=== PATIENT | female | born 1965 | race Caucasian/White ===

== ENCOUNTER 2020-12-29 19:57 | Observation (INO) | payer OTHER, SELFPAY ==
[2020-12-29] VITALS (30 sets, daily range): BP systolic 98–143; BP diastolic 44–94; PULSE 90–123; RESP 18–20; TEMP 36; O2SAT 94–100
--- NOTE | 2020-12-29 20:00 | RT.EKG_ITS ---
APPROVED REPORT Exam: Resting ECG Reason for Exam: tachy Patient Location: E HR:111 bpm ECG Measurements Heart Rate 111 AXIS CA 149 P 64 QRSd 86 QRS 34 QT 343 T 45 QTc 465 Conclusion Sinus tachycardia...rate> 99 Probable left atrial enlargement...P >50mS, <-0.10mV V1 Anteroseptal infarct, old...Q >40mS, V1-V2 Physician: No stemi, minimal less than 1mm elevation in V1 v2
--- NOTE | 2020-12-29 20:30 | DI.CT_ITS ---
Exam(s) CT HEAD NECK W EXAM: CT HEAD NECK W CLINICAL HISTORY: stroke. TECHNIQUE: Imaging Protocol: Axial CT angiography was performed with multi-slice acquisition and mu lti-planar and/or 3D reconstructions. CONTRAST MATERIAL: Intravenous: Omnipaque 350 Contrast volume:85 cc COMPARISON: CT HEAD NECK FACIAL WO from 06/16/2017 FINDINGS: CT Head W/O and W contrast: Ventricles and Extra axial spaces: Normal in size and morphology for the patient's age. Hemorrhage: None. Cerebral parenchyma: Normal. Midline shift: None. Brainstem/Cerebellum: Normal. Calvarium: Normal. Visualized Paranasal sinuses/Mastoids: Clear. Soft Tissues: Unremarkable. Enhancement: Normal. CTA Brain W: Internal Carotid Arteries: Petrous: Normal. Cavernous: Normal. Cerebral: Normal. Middle Cerebral Arteries: Right: No aneurysm, occlusion or significant stenosis. Left: No aneurysm, occlusion or significant stenosis. Anterior Cerebral Arteries: Right: No aneurysm, occlusion or significant stenosis. Left: No aneurysm, occlusion or significant stenosis. Posterior cerebral Arteries: Right: No aneurysm, occlusion or significant stenosis. Intracerebral portion hypoplastic. Left: No aneurysm, occlusion or significant stenosis. Intracerebral portion hypoplastic. Vertebral Arteries: Right: No aneurysm, occlusion or significant stenosis. hypoplastic. Left: No aneurysm, occlusion or significant stenosis. Hypoplastic. Basilar Artery: No aneurysm, occlusion or significant stenosis. Hypoplastic. CTA Neck W: Common Carotid: Right: No aneurysm, occlusion or significant stenosis. Left: No aneurysm, occlusion or significant stenosis. External Carotid: Right: No aneurysm, occlusion or significant stenosis. Left: No aneurysm, occlusion or significant stenosis. Internal Carotid: Right: No aneurysm, occlusion or significant stenosis. Left: No aneurysm, occlusion or significant stenosis. Vertebral Artery: Right: No aneurysm, occlusion or significant stenosis. Left: No aneurysm, occlusion or significant stenosis. Lung Apices: Normal. Bones: Normal. Soft Tissues: Normal. IMPRESSION: 1. Hypoplastic posterior circulation, otherwise normal CTA examination of the [place]. 2. Unremarkable CT Head. 3. Normal CTA examination of the neck. RADIATION DOSE DELIVERED: 1,942.86mGy.cm Total DLP DATA REPOSITORY: All CT scans at this facility are submitted to the National Radiology Data Registry (NRDR) Dose Index Registry (DIR) with the [employer] (ACR). RADIATION OPTIMIZATION: All CT scans at this facility use at least one of these dose optimization te chniques: automated exposure control; mA and/or kV adjustment per patient size (includes targeted exa ms where dose is matched to clinical indication); or iterative reconstruction.
[2020-12-29 20:57] LABS: Abs Immature Grans 0.02 10^3/uL (0.0-0.06); Absolute Basophil Count 0.08 10^3/uL (0.0-0.2); Absolute Eosinophil Count 0.37 10^3/uL (0.0-0.7); Absolute Lymphocyte Count 4.14 10^3/uL (1.2-3.4); Eosinophils % 4.7; HCT 37.3 % (36.0-46.0); HGB 12.3 g/dL (11.2-15.7); Immature Grans % 0.3; MCH 31.6 pg (27.0-33.0); MCV 95.9 fL (80-95); MPV 10.1 fL (8.0-11.0); Nucleated RBC 0 %; Platelet Count 326 10^3/uL (130-400); RBC 3.89 10^6/uL (3.93-5.22); RDW 13.2 % (11.7-14.6); RDW-SD 47.2 fL; WBC 7.81 10^3/uL (4.4-10.8)
[2020-12-29 21:14] LABS: ALT 26 U/L (14-59); AST 16 U/L (15-37); Albumin 3.9 g/dL (3.4-5.0); Alkaline Phosphatase 90 U/L (46-116); Anion Gap 9.8 mmol/L (3-11); BUN 15 mg/dL (7-18); Bilirubin, Total 0.2 mg/dL (0.2-1.0); CO2 27.2 mmol/L (21.0-32.0); Calcium 8.9 mg/dL (8.5-10.1); Chloride 105 mmol/L (98-107); Estimated GFR 57.15 (mL/min/1.73m2); Glucose 97 mg/dL (74-106); Magnesium 2.4 mg/dL (1.8-2.4); Potassium 3.9 mmol/L (3.5-5.1); Sodium 142 mmol/L (136-145)
[2020-12-29] MEDS: Omnipaque 350 MG/ML 100 ML BTL IJ (21:20)
[2020-12-29] MEDS: Normal Saline - Diluent 50 ML VIAL IV (21:21)
[2020-12-29 21:36] LABS: Prothrombin Time 9.9 sec (9.3-11.0)
--- NOTE | 2020-12-29 21:56 | ED.GENADUL_ITS ---
Discharge Plan Disposition Patient Disposition: [facility] INPATIENT Condition: Stable Discharge Details Primary Care Provider: Katie Starks ED Provider: Naomy Lucio Home Meds and New Rx's Prescriptions: No Action atorvastatin [Lipitor] 10 MG tablet 10 mg PO HS RF: 0 levothyroxine [Synthroid] 112 MCG tablet 150 mcg PO DAILY RF: 0 bupropion HCl [Wellbutrin XL] 300 mg Tablet Extended Release 24 Hr 300 mg PO DAILY RF: 0 lamotrigine 200 mg Tablet 200 mg PO BID RF: 0 Medical Decision Making patient presents with altered mental status. initial exam unremarkable but reports double vision lack of coordination. differentials: TIA, CVA, complex migraine, CTA head and neck and routine lab ordered. labs unremarkable. CTA shows hypoplastic vertebral arteries. given asa 325 mg and atorvastatin 40mg po. case discussed with DR Luna who accepts for observation admission for CVA evaluation Medical Records Medical records reviewed: Yes I reviewed the patient's medical records. Imaging Data Radiologic Study: Imaging: CT Scan Radiologist's impression: PROCEDURE INFORMATION: Exam: CT Angiography Head With Contrast, Arteriography Exam date and time: 12/29/2020 8:36 PM Clinical indication: Weakness, facial; Other: Cta neck; Patient HX: Facial weakness; Additional info: Non contrast head CT included, and head 5 minute delay post contrast and cta head and neck, please comment on all of the above in report. TECHNIQUE: Imaging protocol: Computed tomography angiography of the head with contrast. Exam focused on the arteries. COMPARISON: No relevant prior studies available. FINDINGS: ANTERIOR CIRCULATION: Right internal carotid artery: Unremarkable. Intracranial segment is patent with no significant stenosis. No aneurysm. Right middle cerebral artery: Unremarkable. No occlusion or significant stenosis. No aneurysm. Right anterior cerebral artery: Unremarkable. No occlusion or significant stenosis. No aneurysm. Left internal carotid artery: Unremarkable. Intracranial segment is patent with no significant stenosis. No aneurysm. Left middle cerebral artery: Unremarkable. No occlusion or significant stenosis. No aneurysm. Left anterior cerebral artery: Unremarkable. No occlusion or significant stenosis. No aneurysm. POSTERIOR CIRCULATION: Right vertebral artery: Hypoplastic intracerebral portion. Left vertebral artery: Hypoplastic intracerebral portion. Basilar artery: Hypoplastic Right posterior cerebral artery: Partially supplied by posterior communicating artery. Hypoplastic. Left posterior cerebral artery: Partially supplied by posterior communicating artery. Hypoplastic. Brain: No definite mass, mass effect, or midline shift. Cerebral ventricles: No ventriculomegaly. Bones/joints: Unremarkable. No acute fracture. Soft tissues: Unremarkable. IMPRESSION: 1. No large vessel stenosis or occlusion. 2. Hypoplastic posterior circulation. Lab Data Lab results reviewed: Yes I reviewed the patient's lab results. Lab results narrative: Laboratory Results - last 24 hr 12/29/20 12/29/20 12/29/20 20:20 20:20 20:32 WBC 7.81 RBC 3.89 L Hgb 12.3 Hct 37.3 MCV 95.9 H MCH 31.6 MCHC 33.0 RDW 13.2 Plt Count 326 MPV 10.1 Immature Gran % 0.3 Neutrophils % 32.0 Band Neutrophils % Lymphocytes % 53.0 Atypical Lymphs % Monocytes % 9.0 Eosinophils % 4.7 Basophils % 1.0 Metamyelocytes % Myelocytes % Promyelocytes % Other Cells % Nucleated RBC % 0 Absolute Neutrophils 2.50 Absolute Lymphocytes 4.14 H Absolute Monocytes 0.70 Absolute Eosinophils 0.37 Absolute Basophils 0.08 RBC Morphology Polychromasia Hypochromasia Poikilocytosis Basophilic Stippling Anisocytosis Microcytosis Macrocytosis Spherocytes Tear Drop Cells Ovalocytes Stomatocytes [place] Bodies [place] Cells/Echinocytes Acanthocytes (Spur) Schistocytes PT INR Sodium 142 Cancelled Potassium 3.9 Cancelled Chloride 105 Cancelled Carbon Dioxide 27.2 Cancelled Anion Gap 9.8 Cancelled BUN 15 Cancelled Creatinine 1.0 Cancelled Estimated GFR/1.73 m2 57.15 Cancelled Glucose 97 Cancelled Calcium 8.9 Cancelled Magnesium 2.4 Cancelled Total Bilirubin 0.2 Cancelled AST 16 Cancelled ALT 26 Cancelled Alkaline Phosphatase 90 Cancelled Troponin I Cancelled Total Protein 7.0 Cancelled Albumin 3.9 Cancelled 12/29/20 12/29/20 12/29/20 20:32 21:00 23:32 WBC Cancelled RBC Cancelled Hgb Cancelled Hct Cancelled MCV Cancelled MCH Cancelled MCHC Cancelled RDW Cancelled Plt Count Cancelled MPV Cancelled Immature Gran % Cancelled Neutrophils % Cancelled Band Neutrophils % Cancelled Lymphocytes % Cancelled Atypical Lymphs % Cancelled Monocytes % Cancelled Eosinophils % Cancelled Basophils % Cancelled Metamyelocytes % Cancelled Myelocytes % Cancelled Promyelocytes % Cancelled Other Cells % Cancelled Nucleated RBC % Cancelled Absolute Neutrophils Cancelled Absolute Lymphocytes Cancelled Absolute Monocytes Cancelled Absolute Eosinophils Cancelled Absolute Basophils Cancelled RBC Morphology Cancelled Polychromasia Cancelled Hypochromasia Cancelled Poikilocytosis Cancelled Basophilic Stippling Cancelled Anisocytosis Cancelled Microcytosis Cancelled Macrocytosis Cancelled Spherocytes Cancelled Tear Drop Cells Cancelled Ovalocytes Cancelled Stomatocytes Cancelled [place] Bodies Cancelled Meghna Cells/Echinocytes Cancelled Acanthocytes ([place]) Cancelled Schistocytes Cancelled PT 9.9 INR 1.0 Sodium Potassium Chloride Carbon Dioxide Anion Gap BUN Creatinine Estimated GFR/1.73 m2 Glucose Calcium Magnesium Total Bilirubin AST ALT Alkaline Phosphatase Troponin I Cancelled Total Protein Albumin HPI General Mode of arrival: ambulatory . Limitations to Documentation: no limitations . Information obtained by: patient . HPI Narrative: patient presents with c/o double vision, reported confusion, generalized uncoordinated movements. no similar history, no headache. sudden onset 35 minutes prior to arrival. has been in her usual state of health. Related Data Home Medications Medication Instructions Recorded Confirmed atorvastatin [Lipitor] 10 mg PO HS 06/16/17 12/29/20 levothyroxine [Synthroid] 150 mcg PO DAILY 06/16/17 12/29/20 bupropion HCl [Wellbutrin XL] 300 mg PO DAILY 12/29/20 12/29/20 lamotrigine 200 mg PO BID 12/29/20 12/29/20 Allergies Allergy/AdvReac Type Severity Reaction Status Date / Time No Known Allergies Allergy Unverified 06/16/17 08:25 General Stated Complaint: GenMedical LINDY: 3 Review of Systems All systems reviewed & are unremarkable except as noted in HPI and below Constitutional Constitutional: Denies fever(s), Denies headache(s) and Reports weakness (generalized) Eyes Eyes: Reports diplopia ENT Ears, Nose, Mouth, and Throat: Denies vertigo and Denies headache(s) Cardiovascular Cardiovascular: Denies chest pain and Denies dyspnea Respiratory Respiratory: Denies dyspnea Gastrointestinal Gastrointestinal: Denies nausea Integumentary/Breasts Skin/Breast: Denies rash Neurologic Neurologic: Reports confusion, Denies vertigo, Denies headache(s), Reports lack of coordination and Reports weakness (generalized) Psychiatric Psychiatric: Reports confusion PFSH Social History Smoking/Tobacco Use Status: Never Smoking risk assessment performed?: Yes Alcohol Intake: never Substance use type: does not use Do you feel safe at home: Yes Do you feel safe in your relationship?: Yes Exam Const General: cooperative, healthy appearing, comfortable, no acute distress and anxious Nutritional Appearance: thin Orientation: alert, awake and oriented x3 HENMT Head: normal to inspection, normocephalic and atraumatic Mouth: oral mucosae normal Resp Effort & Inspection: normal respiratory effort Auscultation: clear to auscultation bilaterally Cardio Rate: regular rate Rhythm: regular rhythm GI Inspection: normal to inspection Palpation: soft and nontender Skin General skin exam: no rashes or lesions noted Neuro General: patient alert, patient awake and patient oriented x3 Cranial Nerves: CN's II-XI intact bilaterally, PERRL, EOM intact bilaterally, no nystagmus, facial strength normal, tongue midline and able to elevate shoulders bilaterally Cognition: normal cognition Speech: speech normal Motor: muscle tone normal throughout, strength 5/5 throughout and no tremors Sensory Exam: no sensory deficits noted Coordination: [id number] test normal Extrem General: normal to inspection, full ROM, no pedal edema and no calf tenderness Course Vital Signs Vital signs: Vital Signs Pulse 123 H 12/29/20 20:04 Respiratory Rate 20 12/29/20 20:04 Blood Pressure 143/94 H 12/29/20 20:04 Pulse Oximetry 100 12/29/20 20:04 Pulse 123 H 12/29/20 20:04 Respiratory Rate 18 12/29/20 20:31 Respiratory Effort Non-Labored 12/29/20 20:31 Respiratory Depth Normal 12/29/20 20:31 Respiratory Pattern Normal 12/29/20 20:31 Blood Pressure 143/94 H 12/29/20 20:04 Blood Pressure Position Supine 12/29/20 20:04 Pulse Oximetry 100 12/29/20 20:04 Oxygen Delivery Method Room Air 12/29/20 20:04 Oxygen Flow Rate 0 12/29/20 20:04 Pain Level 0 12/29/20 20:04 Lab/Test Results Lab/Test Results: Laboratory Tests Range/Units 12/29/20 12/29/20 12/29/20 20:20 20:20 20:32 WBC (4.4-10.8) 10^3/uL 7.81 RBC (3.93-5.22) 10^6/uL 3.89 L Hgb (11.2-15.7) g/dL 12.3 Hct (36.0-46.0) % 37.3 MCV (80-95) fL 95.9 H MCH (27.0-33.0) pg 31.6 MCHC (32.0-36.0) % 33.0 RDW (11.7-14.6) % 13.2 Plt Count (130-400) 10^3/uL 326 MPV (8.0-11.0) fL 10.1 Immature Gran % 0.3 Neutrophils % 32.0 Band Neutrophils % Lymphocytes % 53.0 Atypical Lymphs % Monocytes % 9.0 Eosinophils % 4.7 Basophils % 1.0 Metamyelocytes % Myelocytes % Promyelocytes % Other Cells % Nucleated RBC % % 0 Absolute Neutrophils (1.2-6.7) 10^3/uL 2.50 Absolute Lymphocytes (1.2-3.4) 10^3/uL 4.14 H Absolute Monocytes (0.1-0.8) 10^3/uL 0.70 Absolute Eosinophils (0.0-0.7) 10^3/uL 0.37 Absolute Basophils (0.0-0.2) 10^3/uL 0.08 RBC Morphology Polychromasia Hypochromasia Poikilocytosis Basophilic Stippling Anisocytosis Microcytosis Macrocytosis Spherocytes Tear Drop Cells Ovalocytes Stomatocytes [place] Bodies Meghna Cells/Echinocytes Acanthocytes (Spur) Schistocytes PT (9.3-11.0) sec INR (0.9-1.1) Sodium (136-145) mmol/L 142 Cancelled Potassium (3.5-5.1) mmol/L 3.9 Cancelled Chloride (98-107) mmol/L 105 Cancelled Carbon Dioxide (21.0-32.0) mmol/L 27.2 Cancelled Anion Gap (3-11) mmol/L 9.8 Cancelled BUN (7-18) mg/dL 15 Cancelled Creatinine (0.55-1.02) mg/dL 1.0 Cancelled Estimated GFR/1.73 m2 (mL/min/1.73m2) 57.15 Cancelled Glucose (74-106) mg/dL 97 Cancelled Calcium (8.5-10.1) mg/dL 8.9 Cancelled Magnesium (1.8-2.4) mg/dL 2.4 Cancelled Total Bilirubin (0.2-1.0) mg/dL 0.2 Cancelled AST (15-37) U/L 16 Cancelled ALT (14-59) U/L 26 Cancelled Alkaline Phosphatase (46-116) U/L 90 Cancelled Troponin I Cancelled Total Protein (6.4-8.2) g/dL 7.0 Cancelled Albumin (3.4-5.0) g/dL 3.9 Cancelled Range/Units 12/29/20 12/29/20 12/29/20 20:32 21:00 23:32 WBC (4.4-10.8) 10^3/uL Cancelled RBC (3.93-5.22) 10^6/uL Cancelled Hgb (11.2-15.7) g/dL Cancelled Hct (36.0-46.0) % Cancelled MCV (80-95) fL Cancelled MCH (27.0-33.0) pg Cancelled MCHC (32.0-36.0) % Cancelled RDW (11.7-14.6) % Cancelled Plt Count (130-400) 10^3/uL Cancelled MPV (8.0-11.0) fL Cancelled Immature Gran % Cancelled Neutrophils % Cancelled Band Neutrophils % Cancelled Lymphocytes % Cancelled Atypical Lymphs % Cancelled Monocytes % Cancelled Eosinophils % Cancelled Basophils % Cancelled Metamyelocytes % Cancelled Myelocytes % Cancelled Promyelocytes % Cancelled Other Cells % Cancelled Nucleated RBC % % Cancelled Absolute Neutrophils (1.2-6.7) 10^3/uL Cancelled Absolute Lymphocytes (1.2-3.4) 10^3/uL Cancelled Absolute Monocytes (0.1-0.8) 10^3/uL Cancelled Absolute Eosinophils (0.0-0.7) 10^3/uL Cancelled Absolute Basophils (0.0-0.2) 10^3/uL Cancelled RBC Morphology Cancelled Polychromasia Cancelled Hypochromasia Cancelled Poikilocytosis Cancelled Basophilic Stippling Cancelled Anisocytosis Cancelled Microcytosis Cancelled Macrocytosis Cancelled Spherocytes Cancelled Tear Drop Cells Cancelled Ovalocytes Cancelled Stomatocytes Cancelled [place] Bodies Cancelled [place] Cells/Echinocytes Cancelled Acanthocytes ([place]) Cancelled Schistocytes Cancelled PT (9.3-11.0) sec 9.9 INR (0.9-1.1) 1.0 Sodium (136-145) mmol/L Potassium (3.5-5.1) mmol/L Chloride (98-107) mmol/L Carbon Dioxide (21.0-32.0) mmol/L Anion Gap (3-11) mmol/L BUN (7-18) mg/dL Creatinine (0.55-1.02) mg/dL Estimated GFR/1.73 m2 (mL/min/1.73m2) Glucose (74-106) mg/dL Calcium (8.5-10.1) mg/dL Magnesium (1.8-2.4) mg/dL Total Bilirubin (0.2-1.0) mg/dL AST (15-37) U/L ALT (14-59) U/L Alkaline Phosphatase (46-116) U/L Troponin I Cancelled Total Protein (6.4-8.2) g/dL Albumin (3.4-5.0) g/dL
--- NOTE | 2020-12-29 22:50 | DI.VRAD_ITS ---
Addendum created by Narendra Claudio DO on 12/29/2020 10:55:07 PM EDT: THIS REPORT CONTAINS FINDINGS THAT MAY BE CRITICAL TO PATIENT CARE. The findings were verbally communicated via telephone conference with Dr. Condon, 12/29/2020 10:54 PM EDT. The findings were acknowledged and understood. Reportedly the patient had a short period with vertiginous symptoms and poor coordination, since resolved. Initial report created on 12/29/2020 10:50:03 PM EDT: PROCEDURE INFORMATION: Exam: CT Angiography Head With Contrast, Arteriography Exam date and time: 12/29/2020 8:36 PM Clinical indication: Weakness, facial; Other: Cta neck; Patient HX: Facial weakness; Additional info: Non contrast head CT included, and head 5 minute delay post contrast and cta head and neck, please comment on all of the above in report. TECHNIQUE: Imaging protocol: Computed tomography angiography of the head with contrast. Exam focused on the arteries. COMPARISON: No relevant prior studies available. FINDINGS: ANTERIOR CIRCULATION: Right internal carotid artery: Unremarkable. Intracranial segment is patent with no significant stenosis. No aneurysm. Right middle cerebral artery: Unremarkable. No occlusion or significant stenosis. No aneurysm. Right anterior cerebral artery: Unremarkable. No occlusion or significant stenosis. No aneurysm. Left internal carotid artery: Unremarkable. Intracranial segment is patent with no significant stenosis. No aneurysm. Left middle cerebral artery: Unremarkable. No occlusion or significant stenosis. No aneurysm. Left anterior cerebral artery: Unremarkable. No occlusion or significant stenosis. No aneurysm. POSTERIOR CIRCULATION: Right vertebral artery: Hypoplastic intracerebral portion. Left vertebral artery: Hypoplastic intracerebral portion. Basilar artery: Hypoplastic Right posterior cerebral artery: Partially supplied by posterior communicating artery. Hypoplastic. Left posterior cerebral artery: Partially supplied by posterior communicating artery. Hypoplastic. Brain: No definite mass, mass effect, or midline shift. Cerebral ventricles: No ventriculomegaly. Bones/joints: Unremarkable. No acute fracture. Soft tissues: Unremarkable. IMPRESSION: 1. No large vessel stenosis or occlusion. 2. Hypoplastic posterior circulation. PROCEDURE INFORMATION: Exam: CT Head With Contrast Exam date and time: 12/29/2020 8:36 PM Age: 55 years old Clinical indication: Weakness, facial; Other: Cta neck; Patient HX: Facial weakness; Additional info: Non contrast head CT included, and head 5 minute delay post contrast and cta head and neck, please comment on all of the above in report. TECHNIQUE: Imaging protocol: Computed tomography of the head with intravenous contrast. 3D rendering (Not supervised by radiologist): MIP and/or 3D reconstructed images were created by the technologist. Radiation optimization: All CT scans at this facility use at least one of these dose optimization techniques: automated exposure control; mA and/or kV adjustment per patient size (includes targeted exams where dose is matched to clinical indication); or iterative reconstruction. Contrast material: OMNIPAQUE 350; Contrast route: INTRAVENOUS (IV); COMPARISON: CT HEAD NECK FACIAL WO 06/16/2017 9:25 AM FINDINGS: Brain: There is mild diffuse cerebral atrophy present, consistent with this patient's age. No hemorrhage. Unremarkable white matter. No mass effect. No abnormal enhancing lesions. Cerebral ventricles: Unremarkable. No ventriculomegaly. Bones/joints: Unremarkable. No acute fracture. Paranasal sinuses: Mucoperiosteal thickening in left sphenoid sinus. Several opacified ethmoid air cells. Small cyst or polyp in right sphenoid sinus. No fluid levels. Mastoid air cells: Visualized mastoid air cells are well aerated. Vasculature: Homogeneous enhancement of venous sinuses. Soft tissues: Unremarkable. IMPRESSION: 1. No acute intracranial abnormality. 2. No abnormal areas of brain parenchymal enhancement. 3. Sinus disease. PROCEDURE INFORMATION: Exam: CT Angiography Neck With Contrast Exam date and time: 12/29/2020 8:36 PM Clinical indication: Weakness, facial; Other: Cta neck; Patient HX: Facial weakness; Additional info: Non contrast head CT included, and head 5 minute delay post contrast and cta head and neck, please comment on all of the above in report. TECHNIQUE: Imaging protocol: Computed tomography angiography of the neck with contrast. COMPARISON: No relevant prior studies available. FINDINGS: Right common carotid artery: Atherosclerotic calcification distally No stenosis. No dissection or occlusion. Right internal carotid artery: No stenosis of the extracranial segment. No dissection or occlusion. Right external carotid artery: No occlusion or stenosis of the origin. Left common carotid artery: No stenosis. No dissection or occlusion. Left internal carotid artery: Atherosclerotic calcification at origin. No stenosis of the extracranial segment. No dissection or occlusion. Left external carotid artery: No occlusion or stenosis of the origin. Right vertebral artery: No stenosis. No dissection or occlusion. Left vertebral artery: No stenosis. No dissection or occlusion. Soft tissues: Normal. No significant soft tissue swelling. Bones/joints: No acute fracture. Lungs: Dependent subsegmental atelectasis. Biapical pleuroparenchymal scarring. IMPRESSION: No stenosis or occlusion. REFERENCES: NASCET CRITERIA. The degree of internal carotid artery stenosis is based on NASCET criteria. Normal is no stenosis. Mild is less than 50% stenosis. Moderate is 50-69% stenosis. Severe is 70% to 99% stenosis. Total occlusion is no detectable patent lumen. Dictated and Authenticated by: Narendra Claudio MD. Ordering:LAURA Moralez MD
[2020-12-29] MEDS: Aspirin 325 MG TAB PO (23:17)
[2020-12-29] MEDS: Atorvastatin 40 MG TAB PO (23:17)
--- NOTE | 2020-12-29 23:20 | W.PM.HP.N ---
Date of service: 12/29/20 Time of Service: 23:21 Assessment and Plan Assessment and plan (1) TIA (transient ischemic attack): Status: Acute Assessment and plan: referred to observation on telemetry with neuro checks overnight asa 325mg and atorvastatin 40 mg PO given MRI and echo in am neurology consult (2) Hypothyroidism: Status: Chronic Assessment and plan: continue levothyroxine check TSH (3) Dyslipidemia: Status: Acute Assessment and plan: add lipid profile continue statin (4) Breast cancer: Status: Chronic Assessment and plan: treated and in remission discussed with DR Luna History of Present Illness History of Present Illness Chief Complaint: altered mental status Narrative: patient presents with c/o lack of coordination, double vision, confusion, feeling drunk. no similar history, no headache or nausea, no recent illness. work up in the ED shows normal labs but CTA shows hypoplastic vertebral arteries. symptoms resolved spontaneously after approx 1 hour. she was given asa 325 mg and atorvastatin 40 mg and will be referred to observation on telemetry for stroke work up. symptoms remain resolved at time of admission Review of Systems All systems reviewed & are unremarkable except as noted in HPI and below Constitutional Constitutional: Denies fever(s), Denies headache(s) and Reports weakness (generalized) Eyes Eyes: Reports diplopia ENT Ears, Nose, Mouth, and Throat: Denies vertigo and Denies headache(s) Cardiovascular Cardiovascular: Denies chest pain and Denies dyspnea Respiratory Respiratory: Denies dyspnea Gastrointestinal Gastrointestinal: Denies nausea Integumentary/Breasts Skin/Breast: Denies rash Neurologic Neurologic: Reports confusion, Denies vertigo, Denies headache(s), Reports lack of coordination and Reports weakness (generalized) Psychiatric Psychiatric: Reports confusion PFSH Social History Smoking/Tobacco Use Status: Never Smoking risk assessment performed?: Yes Alcohol Intake: never Substance use type: does not use Do you feel safe at home: Yes Do you feel safe in your relationship?: Yes Meds Allergies and Home Medications Allergies Allergy/AdvReac Type Severity Reaction Status Date / Time No Known Allergies Allergy Unverified 06/16/17 08:25 Home Medications Medication Instructions Recorded Confirmed Type atorvastatin [Lipitor] 10 mg PO HS 06/16/17 12/29/20 History levothyroxine [Synthroid] 150 mcg PO DAILY 06/16/17 12/29/20 History bupropion HCl [Wellbutrin XL] 300 mg PO DAILY 12/29/20 12/29/20 History lamotrigine 200 mg PO BID 12/29/20 12/29/20 History Exam Const General: cooperative, healthy appearing, comfortable, no acute distress and anxious Nutritional Appearance: thin Orientation: alert, awake and oriented x3 HENMT Head: normal to inspection, normocephalic and atraumatic Mouth: oral mucosae normal Resp Effort & Inspection: normal respiratory effort Auscultation: clear to auscultation bilaterally Cardio Rate: regular rate Rhythm: regular rhythm GI Inspection: normal to inspection Palpation: soft and nontender Skin General skin exam: no rashes or lesions noted Neuro General: patient alert, patient awake and patient oriented x3 Cranial Nerves: CN's II-XI intact bilaterally, PERRL, EOM intact bilaterally, no nystagmus, facial strength normal, tongue midline and able to elevate shoulders bilaterally Cognition: normal cognition Speech: speech normal Motor: muscle tone normal throughout, strength 5/5 throughout and no tremors Sensory Exam: no sensory deficits noted Coordination: [id number] test normal Extrem General: normal to inspection, full ROM, no pedal edema and no calf tenderness Results Labs Result diagrams: 12/29/20 20:20 12/29/20 20:20 Labs: Laboratory Results - last 24 hr 12/29/20 12/29/20 12/29/20 20:20 20:20 20:32 WBC 7.81 RBC 3.89 L Hgb 12.3 Hct 37.3 MCV 95.9 H MCH 31.6 MCHC 33.0 RDW 13.2 Plt Count 326 MPV 10.1 Immature Gran % 0.3 Neutrophils % 32.0 Band Neutrophils % Lymphocytes % 53.0 Atypical Lymphs % Monocytes % 9.0 Eosinophils % 4.7 Basophils % 1.0 Metamyelocytes % Myelocytes % Promyelocytes % Other Cells % Nucleated RBC % 0 Absolute Neutrophils 2.50 Absolute Lymphocytes 4.14 H Absolute Monocytes 0.70 Absolute Eosinophils 0.37 Absolute Basophils 0.08 RBC Morphology Polychromasia Hypochromasia Poikilocytosis Basophilic Stippling Anisocytosis Microcytosis Macrocytosis Spherocytes Tear Drop Cells Ovalocytes Stomatocytes [place] Bodies Meghna Cells/Echinocytes Acanthocytes (Spur) Schistocytes PT INR Sodium 142 Cancelled Potassium 3.9 Cancelled Chloride 105 Cancelled Carbon Dioxide 27.2 Cancelled Anion Gap 9.8 Cancelled BUN 15 Cancelled Creatinine 1.0 Cancelled Estimated GFR/1.73 m2 57.15 Cancelled Glucose 97 Cancelled Calcium 8.9 Cancelled Magnesium 2.4 Cancelled Total Bilirubin 0.2 Cancelled AST 16 Cancelled ALT 26 Cancelled Alkaline Phosphatase 90 Cancelled Troponin I Cancelled Total Protein 7.0 Cancelled Albumin 3.9 Cancelled 12/29/20 12/29/20 12/29/20 20:32 21:00 23:32 WBC Cancelled RBC Cancelled Hgb Cancelled Hct Cancelled MCV Cancelled MCH Cancelled MCHC Cancelled RDW Cancelled Plt Count Cancelled MPV Cancelled Immature Gran % Cancelled Neutrophils % Cancelled Band Neutrophils % Cancelled Lymphocytes % Cancelled Atypical Lymphs % Cancelled Monocytes % Cancelled Eosinophils % Cancelled Basophils % Cancelled Metamyelocytes % Cancelled Myelocytes % Cancelled Promyelocytes % Cancelled Other Cells % Cancelled Nucleated RBC % Cancelled Absolute Neutrophils Cancelled Absolute Lymphocytes Cancelled Absolute Monocytes Cancelled Absolute Eosinophils Cancelled Absolute Basophils Cancelled RBC Morphology Cancelled Polychromasia Cancelled Hypochromasia Cancelled Poikilocytosis Cancelled Basophilic Stippling Cancelled Anisocytosis Cancelled Microcytosis Cancelled Macrocytosis Cancelled Spherocytes Cancelled Tear Drop Cells Cancelled Ovalocytes Cancelled Stomatocytes Cancelled [place] Bodies Cancelled Vesta Cells/Echinocytes Cancelled Acanthocytes (Spur) Cancelled Schistocytes Cancelled PT 9.9 INR 1.0 Sodium Potassium Chloride Carbon Dioxide Anion Gap BUN Creatinine Estimated GFR/1.73 m2 Glucose Calcium Magnesium Total Bilirubin AST ALT Alkaline Phosphatase Troponin I Cancelled Total Protein Albumin Last Vital Signs Pulse 98 H 12/29/20 23:00 Resp 18 12/29/20 20:31 BP 116/61 12/29/20 23:00 Pulse Ox 97 12/29/20 23:10
[2020-12-29 23:32] LABS: Source Nasal/Nares
[2020-12-30 00:03] VITALS: BP 136/78; PULSE 91; RESP 18; TEMP 36; O2SAT 99
[2020-12-30 00:23] LABS: COVID-19 PCR Negative (Negative)
[2020-12-30] MEDS: Melatonin 3 MG TAB 6 MG PO (00:26)
[2020-12-30 03:01] VITALS: BP 101/62; PULSE 87; RESP 18; TEMP 36.5; O2SAT 96
[2020-12-30 07:00] VITALS: PULSE 80
[2020-12-30 07:17] LABS: Abs Immature Grans 0.01 10^3/uL (0.0-0.06); Absolute Basophil Count 0.04 10^3/uL (0.0-0.2); Absolute Eosinophil Count 0.35 10^3/uL (0.0-0.7); Absolute Lymphocyte Count 2.82 10^3/uL (1.2-3.4); Absolute Monocyte Count 0.51 10^3/uL (0.1-0.8); Absolute Neutrophil Count 2.31 10^3/uL (1.2-6.7); Basophils % 0.7; Eosinophils % 5.8; HGB 11.7 g/dL (11.2-15.7); Immature Grans % 0.2; Lymphocytes % 46.7; MCH 31.5 pg (27.0-33.0); MCHC 32.5 % (32.0-36.0); Monocytes % 8.4; Neutrophils % 38.2; Nucleated RBC 0 %; Platelet Count 287 10^3/uL (130-400); RBC 3.71 10^6/uL (3.93-5.22); RDW 13.2 % (11.7-14.6); RDW-SD 47.2 fL; WBC 6.04 10^3/uL (4.4-10.8)
[2020-12-30 07:37] LABS: Anion Gap 7.4 mmol/L (3-11); BUN 10 mg/dL (7-18); CO2 28.6 mmol/L (21.0-32.0); CREATININE 0.9 mg/dL (0.55-1.02); Calcium 8.7 mg/dL (8.5-10.1); Calculated LDL 113 mg/dL (<100); Chloride 109 mmol/L (98-107); Cholesterol 205 mg/dL (<200); Glucose 85 mg/dL (74-106); HDL Cholesterol 87 mg/dL (40-60); Potassium 3.8 mmol/L (3.5-5.1); Sodium 145 mmol/L (136-145); TSH (W/Ref FT4) 1.06 uIU/mL (0.36-3.74); Triglyceride 28 mg/dL (<150)
[2020-12-30 07:38] VITALS: BP 97/62; PULSE 77; RESP 16; TEMP 36.7; O2SAT 97
--- NOTE | 2020-12-30 08:00 | DI.MRI_ITS ---
Exam(s) MR BRAIN WO EXAM: MR BRAIN WO CLINICAL HISTORY: TIA, hypoplastic vertebral arteries. TECHNIQUE: Multiplanar multisequence MRI of the brain was performed. CONTRAST MATERIAL: Noncontrast COMPARISON: CT CT HEAD NECK W from 12/29/2020 FINDINGS: VENTRICLES AND EXTRA AXIAL SPACES: Normal in size and morphology for the patient's age. HEMORRHAGE: None. CEREBRAL PARENCHYMA: No focus of restricted diffusion to suggest acute infarct. No space-occupying le deandre identified. No abnormal high signal lesions are seen in the white matter. MIDLINE SHIFT: None. BRAINSTEM/CEREBELLUM: Normal. VISUALIZED PARANASAL SINUSES/MASTOIDS: Clear. OTHER FINDINGS: The distal vertebral arteries as well as basilar artery and posterior cerebral arteri es show patent flow voids however show reduced overall diameter consistent with hypoplastic changes. Orbits and pituitary are unremarkable. IMPRESSION: Hypoplastic posterior circulation. No evidence of infarct. No significant white matter changes. DATA REPOSITORY:
[2020-12-30] MEDS: Ondansetron 4 MG/2 ML VIAL IVP (08:35)
[2020-12-30] MEDS: Normal Saline Flush 10 ML SYR (08:35)
--- NOTE | 2020-12-30 08:36 | PDOC.CMIN ---
- If Service Date Differs Date of service: 12/30/20 Time of Service: 08:36 Care Management Initial Assess REASON FOR HOSPITALIZATION:: TIA PAST MEDICAL HISTORY/PAST SURGICAL HISTORY:: Breast cancer, dyslipidemia, hypothryoidism, TIA PREVIOUS FUNCTIONAL STATUS/SOCIAL/FAMILY SUPPORTS:: Cherrie resides in [place] with her significant other, Marquis. Their daughterSonam is local and supportive as well. 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. CURRENT FUNCTIONAL STATUS:: Cherrie is lying in bed, pleasant in interaction. She provides insurance information and shares no concerns central to discharge. ADVANCE DIRECTIVES:: None on file, HIPPA on file lists daughterSonam. Has patient been provided with info about the portal/API?: No Did the patient sign up for the portal?: No CODE STATUS:: Full Code INSURANCE COVERAGE / FINANCIAL ISSUES:: [employer] CURRENT HOME/COMMUNITY SERVICES/EQUIPMENT:: None, currently. PRIMARY CARE PHYSICIAN:: Katie Starks POTENTIAL DISCHARGE NEEDS:: Evaluations for further care; TIA workup. PATIENT/FAMILY EDUCATION NEEDS:: Review discharge instructions, discuss Ask Me Three. ANTICIPATED BARRIERS TO DISCHARGE:: None identified. TRANSPORTATION:: Via private vehicle with family. PLAN:: Cherrie will return home when ready per MD. She will follow up with PCP and plan of care as prescribed. She will transport via private vehicle with family.
[2020-12-30] MEDS: buPROPion-XL 150 MG TABCR 300 MG PO (09:18)
[2020-12-30] MEDS: lamoTRIgine 100 MG TAB 200 MG PO (09:18)
[2020-12-30] MEDS: Aspirin E.C. 81 MG TABEC PO (09:18)
[2020-12-30] MEDS: Levothyroxine 150 MCG TAB PO (09:18)
[2020-12-30] MEDS: Normal Saline 1,000 ML 1000 ML IV (09:18)
[2020-12-30] MEDS: Normal Saline 1,000 ML 100 ML IV (10:30)
--- NOTE | 2020-12-30 11:23 | W.PM.DS.N ---
Date of service: 12/30/20 Time of Service: 11:24 DS: Diagnosis Discharge Diagnosis (1) TIA (transient ischemic attack): Status: Acute (2) Hypothyroidism: Status: Chronic (3) Dyslipidemia: Status: Acute (4) Breast cancer: Status: Chronic Discharge Plan Disposition Patient Disposition: HOME Condition: Stable Discharge Details Reason For Visit: TIA Admit Date/Time: 12/29/20 23:05 Admit Provider: Bhaskar Luna Attending Provider: Bhaskar Luna Primary Care Provider: Katie Starks [facility] Course Hospital Course: This is a 55 year old female who presented to the ED after approx 30 minutes of sudden onset of double vision, unsteadiness, confusion, bilateral weakness denying any previous similar history. Her neurology exam was nonfocal and imaging revealed bilateral hypoplastic vertebral arteries. Her labs unremarkable. She was given 325 mg of ASA and 40 mg of atorvastatin in the ED. Her EKG shows normal sinus rhythm and she had no dysrhythmias while monitored on telemetry overnight. She was noted to have SBP in the 90's which she reports is baseline for her, otherwise vitals stable. She had complete resolution of her symptoms after about one hour total duration. she has remained at her baseline and asymptomatic. She underwent an EEG, results pending. Also a lamictal level is pending. Echo not available so will be ordered for outpatient. Her [place] was [place] [facility] [place] recommends to continue TIA work up outpatient as planned, to add asa 81 mg daily to meds and can continue atorvastatin at 10 mg daily after reviewing her lipid profile from this morning. She is being placed on an event recorder and will be discharged home with no services. discharge discussed with DR Jamar Orozco Meds and New Rx's Prescriptions: New aspirin [Aspirin Low Dose] 81 mg tablet,delayed release (DR/EC) 81 mg PO DAILY Qty: 1 RF: 0 Continued atorvastatin [Lipitor] 10 MG tablet 10 mg PO HS RF: 0 levothyroxine [Synthroid] 112 MCG tablet 150 mcg PO DAILY RF: 0 bupropion HCl [Wellbutrin XL] 300 mg Tablet Extended Release 24 Hr 300 mg PO DAILY RF: 0 lamotrigine 200 mg Tablet 200 mg PO BID RF: 0 Discharge Instructions Instructions: Transient Ischemic Attack (DC) Additional Instructions: drink 6-8 glasses of water daily to stay well hydrated. wear satellite project site monitor as directed. add baby aspirin to you daily medication regimen return immediately for new or worsening symptoms Stand Alone Forms: Nursing Discharge Form Referrals: Ying Morales MD [ [facility] STAFF PHYSICIAN] - (Office will call with appointment. ) Activity:: Activity as Tolerated Equipment/Supplies:: No Equipment Needed Diet:: As Tolerated Discharge Orders Discharge Orders: Discharge Order (Routine); Ordered 12/30/20 Ordered By: Naomy Lucio Other Ambulatory Orders: Cardiac Event Recorder (Routine) Timeframe: 20201230 Facility: [facility] - Location: Respiratory Therapy Ordered By: Naoym Lucio echocardiogram (Routine) Location: None Selected Ordered By: Naomy Lucio Discharge Data Discharge Date/Time-TO BE ENTERED AT DEPARTURE: 12/30/20 13:37 DS: Summary Time Spent with Patient providing and/or coordinating discharge services: Less than 30 minutes Status at Discharge Functional status at discharge: independent ambulation Overall status at discharge: patient is back to baseline Mental Status: mental status grossly normal Speech and Movement: speech and movement normal Mood: congruent mood Affect: normal affect Exam Const General: cooperative, healthy appearing, comfortable and no acute distress Nutritional Appearance: thin Orientation: alert, awake and oriented x3 HENMT Head: normal to inspection, normocephalic and atraumatic Mouth: oral mucosae normal Chest Chest: normal inspection of the chest Resp Effort & Inspection: normal respiratory effort Auscultation: clear to auscultation bilaterally Cardio Rate: regular rate Rhythm: regular rhythm GI Inspection: normal to inspection Palpation: soft and nontender Skin General skin exam: no rashes or lesions noted Neuro General: patient alert, patient awake and patient oriented x3 Cranial Nerves: CN's II-XI intact bilaterally, PERRL, EOM intact bilaterally, no nystagmus, facial strength normal, tongue midline, gag reflex normal, able to rotate head bilaterally and able to elevate shoulders bilaterally Cognition: normal cognition Speech: speech normal Gait: normal gait Motor: muscle tone normal throughout, strength 5/5 throughout and no tremors Sensory Exam: no sensory deficits noted Coordination: [id number] test normal Extrem General: normal to inspection, full ROM, no pedal edema and no calf tenderness Psych Mental Status: mental status grossly normal Speech and Movement: speech and movement normal Mood: congruent mood Affect: normal affect DS: Data Vitals/I&O Vitals and I&O: Vital Signs Temperature 36.7 C 12/30/20 07:38 Temperature Source Tympanic 12/30/20 07:38 Pulse 77 12/30/20 07:38 Pulse Rhythm Regular 12/30/20 00:03 Pulse 100 H 12/29/20 23:10 Respiratory Rate 16 12/30/20 07:38 Respiratory Effort 12/30/20 00:03 Respiratory Depth Normal 12/30/20 00:03 Respiratory Pattern Normal 12/30/20 00:03 Blood Pressure 97/62 L 12/30/20 07:38 Blood Pressure Mean 73 12/29/20 23:00 Blood Pressure Position Supine 12/29/20 20:04 Pulse Oximetry 97 12/30/20 07:38 Oxygen Delivery Method Room Air 12/30/20 07:38 Oxygen Flow Rate 0 12/30/20 07:38 Pain Level 0 12/30/20 07:45 Comment 12/30/20 07:45 Intake & Output 12/29/20 12/29/20 12/30/20 11:59 23:59 11:59 Intake Total 1240 / 1240 Output Total 1600 / 1600 Balance -360 / -360 Weight 58.967 kg 56 kg Intake: IV 1000 / 1000 Oral 240 / 240 Output: Urine 1600 / 1600 Other: Urine Color Straw Urine Appearance Clear Urine Odor Normal Comment Void x1 in the toilet. Voiding Methods Toilet Data Completed and Pending Labs on day of discharge: Labs from last 24 hours 12/30/20 12/30/20 12/30/20 10:43 06:22 06:22 WBC 6.04 RBC 3.71 L Hgb 11.7 Hct 36.0 MCV 97.0 H MCH 31.5 MCHC 32.5 RDW 13.2 Plt Count 287 MPV 10.0 Immature Gran % 0.2 Neutrophils % 38.2 Band Neutrophils % Lymphocytes % 46.7 Atypical Lymphs % Monocytes % 8.4 Eosinophils % 5.8 Basophils % 0.7 Metamyelocytes % Myelocytes % Promyelocytes % Other Cells % Nucleated RBC % 0 Absolute Neutrophils 2.31 Absolute Lymphocytes 2.82 Absolute Monocytes 0.51 Absolute Eosinophils 0.35 Absolute Basophils 0.04 RBC Morphology Polychromasia Hypochromasia Poikilocytosis Basophilic Stippling Anisocytosis Microcytosis Macrocytosis Spherocytes Tear Drop Cells Ovalocytes Stomatocytes [place] Bodies Meghna Cells/Echinocytes Acanthocytes (Spur) Schistocytes PT INR Sodium 145 Potassium 3.8 Chloride 109 H Carbon Dioxide 28.6 Anion Gap 7.4 BUN 10 Creatinine 0.9 Estimated GFR/1.73 m2 >= 60.00 Glucose 85 Calcium 8.7 Magnesium Total Bilirubin AST ALT Alkaline Phosphatase Troponin I Total Protein Albumin Triglycerides 28 Total Cholesterol 205 H LDL Cholesterol, Calc 113 H HDL Cholesterol 87 TSH 1.06 Lamotrigine Pending COVID-19 Source SARS-CoV-2 (PCR) 12/29/20 12/29/20 12/29/20 23:32 23:22 21:00 WBC RBC Hgb Hct MCV MCH MCHC RDW Plt Count MPV Immature Gran % Neutrophils % Band Neutrophils % Lymphocytes % Atypical Lymphs % Monocytes % Eosinophils % Basophils % Metamyelocytes % Myelocytes % Promyelocytes % Other Cells % Nucleated RBC % Absolute Neutrophils Absolute Lymphocytes Absolute Monocytes Absolute Eosinophils Absolute Basophils RBC Morphology Polychromasia Hypochromasia Poikilocytosis Basophilic Stippling Anisocytosis Microcytosis Macrocytosis Spherocytes Tear Drop Cells Ovalocytes Stomatocytes [place] Bodies Meghna Cells/Echinocytes Acanthocytes (Spur) Schistocytes PT 9.9 INR 1.0 Sodium Potassium Chloride Carbon Dioxide Anion Gap BUN Creatinine Estimated GFR/1.73 m2 Glucose Calcium Magnesium Total Bilirubin AST ALT Alkaline Phosphatase Troponin I Cancelled Total Protein Albumin Triglycerides Total Cholesterol LDL Cholesterol, Calc HDL Cholesterol TSH Lamotrigine COVID-19 Source Nasal/Nares SARS-CoV-2 (PCR) Negative 12/29/20 12/29/20 12/29/20 20:32 20:32 20:20 WBC Cancelled 7.81 RBC Cancelled 3.89 L Hgb Cancelled 12.3 Hct Cancelled 37.3 MCV Cancelled 95.9 H MCH Cancelled 31.6 MCHC Cancelled 33.0 RDW Cancelled 13.2 Plt Count Cancelled 326 MPV Cancelled 10.1 Immature Gran % Cancelled 0.3 Neutrophils % Cancelled 32.0 Band Neutrophils % Cancelled Lymphocytes % Cancelled 53.0 Atypical Lymphs % Cancelled Monocytes % Cancelled 9.0 Eosinophils % Cancelled 4.7 Basophils % Cancelled 1.0 Metamyelocytes % Cancelled Myelocytes % Cancelled Promyelocytes % Cancelled Other Cells % Cancelled Nucleated RBC % Cancelled 0 Absolute Neutrophils Cancelled 2.50 Absolute Lymphocytes Cancelled 4.14 H Absolute Monocytes Cancelled 0.70 Absolute Eosinophils Cancelled 0.37 Absolute Basophils Cancelled 0.08 RBC Morphology Cancelled Polychromasia Cancelled Hypochromasia Cancelled Poikilocytosis Cancelled Basophilic Stippling Cancelled Anisocytosis Cancelled Microcytosis Cancelled Macrocytosis Cancelled Spherocytes Cancelled Tear Drop Cells Cancelled Ovalocytes Cancelled Stomatocytes Cancelled [place] Bodies Cancelled [place] Cells/Echinocytes Cancelled Acanthocytes (Spur) Cancelled Schistocytes Cancelled PT INR Sodium Cancelled Potassium Cancelled Chloride Cancelled Carbon Dioxide Cancelled Anion Gap Cancelled BUN Cancelled Creatinine Cancelled Estimated GFR/1.73 m2 Cancelled Glucose Cancelled Calcium Cancelled Magnesium Cancelled Total Bilirubin Cancelled AST Cancelled ALT Cancelled Alkaline Phosphatase Cancelled Troponin I Cancelled Total Protein Cancelled Albumin Cancelled Triglycerides Total Cholesterol LDL Cholesterol, Calc HDL Cholesterol TSH Lamotrigine COVID-19 Source SARS-CoV-2 (PCR) 12/29/20 20:20 WBC RBC Hgb Hct MCV MCH MCHC RDW Plt Count MPV Immature Gran % Neutrophils % Band Neutrophils % Lymphocytes % Atypical Lymphs % Monocytes % Eosinophils % Basophils % Metamyelocytes % Myelocytes % Promyelocytes % Other Cells % Nucleated RBC % Absolute Neutrophils Absolute Lymphocytes Absolute Monocytes Absolute Eosinophils Absolute Basophils RBC Morphology Polychromasia Hypochromasia Poikilocytosis Basophilic Stippling Anisocytosis Microcytosis Macrocytosis Spherocytes Tear Drop Cells Ovalocytes Stomatocytes [place] Bodies Meghna Cells/Echinocytes Acanthocytes (Spur) Schistocytes PT INR Sodium 142 Potassium 3.9 Chloride 105 Carbon Dioxide 27.2 Anion Gap 9.8 BUN 15 Creatinine 1.0 Estimated GFR/1.73 m2 57.15 Glucose 97 Calcium 8.9 Magnesium 2.4 Total Bilirubin 0.2 AST 16 ALT 26 Alkaline Phosphatase 90 Troponin I Total Protein 7.0 Albumin 3.9 Triglycerides Total Cholesterol LDL Cholesterol, Calc HDL Cholesterol TSH Lamotrigine COVID-19 Source SARS-CoV-2 (PCR) [facility] Social History Smoking/Tobacco Use Status: Never Smoking risk assessment performed?: Yes Alcohol Intake: never Substance use type: does not use Do you feel safe at home: Yes Do you feel safe in your relationship?: Yes
[2020-12-30 12:16] VITALS: PULSE 96
--- NOTE | 2020-12-30 13:15 | PDOC.EEG_ITS ---
Neurology EEG EEG: [facility] Department of Neurology INPATIENT EEG REPORT Date of Recordin12/30/20 Interpreting Physician: Dr. Ying Morales Reason for study: Ms. Forrest is a 55 year-old woman who was admitted after developing transient various symptoms. Current Medications: Current Medications Acetaminophen (Acetaminophen 325 Mg Tab) 650 mg PO Q4H PRN PRN Aspirin (Aspirin E.C. 81 Mg Tabec) 81 mg PO DAILY [facility] Last Admin: 12/30/20 09:18 Dose: 81 mg Documented by: Atorvastatin Calcium (Atorvastatin 40 Mg Tab) 40 mg PO QPM [facility] Last Admin: 12/29/20 23:17 Dose: 40 mg Documented by: Bupropion HCl (Bupropion-Xl 150 Mg Tabcr) 300 mg PO DAILY [facility] Last Admin: 12/30/20 09:18 Dose: 300 mg Documented by: Sodium Chloride (Saline 1000ml Bag) 1,000 mls @ 100 mls/hr IV INFUSION [facility] Last Admin: 12/30/20 10:30 Dose: 100 mls/hr Documented by: Sodium Chloride (Saline 500ml Bag) 500 mls @ 0 mls/hr IVPB PRN PRN Sodium Chloride (Saline 50ml Bag) 50 mls @ 0 mls/hr IVPB PRN PRN Lamotrigine (Lamotrigine 100 Mg Tab) 200 mg PO BID [facility] Last Admin: 12/30/20 09:18 Dose: 200 mg Documented by: Levothyroxine Sodium (Levothyroxine 150 Mcg Tab) 150 mcg PO DAILY@0600 [facility] Last Admin: 12/30/20 09:18 Dose: 150 mcg Documented by: Melatonin (Melatonin 3 Mg Tab) 6 mg PO HS PRN PRN Reason: sleep Last Admin: 12/30/20 00:26 Dose: 6 mg Documented by: Ondansetron HCl (Ondansetron 4 Mg/2 Ml Vial) 4 mg IVP Q6H PRN PRN Last Admin: 12/30/20 08:35 Dose: 4 mg Documented by: Sodium Chloride (Normal Saline Flush 10 Ml Syr) 10 ml IVP PRN PRN METHODS: A 21 channel digitized electroencephalogram was performed in the [facility] Med/Surg Floor or ICU. The 10/20 international system of electrode placement was used and bipolar and referential electrode montages were recorded. In addition to EEG the patient was monitored for EKG and lateral/vertical eye movements. Activation procedures of photic stimulation and hyperventilation were performed if applicable. Video was used during activation procedures and during events where applicable. The duration of the recording was 30 minutes. DESCRIPTION OF EEG: The patient was noted to be awake, drowsy, and asleep during the recording. During maximal wakefulness a 9-Hz posterior background rhythm was present which was well-modulated, symmetrical, reactive to eye opening, and of moderate voltage. With eye opening the background activity changed to a low voltage mixture of alpha, beta, and occasional theta range frequencies. Faster frequencies were present in the bilateral anterior head regions. There was a normal anterior-posterior voltage gradient. During drowsiness, there was attenuation of the posterior dominant background rhythm and vertex waves. Stage II sleep was present with symmetrical sleep spindles, K-complexes, and vertex waves. There were frequent arousals out of sleep. Activating Procedures: Photic stimulation was performed which produced a symmetrical posterior driving response at various flash frequencies. Hyperventilation was performed with moderate effort and produced no physiological slowing of the background. EKG: EKG revealed normal sinus rhythm. INTERPRETATION: This EEG is normal during the awake and sleep states as well as during photic stimulation and hyperventilation. There were frequent arousals out of sleep. PRIOR EEG: none CLINICAL CORRELATION: No focal regions of cerebral dysfunction or epileptiform activity was present. Epilepsy remains a clinical diagnosis and a normal EEG does not rule out epilepsy. The frequent awakenings out of sleep could represent an underlying sleep disorder. Clinical correlation is advised. Ying Morales MD
[2021-01-02 13:53] LABS: Lamotrigine 6.4 mcg/mL (2.5 - 15.0)
--- NOTE | 2021-01-30 08:44 | W.CARDEVENT ---
Date of service: 01/30/21 Time of Service: 08:44 Cardiac Event Recorder Referring Provider:: farzaneh Indications:: MEENA Cardiac Event Note: This is a 30-day event recorder order for TIA. The patient was in normal sinus rhythm for the majority recording with an average heart rate of 84 bpm. There were no automatically detected events. There were three manually detected events all associated with sinus rhythm or sinus tachycardia. There are no episodes of atrial fibrillation, no pauses greater than 3 seconds and no evidence of high-grade heart block.
== END 2020-12-30 13:37 | disposition home or self-care (01) ==
LOC: ER 23:17 → MS 23:50
PROVIDERS: Admitting Provider Family Medicine; Emergency Provider Nurse Practitioner Acute Care; PCP Family Medicine; Visit Provider Family Medicine
DX: G45.9 Transient cerebral ischemic attack, unspecified (principal); R41.82 Altered mental status, unspecified; H53.2 Diplopia; Q28.1 Other malformations of precerebral vessels; E03.9 Hypothyroidism, unspecified; E78.5 Hyperlipidemia, unspecified; Z85.3 Personal history of malignant neoplasm of breast; Z20.822 Contact with and (suspected) exposure to COVID-19
CPT/HCPCS: 36415; 70491; 80048; 80053; 80061; 80175; 87635; 93005; 93270; 95819; 99285; 70460; 70551; 83735; 84443; 84484; 85025; 85610; 93010; 99217; 99220; 99284; G0378; J2405; J3490

== ENCOUNTER 2021-02-09 02:25 | Outpatient (CLI) | payer OTHER, SELFPAY ==
--- NOTE | 2021-02-09 10:40 | DI.US_ITS ---
APPROVED REPORT EXAM: Comprehensive 2D, Doppler, and color-flow Echocardiogram Patient Location: Out-Patient Fine Hairer: Lindsey Roque RDCS (AE) Indications: CVA, ? Ocular stroke Other Information Study Quality: Fair. Technically limited study due to body habitus. Conclusion Left Ventricle : The left ventricle is normal size. The left ventricular ejection fraction is within the normal range. There is normal left ventricular wall thickness. There is normal LV segmental wall motion. The left ventricular diastolic function is normal. LVEF is 56%. Right Ventricle : Right ventricle is grossly normal in size. Right ventricular systolic function is g rossly normal. The RVSP is 16.8 mmHg. Atria : The left atrium size is normal. The right atrium size is normal. Valves: There are no hemodynamically significant valvular lesions Great Vessels : The aortic root is normal in size. The ascending aorta is normal in size. Aortic arch is normal in caliber. IVC is normal in size and collapses >50% with inspiration. Wall motion Left Ventricle The left ventricle is normal size. The left ventricular ejection fraction is within the normal range. There is normal left ventricular wall thickness. There is normal LV segmental wall motion. The left ventricular diastolic function is normal. There is no ventricular septal defect visualized. LVEF is 5 6%. Right Ventricle Right ventricle is grossly normal in size. Right ventricular systolic function is grossly normal. The RVSP is 16.8 mmHg. Atria The left atrium size is normal. The right atrium size is normal. The interatrial septum is intact wit h no evidence for an atrial septal defect. Aortic Valve The aortic valve is normal in structure. Aortic valve is trileaflet. There is no aortic valvular sten osis. No aortic regurgitation is present. Mitral Valve The mitral valve is normal in structure. No evidence of mitral valve stenosis. Trace mitral regurgita tion. Tricuspid Valve The tricuspid valve is normal in structure. There is no tricuspid valve stenosis. Trace tricuspid reg urgitation. Pulmonic Valve The pulmonary valve is normal in structure. There is no pulmonic valvular stenosis. There is no pulmo glenis valvular regurgitation. Great Vessels The aortic root is normal in size. The ascending aorta is normal in size. Aortic arch is normal in ca liber. IVC is normal in size and collapses >50% with inspiration. Pericardium There is no pericardial effusion. 2D Dimensions IVSD d PLAX 0.91 cm F: 0.6-1.0 LV Vol A2C d MOD 76.1 mL LVPW d PLAX 0.93 cm F: 0.6 - 1.0 LV Vol A4C d MOD 72.4 mL LVID d PLAX 4.00 cm F: 3.8 - 5.2 LA vol/ BSA A4C s A-L 12.6 mL/m2 LVDs 2.85 cm F: 2.2 - 3.5 LA Area A4C s MOD 10.61 cm2 Ao Root d 2.69 cm F: 2.7 - 3.3 LV EF A4C MOD 57.8 % Ao Asc Diam d 2.74 cm F: 2.3 - 3.1 LV EF A2C MOD 55.1 % LV EF Teichholz 54.2 % LV EF Biplane MOD 56.2 % LVEF (Lizarraga's) 56.15 % F: 54 - 74 SV 43.04 mL LV Volume 60.37 mL F: 46 - 106 SV Index 24.76 mL/m2 LV Volume Index 34.89 mL/m2 F: 29 - 61 LV Vol Biplane MOD 76.6 mL FS 27.60 % M-Mode TAPSE 1.46 cm (M/F) >1.7 LV Diastology MV E' medial 0.081 (>0.07 m/s) E/A Ratio 1.2 LV E/e MED 8.80 (<14) MV E Vmax 0.72 (0.4-1.3 m/s) MV E' lateral 0.116 (>0.1 m/s) MV A Vmax 0.60 (0.4-1.3 m/s) LV E/e LAT 6.15 (<14) MV E/A Ratio 1.11 MV E/E' medial 8.84 MV E/E' lateral 6.16 Aortic Valve LVOT Area 2.75 cm2 AoV Area Vmax 2.24 cm2 LVOT Vmax 0.90 m/s AoV Area/ BSA (Vmax) 1.29 cm2/m2 LVOT Mean Mannie. 0.54 m/s SYLWIA Mean Mannie. 1.90 cm2 LVOT Peak Grad 3.2 mmHg SYLWIA Mean Mannie. Index 1.09 cm2/m2 LVOT Mean Grad 1.4 mmHg LVOT VTI 0.170 m LVOT Diam s 1.85 cm AoV Vmax 1.10 m/s Velocity Ratio 0.81 AoV Mean Mannie. 0.79 m/s AoV Peak Grad 4.9 mmHg LVOT SV 46.85 mL AoV Mean Grad 2.7 mmHg AoV VTI 0.212 m AoV Area VTI 2.21 cm2 AoV Area/ BSA (VTI) 1.27 cm/m2 Mitral Valve MV DT 235 (160-240 msec) MV PHT 68 msec MV Area PHT 3.23 cm2 MV VTI 0.231 m MV Area VTI 2.03 (4.0-6.0 cm2) Pulmonary Valve PV Vmax 0.66 (0.5-1.5 m/s) RVOT Peak Gr. 1.70 mmHg PV Peak Grad 1.8 mmHg RVOT Mean Gr. 0.85 mmHg PV Mean Grad 1.0 mmHg RVOT VTI 0.135 m PV VTI 0.129 m RVOT Vmax 0.65 m/s Tricuspid Valve TR Peak Grad 13.8 mmHg TR Vmax 1.86 m/s RA Pressure 3.00 mmHg RVSP (TR) 16.8 mmHg
== END 2021-02-09 02:45 ==
PROVIDERS: PCP Family Medicine; Visit Provider Psychiatry & Neurology Neurology
DX: I63.9 Cerebral infarction, unspecified (principal)
CPT/HCPCS: 93306

== ENCOUNTER 2021-06-14 01:10 | Outpatient (CLI) | payer OTHER, SELFPAY ==
--- NOTE | 2021-06-14 07:00 | DI.RAD_ITS ---
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 CONTRAST MATERIAL: Oral barium contrast was administered. COMPARISON: No exams were available for comparison FINDINGS: CHEST X-RAY: The heart and pulmonary vasculature are within normal limits. The lungs are clear. Ther e is again seen bilateral apical scarring. No pleural effusion or pneumothorax is present. The bones are within normal limits fo the patient's age. There is straightening of the normal cervical lordosi s. Mild degenerative changes are present throughout the cervical spine. ESOPHAGRAM: The esophagus is patent with no evidence for erosions, fold thickening, strictures, or ma sses. There was a temporary holdup of passage of a barium tablet at the level of the aortic knob. T he tablet did eventually pass into the stomach. No stricture or mass is appreciated at this level. With regards to the motility, there is a normal primary stripping wave. No tertiary contractions were noted. There is no hiatal hernia or gastroesophageal reflux. Aspiration did occur during the study. A cough reflex was initiated. IMPRESSION: 1. No stricture or mass is seen on this examination. No evidence of a diverticulum is noted. 2. Temporary stoppage of passage of a barium tablet at the level of the aortic knob. No intrinsic es ophageal abnormality is seen at this level. The patient did report sensing that the tablet had not p assed into the stomach and felt this was consistent with her chief complaint. RADIATION DOSE DELIVERED: Ka,r=8.53 mGy
[2021-06-14] MEDS: Barium Sulfate 700 MG TAB PO (10:10)
[2021-06-14] MEDS: Barium Sulfate 60% W/V 355 ML BTL PO (10:12)
== END 2021-06-14 01:30 ==
PROVIDERS: PCP Family Medicine; Visit Provider Otolaryngology
DX: R19.8 Other specified symptoms and signs involving the digestive system and abdomen (principal)
CPT/HCPCS: 74221; J3490

== ENCOUNTER 2022-04-12 15:30 | Outpatient (CLI) | payer OTHER, SELFPAY ==
[2022-04-12 13:07] LABS: Absolute Basophil Count 0.05 10^3/uL (0.0-0.2); Absolute Eosinophil Count 0.18 10^3/uL (0.0-0.7); Absolute Lymphocyte Count 2.31 10^3/uL (1.2-3.4); Absolute Monocyte Count 0.53 10^3/uL (0.1-0.8); Eosinophils % 3.6; HCT 37.6 % (36.0-46.0); HGB 12.1 g/dL (11.2-15.7); Lymphocytes % 46.5; MCH 30.3 pg (27.0-33.0); MCHC 32.2 % (32.0-36.0); MCV 94 fL (80-95); Monocytes % 10.7; Neutrophils % 38.2; Platelet Count 304 10^3/uL (130-400); WBC 4.97 10^3/uL (4.4-10.8)
[2022-04-12 13:46] LABS: Anion Gap 6.5 mmol/L (3-11); BUN 10 mg/dL (7-18); CO2 28.5 mmol/L (21.0-32.0); CREATININE 0.7 mg/dL (0.55-1.02); Calcium 9.1 mg/dL (8.5-10.1); Calculated LDL 162 mg/dL (<100); Chloride 105 mmol/L (98-107); Cholesterol 264 mg/dL (<200); Estimated GFR 99.57 (mL/min/1.73m2); Glucose 97 mg/dL (74-106); HDL Cholesterol 88 mg/dL (40-60); Magnesium 2.1 mg/dL (1.8-2.4); Potassium 4.2 mmol/L (3.5-5.1); Sodium 140 mmol/L (136-145); Triglyceride 71 mg/dL (<150)
[2022-04-13 13:54] LABS: Iron 28 ug/dL (50-170)
[2022-04-13 14:07] LABS: Ferritin 13 ng/mL (8-252)
[2022-04-16 04:42] LABS: Vitamin D 25 Total 21.4 ng/mL (30-100)
== END 2022-04-12 15:31 | disposition home or self-care (01) ==
LOC: LBO 15:35
PROVIDERS: PCP Family Medicine; Visit Provider Student in an Organized Health Care Education/Training Program
DX: Z13.220 Encounter for screening for lipoid disorders (principal); G25.81 Restless legs syndrome; Z91.89 Other specified personal risk factors, not elsewhere classified; E03.9 Hypothyroidism, unspecified; E06.9 Thyroiditis, unspecified; H53.9 Unspecified visual disturbance; R19.8 Other specified symptoms and signs involving the digestive system and abdomen; Z86.2 Personal history of diseases of the blood and blood-forming organs and certain disorders involving the immune mechanism; Z87.19 Personal history of other diseases of the digestive system
CPT/HCPCS: 36415; 80048; 80061; 82306; 82728; 83540; 83735; 84439; 84443; 85025

== ENCOUNTER 2022-05-04 01:24 | Outpatient (RCR) | payer OTHER, SELFPAY ==
--- OUTSIDE RECORDS SUMMARY | 2022-04-27 01:21 | XMS_ITS | Encounter Summary ---
:1965 Author Organization [facility] Address [address] [place] [address] Care Team Providers Name Role Phone En Soto Primary Care Provider Encounter Details Date Type Department Care Team Description 11/25/2017 Office Visit Hematology and Bobo Gomez Malignan t neoplasm of female breast, unspecified estrogen receptor status, unspecified laterality, unspecified site of breast; Oncology at [facility] Osteopenia, unspecified location; [facility] Hyp othyroidism, unspecified type Drive [place] H[place]OLOGY/ONCOLOG [address] [address] DEPT. [phone] [place], [place] [address] Social History Tobacco Use Types Packs/Day Years Used Date Never Smoker Smokeless Tobacco: Never Used Sex Assigned at Date Recorded Not on file documented as of this encounter Progress Notes Bobo Gomez MD - 11/25/2017 3:30 PM EDT Subjective: Patient ID: Cherrie Forrest is a 52 y.o. female, who returns in followup for treatment and managementof her breast cancer, and other medical problems. Her past medical history, social history, and family history are unchanged from that noted in my prior notes. Problem List: 1. Infiltrating ductal carcinoma, left breast, 510 a. ~ 1-cm cancer, poorly differentiated, ER/AR- (outside, confirmed on [facility] IHC), HER2/ami - ([facility], [facility]), 07/13 sentinel nodes, ~ 1 mm focus of carcinoma, micrometastasis. b. S/P WLE & sentinel lymph node dissection. c. S/P bilateral MRM and recon. c. Dose dense AC/taxol. 1. cycle 1, 01/19. 2. cycle 2, 02/09 (s/p 1 week delay >> modest mucositis, cellulitis). 3. cycle 3, 02/23. 4. cycle 4, 03/09. 5. C5, 04/06. 6. C6, 04/19. 7. C7, 05/03. d. Septic thrombophlebitis and pulmonary emboli, 03/17. 1. Mediport removal. 2. H/O hypothyroidism. a. Prior h/o thyroiditis, ~ 2006. 1. S/P rad I ablation. 2. Longstanding synthroid replacement. 3. H/O bilateral breast augmentation surgery and bilateral saline implants, late . 4. Past history of probable iron-deficiency anemia. 5. VIDHYA, 02/14. a. Significant hot flashes, 03/09. 1. Celexa, 03/09, 20 mg qHS. 7. GYPSY/BSO, 05/18; Pathology >> benign findings. A. [facility] bx >> LAVELLE III. 8. Osteopenia, 08/20. NELA Grier returns in follow-up. Please see my note from a few weeks ago. She has been bothered by a gradually progressive constitutional nonspecific symptoms for probably about a year or so, the major one being fatigue poor appetite and weight loss. The history I got then was that she had thought her Synthroid had not been adjusted for several years. In reviewing this further though today she was on 200 mcg daily for a long time and probably about a year or so ago perhaps around when the symptoms began her dose she thinks was reduced to 150 mcg daily. Perhaps 6 months or so ago it was further reduced to 112 mcg daily. Her TSH is noted below was substantially increase when I saw her recently. Review of Systems Except as noted above, Cherrie Rosamendel full remaining review of systems, including constitutional, cardiac, pulmonary, GI, , neurologic, musculskeletal, and remaining, is otherwise fully unremarkable. Current Outpatient Prescriptions on File Prior to Visit Medication Sig Dispense Refill ??? lamoTRIgine (LAMICTAL) 200 mg Tablet Take 200 mg by mouth 2 times daily. ??? buPROPion (WELLBUTRIN XL) 150 mg Tablet Extended Release 24 hr Take 150 mg by mouth every morning. ??? VITAMIN B COMPLEX (B COMPLEX-VITAMIN B12 ORAL) Take by mouth daily as needed. ??? ascorbic acid (VITAMIN C) 1,000 mg tablet Take 1,000 mg by mouth daily. ??? levothyroxine (SYNTHROID) 100 mcg tablet Take 150 mcg by mouth daily. ??? multivitamin (THERAGRAN) tablet Take 1 tablet by mouth daily. ??? LORazepam (ATIVAN) 0.5 mg tablet 0.5 MG = 1 Tablet(s), PO, Q4-6H PRN (Patient not taking: No sigreported) ??? CALCIUM CARB/MAG OXIDE/VIT D3 (CALCIUM MAGNESIUM + D ORAL) No current facility-administered medications on file prior to visit. Objective: Physical Exam There were no vitals filed for this visit. Objective: Cherrie Forrest is well appearing and in no acute distress. HEENT: Unremarkable. Musculoskeletal Exam: Within normal limits. Back without CVA or spinal tenderness to percussion or palpation.Chest: Clear. Nodes: No peripheral adenopathy is present. Breast Exam: Unchanged from prior exam, s/p bilateral MRM and recon. Cor: RRR, S1, S2. No murmur, rub, or S3 present. Abdomen: Bowel sounds unremarkable, soft, nontender with no palpable HSM or other abnormalities. Extremities without significant cyanosis, clubbing, or edema. Neurologic Exam: Grossly nonfocal, cranial nerve's III - XII unremarkable, DTR's symmetric throughout. Recent Results (from the past 24 hour(s)) Comprehensive metabolic panel (non-fasting) Result Value Ref Range Glucose Lvl 88 65 - 199 mg/dL BUN 10 8 - 18 mg/dL Creatinine 0.92 0.70 - 1.20 mg/dL Sodium 140 135 - 145 mmol/L Potassium 4.2 3.5 - 5.0 mmol/L Chloride 101 98 - 107 mmol/L CO2 28 22 - 31 mmol/L Anion Gap 11 5 - 15 mmol/L Calcium 9.1 8.5 - 10.5 mg/dL Total Protein 6.5 6.1 - 8.0 gm/dL Albumin 4.3 3.2 - 5.2 gm/dL AST 25 0 - 30 unit/L ALT 32 (H) 0 - 30 unit/L Alk Phos 66 40 - 104 unit/L Total Bilirubin 0.3 0.2 - 1.3 mg/dL Estimated GFR >60 >=60 Hemogram Result Value Ref Range WBC 7.7 4.0 - 9.5 x10(3)/mcL RBC 3.79 (L) 4.00 - 5.21 x10(6)/mcL Hemoglobin 12.4 11.7 - 15.5 gm/dL Hematocrit 37.1 35.7 - 45.8 % MCV 97.9 (H) 82.6 - 94.4 fL MCH 32.7 (H) 27.1 - 32.0 pg MCHC 33.4 31.7 - 35.0 gm/dL Platelets 304 145 - 357 x10(3)/mcL RDWSD 46.0 37.0 - 46.0 fL RDWCV 12.8 11.5 - 14.1 % MPV 9.4 7.6 - 12.9 fL nRBC % Auto 0.0 % nRBC Abs Auto 0.000 0.000 - 0.000 x10(3)/mcL Differential, Automated Result Value Ref Range Neutrophils % 48.4 % Neutr Abs (ANC) 3.73 1.70 - 6.10 x10(3)/mcL Lymphocytes % 39.4 % Lymphocytes Abs 3.0 0.9 - 3.2 x10(3)/mcL Monocytes % 6.7 % Monocyte Abs 0.5 0.3 - 0.9 x10(3)/mcL Eosinophils % 4.2 % Eosinophils Abs 0.3 0.0 - 0.4 x10(3)/mcL Basophils % 1.0 % Basophils Abs 0.1 0.0 - 0.1 x10(3)/mcL Immature Gran % 0.30 % Shanice Gran Abs 0.02 0.00 - 0.04 x10(3)/mcL Recent Labs 11/25/17 1357 10/23/17 1553 WBC 7.7 8.0 NEUTROABS 3.73 4.01 HGB 12.4 13.2 HCT 37.1 39.6 PLATELET 304 304 Recent Labs 11/25/17 1357 10/23/17 1553 AST 25 20 ALT 32* 23 ALKPHOS 66 65 BILITOT 0.3 <0.2* Assessment and Plan: CT, restaGing, overall and unremarkable no evidence of metastatic disease. Full findings as per the formal radiology report. A/P: Cherrie returns in follow-up, restaging CT was as above, unremarkable. Her labs were overall unremarkable the exception of a significantly increased TSH of 30.89. Her chronic dosing of her Synthroidis as I noted above, additionally noted she underwent radioactive iodine ablation for treatment of her hyperthyroidism over 10 years ago and has been on chronic replacement since then. She currently asshe has been on 112 412.5 mcg daily. As I noted above she had been on a maintenance dose of 200 mcg daily for many years. At present what I recommend is we will increase back to 175 mcg daily, I will let her primary care physician be aware of this as well. We will schedule follow-up in 6 or 8 weeks toreassess. documented in this encounter Plan of Treatment Not on filedocumented as of this encounter Procedures Procedure Name Priority Date/Time Associated Diagnosis Comme nts T3 TOTAL Routine 11/25/2017 4:14 PM Malignant neoplasm of Results for this EDT female breast, procedure are in unspecified estrogen the res ults receptor status, section. unspecified laterality, unspecified site of breast Osteopenia, unspecified loca tion Hypothyroidism, unspecified type TSH Routine 11/25/2017 4:14 PM Malignant neoplasm of Results for this EDT female breast, procedure are in unspecified estrogen the res ults receptor status, section. unspecified laterality, unspecified site of breast Osteopenia, unspecified loca tion Hypothyroidism, unspecified type T4 TOTAL Routine 11/25/2017 4:14 PM Malignant neoplasm of Results for this EDT female breast, procedure are in unspecified estrogen the res ults receptor status, section. unspecified laterality, unspecified site of breast Osteopenia, unspecified loca tion Hypothyroidism, unspecified type documented in this encounter Results T3 Total (11/25/2017 4:14 PM EDT) P athologist Signature T3, Total 94 75 - 170 [facility] ng/dL [facility] Specimen Anatomical Collection Method Collection Time Receive d Time (Source) Location / / Volume Laterality Blood specimen 11/25/2017 4:14 PM 018 4:26 (specimen) EDT PM EDT Resulting Agency Comment Spec In Lab Bobo Gomez MD CHEMISTRY ORDERABLES Performing Organization Address City/[facility]/ZIP [place] [address] T4 Total (11/25/2017 4:14 PM EDT) athologist Signature T4, total 9.0 5.1 - 10.8 SHEREEN NOY mcg/dL [facility] Comment: Reference Range: Cord Blood: ??6.9-14.4 mcg/dL Females: ??7.2-14.2 mcg/dL Pediatric ranges: ??Interpret with cauti on-ranges have not been verified Specimen Anatomical Collection Method Collection Time Receive d Time (Source) Location / / Volume Laterality Blood specimen 11/25/2017 4:14 PM 018 4:26 (specimen) EDT PM EDT Resulting Agency Comment Spec In Lab Bobo Gomez MD CHEMISTRY ORDERABLES Performing Organization Address City/State/ZIP [place] [address] (ABNORMAL) TSH (11/25/2017 4:14 PM EDT) athologist Signature TSH 12.35 (H) 0.27 - SHEREEN [place] 4.20 [facility] mlU/ML [facility] Specimen Anatomical Collection Method Collection Time Receive d Time (Source) Location / / Volume Laterality Blood specimen 11/25/2017 4:14 PM 018 4:26 (specimen) EDT PM EDT Resulting Agency Comment Spec In Lab Bobo Gomez MD CHEMISTRY ORDERABLES Performing Organization Address City/State/ZIP [place] [address] (ABNORMAL) Comprehensive metabolic panel (non-fasting) (11/25/2017 1:57 PM EDT) athologist Signature Glucose Lvl 88 65 - 199 [facility] NOY mg/dL [facility] Comment: Diabetes: >=200 mg/dL plus symp toms BUN 10 8 - 18 mg/dL [facility] Creatinine 0.92 0.70 - 1.20 mg/dL [facility] Sodium 140 135 - 145 mmol/L [facility] Potassium 4.2 3.5 - 5.0 mmol/L [facility] Comment: Please note: ??Patients with WBC >100,00 0 may have falsely elevated Potassium levels. ??For accurate Potassium quantif ication in these patients send serum separator tube (gold top) for subsequent determinations. ??Contact the Clinical Chemistry Laboratory if there are any qu estions. Chloride 101 98 - 107 mmol/L [facility] CO2 28 22 - 31 mmol/L [facility] Anion Gap 11 5 - 15 mmol/L [facility] Calcium 9.1 8.5 - 10.5 mg/dL [facility] Total Protein 6.5 6.1 - 8.0 gm/dL [facility] Albumin 4.3 3.2 - 5.2 gm/dL [facility] AST 25 0 - 30 unit/L [facility] ALT 32 (H) 0 - 30 unit/L [facility] Alk Phos 66 40 - 104 unit/L [facility] Total Bilirubin 0.3 0.2 - 1.3 mg/dL [facility] Estimated GFR >60 >=60 [facility] Comment: The reported eGFR should be multiplied b y 1.2 for patients. The MDRD is not an appropriate measure o f renal function for patients with body mass extremes or in patients with acute kidney failure. http://[employer]/DHnkdep http://[employer].com/DHMCnkf Specimen Anatomical Collection Method Collection Time Receive d Time (Source) Location / / Volume Laterality Blood specimen 11/25/2017 1:57 PM 018 2:03 (specimen) EDT PM EDT Resulting Agency Comment Spec In Lab Bobo Gomez MD CHEMISTRY ORDERABLES Performing Organization Address City/State/[place] [address] documented in this encounter Visit Diagnoses Diagnosis Malignant neoplasm of female breast, uns pecified estrogen receptor status, unspecified laterality, unspecified site of breast Osteopenia, unspecified location Hypothyroidism, unspecified type documented in this encounter Care Teams Roving Carrier Relationship Specialty Start Date End Date En Soto DO PCP - General General Internal Medicine 10/23/17 1 [address] [place] [address] documented as of this encounter
--- OUTSIDE RECORDS SUMMARY | 2022-04-27 01:21 | XMS_ITS | Encounter Summary ---
:1965 Author Organization [facility] [place] [address] Care Team Providers Name Role Phone Lori Cheema DO Primary Care Provider [phone] Encounter Details Date Type Department Care Team Description 03/19/2013 Orders Only Hematology and Bobo Gomez Breast c ancer (Primary Oncology at [facility] MD Dx) [facility] [place] [address] HEMATOLOGY/ONCOLOG [phone] Y DEPT[address] [place], [place] [address] Social History Tobacco Use Types Packs/Day Years Used Date Never Smoker Smokeless Tobacco: Never Used Sex Assigned at Date Recorded Not on file documented as of this encounter Plan of Treatment Not on filedocumented as of this encounter Visit Diagnoses Diagnosis Breast cancer - Primary Malignant neoplasm of breast (female), u nspecified site documented in this encounter Care Teams Edge Grinder Machine Relationship Specialty Start Date End Date Lori Cheema DO PCP - General 03/18/13 10/22/[address] [place] [address] [place] [address] documented as of this encounter
--- OUTSIDE RECORDS SUMMARY | 2022-04-27 01:21 | XMS_ITS | Encounter Summary ---
:1965 Author Organization [facility] [place] [address] Care Team Providers Name Role Phone Lori Cheema DO Primary Care Provider [phone] Reason for Visit Reason Comments Chest Pain Encounter Details Date Type Department Care Team Description 03/31/2013 Office Visit Cardiology at [facility] Martin Jerez, Non-cardiac chest pain [facility] (Primary Dx) [place] [address] CARDIOLOGY DEPT. [phone] [place], [place] [address] Social History Tobacco Use Types Packs/Day Years Used Date Never Smoker Smokeless Tobacco: Never Used Sex Assigned at Date Recorded Not on file documented as of this encounter Last Filed Vital Signs Vital Sign Reading Time Taken Comments Blood Pressure 104/68 03/31/2013 1:07 PM EDT Pulse 74 03/31/2013 1:07 PM EDT Temperature - - Respiratory Rate - - Oxygen Saturation 98% 03/31/2013 1:07 PM EDT Inhaled Oxygen Concentration - - Weight 62.1 kg (137 lb) 03/31/2013 1:07 PM EDT Height 172.7 cm (5' 8) 03/31/2013 1:07 PM EDT Body Mass Index 20.83 03/31/2013 1:07 PM EDT documented in this encounter Progress Notes Martin Jerez MD - 04/01/2013 4:14 PM EDT Ms. 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 Her medical history begins three years ago when shewas noted to have a lump in her left breast. This turned out to be an aggressive breast cancer and on diagnostic work-up she was found to be stage IV. She underwent bilateral mastectomies and had a akbar postoperative course with sepsis, septic emboli, and a prolonged hospitalization. Since that time she has been doing reasonably well but has noted for the past month or two a deep pain or discomfort in the left side of her chest which she describes as an ache. She describes this as something that isalways present and does not really change much, although last week while trying to sleep she had about one hour of 6/10 pain. Usually she describes the pain as 1/10. The discomfort does not seem to be at all affected by exertion and nothing really makes it better or worse. She has tried nonsteroidal anti- inflammatory drugs, heat and cold with no benefit. She describes herself as very active and a vegetarian. She rides her bike 30 miles every other day, runs and lifts light weights to keep her muscles toned. This does not exacerbate her discomfort. She denies dyspnea. She can feel a bit lightheaded if she stands up quickly but that is mostly if she has not been well hydrated. She does note occasional palpitations. As part of her treatment for her breast cancer, she was treated with Adriamycin, buther ejection fraction has remained normal. Because of this complaint of chest discomfort, her physician sent her for a stress test. This showed excellent exercise capacity at 12.8 METs, and she achieved 100% of her predicted maximal heart rate. Her blood pressure response was normal and no significantST segment depressions were seen. The echocardiogram showed normal left ventricular function with anejection fraction of 60-65%, going to 70-75% with exertion. The echo report described moderate mitral regurgitation which was the reason she was referred for consultation. She does note a lifelong history of a heart murmur but no symptoms associated with this. Ms. Forrest has never smoked and does not have a history of hypertension or diabetes. She does have the history of increasing cholesterol. Family History: Her father had a history of coronary disease and had stents placed at age 65 but of causes more related to alcohol abuse and GI bleeding at age 82. She had a sister who duringa mitral valve replacement in her 30s, and her mother is status post mitral valve replacement two years ago at age 78. Her mother is now 80 years old and doing well. She has a brother age 55 and a sister age 59, both of whom are alive and well. Past Medical History: Aside from the history of breast cancer and a total abdominal hysterectomy andbilateral salpingo-oophorectomy a year ago, her past medical history is noncontributory. 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 She is in her second marriage and has been for five years. She has an 18-year-old daughter who is healthy and they have not yet looked into her [facility] status. Patient Active Problem List Diagnosis Code ??? Hypothyroidism 244.9 ??? Infiltrating ductal carcinoma, left breast, 11/14 174.9 ??? Iron deficiency anemia 280.9 ??? Osteopenia 733.90 Medications: 1. Celexa 20 mg p.o. b.i.d. 2. Levo-thyroxine 100 mcg q.d. 3. Vilazodone 40 mg a day. 4. Lorazepam 0.5 mg p.r.n. 5. Multivitamins. Allergies and Adverse Drug Reactions: None known. BP 104/68 Pulse 74 Ht 172.7 cm (5' 8) Wt 62.143 kg (137 lb) BMI 20.83 kg/m2 SpO2 98% Physical Examination: On physical examination, Ms. Forrest is a 48-year-old woman quite thin who appears fit. Her skin is warm and dry with unusual circular depigmented areas in her left arm which she says was due to having had a medical laser tested on her. Otherwise I appreciated no unusual rashes orlesions although a full dermatologic examination was not done. Head, ears, eyes, nose and throat were grossly unremarkable and symmetric with full extraocular motions. Her thyroid gland was not palpable. Her chest was clear to percussion and auscultation. On cardiovascular examination, her jugular venous pressure was not elevated. Her first and second heart sounds were single and I appreciate a midsystolic clicking sound heard up and down the left sternal border and at the apex. This actually disappears with Valsalva. I appreciate no murmurs either at rest or with Valsalva. Her pulses are full and equal without bruits. Her abdomen is soft without palpable organomegaly or masses. Her extremities have no edema. Neurologically she is oriented and alert with no obvious focal deficits. A full neurologic evaluation was not done. An echocardiogram done here on March 20, 2010, demonstrated no abnormality in the aortic, mitralor tricuspid valves and specifically there was no significant valvular regurgitation. Ejection fraction was 65%. Her cholesterol level done at [facility] in [place] on the 16 of January was 218. Her LDL was elevated at 140, but her HDL cholesterol was 69 so her ratio is in a low-risk area at 3.2. Impression and Plan: My impression is of a 48-year-old woman with a history three years ago of stageIV breast cancer who is presently experiencing a relatively mild but persistent left-sided chest pain. The discomfort is unrelated to exertion or any epiphenomena such as dyspnea, and I am quite comfortable in saying that this is not a cardiac symptom. Supporting this impression is a recent stress test that showed an excellent exercise capacity with no reproduction of her chest discomfort, no evidence of electrocardiographic or echocardiographic changes to suggest active ischemia. Unfortunately, theechocardiographic portion of her stress test did show what is described as moderate mitral regurgitation. I cannot hear a murmur consistent with this although I do hear a click suggesting the possibility of some degree of mitral valve prolapse. She is essentially asymptomatic from a perspective of hercardiac state and even if we were to repeat an echo that demonstrated 2+ mitral regurgitation, we would not make any intervention at present. I have reassured Ms. Forrest in this regard and have suggested no further evaluation at this time. I have told her that I would be happy to see her at any time should any symptoms occur that would suggest the possibility of progressive valvular disease. In addition to the findings of mitral regurgitation on her echo, she is somewhat concerned about hercholesterol status. As noted, her cholesterol levels are mildly to moderately elevated at this time with a very high HDL and no symptoms to suggest active coronary disease. I do not believe we should recommend regular therapy at this point in time. Again, we can rethink this if her cholesterol panel changes or she begins to experience symptoms suggestive of the possibility of active coronary disease. Copy: Val Cheema M.D. [address] [place] [address] documented in this encounter Plan of Treatment Not on filedocumented as of this encounter Visit Diagnoses Diagnosis Non-cardiac chest pain - Primary Other chest pain documented in this encounter Care Teams Director Digital Strategy Relationship Specialty Start Date End Date Lori Cheema DO PCP - General 03/18/13 10/22/[address] [place] [address] documented as of this encounter
--- OUTSIDE RECORDS SUMMARY | 2022-04-27 01:21 | XMS_ITS | Encounter Summary ---
:1965 Author Organization [facility] [place] [address] Care Team Providers Name Role Phone Lori Cheema DO Primary Care Provider [phone] Encounter Details Date Type Department Care Team Description 04/23/2013 Telephone Hematology and Oncology at [facility] [place] [address] Social History Tobacco Use Types Packs/Day Years Used Date Never Smoker Smokeless Tobacco: Never Used Sex Assigned at Date Recorded Not on file documented as of this encounter Miscellaneous Notes Telephone Encounter - Mary Ann Marte RN - 04/23/2013 10:20 AM EDT PC to patient to notify her of recent CT results. Patient happy with results, thanked me for my call. She had no questions or concerns at this time. documented in this encounter Plan of Treatment Not on filedocumented as of this encounter Visit Diagnoses Not on filedocumented in this encounter Care Teams Accounting Intern Relationship Specialty Start Date End Date Lori Cheema DO PCP - General 03/18/13 10/22/[address] [place] [address] documented as of this encounter
--- OUTSIDE RECORDS SUMMARY | 2022-04-27 01:21 | XMS_ITS | Encounter Summary ---
:1965 Author Organization [facility] [place] [address] Care Team Providers Name Role Phone En Soto DO Primary Care Provider Encounter Details Date Type Department Care Team Description 11/12/2018 Hospital Encounter Laboratory [facility] [place] [address] Social History Tobacco Use Types Packs/Day Years Used Date Never Smoker Smokeless Tobacco: Never Used Sex Assigned at Date Recorded Not on file documented as of this encounter Medications at Time of Discharge Medication Sig Dispensed Refills Start Date End Date levothyroxine (SYNTHROID) Take 1 tablet by 90 tablet 3 11/06 175 mcg Tablet mouth daily. lamoTRIgine (LAMICTAL) 200 Take 200 mg by mouth 0 mg Tablet 2 times daily. buPROPion (WELLBUTRIN XL) Take 150 mg by mouth 0 150 mg Tablet Extended every morning. Release 24 hr VITAMIN B COMPLEX (B Take by mouth daily 0 COMPLEX-VITAMIN B12 ORAL) as needed. ascorbic acid (VITAMIN C) Take 1,000 mg by 0 1,000 mg tablet mouth daily. multivitamin (THERAGRAN) Take 1 tablet by 0 tablet mouth daily. LORazepam (ATIVAN) 0.5 mg 0.5 MG = 1 0 06/21/2010 tablet Tablet(s), PO, Q4-6H PRN CALCIUM CARB/MAG OXIDE/VIT 0 0 D3 (CALCIUM MAGNESIUM + D ORAL) documented as of this encounter Plan of Treatment Not on filedocumented as of this encounter Procedures Procedure Name Priority Date/Time Associated Diagnosis Comme nts SURGICAL PATHOLOGY Routine 11/12/2018 12:00 PM Re sults for this REPORT EDT procedure are i n the results section. documented in this encounter Results Surgical Pathology Report (11/12/2018 12:00 PM EDT) Component Value Ref Test Analysis Performed At [facility] gist Range Method Time Signature Surgical [id number] ? Location: [facility] Report The signing pathologist has (i) examined the relevant preparation(s) for the [facility] specimen(s) and (ii) rendered or confirmed the diagnosis(es) . HOSPITAL LABORATORY . ?Surgic al Pathology DIAGNOSIS Nail, toe, clippings: - ??No fungi are seen in PAS-reacted sections. Electronically signed by: ??Lasha GUTHRIE, PhD, Terry Verified: ??11/17/2018 ?Dermatopathologist Performed at: ??[facility] [place], [place], [place] CLINICAL INFORMATION Specimen Submitted: A - Toenail clippings Clinical History and Diagnosis: Thick, friable, dystrophic toenails. Onychomycosis Referring Identifier: ??[id number] SPECIMEN PROCESSING A - Labeled/Fixative: Patient demographics, fresh. Quantity/Size: Fragments, 1.5 x 0.3 x 0.2 cm. Tissue Description: Jordan-yellow friable indurated soft tissu es. Sections/Processing: Entirely submitted in 1 cassette labeled A1. ??jmb Specimen (Source) Anatomical Collection Method Collection Time Re ceived Time Location / / Volume Laterality 11/12/2018 12:00 PM EDT Resulting Agency Comment Spec In Lab / [facility] Narda Atwood DPM PATHOLOGY/CYTOLOGY ORDERABLE S Performing Organization Address City/State/[place] [address] documented in this encounter Visit Diagnoses Not on filedocumented in this encounter Care Teams Mold Polisher Relationship Specialty Start Date End Date En Soto DO PCP - General General Internal Medicine 10/23/17 [address] [place] [address] documented as of this encounter
--- OUTSIDE RECORDS SUMMARY | 2022-04-27 01:21 | XMS_ITS | Encounter Summary ---
:1965 Author Organization [facility] Address [address] [place] [address] Care Team Providers Name Role Phone Narendra Ramirez Primary Care Provider Encounter Details Date Type Department Care Team Description 11/09/[address] [facility] Val Sanon MD Laboratory Services - [address] [place] [address] [address] [place] [phone] (Wo rk) Social History Tobacco Use Types Packs/Day Years Used Date Never Assessed Sex Assigned at Date Recorded Not on file documented as of this encounter Plan of Treatment Not on filedocumented as of this encounter Procedures Procedure Name Priority Date/Time Associated Diagnosis Comme [facility] SURGICAL PATHOLOGY Routine 11/09/2009 0:00 EDT Re sults for this procedure are i n the results section. documented in this encounter Results SURGICAL PATHOLOGY (11/09/2009 0:00 EDT) Pathologist [facility] Pathology SURGICAL PATHOLOGY REPORT ? [facility] Report: ? LAB Reports generated via electr onic interface contain original data; ? however they are lacking the format of the original report. ? Caution should be taken when reading/interpreting unformatted reports. ? Name: ? BILLY, VERONICA ? Accession #: ? [id number] ? : ? 1965 (Age: 44) ??F ?Collect Date: ? 11/09/2009 ? Location: ? [facility] ? R eceive Date: ? 11/10/2009 ? Provider: VAL SANON MD ? Copy to: ? Final Pathologic Diagnosis: ? Breast, left, 6 o'liyah ck, 3 cm out, ultrasound guided needle core biopsies: 1. ?Adenocarcin hola, ductal type, invasive, nuclear grade II-III. ??See ?? comment. ? 2. ? Ductal carcinoma in situ (DCIS), solid pattern, nuclear grade II-III. ? 3. ? Prominent lymphopla smacytic host inflammatory response. ? Comment: ? The tumor forms infil trating nests and glandular structures admixed with a dense chronic inflammatory r esponse. ??This case was reviewed by Dr. Veliz ? Drea, who concurs with the diagnosis and raises the possibility of medullary ?? features. ??Immunohistochemi milla stains for estrogen and progesterone receptors ?? have been ordered, the resul ts of which will be issued in a separate report. ? This case was discussed with Dr. Val Sanon on 11/11/09. ??(Dr. Edge)/tigist ? Document reviewed and electr onically signed by: ? KERVIN EDGE MD ? Report ??Date: 2009 11:52 ? By the signature above, the attending physician certifies that he/she has ? personally conducted a gross and/or microscopic examination of the described ? specimens and rendered or co nfirmed the above diagnosis. ? Specimen(s) Received: ? Ultrasound guided cor e biopsy, left breast, 6 o'clock, 1.1 cm mass, 3 cm ?? out ? Clinical History: ? Suspicious for malig ? Gross Description: ? Collected and placed in formalin on November 09, 2009, at 12:45 PM with next-day processing labelled Veronica Forrest and left breast are six yellow and white, focally hemorrhagic cylinder s of fibrofatty tissue ranging from 0.3 to 1.0 cm in length, each measuring 0.1 c m in diameter. ??The specimens are submitted entirely as (A1) and (A2). ??(Yennifer masterson)/tigist ? ESTROGEN AND PROGESTERONE RE CEPTOR IMMUNOPEROXIDASE STAINS ? Date Ordered: ? 0 11/14/2009 ? Status: ?? Signed Out ?Date Complete: ? 11/14/2009 ? By: ??Eri Pelletier ? Date Reported: ? 11/14/2009 ? Interpretation ? Breast, left, 6 o'liyah ck, 3 cm out, ultrasound guided needle core biopsies: - Adenocarcinoma, invasive. ? 1. ?Negative fo r estrogen receptors. ? 2. ?Negative fo r progesterone receptors. ? Description ? Tissue submitted: Par affin embedded tissue block labelled [id number] (A2) ?? from [facility] are ? An immunohistochemical assay for estrogen receptors (ER1D5, Dako) and ? progesterone receptors (PgR1 294, Dako) has been performed on this specimen. ? Standard heat activated anti gen retrieval protocol (EDTA buffer at pH 8.0 and 98 C x 30 minutes) was employed followed by automated immunostaining. Intranuclear receptor complexes were visu alized on tissue sections using an HRP polymer ? immunohistochemical techniqu e. ? Results are reported as negative (no nuclear staining) or positive with the proportion of positive cells noted. ??Estrogen receptor expression in <5% of ? tumor cells may not have a s alphonso interaction with estrogen receptor modulators such as Tamoxifen. ??(Dr. Zelalem cantu)/tigist ? NOTE: ??One or more of the reagents used in immunohistochemical testing in this case may not have been cleared or approved by the U.S. Food and Drug ? Administration (FDA). ??The FDA has determined that such clearance or approval is not necessary. ??These tests are used for clinical purposes. ??They should not be regarded as investigational or for research. ??These reagents' ??performance ? characteristics have been de termined by [facility]. ??This ? laboratory is certified unde r the Clinical Laboratory Improvement Amendments of 1988 (CLIA-88) as qualified to perform high complexity clinical laboratory ? testing. ? Document reviewed and electr onically signed by: ? Luis Chavarria MD ? Report date: 11/15/19 ? By the signature above, the attending physician certifies that he/she has ? personally conducted a gross and/or microscopic examination of the described ? specimens and rendered or co nfirmed the above diagnosis. ? End of Report ? Specimen Performing Organization Address City/State/ZIP Code Phon e Number [facility] [address] [place] [address] [facility] [address] [place] [address] documented in this encounter Visit Diagnoses Not on filedocumented in this encounter Care Teams Automotive Welder Relationship Specialty Start Date End Date Narendra Ramirez DO PCP - General 10/26/08 12/13/16 [address] [place] [address] documented as of this encounter
--- OUTSIDE RECORDS SUMMARY | 2022-04-27 01:21 | XMS_ITS | Encounter Summary ---
:1965 Author Organization [facility] Address [address] [place] [address] Care Team Providers Name Role Phone En Soto DO Primary Care Provider Encounter Details Date Type Department Care Team Description 02/26/2017 Hospital Encounter [facility] - Kayy Everett Prospect MD [address] [address] [place] [address] Social History Tobacco Use Types Packs/Day Years Used Date Never Assessed Sex Assigned at Date Recorded Not on file documented as of this encounter Discharge Diagnoses Diagnosis Z01.419 Encounter for gynecological exam ination (general) (routine) without abnormal findings-Z01.419[ICD-10-CM] Z11.51 Encounter for screening for human papillomavirus (HPV)-Z11.51[ICD-10-CM] Z12.4 Encounter for screening for malign ant neoplasm of cervix-Z12.4[ICD-10-CM] documented in this encounter Medications at Time of Discharge Medication Sig Dispensed Refills Start Date End Date levothyroxine (SYNTHROID) Take 100 mcg by 0 100 mcg tablet mouth daily. oxycodone-acetaminophen Take 1-2 Tabs by 40 Tab 0 2009 (PERCOCET) 5-325 mg per mouth as needed for tablet Pain for 2 doses. documented as of this encounter Discharge Disposition Disposition Code Departure Means Destination Home or Self Care documented in this encounter Plan of Treatment Not on filedocumented as of this encounter Visit Diagnoses Not on filedocumented in this encounter Care Teams Enamel Dipper Relationship Specialty Start Date End Date En Soto DO PCP - General 12/14/16 [address] [place] [address] documented as of this encounter
--- OUTSIDE RECORDS SUMMARY | 2022-04-27 01:21 | XMS_ITS | Encounter Summary ---
:1965 Author Organization [facility] Address [address] [place] [address] Care Team Providers Name Role Phone En Soto Primary Care Provider Encounter Details Date Type Department Care Team Description 09/11/2021 Lab Requisition [facility] Outr Resulting Lab, Pathology & Laboratory Provider [facility] [address] [place] [address] Social History Tobacco Use Types Packs/Day Years Used Date Never Assessed Sex Assigned at Date Recorded Not on file documented as of this encounter Plan of Treatment Not on filedocumented as of this encounter Procedures Procedure Name Priority Date/Time Associated Diagnosis Comme nts MEASLES IGG AB Routine 09/11/2021 14:45 Results f or this EST procedure are i n the results section. RUBELLA IGG Routine 09/11/2021 14:45 Results for this ANTIBODY EST procedure are i n the results section. HEPATITIS B SURFACE Routine 09/11/2021 14:45 Resu lts for this ANTIBODY EST procedure are i n the results section. VARICELLA IGG Routine 09/11/2021 14:45 Results fo r this ANTIBODY EST procedure are i n the results section. MUMPS ANTIBODY IGG Routine 09/11/2021 14:45 Resul ts for this EST procedure are i n the results section. documented in this encounter Results HEPATITIS B SURFACE ANTIBODY (09/11/2021 14:45 EST) Hep B Surface Ab, <3.1 See Note [facility] Quantitative Comment: mIU/mL [facility] Reference Range for Hep B Surface Ab, Quant: SERVICES Positive: >= 10.0 mIU/mL Negative: ??< 10.0 mIU/mL Patient is presumed to not be immune to infection with Hepatitis B Virus. Hep B Surface Ab, Negative See Note [facility] Comment: [facility] Reference Range for Hep B Surface Ab, Qual: SERVICES Unvaccinated: ??Negative Vaccinated: ??Positive Specimen Blood - Venous blood (substance) Performing Organization Address City/State/ZIP Code Phon e Number [facility] [address] [place] [address] SERVICES MEASLES IGG AB (09/11/2021 14:45 EST) Measles IgG Ab PositiveComment: See Note [facility] Presence of LABORATORY SERVICES detectable measles virus IgG antibodies. Specimen Blood - Venous blood (substance) Performing Organization Address City/[facility]/ZIP Code Phon e Number [facility] [address] [place] [address] SERVICES VARICELLA IGG ANTIBODY (09/11/2021 14:45 EST) Varicella IgG Ab PositiveComment: See Note [facility] Presence of LABORATORY SERVICES detectable Varicella Zoster virus IgG antibodies. Specimen Blood - Venous blood (substance) Performing Organization Address City/[facility]/ZIP Code Phon e Number [facility] [address] [place] [address] SERVICES MUMPS ANTIBODY IGG (09/11/2021 14:45 EST) Mumps Antibody IgG PositiveComment: See Note [facility] Presence of LABORATORY SERVICES detectable mumps virus IgG antibodies. Specimen Blood - Venous blood (substance) Performing Organization Address City/[facility]/ZIP Code Phon e Number [facility] [address] [place] [address] SERVICES RUBELLA IGG ANTIBODY (09/11/2021 14:45 EST) Rubella IgG Ab PositiveComment: See Note [facility] Positive for IgG LABORATORY SERVICES antibodies to Rubella virus. Specimen Blood - Venous blood (substance) Performing Organization Address City/[facility]/ZIP Code Phon e Number [facility] [address] [place] [address] SERVICES documented in this encounter Visit Diagnoses Not on filedocumented in this encounter Care Teams Overhauler Bus Truck Relationship Specialty Start Date End Date En Soto DO PCP - General 12/14/16 [address] [place] [address] documented as of this encounter
--- OUTSIDE RECORDS SUMMARY | 2022-04-27 01:21 | XMS_ITS | Clinical Summary ---
:1965 Author Organization [facility] [place] [address] Care Team Providers Name Role Phone Robin Mireles DO Primary Care Provider Allergies No known active allergies Medications Medication Sig Dispensed Refills Start Date End Date Status LORazepam (ATIVAN) 0.5 0.5 MG = 1 0 06/21/2010 Active mg tablet Tablet(s), PO, Q4-6H PRN CALCIUM CARB/MAG 0 06/21/2010 Ac tive OXIDE/VIT D3 (CALCIUM MAGNESIUM + D ORAL) multivitamin (THERAGRAN) Take 1 tablet by 0 Active tablet mouth daily. ascorbic acid (VITAMIN Take 1,000 mg by 0 Active C) 1,000 mg tablet mouth daily. VITAMIN B COMPLEX (B Take by mouth 0 Active COMPLEX-VITAMIN B12 daily as needed. ORAL) lamoTRIgine (LAMICTAL) Take 200 mg by 0 Active 200 mg Tablet mouth 2 times daily. buPROPion (WELLBUTRIN Take 150 mg by 0 Active XL) 150 mg Tablet mouth every Extended Release 24 hr morning. levothyroxine Take 1 tablet by 90 tablet 3 11/25/2017 Active (SYNTHROID) 175 mcg mouth daily. Tablet Active Problems Problem Noted Date Osteopenia 09/03/2012 Hypothyroidism Overview: History of Infiltrating ductal carcinoma, left breast, 11/14 Overview: Diagnosed 11/14 a. 1-cm cancer, poorly differentiated, ER/OK-, HER2/ami - ([facility], [facility]), 1/6 sentinel nodes, 1 mm focus of carcinoma, micrometastasis. b. S/P WLE & sentinel lymph node dissect ion. Iron deficiency anemia Overview: Past history of probable Social History Tobacco Use Types Packs/Day Years Used Date Never Smoker Smokeless Tobacco: Never Used Sex Assigned at Date Recorded Not on file Last Filed Vital Signs Vital Sign Reading Time Taken Comments Blood Pressure 119/64 10/23/2017 2:54 PM EDT Pulse 74 10/23/2017 2:54 PM EDT Temperature 37.4 ??C (99.3 ??F) 10/23/2017 2:54 PM EDT Respiratory Rate 16 10/23/2017 2:54 PM EDT Oxygen Saturation 100% 10/23/2017 2:54 PM EDT Inhaled Oxygen Concentration - - Weight 47.3 kg (104 lb 3.2 oz) 10/23/2017 2:54 PM EDT Height 174.8 cm (5' 8.82) 10/23/2017 2:54 PM EDT Body Mass Index 15.47 10/23/2017 2:54 PM EDT Plan of Treatment Health Maintenance Due Date Last Done Comments Covid-19 Vaccine (#1) 1965 HIV screen 1981 Hepatitis C Screening 1981 Tdap adult 1982 Tetanus vaccine 1982 Breast Cancer Share Decision Needed 2003 Colonoscopy 2008 Breast Cancer screening 2013 Zoster vaccine (1 of 2) 2013 PAP Smear 01/13/2016 01/12/2013, 02/15/2011 Influenza (Flu) vaccine (1 of 1 - 03/08/2022 Influenza standard series) Insurance Payer Benefit Plan / Subscriber ID Effective Dates Phone Addre ss Type Group ULTRA BENEFITS ULTRA BENEFITS [id number] 2020-Present [address] [place] [address] Advance Directives Documents on File Type Date Recorded Patient Cash Applications Associate Explanati on Advance Directives and Living 09/06/2010 10:26 AM Will Care Teams Web User Experience Strategist Relationship Specialty Start Date End Date Robin Mireles, PCP - General Family Medicine 02/27/[address] [place] [address]
--- OUTSIDE RECORDS SUMMARY | 2022-04-27 01:21 | XMS_ITS | Encounter Summary ---
:1965 Author Organization [facility] Address [address] [place] [address] Care Team Providers Name Role Phone Narendra Ramirez Primary Care Provider Encounter Details Date Type Department Care Team Description 02/21/[address] [facility] - Jose Alfredo George Jr., Converted Visit Gabrielle lyon MD ([place]) [address] [facility] [address] [place] [address] [address] [phone] [place] [address] (Wo rk) Social History Tobacco Use Types Packs/Day Years Used Date Never Assessed Sex Assigned at Date Recorded Not on file documented as of this encounter Consult Notes Jose Alfredo George MD - 07/01/2009 1205 EST OF PLASTIC RECONSTRUCTIVE SURGERY CONSULTATION - Chi Griffin MD [facility] [address] [facility] [address] [facility] [address] Dear Diego: Thank you very much for referring Cherrie in consultation. As you know, she is a 40-year-old woman whopresents with a chief complaint of recurrent draining lesion in her submental neck. She reports thatthis has been present for a number of years, will become swollen, inflamed and spontaneously drain white, thick fluid. She denies any trauma to the area. She is otherwise healthy. She has no know medication allergies. She has no medications currently. She did have surgery on her right ankle. She is a former smoker having quit three years ago. Review of systems is on the chart. On examination she is a healthy 40-year-old woman in no acute distress. On her submental chin, she points to an area of scar measuring about 8 mm in diameter. I do not appreciate any mass effect at this time. My impression is of a sebaceous cyst, currently drained spontaneously. I agree that given the history that excision would be indicated. I think this could easily be accomplished under local anesthetic.She agrees. We will schedule this in the office procedures. I want to thank you for referring this patient for consultation. If there are any further questions,please do not hesitate to contact me. Sincerely, Signed by Jose Alfredo eGorge MD 02/26/2006 11:35 Marycarmen George, Deirdre George MD Jose Alfredo George MD - Jameson George MD P - chr Job ID: [id number] Document ID: [id number] cc: Chi Griffin MD [facility] [address] [facility] [address] [place] [address] Te Marvin MD Medical Office [address] [facility] [address] [facility] [address] documented in this encounter Plan of Treatment Not on filedocumented as of this encounter Visit Diagnoses Not on filedocumented in this encounter Care Teams Braille And Talking Books Clerk Relationship Specialty Start Date End Date Narendra Ramirez DO PCP - General 10/26/08 12/13/[address] [place] [address] documented as of this encounter
--- OUTSIDE RECORDS SUMMARY | 2022-04-27 01:21 | XMS_ITS | Encounter Summary ---
:1965 Author Organization [facility] Address [address] [place] [address] Care Team Providers Name Role Phone Narendra Ramirez Primary Care Provider Encounter Details Date Type Department Care Team Description 12/11/2016 Orders Only [facility] Celio Nur examination for pulmonary tuberculosis (Primary Dx); Employee Health - D, RN Immunity status testing [facility] [address] [facility] [address] [place] [address] [place], [place] [phone] Social History Tobacco Use Types Packs/Day Years Used Date Never Assessed Sex Assigned at Date Recorded Not on file documented as of this encounter Plan of Treatment Not on filedocumented as of this encounter Results TB BY QUANTIFERON, B (12/14/2016 14:13 EDT) [facility] Signature TB Interpretation Negative Negative [facility] Comment: LABORATORY Reference Range: Negative SERVICES Resuls were obtained with the [employer] QuantiFERON-TB Gold REILLY. TB Antigen Value 0.00 IU/mL [facility] Comment: LABORATORY This is a qualitative test. ??The TB antigen IU/ mL value is required for SERVICES documentation on certain government reporting forms (e .g., Form I-693), but the magnitude of this value cannot be correlated to st age or degree of infection, level of immune responsiveness, or likeliho od for progression to active disease. ?? Diagnosing or excluding tuberculosis dis ease, and assessing the probability of LTBI, requires a combination of epidemiological, hist orical, medical, and diagnostic findings that should be taken into account when interpreting QuantiFERON-TB results. Specimen Blood specimen (specimen) - Blood Performing Organization Address City/State/ZIP Code Phon e Number [facility] [address] [place] [address] SERVICES MUMPS ANTIBODY IGG (12/14/2016 14:13 EDT) Mumps Antibiody Positive [facility] IgG Comment: LABORATORY SERVICES Presence of detectable mumps virus IgG antibodies. Specimen Blood specimen (specimen) - Blood Performing Organization Address City/[facility]/ZIP Code Phon e Number [facility] [address] [place] [address] SERVICES documented in this encounter Visit Diagnoses Diagnosis Screening examination for pulmonary tube rculosis - Primary Immunity status testing Antibody response examination documented in this encounter Care Teams Cell Liner Relationship Specialty Start Date End Date Narendra Ramirez DO PCP - General 10/26/08 12/13/16 [address] [place] [address] documented as of this encounter
--- OUTSIDE RECORDS SUMMARY | 2022-04-27 01:21 | XMS_ITS | Clinical Summary ---
:1965 Author Organization [facility] Address [address] [place] [address] Care Team Providers Name Role Phone Stoo En Lucina MCNEAL Primary Care Provider Allergies No known active allergies Medications Medication Sig Dispensed Refills Start Date End Date Status levothyroxine Take 100 mcg by 0 Active (SYNTHROID) 100 mcg mouth daily. tablet oxycodone-acetaminophen Take 1-2 Tabs by 40 Tab 0 0 Active (PERCOCET) 5-325 mg per mouth as needed tablet for Pain for 2 doses. Social History Tobacco Use Types Packs/Day Years Used Date Never Assessed Sex Assigned at Date Recorded Not on file Last Filed Vital Signs Vital Sign Reading Time Taken Comments Blood Pressure 105/59 11/28/2009 1000 EDT Pulse 72 11/28/2009 0910 EDT Temperature 36.5 ??C (97.7 ??F) 11/28/2009 1000 EDT Respiratory Rate 18 11/28/2009 1000 EDT Oxygen Saturation 100% 11/28/2009 1000 EDT Inhaled Oxygen Concentration - - Weight 61.2 kg (135 lb) 11/24/2009 1401 EDT Height 175.3 cm (5' 9) 11/24/2009 1401 EDT Body Mass Index 19.94 11/24/2009 1401 EDT Plan of Treatment Health Maintenance Due Date Last Done Comments Hepatitis C Screen 1965 COVID-19 Vaccine (1) 1968 Insurance Payer Benefit Plan / Subscriber ID Effective Dates Phone Addre ss Type Group CIGNA CIGNA [facility] [id number] 2020-Deven [phone] [address] Cigna GL TPA t 4 SYEDA PEARCE [id number] Cherrie Forrest Personal/Family Self 1965 [address] [facility] [place] [address] Care Teams Professor Of Forestry Relationship Specialty Start Date End Date En Soto, PCP - General 12/14/[address] [place] [address]
--- OUTSIDE RECORDS SUMMARY | 2022-04-27 01:21 | XMS_ITS | Encounter Summary ---
:1965 Author Organization [facility] Address [address] [place] [address] Care Team Providers Name Role Phone Narendra Ramirez DO Primary Care Provider En Soto DO Primary Care Provider Encounter Details Date Type Department Care Team Description 11/23/2009 Historical Results [facility] - Ray Valencia, Only [facility] Lab - Main [facility] DO [address] [place] [address] [address] [place] [address] Social History Tobacco Use Types Packs/Day Years Used Date Never Assessed Sex Assigned at Date Recorded Not on file documented as of this encounter Plan of Treatment Not on filedocumented as of this encounter Procedures Procedure Name Priority Date/Time Associated Diagnosis Comme nts PAP TEST Routine 11/23/2009 Results for thi s procedure are in the resu lts section. documented in this encounter Results PAP TEST (11/23/2009) Specimen Narrative [facility] - 010 14:34 EDT Name: CHERRIE FORREST ? : [birth year] ?Age/Sex: 54/F ?Unit#: [id number] ? Loc: AGO ? Status: REG POV ?? Reg Date: 11/23/09 ? Pt.Phone Number : ? Specimen: [id number] ?STA TUS: SOUT ?Spec Date:11/23/09 ? Physician Copies: ?Zach Valencia DO Tissues: ? Cervical/Endo Pap ?Te Marvin V CPT: 43895 ?? Units: ??1 ? CYTOLOGY DIAGNOSIS SPECIMEN ADEQUACY: ?Satisfactory for evaluation. Transformation zone component present. GENERAL CATEGORIZATION: ?Epithelial Cell Abnormality. 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 RECOMMENDATIONS/COMMENTS: ??Recommend qamar washburn the 2006 Consensus Guidelines for the Management of ??Women with Cervical Cyto logic Abnormalities. ?? Management algorithms have been distributed and are also available online at www.ASCCP.org/consensus.shtml. ORDER QUERIES: LMP: 11/19/09 - WNL ?Pregna nt? N Post ? N ??PREVIOUS ATYPICAL: Y BCP/HRT? N Rad Rx? N IUD? N ??PAP PLUS HPV? N ??REFLEX TO HR-HPV IF ASCUS ?? REFLEX TO HPV 16/18 IF HPV POS/PAP NEG ?? HPV REGARDLESS?RFLX HPV IF LSIL ?? IF ASCUS DO HPV? Y Signed ____(signature on file)____ Bertrand Erwin M.D. 11/30/09 ?? By the signature above, the attending ph ysician certifies that he/she has personally conducted a gross and/or microscopic exa mination of the described specimens and rendered or confirmed the above diagnosi s. Test Per[facility], [address] [place] [address] Ash Conveyor Operator: Lolita Alarcon MD PHD Performing Organization Address City/State/ZIP Code Phon e Number [facility] [address] [place] [address] [facility] documented in this encounter Visit Diagnoses Not on filedocumented in this encounter Care Teams Vp Communications Relationship Specialty Start Date End Date Narendra Ramirez DO PCP - General 10/26/08 12/13/[address] [place] [address] En Soto DO PCP - General 12/14/16 [address] [place] [address] documented as of this encounter
--- OUTSIDE RECORDS SUMMARY | 2022-04-27 01:21 | XMS_ITS | Encounter Summary ---
:1965 Author Organization [facility] Address [address] [place] [address] Care Team Providers Name Role Phone Narendra Ramirez Primary Care Provider Encounter Details Date Type Department Care Team Description 11/28/2009 Results Only [facility]- Val Greene MD [phone] [place] [address] (Wo rk) Social History Tobacco Use Types Packs/Day Years Used Date Never Assessed Sex Assigned at Date Recorded Not on file documented as of this encounter Plan of Treatment Not on filedocumented as of this encounter Procedures Procedure Name Priority Date/Time Associated Diagnosis Comme nts NM INJECTION ONLY 11/28/2009 7:32 EDT Res ults for this SENT NODE procedure are i n the results section. documented in this encounter Results NM INJECTION ONLY SENT NODE (11/28/2009 7:32 EDT) Anatomical Region Laterality Modality Other Specimen Narrative [facility] - 12/02/2009 17:58 EDT Clinical History/Comments: ??Left BR CA. Comparison: ??None. 1 mCi Tc-99m Sulfur Colloid was injecte d around the breast tumor. ?? In addition, 0.2 mCi Tc-99m Sulfur Collo id was injected subdermally over the breast tumor. ??No images were obtained. ?? Procedure Note 12/02/2009 Clinical History/Comments: Left BR CA. Comparison: None. 1 mCi Tc-99m Sulfur Colloid was injecte d around the breast tumor. In addition, 0.2 mCi Tc-99m Sulfur Collo id was injected subdermally over the breast tumor. No images were ob tained. Performing Organization Address City/State/ZIP Code Phon e Number [facility] documented in this encounter Visit Diagnoses Not on filedocumented in this encounter Care Teams Wink Cutter Operator Relationship Specialty Start Date End Date Narendra Ramirez DO PCP - General 10/26/08 12/13/16 [address] [facility] [place] [address] documented as of this encounter
--- OUTSIDE RECORDS SUMMARY | 2022-04-27 01:21 | XMS_ITS | Encounter Summary ---
:1965 Author Organization [facility] Address [facility] [address] [address] Care Team Providers Name Role Phone En Soto DO Primary Care Provider Reason for Referral Diagnostic Test (Routine) - Closed Specialty Diagnoses / Procedures Referred By Contact Refer red To Contact Radiology Diagnoses Hypothyroidism, unspecified type Malignant neoplasm of female breast, unspecified estrogen receptor status, unspecified laterality, unspecified site of breast Iron deficiency anemia, unspecified iron deficiency anemia type Bobo Gomez MD [facility] Rad Ct Scan Procedures CT Chest Abdomen Pelvis w Contrast (Generic) [facility] HEMATOLOGY/[place] [address] [place] [address] Referral ID Status Reason Start Date Expiration Date Visits V isits Requested Authorized [id number] Closed Specialty 10/23/2017 10/23/2018 1 1 Service Requested Encounter Details Date Type Department Care Team Description 10/23/2017 Office Visit Hematology and Bobo Gomez, Hypothyr oidism, unspecified type; [place] [facility] Malignant neoplasm of female breast, uns pecified estrogen receptor status, unspecified laterality, unspecified site of breast; [facility] Iro n deficiency anemia, unspecified iron deficiency anemia type Drive [address] [place] HEMATOLOGY/ONCOLOG [id number] [place] DEPT. [phone] [place], [place] [address] Social History Tobacco Use Types Packs/Day Years [...] Mass Index 15.47 10/23/2017 2:54 PM EDT documented in this encounter Progress Notes Bobo Gomez MD - 10/23/2017 3:00 PM EDT Subjective: Patient ID: Cherrie Forrest is a 52 y.o. female, who returns in followup for treatment and managementof her breast cancer, and other medical problems. Her past medical history, social history, and family history are unchanged from that noted in my prior notes. Problem List: 1. Infiltrating ductal carcinoma, left breast, 11/14 a. ~ 1-cm cancer, poorly differentiated, ER/VT- (outside, confirmed on [facility] IHC), HER2/ami - ([facility], [facility]), 1/6 sentinel nodes, ~ 1 mm focus of [...] hypothyroidism. a. Prior h/o thyroiditis, ~ 2006. 3. H/O bilateral breast augmentation surgery and bilateral saline implants, late . 4. Past history of probable iron-deficiency anemia. 5. VIDHYA, 02/14. a. Significant hot flashes, 03/09. 1. Celexa, 03/09, 20 mg qHS. 7. GYPSY/BSO, 05/18; Pathology >> benign findings. A. [facility] bx >> LAVELLE III. 8. Osteopenia, 08/20. HPI Cherrie returns in follow-up, I have not seen her for quite a number of years. She actually contacted my office to schedule this appointment due to concerns about weight loss. Her baseline weight has been about 125 pounds. She thinks though perhaps over a year or so so fairly gradually and chronically she has been losing weight having lost about 20 pounds over this timeframe. She notes that she is always been a very light and picky eater but that her appetite is probably been somewhat worse over this timeframe as well. She has had some issues with intermittent constipation she has been using some intermittent MiraLAX and stool softeners. She has noted some occasional mild left lower quadrant discomfort but this generally has been associated with when she feels she is more constipated. She otherwisehas had no particular GI symptomatology. She has had no real abdominal pain or other discomfort. Shethinks when she had labs checked by her PCP may be a year or so ago that her iron or ferritin level was low but she is not certain of that. She does not believe her thyroid dosing has been adjusted forgreater than a year now. Finally however she thinks in June she had an episode of loss of consciousness. She does not remember the details of this other than that she lost consciousness and fell tothe floor in her home she was taken to her local ER and relates that a head CT was unremarkable. Shesubsequently was seen by a manufacturer agent and underwent a echocardiogram and she believes a 2 week Holter monitor that she does not believe showed any significant abnormalities although she was not she does not think called with the final results. Review of Systems Except as noted above, Cherrie Rosays full remaining review of systems, including constitutional, cardiac, pulmonary, GI, , neurologic, musculskeletal, and remaining, is otherwise fully unremarkable. Current Outpatient Prescriptions on File Prior to Visit Medication Sig Dispense Refill ??? VITAMIN B COMPLEX (B COMPLEX-VITAMIN B12 ORAL) Take by mouth daily as needed. ??? ascorbic acid (VITAMIN C) 1,000 mg tablet Take 1,000 mg by mouth daily. ??? levothyroxine (SYNTHROID) 100 mcg tablet Take 150 mcg by mouth daily. ??? multivitamin (THERAGRAN) tablet Take 1 tablet by mouth daily. ??? CALCIUM CARB/MAG OXIDE/VIT D3 (CALCIUM MAGNESIUM + D ORAL) ??? [DISCONTINUED] vilazodone (VIIBRYD) 40 mg Tab Take 40 mg by mouth daily. ??? LORazepam (ATIVAN) 0.5 mg tablet 0.5 MG = 1 Tablet(s), PO, Q4-6H PRN (Patient not taking: No sigreported) ??? [DISCONTINUED] citalopram (CELEXA) 20 mg tablet 20 MG = 2 Tablet(s), PO, QHS No current facility-administered medications on file prior to visit. Objective: Physical Exam Vitals: 10/23/17 1454 BP: 119/64 Patient Position: Sitting Pulse: 74 Resp: 16 Temp: 37.4 ??C (99.3 ??F) TempSrc: Temporal SpO2: 100% Weight: 47.3 kg (104 lb 3.2 oz) Height: 174.8 cm (5' 8.82) Objective: Cherrie Forrest is well appearing and [...] III - XII unremarkable, DTR's symmetric throughout. No results found for this or any previous visit (from the past 24 hour(s)). No results for input(s): WBC, NEUTROABS, HGB, HCT, PLATELET in the last 7068 hours. No results for input(s): AST, ALT, ALKPHOS, BILITOT in the last 7068 hours. Assessment and Plan: Cherrie returns in follow-up now with a history of probably about a year or so of unexplained but moderate significant weight loss and poor appetite. She additionally did have an episode of loss of consciousness in June. I should note she has had no other neurologic symptoms whatsoever or recurrent episodes since then. With her pathology all note statistically the likelihood of recurrence at this point in time would be fairly low although certainly it is a possibility. I think her current symptomsare probably not due to metastatic disease however it would recommend working this up further nonetheless. We will obtain lab work today including thyroid functions and I have recommended proceeding with a CT scan for further evaluation. Further recommendations be made subsequent to the above. documented in this encounter Plan of Treatment Not on filedocumented as of this encounter Procedures Procedure Name Priority Date/Time Associated Comments Diagnosis HEMOGRAM STAT 10/23/2017 3:53 PM Hypothyroidism, Result s for this EDT unspecified type procedure are in Malignant neoplasm the resul ts of female breast, section. unspecified estrogen receptor status, unspecified laterality, unspecified site of breast DIFFERENTIAL, STAT 10/23/2017 3:53 PM Hypothyroidism, Resul ts for this AUTOMATED EDT unspecified type procedure are in Malignant neoplasm the resul ts of female breast, section. unspecified estrogen receptor status, unspecified laterality, unspecified site of breast CBC (WITH DIFF) STAT 10/23/2017 3:53 PM Hypothyroidism, EDT unspecified type Malignant neoplasm of female breast, unspecified estrogen receptor status, unspecified laterality, unspecified site of breast T3 TOTAL Routine 10/23/2017 3:53 PM Hypothyroidism, Result s for this EDT unspecified type procedure are in Malignant neoplasm the resul ts of female breast, section. unspecified estrogen receptor status, unspecified laterality, unspecified site of breast TSH Routine 10/23/2017 3:53 PM Hypothyroidism, Result s for this EDT unspecified type procedure are in Malignant neoplasm the resul ts of female breast, section. unspecified estrogen receptor status, unspecified laterality, unspecified site of breast T4 TOTAL Routine 10/23/2017 3:53 PM Hypothyroidism, Result s for this EDT unspecified type procedure are in Malignant neoplasm the resul ts of female breast, section. unspecified estrogen receptor status, unspecified laterality, unspecified site of breast COMPREHENSIVE STAT 10/23/2017 3:53 PM Hypothyroidism, Resul ts for this METABOLIC PANEL EDT unspecified type procedure are in (NON-FASTING) Malignant neoplasm the resu lts of female breast, section. unspecified estrogen receptor status, unspecified laterality, unspecified site of breast documented in this encounter Results CT Chest Abdomen Pelvis w Contrast (Generic) (10/25/2017 3:02 PM EDT) Anatomical Region Laterality Modality Abdomen, Pelvis Computed Tomography Specimen (Source) Anatomical Location Collection Method / Collectio n Time Received Time / Laterality Volume Impressions 10/25/2017 3:[address] evidence of metastatic disease. Narrative 10/25/2017 3:16 PM EDT EXAMINATION: CT CHEST ABDOMEN PELVIS W CONTRAST (GENERIC) CLINICAL HISTORY: h/o breast cancer, une xplained weight loss, ? mets TECHNIQUE: Helical CT of the chest, abdo men, and pelvis was performed following intravenous administration of 66 ml of O mnipaque 350. Oral contrast was administered. COMPARISON: CT chest March 31, 2013 FINDINGS: Chest: Lungs and large airways: Dependent atele ctasis bilaterally. Stable nodular apical scarring. No pulmonary nodules, m asses nor airspace consolidation. Stable scar at the left lower lobe. Pleura: No effusion. Heart/vasculature: Normal. Lymph nodes/Mediastinum/Madelyn: No enlarge d axillary, internal mamillary, mediastinal nor hilar lymph nodes. Abdomen/pelvis: Liver: Normal size and attenuation witho ut lesions. Bile ducts: Nondilated. Gallbladder: No calcified gallstones. No rmal caliber wall. Pancreas: Normal attenuation without delmy marie dilatation. Spleen: Normal. Adrenals: Normal. Kidneys: Normal. ? Vasculature: Circumferential calcified n onaneurysmal abdominal aorta. Patent portal and mesenteric veins. No central pulmonary emboli. Lymph Nodes: ??No enlarged lymph nodes. Bowel: Nondilated, no wall thickening. ? ? Peritoneum and mesentery: No ascites, fr ee air, or loculated fluid collection. No mesenteric inflammation. Abdominal wall: Normal. Urinary Bladder: Normal. Reproductive organs: Not visualized Osseous structures: No suspicious lesion s. Procedure Note Evelyn Rose MD - 10/25/2017 EXAMINATION: CT CHEST ABDOMEN PELVIS W CONTRAST (GENERIC) CLINICAL HISTORY: h/o breast cancer, une xplained weight loss, ? mets TECHNIQUE: Helical CT of the chest, abdo men, and pelvis was performed following intravenous administration of 66 ml of O mnipaque 350. Oral contrast was administered. COMPARISON: CT chest March 31, 2013 FINDINGS: Chest: Lungs and large airways: Dependent atele ctasis bilaterally. Stable nodular apical scarring. No pulmonary nodules, m asses nor airspace consolidation. Stable scar at the left lower lobe. Pleura: No effusion. Heart/vasculature: Normal. Lymph nodes/Mediastinum/Madelyn: No enlarge d axillary, internal mamillary, mediastinal nor hilar lymph nodes. Abdomen/pelvis: Liver: Normal size and attenuation witho ut lesions. Bile ducts: Nondilated. Gallbladder: No calcified gallstones. No rmal caliber wall. Pancreas: Normal attenuation without delmy marie dilatation. Spleen: Normal. Adrenals: Normal. Kidneys: Normal. Vasculature: Circumferential calcified n onaneurysmal abdominal aorta. Patent portal and mesenteric veins. No central pulmonary emboli. Lymph Nodes: No enlarged lymph nodes. Bowel: Nondilated, no wall thickening. Peritoneum and mesentery: No ascites, fr ee air, or loculated fluid collection. No mesenteric inflammation. Abdominal wall: Normal. Urinary Bladder: Normal. Reproductive organs: Not visualized Osseous structures: No suspicious lesion s. IMPRESSION No CT evidence of metastatic disease. Bobo Gomez MD IMG CT ORDERABLES Differential, Automated (10/23/2017 3:53 PM EDT) athologist Signature Neutrophils % 49.9 % [facility] Neutr Abs (ANC) 4.01 1.70 - [facility] 6.10 [facility] x10(3)/[facility] LABORATORY Lymphocytes % 38.8 % [facility] Lymphocytes Abs 3.1 0.9 - 3.2 [facility] x10(3)/[facility] LABORATORY Monocytes % 7.2 % [facility] Monocyte Abs 0.6 0.3 - 0.9 [facility] x10(3)/[facility] LABORATORY Eosinophils % 3.2 % [facility] Eosinophils Abs 0.3 0.0 - 0.4 [facility] x10(3)/[facility] LABORATORY Basophils % 0.7 % [facility] Basophils Abs 0.1 0.0 - 0.1 [facility] x10(3)/[facility] LABORATORY Immature Gran % 0.20 % [facility] Comment: Immature granulocytes(IG's)percentage an d absolute count will include metamyelocytes, myelocytes, and promyelo cytes. Blood smears from CBCs yielding IG's will be scanned manually for concor dance. If this scan disagrees with the automated IG or if promyelocytes are not ed, a manual differential will be performed. Shanice Gran Abs 0.02 0.00 - 0.04 x10(3)/[facility] Y [facility] LABORATORY Specimen Anatomical Collection Method Collection Time Receive d Time (Source) Location / / Volume Laterality Blood specimen 10/23/2017 3:53 PM 018 3:58 (specimen) EDT PM EDT Resulting Agency Comment Spec In Lab Bobo Gomze MD HEMATOLOGY ORDERABLES Performing Organization Address City/State/[place] [address] (ABNORMAL) Hemogram (10/23/2017 3:53 PM EDT) Analysis Performed At Patho logist Time Signature WBC 8.0 4.0 - 9.5 [facility] x10(3)/[facility] LABORATORY RBC 3.99 (L) 4.00 - [facility] x10(6)/[facility] LABORATORY Hemoglobin 13.2 11.7 - [facility] 15.[facility] gm/dL [facility] Hematocrit 39.6 35.7 - [facility] 45.8 % [facility] MCV 99.2 (H) 82.6 - [facility] 94.4 [facility] LABORATORY MCH 33.1 (H) 27.1 - [place] 32.0 pg [facility] MCHC 33.3 31.7 - [place] 35.0 gm/dL [facility] Platelets 304 145 - 357 [place] x10(3)/[facility] LABORATORY RDWSD 48.4 (H) 37.0 - [place] 46.0 [facility] LABORATORY RDWCV 13.1 11.5 - [place] 14.1 % [facility] MPV 9.6 7.6 - 12.9 [place] [facility] LABORATORY nRBC % Auto 0.0 % [facility] nRBC Abs Auto 0.000 0.000 - [place] 0.000 [facility] x10(3)/[facility] LABORATORY Specimen Anatomical Collection Method Collection Time Receive d Time (Source) Location / / Volume Laterality Blood specimen 10/23/2017 3:53 PM 018 3:58 (specimen) EDT PM EDT Resulting Agency Comment Spec In Lab Bobo Gomez MD HEMATOLOGY ORDERABLES Performing Organization Address City/State/[place] [address] (ABNORMAL) T3 Total (10/23/2017 3:53 PM EDT) athologist Signature T3, Total 73 (L) 75 - 170 [facility] NOY ng/dL [facility] Specimen Anatomical Collection Method Collection Time Receive d Time (Source) Location / / Volume Laterality Blood specimen 10/23/2017 3:53 PM 018 3:58 (specimen) EDT PM EDT Resulting Agency Comment Spec In Lab Bobo Gomez MD CHEMISTRY ORDERABLES Performing Organization Address City/State/[place] [address] T4 Total (10/23/2017 3:53 PM EDT) P athologist Signature T4, total 8.2 5.1 - 10.8 [place] mcg/dL [facility] Comment: Reference Range: Cord Blood: ??6.9-14.4 mcg/dL Females: ??7.2-14.2 mcg/dL Pediatric ranges: ??Interpret with cauti on-ranges have not been verified Specimen Anatomical Collection Method Collection Time Receive d Time (Source) Location / / Volume Laterality Blood specimen 10/23/2017 3:53 PM 018 3:58 (specimen) EDT PM EDT Resulting Agency Comment Spec In Lab Bobo Gomez MD CHEMISTRY ORDERABLES Performing Organization Address City/[facility]/ZIP Code Phon e Number [address] (ABNORMAL) TSH (10/23/2017 3:53 PM EDT) athologist Signature TSH 30.89 (H) 0.27 - [facility] 4.20 [facility] mlU/ML [facility]OR[facility] Specimen Anatomical Collection Method Collection Time Receive d Time (Source) Location / / Volume Laterality Blood specimen 10/23/2017 3:53 PM 018 3:58 (specimen) EDT PM EDT Resulting Agency Comment Spec In Lab Bobo Gomez MD CHEMISTRY ORDERABLES Performing Organization Address City/[facility] [place] [address] (ABNORMAL) Comprehensive metabolic panel (non-fasting) (10/23/2017 3:53 PM EDT) P athologist Signature Glucose Lvl 86 65 - 199 [facility] mg/dL [facility] Comment: Diabetes: >=200 mg/dL plus symp toms BUN 13 8 - 18 mg/dL [facility] Creatinine 1.02 0.70 - 1.20 mg/dL [facility] Sodium 141 135 - 145 mmol/L [facility] Potassium 4.5 3.5 - 5.0 mmol/L [facility] Comment: Please note: ??Patients with WBC >100,00 0 may have falsely elevated Potassium levels. ??For accurate Potassium quantif ication in these patients send serum separator tube (gold top) for subsequent determinations. ??Contact the Clinical Chemistry Laboratory if there are any qu estions. Chloride 102 98 - 107 mmol/L [facility] CO2 27 22 - 31 mmol/L [facility] Anion Gap 12 5 - 15 mmol/L [facility] Calcium 9.7 8.5 - 10.5 mg/dL [facility] Total Protein 6.9 6.1 - 8.0 gm/dL [facility] Albumin 4.4 3.2 - 5.2 gm/dL [facility] AST 20 0 - 30 unit/L [facility] ALT 23 0 - 30 unit/L [facility] Alk Phos 65 40 - 104 unit/L [facility] Total Bilirubin <0.2 (L) 0.2 - 1.3 mg/dL [facility] Estimated GFR 56 (L) >=60 [facility] Comment: The reported eGFR should be multiplied b y 1.2 for patients. The MDRD is not an appropriate measure o f renal function for patients with body mass extremes or in patients with acute kidney failure. http://Verix/DHnkdep http://Verix/DHMCnkf Specimen Anatomical Collection Method Collection Time Receive d Time (Source) Location / / Volume Laterality Blood specimen 10/23/2017 3:53 PM 018 3:58 (specimen) EDT PM EDT Resulting Agency Comment Spec In Lab Bobo Gomez MD CHEMISTRY ORDERABLES Performing Organization Address City/State/[place] [address] documented in this encounter Visit Diagnoses Diagnosis Hypothyroidism, unspecified type Malignant neoplasm of female breast, uns pecified estrogen receptor status, unspecified laterality, unspecified site of breast Iron deficiency anemia, unspecified iron deficiency anemia type Hypothyroidism, unspecified type Malignant neoplasm of female breast, uns pecified estrogen receptor status, unspecified laterality, unspecified site of breast Iron deficiency anemia, unspecified iron deficiency anemia type documented in this encounter Care Teams [employer] Supervisor Relationship Specialty Start Date End Date En Soto DO PCP - General General Internal Medicine 10/23/17 1 [address] [facility] [place] [address] documented as of this encounter
--- OUTSIDE RECORDS SUMMARY | 2022-04-27 01:21 | XMS_ITS | Encounter Summary ---
:1965 Author Organization [facility] Address [address] [place] [address] Care Team Providers Name Role Phone Narendra Ramirez Primary Care Provider Encounter Details Date Type Department Care Team Description 11/09/2009 Hospital Encounter [facility] - Val Baca MD Other [address] [facility] 111 [facility] [address] [place], [place] [id number] [place] [address] [phone] (Wo rk) Social History Tobacco Use Types Packs/Day Years Used Date Never Assessed Sex Assigned at Date Recorded Not on file documented as of this encounter Discharge Disposition Disposition Code Departure Means Destination Home or Self Care documented in this encounter Plan of Treatment Pending Results Name Type Priority Associated Diagnoses Date/Ti me RAD OUTSIDE CD - US BREAST Imaging 0 11/09/2009 19:36 EDT RAD OUTSIDE CD - US BREAST Imaging 0 11/16/2009 19:37 EDT Scheduled Orders Name Type Priority Associated Diagnoses Order S chedule RAD OUTSIDE CD - US Imaging For medi cations that can be BREAST administered at any time during the hosp italization for visit such as immunizations. for 1 Occurrences sta rting 11/22/2009 RAD OUTSIDE CD - US Imaging For medi cations that can be BREAST administered at any time during the hosp italization for visit such as immunizations. for 1 Occurrences sta rting 11/22/2009 documented as of this encounter Procedures Procedure Name Priority Date/Time Associated Comments Diagnosis MA BREAST OUTSIDE 11/21/2009 15:49 Result s for this CONSULTATION EDT procedure are i n the results section. documented in this encounter Results MA OUTSIDE CONSULTATION (11/21/2009 15:49 EDT) Anatomical Region Laterality Modality Other Specimen Narrative [facility] - 11/21/2009 18:00 EDT Mammogram Outside Films November 21, 2009 03: 49:00 PM Signs and Symptoms/Comments: ??left priyank st at 6:00, suspicious palpable mass biopsied on 11/09, 3 cm out, path shows invasive ductal cancer. Patient to be presented at [facility] t conference Outside left mammogram and left ultrasou nd from November 04, 2009 are reviewed. Comparison: Mammogram from 09/02/2008. Findings left breast: Digital diagnostic left mammogram was performed with CC and MLO views and implant displa heron CC and MLO views. There are scattered fibroglandular densities. There is a normal appearing subpectoral saline implant. A triangle m arker is placed over a palpable mass at 6 o'clock. There appear s to be some possible retraction of tissue on the routine CC v iew. On the implant displaced views, there is an associated 16 mm x 16 mm mass with irregular margins, which is incompletely imaged on the MLO implant displaced view. There is also a rounded density, w hich appears to be partly circumscribed in the central aspect of t he breast on the MLO implant displaced view at a middle depth measuri ng approximately 8 mm in diameter. This may be partially obscured by the triangle-shaped marker on the CC implant displaced view. Ultrasound was performed at the site of the palpable mass. There is an irregular hypoechoic mass with irregu lar margins and increased blood flow with color Doppler at 6 to 7 o'clock. This was interpreted as category 4, suspicious for malignancy . The history states that the patient had the mass biopsied and the bi opsy showed invasive ductal carcinoma. Impression left breast: Bi-Rads Category Assessment 0: Incomplete, need additional imaging evaluation and ? ?Bi-Rads Category Assessment 6: Known biopsy, proven malignancy. 1. The mass at 6 o'clock in the left salo ast is a known cancer following outside biopsy. (Bi-Rads Categ ory Assessment 6: Known biopsy, proven malignancy.) 2. There is question of a second round n odular density in the central aspect of the breast best seen on the ML O ID view. It may be slightly lateral to midline on the CC ID view, bu t is obscured by the skin marker. Additional focal compression mag nification ML and CC views are recommended. Whole breast ultrasound is recommended, since only the malignant mass was scanned on the pr ior outside study. Right breast: The patient is over due fo r screening mammogram of the right breast. Unless MR is going to be o btained, ultrasound of the right breast should be considered as wel l. Overall impression: Bi-Rads Category Ass essment 0: Incomplete, need additional imaging evaluation. The overall Bi-Rads impression is not in agreement with the outside study. Procedure Note 11/21/2009 Mammogram Outside Films November 21, 2009 03: 49:00 PM Signs and Symptoms/Comments: left breast at 6:00, suspicious palpable mass biopsied on 11/09, 3 cm out, path shows invasive ductal cancer. Patient to be presented at [facility] t conference Outside left mammogram and left ultrasou nd from November 04, 2009 are reviewed. Comparison: Mammogram from 09/02/2008. Findings left breast: Digital diagnostic left mammogram was performed with CC and MLO views and implant displa heron CC and MLO views. There are scattered fibroglandular densities. There is a normal appearing subpectoral saline implant. A triangle m arker is placed over a palpable mass at 6 o'clock. There appear s to be some possible retraction of tissue on the routine CC v iew. On the implant displaced views, there is an associated 16 mm x 16 mm mass with irregular margins, which is incompletely imaged on the MLO implant displaced view. There is also a rounded density, w hich appears to be partly circumscribed in the central aspect of t he breast on the MLO implant displaced view at a middle depth measuri ng approximately 8 mm in diameter. This may be partially obscured by the triangle-shaped marker on the CC implant displaced view. Ultrasound was performed at the site of the palpable mass. There is an irregular hypoechoic mass with irregu lar margins and increased blood flow with color Doppler at 6 to 7 o'clock. This was interpreted as category 4, suspicious for malignancy . The history states that the patient had the mass biopsied and the bi opsy showed invasive ductal carcinoma. Impression left breast: Bi-Rads Category Assessment 0: Incomplete, need additional imaging evaluation and B i-Rads Category Assessment 6: Known biopsy, proven malignancy. 1. The mass at 6 o'clock in the left salo ast is a known cancer following outside biopsy. (Bi-Rads Categ ory Assessment 6: Known biopsy, proven malignancy.) 2. There is question of a second round n odular density in the central aspect of the breast best seen on the ML O ID view. It may be slightly lateral to midline on the CC ID view, bu t is obscured by the skin marker. Additional focal compression mag nification ML and CC views are recommended. Whole breast ultrasound is recommended, since only the malignant mass was scanned on the pr ior outside study. Right breast: The patient is over due fo r screening mammogram of the right breast. Unless MR is going to be o btained, ultrasound of the right breast should be considered as wel l. Overall impression: Bi-Rads Category Ass essment 0: Incomplete, need additional imaging evaluation. The overall Bi-Rads impression is not in agreement with the outside study. Performing Organization Address City/State/ZIP Code Phon e Number [facility] documented in this encounter Visit Diagnoses Not on filedocumented in this encounter Care Teams Enrollment Services Vice President Relationship Specialty Start Date End Date Narendra Ramirez DO PCP - General 10/26/08 12/13/16 [address] [place] [id number] documented as of this encounter
--- OUTSIDE RECORDS SUMMARY | 2022-04-27 01:21 | XMS_ITS | Encounter Summary ---
:1965 Author Organization [facility] Address [facility] [address] [place] [address] Care Team Providers Name Role Phone Robin Mireles DO Primary Care Provider Reason for Visit Surgical (Routine) - Closed Specialty Diagnoses / Procedures Referred By Contact Refer red To Contact Gastroenterology Diagnoses Gastro-esophageal reflux disease with esophagitis, without bleeding NAUSEA, HEARTBURN, REGURGITATION Sydni Rene, CHRISTY [facility] [place] [facility] Procedures HIGH RESOLUTION ESOPHAGEAL MANOMETRY [address] [place] [address] [place] [address] Phone: Fax: Referral ID Status Reason Start Date Expiration Date Visits V isits Requested Authorized [id number] Closed Test Only 02/16/2021 02/16/2022 1 [facility] PCP Updated and/or Approved Encounter Details Date Type Department Care Team Description 04/11/2021 Procedure visit Gastroenterology at [place] [address] Social History Tobacco Use Types Packs/Day Years Used Date Never Smoker Smokeless Tobacco: Never Used Sex Assigned at Date Recorded Not on file documented as of this encounter Progress Notes Katt Olguin, RN - 04/11/2021 3:00 PM EDT A description of the esophageal manometry procedure was provided to the patient. All questions were answered and the patient verbalized understanding. The HREM catheter was placed via the left naris without difficulty. The esophageal manometry procedure was performed and the catheter was removed. The patient tolerated the procedure well. Isidoro Magaña MD - 04/11/2021 3:00 PM EDT Images from the original note were not included. HIGH-RESOLUTION ESOPHAGEAL MANOMETRY PROCEDURE NOTE Patient: Cherrie Forrest Address: [address] [place] [id number] : 1965 Date of service: 04/11/2021 Indication: Heartburn Procedure: The patient arrived after an overnight fast. After verbal consent, a Hailey motility catheter with 36 circumferential sensors on 1 cm spacing with impedance sensors was inserted transnasally after application of topical anesthesia to the nasal passage. The catheter was positioned so that at least 2 distal sensors were in the stomach and 2 proximal sensors were located above the UES. A 3-5 minute acclimation period was provided followed by 10 wet swallows of 5 cc of water while supine. Normal values while supine: Upper esophageal sphincter residual pressure: < 12 mmHg Upper esophageal sphincter relaxation duration: > 480 msec Distal contractile integral (DCI): > 450 and < 8,000 mmHg x cm x s Distal latency time: > 4.5 sec Integrated EGJ relaxation pressure (IRP): < 15 mmHg Normal EGJ resting pressure (respiratory mean): 15-34 mmHg Findings: - Upper Esophageal Sphincter: normal mean residual pressure and relaxation duration - Body: 0% of swallows failed. 0% of swallows had premature contractions with shortened distal latency time. The remaining 100% of swallows were peristaltic, includin% of swallows with hypercontractility, 20% of swallows with weak peristalsis, and 0% of swallows with large breaks (>5 cm) in the 20mmHg isocontour line. - Esophagogastric Junction: Midpoint located 44 cm from the nares, and proximal extent located at 42cm. The lower esophageal sphincter is located at the same level as the crural diaphragm. Normal resting pressure (mean 34 mmHg) and normal IRP in 100% of swallows (median 6.6 mmHg). - Bolus transit: Liquid boluses cleared in 90% of swallows. - Multiple rapid swallows: Peristaltic reserve: intact (ratio of post-multiple rapid swallow DCI to median DCI on 10 supine swallows is >=1.0) Deglutitive inhibition: normal deglutitive inhibition (DCI <100 mmHg*s*cm) during the maneuver Integrated relaxation pressure: 3 mmHg (normal <12 mmHg) - Rapid drink challenge: Esophageal body contractility: normal deglutitive inhibition (DCI <100 mmHg*s*cm) during the maneuver Integrated relaxation pressure: 0 mmHg (normal <12 mmHg) Crucible Furnace Tender swallow: Impressions based on [place] Classification v4.0: No evidence of a clinically significant disorder of peristalsis or EGJ outflow obstruction. *These findings assume that mechanical obstruction has been ruled out. Isidoro Magaña MD, FRCPC Section of Gastroenterology and Hepatology [facility] [place] [address] V: [phone] F: [phone] CC/EC: Robin Mireles DO [address] [place] [address] documented in this encounter Plan of Treatment Not on filedocumented as of this encounter Visit Diagnoses Diagnosis Heartburn documented in this encounter Care Teams Balloon Pilot Relationship Specialty Start Date End Date Robin Mireles DO PCP - General Family Medicine 02/27/21 [address] [place], [place] [id number] documented as of this encounter
--- OUTSIDE RECORDS SUMMARY | 2022-04-27 01:21 | XMS_ITS | Encounter Summary ---
:1965 Author Organization [facility] Address [address] [place] [address] Care Team Providers Name Role Phone En Soto Primary Care Provider Encounter Details Date Type Department Care Team Description 12/15/2019 Lab Requisition [facility] Outr Resulting Lab, Pathology & Laboratory Provider [facility] [address], [place] [address] Social History Tobacco Use Types Packs/Day Years Used Date Never Assessed Sex Assigned at Date Recorded Not on file documented as of this encounter Plan of Treatment Not on filedocumented as of this encounter Procedures Procedure Name Priority Date/Time Associated Diagnosis Comme nts COVID-19 TEST [facility] Today 12/15/2019 9:38 EDT LAB PCR COVID-19 TESTING Routine 12/15/2019 9:38 EDT Resu lts for this procedure are i n the results section. documented in this encounter Results COVID-19 TEST [facility] LAB PCR (12/15/2019 9:38 EDT) Specimen Swab - Entire nasopharynx (body structur e) Performing Organization Address City/State/ZIP Code Phon e Number [facility] [address] [place] [address] SERVICES COVID-19 TESTING (12/15/2019 9:38 EDT) COVID-19 rt-PCR Negative Negative [facility] MEDICAL Result Comment: [facility] Negative results do not prec lude 2019-nCoV infection and should not be used as the sole basis for treatment or other patient management decisions. Negative results must be combined with clinical observa SERVICES tions, patient history, and epidemiological informatio n. This test was developed and its performance characteristics determined by [facility]. It has not been cleared or approved by the US Food and Drug Administration. FDA does not require this test to go through premarket FDA review. This t est is used for clinical purposes. It should not be regarded as investigational or for research. This laboratory is certified under the Clinical Laboratory Improvement Amendm ents (CLIA) as qualified to perform high complexity clinical laboratory testing. This test is based on the CD C COVID-19 Emergency Use Authorization (EUA) assay, with minor modification as defined by the FDA Performed on the [employer] 7500 Fast. Performing Lab AB 7500 [facility] Lab [facility] SERVICES Specimen Swab - Entire nasopharynx (body structur e) Performing Organization Address City/State/ZIP Code Phon e Number [facility] [address] [place] [address] SERVICES documented in this encounter Visit Diagnoses Not on filedocumented in this encounter Care Teams Respiratory Services Manager Relationship Specialty Start Date End Date nE Soto DO PCP - General 12/14/[address] [place] [address] documented as of this encounter
--- OUTSIDE RECORDS SUMMARY | 2022-04-27 01:21 | XMS_ITS | Encounter Summary ---
:1965 Author Organization [facility] Address [address] [place] [address] Care Team Providers Name Role Phone Narendra Ramirez Primary Care Provider Encounter Details Date Type Department Care Team Description 04/08/2006 Results Only [facility], Marcos Valadez Jr., Reconstructive & Cosmetic MD Surgery - [facility] [address] [place] [address] [place], [place] [phone] (Wo rk) Social History Tobacco Use Types Packs/Day Years Used Date Never Assessed Sex Assigned at Date Recorded Not on file documented as of this encounter Plan of Treatment Not on filedocumented as of this encounter Procedures Procedure Name Priority Date/Time Associated Diagnosis Comme [facility] SURGICAL PATHOLOGY Routine 04/08/2006 0:00 EDT Re sults for this procedure are i n the results section. documented in this encounter Results SURGICAL PATHOLOGY (04/08/2006 0:00 EDT) Pathology Report: SURGICAL PATHOLOGY REPORT TAY CLEMENTS Reports generated via electronic interface contain rodrigo ginal data; LAB however they are lacking the format of the original re port. Caution should be taken when reading/interpreting unfo rmatted reports. Name: ? CHERRIE FORREST ? Accession #: ? [id number] ? : ? 1965 (Age: 41) ??F ? Collect Date: ? 04/08/2006 ? Location: ? [facility] ? Receive Date: ? 006 ? Provider: MARCOS VALADEZ MD Copy to: CHRISTA KELLY MD ? Final Pathologic Diagnosis: ? Skin of neck, excision: - Increased subcutaneous adipose tissue. ??See microsc opic and comment. Comment: ? The subcutis seems increased, and may represent a lipoma. ??No cystic structure is identified, despite multipl e levels on the central sections. (Dr. Real)/mpl Microscopic Description: ? Sections consist of a n excision to the subcutis. ??The overlying stratum corneum and epidermis are unremarkable. The derm is does not reveal any cystic lesion. ??The subcutis appea rs increased, but otherwise is unremarkable. Multiple levels have been examined on block (A1). ??(Dr. Real )/[facility] Document reviewed and electronically signed by: Mary Real MD Report ??Date: 04/16/2006 14:03 By the signature above, the attending physician certif ies that he/she has personally conducted a gross and/or microscopic examin ation of the described specimens and rendered or confirmed the above diagnosi s. Specimen(s) Received: ? Cyst neck Clinical History: ? Clinical diagnosis code: 706.7 Gross Description: ? Received in formalin labelled To ohey and cyst neck is an unoriented skin ellipse which measures 1.4 x 0.4 cm, excise d to a depth of 0.8 cm. ??The skin is william and without grossly identifi able lesions. ??The specimen is inked, serially sectioned and is entirely submitted as follow s: BLOCK ZACARIAS A1 ?C entral sections A2 ?Distal tips, reverse en face (Dr. Byrne)/tmg End of Report Specimen Performing Organization Address City/State/ZIP Code Phon e Number [facility] [address] [place] [address] SERVICES [facility] [address] [place] [address] documented in this encounter Visit Diagnoses Not on filedocumented in this encounter Care Teams Hvac Installation Technician Relationship Specialty Start Date End Date Narendra Ramirez DO PCP - General 10/26/08 12/13/[address] [place], [place] [address] documented as of this encounter
--- OUTSIDE RECORDS SUMMARY | 2022-04-27 01:21 | XMS_ITS | Encounter Summary ---
:1965 Author Organization [facility] Address [address] [place] [address] Care Team Providers Name Role Phone Narendra Ramirez DO Primary Care Provider En Soto DO Primary Care Provider Encounter Details Date Type Department Care Team Description 02/21/2006 Hospital Encounter [facility] - Jose Alfredo George Jr., Other MD [address] [facility] [address] [place] [address] [address] [phone] [address] [place] [address] (Wo rk) Social History Tobacco Use Types Packs/Day Years Used Date Never Assessed Sex Assigned at Date Recorded Not on file documented as of this encounter Plan of Treatment Not on filedocumented as of this encounter Visit Diagnoses Not on filedocumented in this encounter Care Teams Enterprise Application Analyst Relationship Specialty Start Date End Date Narendra Ramirez DO PCP - General 10/26/08 12/13/[address] [place] [address] En Soto DO PCP - General 12/14/16 [address] [place] [address] documented as of this encounter
--- OUTSIDE RECORDS SUMMARY | 2022-04-27 01:21 | XMS_ITS | Encounter Summary ---
:1965 Author Organization [facility] Address [address] [place] [address] Care Team Providers Name Role Phone En Soto DO Primary Care Provider Encounter Details Date Type Department Care Team Description 12/14/2016 Hospital Encounter [facility] - Adriana Gmaa [facility] MD Jose L [id number] [place] [address] [address] [place] [address] (Wo rk) Social History Tobacco Use Types [...] Code Departure Means Destination Home or Self Retirement documented in this encounter Plan of Treatment Not on filedocumented as of this encounter Visit Diagnoses Not on filedocumented in this encounter Care Teams Warehouse Operations Manager Relationship Specialty Start Date End Date En Soto DO PCP - General 12/14/16 [address] [place] [address] documented as of this encounter
--- OUTSIDE RECORDS SUMMARY | 2022-04-27 01:21 | XMS_ITS | Encounter Summary ---
:1965 Author Organization [facility] Address [address] [place] [address] Care Team Providers Name Role Phone En Soto Primary Care Provider Encounter Details Date Type Department Care Team Description 02/06/2021 Lab Requisition [facility] Juma Leung Encounter for screening for malignant neoplasm of colon; Pathology & MD Celio Other specified symptoms and signs invol ving the circulatory and respiratory systems Laboratory Medicine [address] [place] [address] [address] [place] [phone] Social History Tobacco Use Types Packs/Day Years Used Date Never Assessed Sex Assigned at Date Recorded Not on file documented as of this encounter Plan of Treatment Not on filedocumented as of this encounter Procedures Procedure Name Priority Date/Time Associated Diagnosis Comme nts SURGICAL PATHOLOGY Today 02/06/2021 7:34 EDT Encounter for R esults for this screening for procedure are in malignant neoplasm the resul ts of colon section. Other specified symptoms and signs involving the circulatory and respiratory systems documented in this encounter Results SURGICAL PATHOLOGY (02/06/2021 7:34 EDT) Note to Patient The following [facility] MEDICAL pathology results have CENTER been interpreted by LABORATORY your pathologist and SERVICES may be available to you before your health provider has had the opportunity to review them. Please allow time for your provider to receive these results and explore management options, if applicable. Final Diagnosis A. DUODENUM, BIOPSY: [facility] MEDICAL - Duodenal mucosa with no significant diagnostic abnor malities. CENTER LABORATORY B. DUODENUM, BULB, BIOPSY: [facility] - Duodenal mucosa with no significant diagnostic abnor malities. C. STOMACH, ANTRUM, BIOPSY: - Antral mucosa with reactive (chemical) gastropathy. - Negative for Helicobacter pylori on H&E stained sect ions. D. STOMACH, BODY, BIOPSY: - Gastric fundic mucosa with no significant diagnostic abnormalities. - Negative for Helicobacter pylori on H&E stained sect ions. E. GASTROESOPHAGEAL JUNCTION, BIOPSY: - Mild chronic inflammation of squamocolumnar mucosa w ith reactive changes. - Negative for intestinal metaplasia and dysplasia. F. ESOPHAGUS, DISTAL, BIOPSY: - Squamous mucosa with mild reactive changes. G. ESOPHAGUS, MID, BIOPSY: - Squamous mucosa with no significant diagnostic abnor malities. Attestation By the signature [facility] MEDICAL Electronica lly below, the attending CENTER signed by Willow Farah, physician certifies LABORATORY Elizabeth Bazzi MD on that they have 1) SERVICES 02/08/2021 a t 1136 personally conducted a gross and/or microscopic examination of the described specimen(s), and/or personally interpreted the results of laboratory testing of the described specimen(s), and 2) personally rendered or confirmed the above diagnosis. Clinical History Gastric erythema; [facility] MEDICAL clinical diagnosis CENTER code: Z12.11, R09.89 LABORATORY SERVICES Gross Description A. [facility] MEDICAL Received in formalin zahra d with proper patient identification (initials T, D) and duodenum are two pale william-white tissues (0.2 x 0.2 x 0.2 cm and 0.2 x 0.2 x 0.1 cm). Entirely submitted in A1. CENTER LABORATORY B. SERVICES Received in formalin zahra d with proper patient identification (initials T, D) and duodenal bulb are two pale william-white focally brown speckled tissues (0.4 x 0.2 x 0.2 cm and 0.3 x 0.3 x 0.2 cm). Entirely submitted in B1. C. Received in formalin zahra d with proper patient identification (initials T, D) and antrum is a pale william tissue (0.4 x 0.3 x 0.2 cm). Submitted intact in C1. D. Received in formalin zahra d with proper patient identification (initials T, D) and gastric body are two pale-william tissues (0.3 x 0.3 x 0.2 cm and 0.2 x 0.2 x 0.1 cm). Entirely submitted in D1. E. Received in formalin zahra d with proper patient identification (initials T, D) and GE junction is a pale william-white tissue (0.3 x 0.3 x 0.2 cm). Submitted intact in E1. F. Received in formalin zahra d with proper patient identification (initials T, D) and distal esophagus is a white focally pinpoint brown tissue (0.3 x 0.3 x 0.1 cm). Submitted intact in F1. G. Received in formalin zahra d with proper patient identification (initials T, D) and mid esophagus is a white focally brown speckled tissue (0.4 x 0.2 x 0.1 cm). Submitted intact in G1. Reynaldo Mireles 02/07/2021 8:27 Performing Lab [facility] LAB [facility] SERVICES Scanned Images [facility] SERVICES Specimen Tissue - Entire esophagus (body structur e) Tissue specimen (specimen) - Entire smal l intestine (body structure) Tissue specimen (specimen) - Entire stom ach (body structure) Tissue specimen (specimen) - Entire stom ach (body structure) Tissue specimen (specimen) - Entire esop hagus (body structure) Tissue specimen (specimen) - Entire esop hagus (body structure) Tissue specimen (specimen) - Entire esop hagus (body structure) Performing Organization Address City/State/ZIP Code Phon e Number [facility] [address] [place] [address] SERVICES documented in this encounter Visit Diagnoses Diagnosis Encounter for screening for malignant ne oplasm of colon Special screening for malignant neoplasm s, colon Other specified symptoms and signs invol ving the circulatory and respiratory systems documented in this encounter Care Teams Mate Ship Relationship Specialty Start Date End Date En Soto DO PCP - General 12/14/16 [address] [place] [address] documented as of this encounter
--- OUTSIDE RECORDS SUMMARY | 2022-04-27 01:21 | XMS_ITS | Encounter Summary ---
:1965 Author Organization [facility] Address [address] [place] [address] Care Team Providers Name Role Phone En Soto DO Primary Care Provider Encounter Details Date Type Department Care Team Description 02/26/2017 Results Only [facility]- Patience Russo MD [phone] [place] [phone] (Wo rk) Social History Tobacco Use Types Packs/Day Years Used Date Never Assessed Sex Assigned at Date Recorded Not on file documented as of this encounter Plan of Treatment Not on filedocumented as of this encounter Procedures Procedure Name Priority Date/Time Associated Diagnosis Comme nts PAP TEST- RESULT Routine 02/26/2017 0:00 EDT Resu lts for this ONLY procedure are i n the results section. documented in this encounter Results PAP TEST- RESULT ONLY (02/26/2017 0:00 EDT) Pathology Report: CYTOPATHOLOGY REPORT [facility] Reports generated via electronic interface contain rodrigo ginal data; SERVICES however they are lacking the format of the original re port. Caution should be taken when reading/interpreting unfo rmatted reports. Name: ? CHERRIE FORREST ? Accession #: ? [id number] : ? 1965 (Age: [age]) ??F ?Collect Date: ? 02/26 Location: ? [facility] ? Receive Date : ? 02/28/2017 Provider: ?PATIENCE PHILIP MD Copy to: ?EN SOTO DO ? Specimen/Source: ? Pap Test, Vagina, ThinPrep Imaging System with manual evaluation Last Menstrual Period: ? Hormonal/Contraceptive Status: ? JERE Exposure: possible ? SPECIMEN ADEQUACY ? Satisfactory for Evaluation - assessment of transformation zone component not appl icable ( e.g. atrophy, vaginal sample, hysterectomy) - scant squamous epithelial component secondary to exc essive inflammation GENERAL CATEGORIZATION ? Negative for Intraepithelial Lesion or Malignan cy ? Document reviewed and electronically signed by: ? GABRIEL Vigil(ASCP)(IAC) ? Report Date: ??03/08/2017 16:05 End of Report Specimen Performing Organization Address City/State/ZIP Code Phon e Number [facility] [address] [place] [address] SERVICES documented in this encounter Visit Diagnoses Not on filedocumented in this encounter Care Teams Automation Application Engineer Relationship Specialty Start Date End Date En Soto DO PCP - General 12/14/16 [address] [place], [place] [id number] documented as of this encounter
--- OUTSIDE RECORDS SUMMARY | 2022-04-27 01:21 | XMS_ITS | Encounter Summary ---
:1965 Author Organization [facility] Address [address] [place] [address] Care Team Providers Name Role Phone Unavailable Primary Care Provider Unavailable Encounter Details Date Type Department Care Team Description 11/22/2006 Hospital Encounter [facility] Emergency, Emergency Department - Satish, [address] [place] [address] Social History Tobacco Use Types Packs/Day Years Used Date Never Assessed Sex Assigned at Date Recorded Not on file documented as of this encounter Discharge Disposition Disposition Code Departure Means Destination Home or Self Care documented in this encounter Plan of Treatment Pending Results Name Type Priority Associated Diagnoses Date/Ti me OUTSIDE CD - MAMMO BREAST Imaging 12:00 EST RAD OUTSIDE CD - US BREAST Imaging 0 11/04/2009 11:25 EDT OUTSIDE CD - MAMMO BREAST Imaging 11:26 EDT Scheduled Orders Name Type Priority Associated Diagnoses Order S chedule OUTSIDE CD - MAMMO Imaging For medic ations that can be BREAST administered at any time during the hosp italization for visit such as immunizations. for 1 Occurrences sta rting 11/10/2009 RAD OUTSIDE CD - US Imaging For medi cations that can be BREAST administered at any time during the hosp italization for visit such as immunizations. for 1 Occurrences sta rting 11/10/2009 OUTSIDE CD - MAMMO Imaging For medic ations that can be BREAST administered at any time during the hosp italization for visit such as immunizations. for 1 Occurrences sta rting 11/10/2009 documented as of this encounter Visit Diagnoses Not on filedocumented in this encounter
--- OUTSIDE RECORDS SUMMARY | 2022-04-27 01:21 | XMS_ITS | Encounter Summary ---
:1965 Author Organization [facility] Address [address] [place] [address] Care Team Providers Name Role Phone JamesNarendra DO Primary Care Provider En Soto DO Primary Care Provider Encounter Details Date Type Department Care Team Description 10/20/2003 Hospital Encounter [facility] - Jameson Ch MD [address] [facility] [address] [place], [place] [id number] [place] [address] [phone] Social History Tobacco Use Types Packs/Day Years Used Date Never Assessed Sex Assigned at Date Recorded Not on file documented as of this encounter Plan of Treatment Not on filedocumented as of this encounter Procedures Procedure Name Priority Date/Time Associated Diagnosis Comme [facility] SURGICAL PATHOLOGY Routine 10/20/2003 0:00 EDT Re sults for this procedure are i n the results section. documented in this encounter Results SURGICAL PATHOLOGY (10/20/2003 0:00 EDT) Pathology Report: SURGICAL PATHOLOGY REPORT [facility] Reports generated via electronic interface contain rodrigo ginal data; LAB however they are lacking the format of the original re port. Caution should be taken when reading/interpreting unfo rmatted reports. Name: ? CHERRIE FORREST ? Accession #: ? [id number] ? : ? 1965 (Age: 38) ??F ? Collect Date: ? 10/20/2003 ? Location: ? [facility] ? Receive Date: ? 004 ? Provider: Jameson CH MD Copy to: JASVIR MENDOZA DO ? Final Pathologic Diagnosis: A. ?Endocervix, curettage ([facility], [id number]; 10/18/03): 1. ?Detached fr agment of squamous epithelium with low grade squamous intraepithelial lesion (LAVELLE I). ??See comment. 2. ?Fragments of benign endocervical tiss ue. B. ?PAP smear ([facility], [id number], 08/12/03 ): 1. ?Low grade squamous intraepithelial le deandre. Comment: ? Thank you for sending this interesting case in consultation. ??I have shown the endocervical curettage specimen at intradepartment al consultation conference, and although a r ather scant specimen, the group does agree that the features of low grade squamous intraepithelial lesion are present. ??(Dr. Edge)/[facility] Document reviewed and electronically signed by: KERVIN EDGE MD Report ??Date: 10/22/2003 14:22 By the signature above, the attending physician certif ies that he/she has personally conducted a gross and/or microscopic examin ation of the described specimens and rendered or confirmed the above diagnosi s. Specimen(s) Received: ? [facility] [id number] (1); [id number] (1) Clinical History: ? LGSIL on PAP Gross Description: ? Two slides are receiv ed for review from [facility], one each labelled [id number] and [id number]. End of Report Specimen Performing Organization Address City/State/ZIP Code Phon e Number [facility] [address] [place] [address] SERVICES [facility] [address] [place] [address] documented in this encounter Visit Diagnoses Not on filedocumented in this encounter Care Teams Railway Signal Electrician Relationship Specialty Start Date End Date Narendra Ramirez, PCP - General 10/26/08 12/13/16 [address] [place], [place] [phone] En Soto, PCP - General 12/14/16 [address] [place] [address] documented as of this encounter
--- OUTSIDE RECORDS SUMMARY | 2022-04-27 01:21 | XMS_ITS | Encounter Summary ---
:1965 Author Organization [facility] Address [address] [place] [address] Care Team Providers Name Role Phone En Soto Primary Care Provider Encounter Details Date Type Department Care Team Description 09/12/2021 Lab Requisition [facility] Outr Resulting Lab, Pathology & Laboratory Provider [facility] [address] [place] [address] Social History Tobacco Use Types Packs/Day Years Used Date Never Assessed Sex Assigned at Date Recorded Not on file documented as of this encounter Plan of Treatment Not on filedocumented as of this encounter Procedures Procedure Name Priority Date/Time Associated Comments Diagnosis QUANTIFERON MITOGEN Today 09/11/2021 14:45 (PERFORMABLE) EST QUANTIFERON TB2 Today 09/11/2021 14:45 (PERFORMABLE) EST QUANTIFERON TB1 Today 09/11/2021 14:45 (PERFORMABLE) EST QUANTIFERON NIL Today 09/11/2021 14:45 (PERFORMABLE) EST QUANTIFERON Today 09/11/2021 14:45 Results for this INTERPRETATION EST procedure are in (PERFORMABLE) the results section. QUANTIFERON TB GOLD Routine 09/11/2021 14:45 Resu lts for this PLUS EST procedure are i n the results section. documented in this encounter Results QUANTIFERON INTERPRETATION (PERFORMABLE) (09/11/2021 14:45 EST) Quantiferon NegativeComment: No Negative [facility] MEDICAL Interpretation interferon-gamma CENTER LABORATORY response to M. SERVICES tuberculosis antigens was detected. ??Infection with M. tuberculosis is unlikely. A single negative result does not exclude infection with M. tuberculosis. ??In patients at high risk for M. tuberculosis infection, a second test should be considered. TB1 Ag minus Nil 0.00 IU/ml [facility] SERVICES TB2 Ag minus Nil 0.01 IU/mL [facility] SERVICES Specimen Blood - Venous blood (substance) Narrative [facility] SERVICES - 09/13/2021 11:58 EST Results were obtained with the Qiagen QuantiFERON-TB Gold Plus CLIA. New platform in use 03/15/2021 Performing Organization Address City/[facility] Code Phon e Number [facility] [address] [place] [phone] SERVICES QUANTIFERON MITOGEN (PERFORMABLE) (09/11/2021 14:45 EST) Specimen Blood - Venous blood (substance) Performing Organization Address [facility] Phon e Number [facility] [address] [place] [phone] SERVICES QUANTIFERON TB2 (PERFORMABLE) (09/11/2021 14:45 EST) Specimen Blood - Venous blood (substance) Performing Organization Address [facility] Phon e Number [facility] [address] [place] [phone] SERVICES QUANTIFERON TB1 (PERFORMABLE) (09/11/2021 14:45 EST) Specimen Blood - Venous blood (substance) Performing Organization Address [facility] Code Phon e Number [facility] [address] [place] [phone] SERVICES QUANTIFERON NIL (PERFORMABLE) (09/11/2021 14:45 EST) Specimen Blood - Venous blood (substance) Performing Organization Address [facility] Phon e Number [facility] [address] [place] [phone] SERVICES documented in this encounter Visit Diagnoses Not on filedocumented in this encounter Care Teams Buggy Operator Relationship Specialty Start Date End Date En Soto DO PCP - General 12/14/16 [address] [place] [address] documented as of this encounter
--- OUTSIDE RECORDS SUMMARY | 2022-04-27 01:21 | XMS_ITS | Encounter Summary ---
:1965 Author Organization [facility] [place] [address] Care Team Providers Name Role Phone En Soto DO Primary Care Provider Reason for Referral Diagnostic Test (Routine) - Closed Specialty Diagnoses / Procedures Referred By Contact Refer red To Contact Radiology Diagnoses Hypothyroidism, unspecified type Malignant neoplasm of female breast, unspecified estrogen receptor status, unspecified laterality, unspecified site of breast Iron deficiency anemia, unspecified iron deficiency anemia type Bobo Gomez MD [facility] Rad Ct Scan Procedures CT Chest Abdomen Pelvis w Contrast (Generic) [facility] HEMATOLOGY/[place] [address] [place] [address] Referral ID Status Reason Start Date Expiration Date Visits V isits Requested Authorized [id number] Closed Specialty 10/23/2017 10/23/2018 1 1 Service Requested Reason for Visit Diagnostic Test (Routine) - Closed Specialty Diagnoses / Procedures Referred By Contact Refer red To Contact Radiology Diagnoses Hypothyroidism, unspecified type Malignant neoplasm of female breast, unspecified estrogen receptor status, unspecified laterality, unspecified site of breast Iron deficiency anemia, unspecified iron deficiency anemia type Bobo Gomez MD [facility] Rad Ct Scan Procedures CT Chest Abdomen Pelvis w Contrast (Generic) [facility] HEMATOLOGY/[place] [address] [place] [address] Referral ID Status Reason Start Date Expiration Date Visits V isits Requested Authorized [id number] Closed Specialty 10/23/2017 10/23/2018 1 1 Service Requested Encounter Details Date Type Department Care Team Description 10/25/[address] Scan at [facility] Bobo Gomez Hypothyroidism, unspecified type; [facility] MD Gabriela Malignant neoplasm of female breast, uns pecified estrogen receptor status, unspecified laterality, unspecified site of breast; [facility] Iron deficiency anemia, unsp ecified iron deficiency anemia type [place], [place] CENTER [address] HEMATOLOGY/ONCOL [phone] [place] [address] Social History Tobacco Use Types Packs/Day Years Used Date Never Smoker Smokeless Tobacco: Never Used Sex Assigned at Date Recorded Not on file documented as of this encounter Medications at Time of Discharge Medication Sig Dispensed Refills Start Date End Date lamoTRIgine (LAMICTAL) 200 Take 200 mg by 0 mg Tablet mouth 2 times daily. buPROPion (WELLBUTRIN XL) Take 150 mg by 0 150 mg Tablet Extended mouth every Release 24 hr morning. VITAMIN B COMPLEX (B Take by mouth [...] 0 D3 (CALCIUM MAGNESIUM + D ORAL) levothyroxine (SYNTHROID) Take 150 mcg by 0 11/25/2017 100 mcg tablet mouth daily. documented as of this encounter Plan of Treatment Not on filedocumented as of this encounter Procedures Procedure Name Priority Date/Time Associated Diagnosis Comme nts CT CHEST ABDOMEN Routine 10/25/2017 3:02 PM Hypothyroidism, Re sults for this PELVIS W CONTRAST EDT unspecified ty pe procedure are in (GENERIC) Malignant neoplasm the resul ts of female breast, section. unspecified estrogen receptor status, unspecified laterality, unspecified site of breast Iron deficiency anemia, unspecified iron deficiency anemia type documented in this encounter Results CT Chest [...] disease. Bobo Gomez MD IMG CT ORDERABLES documented in this encounter Visit Diagnoses Diagnosis Hypothyroidism, unspecified type Malignant neoplasm of female breast, uns pecified estrogen receptor status, unspecified laterality, unspecified site of breast Iron deficiency anemia, unspecified iron deficiency anemia type documented in this encounter Administered Medications Inactive Administered Medications - up to 3 most recent administrations Medication Order MAR Action Action Date Dose Rate Site iohexol (OMNIPAQUE) 350 mg/mL Given 10/25/2017 3:03 PM EDT 66 mL s solution 0-200 mL 0-200 mL, Intravenous, ONCE PRN, 1 dose, Starting on Sat10/25/17 at 1503, Until Sat10/25/17 at 1503, Per Protocol, Warning Vesicant/Irritant Medication , Radiology Contrast, Routine documented in this encounter Care Teams Sales Trader Relationship Specialty Start Date End Date En Soto DO PCP - General General Internal Medicine 10/23/17 1 [address] [place] [address] documented as of this encounter
--- OUTSIDE RECORDS SUMMARY | 2022-04-27 01:21 | XMS_ITS | Encounter Summary ---
:1965 Author Organization [place] [address] Care Team Providers Name Role Phone Lori Cheema DO Primary Care Provider [phone] Encounter Details Date Type Department Care Team Description 03/19/2013 Orders Only Hematology and Oncology at [facility] [place] [address] Social History Tobacco Use Types Packs/Day Years Used Date Never Smoker Smokeless Tobacco: Never Used Sex Assigned at Date Recorded Not on file documented as of this encounter Plan of Treatment Not on filedocumented as of this encounter Visit Diagnoses Not on filedocumented in this encounter Care Teams Electric Stop Installer Relationship Specialty Start Date End Date Lori Cheema DO PCP - General 03/18/13 10/22/[address] [place] [id number] documented as of this encounter
--- OUTSIDE RECORDS SUMMARY | 2022-04-27 01:21 | XMS_ITS | Encounter Summary ---
:1965 Author Organization [facility] Address [address] [place] [address] Care Team Providers Name Role Phone Narendra Ramirez Primary Care Provider Encounter Details Date Type Department Care Team Description 04/17/2006 Before [facility] - Con Nagel PA Converted Visit Maple conversion [address] (Maple) [address] [facility] ,[address] [place] [address] [place], [place] [phone] (Wo rk) Social History Tobacco Use Types Packs/Day Years Used Date Never Assessed Sex Assigned at Date Recorded Not on file documented as of this encounter Progress Notes Lux Nagel - 07/12/2009 0607 EST OF PLASTIC RECONSTRUCTIVE SURGERY PROGRESS/FOLLOWUP NOTE - 04/17/2006 Chief Compliant: One week status-post excision of lesion from neck area. Subjective: Cherrie is a 41-year-old female who presents today one week status-post fatty lesion on under side of chin by Dr. George. The sutures are in place and she states that she came to the office today to get the sutures removed. She denies any fevers, chills, night sweats, or any numbnessin the area. She denies any discharge coming from the wound. Objective: On physical examination, on the under side of neck, there is a 1.5 cm well healed incision with a Prolene suture in place. The Prolene suture was removed by myself using a pair of sharp scissors and pickups. When the suture was removed, it revealed a clean, dry and intact incision without any expressible discharge or fluctuance underneath. Assessment & Plan: This is a 41-year-old healthy female one week status-post fatty lesion removed from under side of the neck. The lesion and incisions site is clean, dry and intact, wellhealed. The pathology was reviewed with the patient and revealed some increased subcutaneous adiposetissue. She was told that she may begin scar massage and wear sunscreen on the affected area if exposed to the sun. She may shower and there should be no restrictions at this time on her. If she has any further questions or if there is any gross discharge coming out of the wound, she is to call the office at her earliest convenience to make an appointment so we can follow up and assess the issue. Signed by BROOK Le 05/29/2006 09:25 Zita Navarro PA BROOK Le - BROOK Villegas A - [facility] Job ID: [id number] Document ID: [id number] cc: documented in this encounter Plan of Treatment Not on filedocumented as of this encounter Visit Diagnoses Not on filedocumented in this encounter Care Teams Meat Cooler Relationship Specialty Start Date End Date Narendra Ramirez DO PCP - General 10/26/08 12/13/[address] [place] [address] [place] [id number] documented as of this encounter
--- OUTSIDE RECORDS SUMMARY | 2022-04-27 01:21 | XMS_ITS | Encounter Summary ---
:1965 Author Organization [facility] [place] [address] Care Team Providers Name Role Phone Lori Cheema Primary Care Provider [phone] Encounter Details Date Type Department Care Team Description 03/31/[address] Scan at [facility], DR SHRUTHI Breast cancer [facility] Bobo Gomez MD [facility] HEMATOLOGY/ONCOLOGY DEPT. [place] [id number] [place] [address] Social History Tobacco Use Types Packs/Day Years Used Date Never Smoker Smokeless Tobacco: Never Used Sex Assigned at Date Recorded Not on file documented as of this encounter Medications at Time of Discharge Medication Sig Dispensed Refills Start Date End Date VITAMIN B COMPLEX (B Take by mouth [...] 0 D3 (CALCIUM MAGNESIUM + D ORAL) vilazodone (VIIBRYD) 40 mg Take 40 mg by mouth 0 10/23/2017 Tab daily. levothyroxine (SYNTHROID) Take 150 mcg by 0 11/25/2017 100 mcg tablet mouth daily. citalopram (CELEXA) 20 mg 20 MG = 2 0 06/21/2010 10/23/2017 tablet Tablet(s), PO, QHS documented as of this encounter Plan of Treatment Not on filedocumented as of this encounter Procedures Procedure Name Priority Date/Time Associated Diagnosis Comme nts CT CHEST W CONTRAST STAT 03/31/2013 3:58 PM Malignant neopl asm Results for this EDT of breast (female), procedur e are in unspecified site the results section. documented in this encounter Results CT chest with contrast (03/31/2013 3:58 PM EDT) Anatomical Region Laterality Modality Chest Computed Tomography Specimen (Source) Anatomical Collection Method Collection Time Re ceived Time Location / / Volume Laterality 03/31/2013 3:58 PM EDT Narrative 03/31/2013 4:[address] Chest With Contrast Clinical History breast cancer/left MRM/left chest wall p ain ? Mets Technique 3.75 mm thick axial contiguous sections were obtained through the chest via helical acquisition after intravenous co ntrast administration,60 cc of Omnipaque 350. Thin-section reconstructi ons as well as coronal and sagittal reformatted images were generated to aid in evaluation. ?? Comparison 03/24/2010. Findings Pulmonary parenchyma: Minimal dependent change in the dorsal aspect of both lungs. Linear scarring by the left poste rior costophrenic sulcus. No pulmonary nodules or masses. Airways: No significant findings. Pleura: No pleural effusion. No pneumoth orax. Lymph nodes:No thoracic lymphadenopathy. 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 Other mediastinal structures: No signifi cant findings. Lower neck:No significant findings. Upper abdomen:No significant findings. Skeletal structures /chest wall:No lytic , blastic, expansile, destructive, or other suspicious osseous lesions. ??Symm etric appearance of chest wall soft tissues. Bilateral breast implants, as b efore. Impression 1. ??No new osseous /chest wall patholog y identified. ?? 2. ??No new pulmonary pathology seen. Procedure Note Aimee Wilkins MD - 03/31/2013Formatt ing of this note might be different from the original. Examination CT Chest With Contrast Clinical History breast cancer/left MRM/left chest wall p ain ? Mets Technique 3.75 mm thick axial contiguous sections were obtained through the chest via helical acquisition after intravenous co ntrast administration,60 cc of Omnipaque 350. Thin-section reconstructi ons as well as coronal and sagittal reformatted images were generated to aid in evaluation. Comparison 03/24/2010. Findings Pulmonary parenchyma: Minimal dependent change in the dorsal aspect of both lungs. Linear scarring by the left poste rior costophrenic sulcus. No pulmonary nodules or masses. Airways: No significant findings. Pleura: No pleural effusion. No pneumoth orax. Lymph nodes:No thoracic lymphadenopathy. 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 Other mediastinal structures: No signifi cant findings. Lower neck:No significant findings. Upper abdomen:No significant findings. Skeletal structures /chest wall:No lytic , blastic, expansile, destructive, or other suspicious osseous lesions. Symmet kailash appearance of chest wall soft tissues. Bilateral breast implants, as b efore. Impression 1. No new osseous /chest wall pathology identified. 2. No new pulmonary pathology seen. Bobo Gomez MD IMG CT ORDERABLES documented in this encounter Visit Diagnoses Diagnosis Breast cancer Malignant neoplasm of breast (female), u nspecified site documented in this encounter Administered Medications Inactive Administered Medications - up to 3 most recent administrations Medication Order MAR Action Action Date Dose Rate Site iohexol (OMNIPAQUE) 350 mg Given 03/31/2013 3:58 PM EDT 21,000 m g iodine/mL injection 21,000 mg 21,000 mg (60 mL), Intravenous, ONCE PRN, 1 dose, Starting on Sat03/31/13 at 1550, Until Sat03/31/13 at 1558, Per Protocol, Routine documented in this encounter Care Teams Octave Board Racker Relationship Specialty Start Date End Date Lori Cheema DO PCP - General 03/18/13 10/22/[address] [place] [id number] documented as of this encounter
--- OUTSIDE RECORDS SUMMARY | 2022-04-27 01:21 | XMS_ITS | Encounter Summary ---
:1965 Author Organization [facility] Address [address] [place] [address] Care Team Providers Name Role Phone En Soto Primary Care Provider Encounter Details Date Type Department Care Team Description 12/14/2016 Phlebotomy Only [facility] Advanced Manufacturing Vice President, Immun ity status testing; - [facility] [place] [facility] Screening examination for pu lmonary tuberculosis [address] [place] [address] Social History Tobacco Use Types Packs/Day Years Used Date Never Assessed Sex Assigned at Date Recorded Not on file documented as of this encounter Plan of Treatment Not on filedocumented as of this encounter Procedures Procedure Name Priority Date/Time Associated Diagnosis Comme nts QUANTIFERON TB GOLD Routine 12/14/2016 14:13 Screening examina tion Results for this PLUS EDT for pulmonary procedure are in tuberculosis the results section. MUMPS ANTIBODY IGG Routine 12/14/2016 14:13 Immunity status Re sults for this EDT testing procedure are i n the results section. documented in this encounter Results TB BY QUANTIFERON, B (12/14/2016 14:13 EDT) TB Interpretation Negative Negative [facility] Comment: LABORATORY Reference Range: Negative SERVICES Resuls were obtained with the Cellestis QuantiFERON-TB Gold REILLY. TB Antigen Value 0.00 IU/mL [facility] Comment: LABORATORY This is a qualitative [...] Organization Address City/State/ZIP Code Phon e Number [facility] [address] [place] [address] SERVICES MUMPS ANTIBODY IGG (12/14/2016 14:13 EDT) Mumps Antibiody Positive [facility] IgG Comment: LABORATORY SERVICES Presence of detectable mumps virus IgG antibodies. Specimen Blood specimen (specimen) - Blood Performing Organization Address City/State/ZIP Code Phon e Number [facility] [address] [place] [address] SERVICES documented in this encounter Visit Diagnoses Diagnosis Immunity status testing Antibody response examination Screening examination for pulmonary tube rculosis documented in this encounter Care Teams Alarm Service Technician Relationship Specialty Start Date End Date En Soto DO PCP - General 12/14/16 [address] [place] [address] documented as of this encounter
--- OUTSIDE RECORDS SUMMARY | 2022-04-27 01:21 | XMS_ITS | Encounter Summary ---
:1965 Author Organization [facility] [place] [address] Care Team Providers Name Role Phone En Soto DO Primary Care Provider Encounter Details Date Type Department Care Team Description 11/17/2018 External Results [facility] [place] [place] [address] Social History Tobacco Use Types Packs/Day Years Used Date Never Smoker Smokeless Tobacco: Never Used Sex Assigned at Date Recorded Not on file documented as of this encounter Plan of Treatment Not on filedocumented as of this encounter Procedures Procedure Name Priority Date/Time Associated Diagnosis Comme nts SURGICAL PATHOLOGY Routine 11/17/2018 Results f or this SCAN procedure are i n the results section . documented in this encounter Results Scan Doc: Surgical Pathology (11/17/2018) Narrative This result has an attachment that is no t available. Historical Provider MEDIA MGR SCAN EXT ORDR/RSLT documented in this encounter Visit Diagnoses Not on filedocumented in this encounter Care Teams Services Delivery Driver Relationship Specialty Start Date End Date En Soto DO PCP - General General Internal Medicine 10/23/17 [address] [place] [address] documented as of this encounter
--- OUTSIDE RECORDS SUMMARY | 2022-04-27 01:21 | XMS_ITS | Encounter Summary ---
:[address] [facility] Address [address] [place] [address] Care Team Providers Name Role Phone Narendra Ramirez DO Primary Care Provider En Soto DO Primary Care Provider Encounter Details Date Type Department Care Team Description 04/17/2006 Hospital Encounter [facility] - Lux Nagel PA Other [address] [facility] ,[address] [place] [address] [place] [address] (Wo rk) Social History Tobacco Use Types Packs/Day Years Used Date Never Assessed Sex Assigned at Date Recorded Not on file documented as of this encounter Plan of Treatment Not on filedocumented as of this encounter Visit Diagnoses Not on filedocumented in this encounter Care Teams Steel Fabricator Relationship Specialty Start Date End Date Narendra Ramirez DO PCP - General 10/26/08 12/13/16 [address] [place] [address] En Soto DO PCP - General 12/14/16 [address] [place] [address] documented as of this encounter
--- OUTSIDE RECORDS SUMMARY | 2022-04-27 01:21 | XMS_ITS | Encounter Summary ---
:1965 Author Organization [facility] Address [address] [place] [address] Care Team Providers Name Role Phone Unavailable Primary Care Provider Unavailable Encounter Details Date Type Department Care Team Description 04/08/2006 Hospital Encounter [facility] - Jose Alfredo George Jr., Other MD [address] [address] [phone] [address] [place] [phone] (Wo rk) Social History Tobacco Use Types Packs/Day Years Used Date Never Assessed Sex Assigned at Date Recorded Not on file documented as of this encounter Discharge Disposition Disposition Code Departure Means Destination Auto Discharge documented in this encounter Plan of Treatment Not on filedocumented as of this encounter Visit Diagnoses Not on filedocumented in this encounter
--- OUTSIDE RECORDS SUMMARY | 2022-04-27 01:21 | XMS_ITS | Encounter Summary ---
:1965 Author Organization [facility] [place] [address] Care Team Providers Name Role Phone Soto En Lucina MCNEAL Primary Care Provider Encounter Details Date Type Department Care Team Description 11/25/2017 Hospital Encounter Hematology and Maligna nt neoplasm of [place]cology [place] [facility] [place] breast, [facility] unspecifi ed estrogen Drive receptor status, [place] [address] unspecified laterality, unspecified sit e of breast Social History Tobacco Use Types Packs/Day Years [...] Priority Date/Time Associated Comments Diagnosis HEMOGRAM STAT 11/25/2017 1:57 PM Malignant neoplasm Res ults for this EDT of female breast, procedure are in unspecified the results estrogen receptor section. status, unspecified laterality, unspecified site of breast DIFFERENTIAL, STAT 11/25/2017 1:57 PM Malignant neoplasm Re sults for this AUTOMATED EDT of female breast, procedure are in unspecified the results estrogen receptor section. status, unspecified laterality, unspecified site of breast CBC (WITH DIFF) STAT 11/25/2017 1:57 PM Malignant neoplasm EDT of female breast, unspecified estrogen receptor status, unspecified laterality, unspecified site of breast COMPREHENSIVE STAT 11/25/2017 1:57 PM Malignant neoplasm Re sults for this METABOLIC PANEL EDT of female breast, procedu re are in (NON-FASTING) unspecified the results estrogen receptor section. status, unspecified laterality, unspecified site of breast documented in this encounter Results Differential, Automated (11/25/2017 1:57 PM EDT) P athologist Signature Neutrophils % 48.4 % [facility] Neutr Abs (ANC) 3.73 1.70 - [facility] 6.10 [facility] x10(3)/[facility] LABORATORY Lymphocytes % 39.4 % [facility] Lymphocytes Abs 3.0 0.9 - 3.2 [facility] x10(3)/[facility] LABORATORY Monocytes % 6.7 % [facility] Monocyte Abs 0.5 0.3 - 0.9 [facility] x10(3)/[facility] LABORATORY Eosinophils % 4.2 % [facility] Eosinophils Abs 0.3 0.0 - 0.4 [facility] x10(3)/[facility] LABORATORY Basophils % 1.0 % [facility] Basophils Abs 0.1 0.0 - 0.1 [facility] x10(3)/[facility] LABORATORY Immature Gran % 0.30 % [facility] Comment: Immature granulocytes(IG's)percentage an d absolute count will include metamyelocytes, myelocytes, and promyelo cytes. Blood smears from CBCs yielding IG's will be scanned manually for concor dance. If this scan disagrees with the automated IG or if promyelocytes are not ed, a manual differential will be performed. Shanice Gran Abs 0.02 0.00 - 0.04 x10(3)/[facility] Specimen Anatomical Collection Method Collection Time Receive d Time (Source) Location / / Volume Laterality Blood specimen 11/25/2017 1:57 PM 018 2:03 (specimen) EDT PM EDT Resulting Agency Comment Spec In Lab Bobo Gomez MD HEMATOLOGY ORDERABLES Performing Organization Address City/State/[place] [address] (ABNORMAL) Hemogram (11/25/2017 1:57 PM EDT) Analysis Performed At Patho logist Time Signature WBC 7.7 4.0 - 9.5 [facility] x10(3)/[facility] LABORATORY RBC 3.79 (L) 4.00 - [facility] 5.21 [facility] x10(6)/[facility] LABORATORY Hemoglobin 12.4 11.7 - [facility] 15.[facility] gm/dL [facility] Hematocrit 37.1 35.7 - [facility] 45.8 % [facility] MCV 97.9 (H) 82.6 - [facility] 94.[address] [facility] LABORATORY MCH 32.7 (H) 27.1 - [facility].0 pg [facility] MCHC 33.4 31.7 - [facility] 35.0 gm/dL [facility] Platelets 304 145 - 357 [facility] x10(3)/[facility] RDWSD 46.0 37.0 - [facility] [facility] LABORATORY RDWCV 12.8 11.5 - [facility] NOY 14.1 % [facility] MPV 9.4 7.6 - 12.9 [facility] LABORATORY nRBC % Auto 0.0 % [facility] nRBC Abs Auto 0.000 0.000 - [facility] NOY 0.000 [facility] x10(3)/[facility] LABORATORY Specimen Anatomical Collection Method Collection Time Receive d Time (Source) Location / / Volume Laterality Blood specimen 11/25/2017 1:57 PM 018 2:03 (specimen) EDT PM EDT Resulting Agency Comment Spec In Lab Bobo Gomez MD HEMATOLOGY ORDERABLES Performing Organization Address City/State/[place] [address] (ABNORMAL) Comprehensive metabolic panel (non-fasting) (11/25/2017 1:57 PM EDT) athologist Signature Glucose Lvl 88 65 - 199 [facility] mg/dL [facility] Comment: Diabetes: >=200 mg/dL plus symp toms BUN 10 8 - 18 mg/dL [facility] Creatinine 0.92 0.70 - 1.20 mg/dL [facility] Sodium 140 135 - 145 mmol/L [facility] Potassium 4.2 3.5 - 5.0 mmol/L [facility] Comment: Please note: ??Patients with WBC >100,00 0 may have falsely elevated Potassium levels. ??For accurate Potassium quantif ication in these patients send serum separator tube (gold top) for subsequent determinations. ??Contact the Clinical Chemistry Laboratory if there are any qu estions. Chloride 101 98 - 107 mmol/L [facility] CO2 28 22 - 31 mmol/L [facility] Anion Gap 11 5 - 15 mmol/L [facility] Calcium 9.1 8.5 - 10.5 mg/dL [facility] Total Protein 6.5 6.1 - 8.0 gm/dL [facility] Albumin 4.3 3.2 - 5.2 gm/dL [facility] AST 25 0 - 30 unit/L [facility] ALT 32 (H) 0 - 30 unit/L [facility] Alk Phos 66 40 - 104 unit/L [facility] Total Bilirubin 0.3 0.2 - 1.3 mg/dL [facility] Estimated GFR >60 >=60 [facility] Comment: The reported eGFR should be multiplied b y 1.2 for patients. The MDRD is not an appropriate measure o f renal function for patients with body mass extremes or in patients with acute kidney failure. http://[employer]/DHnkdep http://[employer]/DHMCnkf Specimen Anatomical Collection Method Collection Time Receive d Time (Source) Location / / Volume Laterality Blood specimen 11/25/2017 1:57 PM 018 2:03 (specimen) EDT PM EDT Resulting Agency Comment Spec In Lab Bobo Gomez MD CHEMISTRY ORDERABLES Performing Organization Address City/State/[place] [address] documented in this encounter Visit Diagnoses Diagnosis Malignant neoplasm of female breast, uns pecified estrogen receptor status, unspecified laterality, unspecified site of breast documented in this encounter Care Teams Outside Sales Account Manager Relationship Specialty Start Date End Date En Soto DO PCP - General General Internal Medicine 10/23/17 1 [address] [place] [address] documented as of this encounter
--- OUTSIDE RECORDS SUMMARY | 2022-04-27 01:21 | XMS_ITS | Encounter Summary ---
:1965 Author Organization [facility] Address [address] [place] [address] Care Team Providers Name Role Phone JamesLeander parra Primary Care Provider Encounter Details Date Type Department Care Team Description 11/28/2009 Hospital Encounter [facility] Amanda Baca MD Perioperative Services- [address] [facility] [address] [place] [address] [place] [id number] (Wo rk) Social History Tobacco Use Types [...] Body Mass Index 19.94 11/24/2009 1401 EDT documented in this encounter Discharge Instructions Ivy Power MD - 11/28/2009 Diet: Regular Activity: No heavy lifting > 20 pounds with left arm for 2 weeks. Driving: No driving while taking narcotic pain medication Skin/Wound Care: - Ice the left breast /armpit for 20 minutes on, 20 minutes off until bedtime today. - You may remove outer dressings in 48 hours. Leave steri- strips (white strips) until they fall offon their own. - Once dressings are removed, pat dry leave wound open to air. - Mild redness at the incision site is normal. - Call your doctor if there is drainage or if redness increases or if the edges separate. - Call if you have fever or chills, nausea or vomiting, or increasing abdominal pain. Bathing: May shower. Okay to get wound wet, but pat dry. Do NOT rub the wound area. Shower with soap and water daily. Do NOT soak wounds. Pending Results: Not applicable Symptoms to Call Your Doctor About: Fever greater than 38.5 or chills Increased or new pain Nausea or vomiting Pain unrelieved by medication Shortness of breath or rapid breathing Signs of infection such as pain, redness, swelling or drainage at procedure or wound site Appointments: Follow up with Dr. Baca. Please call the office for an appointment. Follow-up Services Contacted at Discharge: none documented in this encounter Medications at Time of Discharge Medication Sig Dispensed Refills Start Date End Date levothyroxine (SYNTHROID) Take 100 mcg by 0 100 mcg tablet mouth daily. oxycodone-acetaminophen Take 1-2 Tabs by 40 Tab 0 2009 (PERCOCET) 5-325 mg per mouth as needed for tablet Pain for 2 doses. documented as of this encounter Ordered Prescriptions Prescription Sig Dispensed Refills Start Date End Date oxycodone-acetaminophen Take 1-2 Tabs by 40 Tab 0 2009 (PERCOCET) 5-325 mg per mouth as needed for tablet Pain for 2 doses. documented in this encounter Discharge Disposition Disposition Code Departure Means Destination Home or Self Care documented in this encounter Progress Notes Jose Marr - 11/28/2009 0950 EDT Post Anesthesia Evaluation Date of Service: 11/28/2009 The patient has been evaluated, assessed and discharged from anesthesia care with stable cardiorespiratory function and acceptable mental status, pain management, body temperature, fluid balance, nausea/vomiting control and Patrice score. Additional monitoring and assessment needs have been addressed.If present, postoperative events are documented below. JOSE MARR MD 11/28/2009 9:50 AM Katie lee RN - 11/24/2009 1646 EDT Veronica Cervantes has been instructed as follows regarding medication administration for the day of thescheduled procedure. Date of Surgery: 11-28-09 Instructions for Taking Medications Day of Surgery Medication Last Dose Hold DOS Take DOS levothyroxine (SYNTHROID) 100 mcg tablet Yes Katie Lovett RN - 11/24/2009 1646 EDT .preop Katie Lovett RN - 11/24/2009 1645 EDT .preop documented in this encounter H&P Notes Physician Curtis MD - 12/01/2009 1307 EDT documented in this encounter Procedure Notes Physician Curtis MD - 12/01/2009 1307 EDTAssociated Order(s): ECG REPORT - SCANNED; ECG REPORT - SCANNED InpatientPhysician MD - 12/01/2009 1307 EDTAssociated Order(s): ORDERS - SCANNED; ORDERS - SCANNED Ivy Garcia MD - 11/28/2009 0852 EDT BRIEF OP NOTE Preop dx: Left breast cancer Postop dx: Left breast cancer Procedure: Left breast lumpectomy, left axillary sentinel node biopsy Surgeon: Zacarias Baca Hand Loom Weaver: Jose Anesth: GETA Findings: Left breast mass visualized and localized with intraop U/S. Lump resected and sent to pathology. 5 lymph nodes from left axilla dissected out and sent to pathology. EBL: minimal IVF: 1L LR UOP: Not measured Specimen: Left breast mass and sentinel lymph nodes Cultures: None Foreign Material Retained: None Complications: None Dispo: To PACU in stable condition documented in this encounter Nursing Notes Physician Curtis MD - 11/29/2009 0947 EDT documented in this encounter OR Notes OR PreOp - Physician Curtis MD - 12/01/2009 1307 EDT Anesthesia Procedure Notes - Physician Curtis MD - 11/28/2009 0916 EDT R PreOp - Physician Curtis MD - 11/28/2009 0842 EDT Anesthesia Preprocedure Evaluation - Physician Curtis MD - 11/28/2009 0829 EDT R Surgeon - Val Baca MD - 11/28/2009 0000 EDT OPERATIVE REPORT SERVICE DATE: 11/28/2009 PREOPERATIVE DIAGNOSIS: Left breast cancer. POSTOPERATIVE DIAGNOSIS: Left breast cancer. PROCEDURE: Left breast ultrasound-guided lumpectomy, injection for sentinel node, left axillary lymph node biopsy, intraoperative ultrasound. SURGEON: Val Baca MD EMBOSSING TOOL SETTER: Ivy Garcia MD ANESTHESIA: General endotracheal anesthesia. COMPLICATIONS: None. DRAINS: None. SPECIMENS: Breast specimen x1 and lymph node specimens x3 to pathology for permanent evaluation. FLUIDS: 900 mL lactated Ringers. URINE OUTPUT: None. EBL: Minimal INDICATIONS: The patient is a 45-year-old woman found to have a lump in the left breast. This was confirmed with imaging to be suspicious, and biopsy was performed. 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 There was a prominent lymphoplasmacytic postinflammatory response. She had no inflammatory changes to suggest inflammatory cancer. She hadunifocal disease and opted for breast conservation. There was some discussion regarding removal of breast implants. Ultimately, the decision was made to try and preserve the implants with the understanding that capsular contracture could occur after radiation therapy. She understands this and did consent also for removal of the implants today in the event that there was some injury or I felt that it was necessary with respect to tissue margins. FINDINGS: A hot spot was located in the left axilla with a count of 524. Bed count after final resection was 154. Specimen 1 had a count of 2256. Specimen 2 had a count of 739. Specimen three had a count of 2389 These were all from hot spot 1. Bed count after final resection was 154. Specimens removed with gross negative margins. I excised down to the pectoral muscle posteriorly andto the dermis anteriorly. The closest margins appeared to be anterior and posterior. NARRATIVE: The patient was brought into the operating room after injection with 1 mCi of technetium sulfur colloid in 8 mL of 1% lidocaine. A dermal injection also occurred with 0.2 mCi in 0.05 mL lidocaine in the dermal location. Injection occurred at 7:15 a.m. Probe survey began at 7:40 a.m. Once inthe operating room, anesthesia was administered. A time-out occurred, confirming surgical site and procedure to be performed. She was given preoperative antibiotics and pneumatic boots were placed for DVT prophylaxis. She was then prepped and drapedin the usual sterile fashion. A 12 mHz ultrasound probe was used to target the lesion in the inferior left breast. Skin markings were made. The left axilla was examined with the gamma probe and we identified the left axillary hotspot. There were no extraaxillary hot spots. We then made an incision circumareolar left breast 6 o'clock position and dissection was carried outthrough the subcutaneous tissue. We excised down to the pectoral muscle at the superior border of the tumor. We then raised a skin flap overlying the tumor and excised around it. The specimen was removed and examined for margins. The closest margins were just under the skin and at the muscle where there is no more tissue. The cavity was examined for any residual tissue and she appeared to have a thorough excision. We then placed a moist Ray- Nayeli in the wound. An incision was then made overlying the left axillary hot spot. Dissection was carried out through the subcutaneous tissue. A combination of blunt and sharp dissection was uses to remove the sentinel nodes directed by the radioactivity. Three specimens were removed with the third specimen being actually the hottest specimen and containing three small soft lymph nodes. This appeared to a total of 5 lymph nodes removed. This was all done usingboth blunt dissection as well as electrocautery dissection. Bleeding points were cauterized. There was nothing suspicious or palpable. The decision was made preoperatively to send these for final pathology with the understanding that there might be a need for return to surgery. There did not appear to be any significant macroscopic disease and patient might not elect to have an axillary dissection for microscopic disease. Careful palpation within the cavity reveals no residual nodes palpable. Both wounds were irrigated with normal saline and checked for hemostasis. They were closed with 3-0 Vicryl and 4-0 Monocryl subcuticular. I placed marking clips at the lumpectomy site for targeted postoperative radiation therapy. She tolerated the procedure well, was extubated and returned to the recovery room in stable condition after the wound was closed with 3-0 Vicryl and 4-0 Monocryl subcuticular. Steri-Strips, Telfa, Tegaderm were applied. Unless otherwise noted, there were no complications, no blood loss, no cultures obtained, no specimens removed, and no drains retained. Dictated by: Val Baca MD Val Baca MD 08 54 AM / [facility] Confirmation: [id number] Dictation ID: [id number] cc: Bobo Ramirez DO documented in this encounter Miscellaneous Notes Scanned Note-Null - Physician Curtis MD - 12/01/2009 1307 EDT canned Note-Null - Physician Curtis MD - 12/01/2009 1307 EDT documented in this encounter Plan of Treatment Not on filedocumented as of this encounter Procedures Procedure Name Priority Date/Time Associated Diagnosis Comme nts ECG REPORT - 12/01/2009 13:07 Results for this SCANNED EDT procedure are i n the results section. ORDERS - SCANNED 12/01/2009 13:07 Results for this EDT procedure are i n the results section. SURGICAL PATHOLOGY Routine 11/28/2009 0:00 EDT Re sults for this procedure are i n the results section. documented in this encounter Results ECG REPORT - SCANNED (12/01/2009 13:07 EDT) Specimen Narrative 12/01/2009 16:08 EDT This result has an attachment that is no t available. Ordered by an unspecified provider. Transcriptions Inpatient, MD Meredith - 12/01/2009 13 :07 EDT ORDERS - SCANNED (12/01/2009 13:07 EDT) Specimen Narrative 12/01/2009 16:08 EDT This result has an attachment that is no t available. Ordered by an unspecified provider. Transcriptions Inpatient, MD Meredith - 12/01/2009 13 :07 EDT SURGICAL PATHOLOGY (11/28/2009 0:00 EDT) Pathology Report: SURGICAL PATHOLOGY REPORT ? [facility] ? LAB Reports generated via [employer] interface contain original data; ? however they are lacking the format of the original report. ? Caution should be taken when reading/interpreting unformatted reports. ? Name: ? VERONICA CERVANTES ? Accession #: ? [id number] ? : ? 1965 (Age: 44) ??F ?Collect Date: ? 11/28/2009 ? Location: ? [facility] ? Receive Date: ? 11/28/2009 ? Provider: VAL A TALITA MD ? Copy to: LEANDER F JAMES DO ? Addendum ? Date Ordered: ? 0 12/12/2009 ? Status: Signed Out ? Date Complete: ? 12/12/2009 ? By: Jacqueline Hier ? Date Reported: ? 12/14/2009 ? Addendum Comment ? During review for the Multidisciplinary Breast Tumor Conference, there was concern regarding the classi fication of the lymph node metastasis. ??Therefore, ?? deeper levels of tissue were reviewed. ??While the metastasis borders on being a macrometastasis, the deeper levels of tissue fail to demonstrate a confluent ? growth meeting the size crit eria this size criteria. ??Therefore, the lymph node metastasis will remain as a micrometastasis (AJCC: pN1mi). ??These findings were reviewed with Dr. Jose Alfredo rock. ? Review of the histologic fea tures of this carcinoma does show a ? poorly-differentiated tumor with some medullary features. ??These features ? include a syncytial growth p attern of a poorly-differentiated tumor with a brisk lymphocytic response. ??The tumor, however, does not have a clear circumscribed ?? nodular border. ??Focally, t he tumor does show squamoid morphology with ? identified intracellular gely dges. ??There is no keratin production identified. ?? The diagnoses remain unchang ed. ??The results were discussed with Dr. Neal ? Talita on December 12 010, via telephone. ??(Dr. Pedraza)/[facility] ? Document reviewed and electr onically signed by: ? Robert Pedraza MD ? Report date: 12/15/19 10 ? By the signature above, the attending physician certifies that he/she has ? personally conducted a gross and/or microscopic examination of the described ? specimens and rendered or co nfirmed the above diagnosis. ? Final Report ? Final Pathologic Diagnosis: ? SYNOPTIC DIAGNOSIS FOR MALIG NANT BREAST TUMORS ? Laterality: ?Left ? AJCC (7th edition): pT1b, pN1mi ? Specimen: ?Excisio nal biopsy with sentinel node biopsy ? Tumor Type: ?Invas anette, mixed ductal and metaplastic squamous type ? Tumor Size: ?1.0 x 0.8 ??x 0.6 cm ? Tumor Location: ? Lower inner quadrant; 6 o'clock ? [place] Combined Histolog ic Scores: ? Tubules: ?3 ? Nuclei: ?3 ? Mitotic Rate: ? 3 (actual count 24/10 HPF with field diameter of 0.54 mm) ? Total: ? 9 ? Differentiation: ? Po or ? Margins: ?Positive (at anterior margin) ? DCIS: ? Anushka d pattern, absent necrosis, nuclear grade III ? % DCIS: ?Not appli cable (DCIS is present outside the tumor mass) ? DCIS margins: ?Neg ative (1.5 mm from closest margin, medial) ? LVI: ? Not i dentified ? Lymph nodes: ?1/6 (positive/total count) ?1 node with micrometastases ? ER/ [place]: ?ER negative; [place] negative ([id number]) ? Her2/ami: ? See separ ate report ? Final Pathologic Diagnosis: ? A. ?? Breast, left, e xcisional biopsy: ? 1. ?Adenocarcin hola, invasive, mixed ductal and metaplastic squamous ? types, poorly differentiated . ??See comment. ? - Specimen integrity: ??Intact. ? - Tumor location: ??Lower in ner quadrant. ? - Tumor position: ??6 o'cloc k. ? - Tumor focality: ??Single f ocus. ? - Tumor measures 1.0 cm in g reatest dimension (AJCC: pT1b, pN1mi). ? - Surgical resection margins positive; invasive tumor present: ?- At anterior margin. ?- Extent of margin inv olvement: ??Focal. ??See comment. ?- 3.0 mm from posterior m argin. ?- Greater than 1.0 cm fro m remaining margins. ? - Lymphovascular invasion is not identified. ?2. ?? Ductal carcinoma in situ (DCIS), solid pattern, without necrosis, intermediate (II) nuclear ? grade. ? - Extensive intraductal component (EIC): ??Not identified. ? - Area of in volvement by DCIS is approximately 0.4 cm. See comment. ? - Surgical r esection margins negative; DCIS present: ? - 1.5 mm from medial margin. ? - 5.5 mm from superior margin. ? - Greater than 4.0 mm from anterior and posterior margins. See ? comment. ? - Greater than 1.0 cm from inferior and lateral margins. ??See ? comment. ? 3. ?? Lobular carcino ma in situ (LCIS) is not identified. ? 4. ?? Fibrocystic ammy nges including: ??Columnar cell change, columnar cell ?? hyperplasia, ? microcysts, apocrine metaplasia. ? 5. ?Prior biops y site is identified. ? B. ?Lymph node, axilla, left, specimen #1, hotspot #1, count 2256, ? excision: ? 1. ?One lymph n ode negative for malignancy (0/1). ? C. ?Lymph node, axilla, left, specimen #2, hotspot #1, count 739, ? excision: ? 1. ?One lymph n ode negative for malignancy (0/1). ? D. ?Lymph nodes , axilla, left, specimen #3, hotspot #1, count 2389, ? excision: ? 1. ?One of four lymph nodes positive for metastatic carcinoma (1/4). ? - Largest me tastatic focus is 1.0 mm. ?- Extranodal extens ion is not present. ? Comment: ? Histological examinat ion demonstrates a mixed ductal and metaplastic ? squamous histologic pattern. ??The cells demonstrate occasional intercellular ? bridges; however, keratin pr oduction is not evident. ??The cells display a poorly differentiated appearance. ? ?The anterior margin is positive for invasive tumor. There is cauterized ink on t he tumor over a 3.0 mm distance. ??Ductal carcinoma ?? in situ (DCIS) is present in the perpendicular medial margin sections (A1 and ?? A2). The estimated area of i nvolvement (4 mm) is based upon the fact that the ?? DCIS spans across these two tissue sections. The DCIS is near the medial margin (1.5 mm) and represents a se parate focus from the invasive component. ??Given the proximity of the DCIS compon ent (only present on medial margin sections, A1 and A2) to the medial and superi or margins, the inferior and lateral margins are ? clearly greater than 1.0 cm away from the DCIS. The thickness of the ? perpendicular medial margins are 4 mm, indicating that the remaining margins ? (anterior and posterior emani in) are at least 4.0 mm away from the DCIS. ? Corrosion Engineer sections of t his case have been reviewed at intradepartmental ? consultation conference. ??( Dr. Adhikari)/[facility] ? Gross Description: ? Received fresh labell ed Veronica Cervantes and left breast lumpectomy 6 ? o'clock, lower inner quadran t is a 10.3 gram portion of fibrofatty tissue, ? oriented as per the surgical pathology requisition that is 4.5 cm from medial to lateral by 3.5 cm from super ior to inferior by 1.1 cm from anterior to ? posterior. ??The specimen is inked as follows: anterior-yellow, posterior-black, superior-blue, inferior-gree n, medial-red, lateral-orange. ??The specimen is ? sectioned from medial (level 1) to lateral (level 12). ??In levels 3-5 there is a 0.9 x 0.8 x 0.6 cm firm, william -white mass with lobulated, slightly ill-defined ? borders. ??The mass grossly abuts but does not appear transected at the ? yellow-inked anterior margin . ??The mass is 0.3 cm from the posterior margin and greater than 1.0 cm from all remaining margins. ??There is no hemorrhage, biopsy cavity or biopsy clip identi fied in the mass. ??The remainder of the specimen is composed of predominantly ye llow-lobulated, adipose tissue admixed with minimal intervening white fibrous ti ssue. ??No additional masses are identified. ? Corrosion Engineer sections incl uding the entire tumor, are submitted as follows: ? BLOCK ZACARIAS ? A1, A2 ?Level 1 (medial), perpendicular sections ? A3 ?Level 3, in cluding greatest dimension of mass ? A4 ?Level 4, in cluding mass at nearest anterior and posterior margins ?? A5 ?Level 5, in cluding mass ? A6 ?Level 7, un involved ? A7 ?Level 10, u ninvolved ? A8 ?Level 12 (l ateral), perpendicular sections ? Received fresh labelled Too Veronica hernandez and specimen 1, hotspot 1, count 7975 is a single 1.0 x 0.6 x 0.5 cm pink-william, ovoid, probable lymph node with minimal adherent yellow adipose tiss ue. ??The specimen is trisected and entirely ? submitted in (B). ? Received fresh labelled Too Veronica hernandez and specimen 2, hotspot 1, count 739 ?? is a single, partially fragm ented 1.2 x 0.6 x 0.3 cm pink-william, probable lymph ?? node with minimal attached y ellow adipose tissue. ??The specimen is bisected and entirely submitted as (C). ? Received fresh labelled Too Veronica hernandez and sentinel node biopsy, specimen 3, ?? hotspot 1, count 8345 is a 2.0 x 1.8 x 0.6 cm portion of yellow adipose tissue within which are four pink-t an, ovoid probable lymph nodes that range from 0.7 x 0.5 x 0.3 cm to 1.2 x 1.0 x 0.6 cm. ??The nodes are sectioned and entirely ? submitted as follows: ? BLOCK ZACARIAS ? D1 ?One node tr isected ? D2 ?One node tr isected ? D3 ?One node tr isected ? D4 ?One node tr isected ? (L. Weber)/mpl ? Clinical History: ? Stage 1, left sided b reast cancer ? Specimens Received: ? A. ?Left breast lumpectomy 6 o'clock, lower inner quadrant, short stitch anterior, medium stitch medi al, long stitch deep ? B. ? Left sentinel node biopsy specimen 1, hotspot 1, count 2256 ? C. ? Left sentinel node biopsy, specimen 2, hotspot 1, count 739 ? D. ? Left sentinel node biopsy, specimen 3, hotspot 1, count 2389 ? Document reviewed and electr onically signed by: ? KARTHIK ADHIKARI MD ? Report ??Date: 2009 15:42 ? By the signature above, the attending physician certifies that he/she has ? personally conducted a gross and/or microscopic examination of the described ? specimens and rendered or co nfirmed the above diagnosis. ? C-erb-B2 IMMUNOPEROXIDASE ST AIN ? Date Ordered: ? 0 12/07/2009 ? Status: ?? Signed Out ?Date Complete: ? 12/07/2009 ? By: ??Eri Pelletier ? Date Reported: ? 12/07/2009 ? Interpretation ? Description ? Tissue submitted: Par affin embedded tissue block labelled [id number] (A4) ?? from [facility] are ? Fixative: ??Fresh (Fixation in 10% neutral buffered formalin for 18-24 hours with maximum tissue thickness of 3-4 millimeters is recommended for best assay ? performance. ??Dako Hercepte stTM should not be performed on alcohol fixed ? tissues.) ? A c-erb-B2 (Her2/ami) assay (Dako HerceptestTM) was requested by Dr. Neal ?? Talita on this breast carci noma. ??The assay was performed under appropriate ? conditions according to the rib chopper' s instructions with appropriate assay and tissue controls. ?HerceptestTM Scoring Guidelines (invasive tumor component only) ? 0 ? negative ?No staining or membrane staining in less than 10% ?? of cells ? 1+ ? negative ?Faint partial membrane staining in more than 10% ?? of cells ? 2+ ? weakly posit anette ?Moderate complete membrane staining in more than 10% of cells ? 3+ ? positive ? Strong complete membrane staining in more ? than 30% of cells ? ASSAY RESULTS ? HerceptestTM Score: ? 0/negative ?Cells with co mplete membrane staining: ? None ? Membrane staining int ensity: ?N/A ? Partial membrane stai stan: ?Absent ? Cytoplasmic staining: ? Absent ? Staining pattern: ? N/A ? Staining in benign ep ithelium: ?Absent ?The c-erb-B2 (Her2-ami) assay performed is interpreted as negative. ? Document reviewed and electr onically signed by: ? Luis Chavarria MD ? Report date: 12/08/19 ? By the signature above, the attending physician certifies that he/she has ? personally conducted a gross and/or microscopic examination of the described ? specimens and rendered or co nfirmed the above diagnosis. ? End of Report ? Specimen Performing Organization Address City/State/ZIP Code Phon e Number [facility] [address] [place] [address] [facility] [address] [place] [address] documented in this encounter Visit Diagnoses Not on filedocumented in this encounter Administered Medications Inactive Administered Medications - up to 3 most recent administrations Medication Order MAR Action Action Date Dose Rate Site CEFAZolin (ANCEF) syringe 1 g Given by Other 11/28/2009 7:30 EDT 1 g 1 g, intravenous, Administer over 10 Minutes, PRE-OP ONCE, 1 dose, On 11/28/09 at 0715, Routine, Pre-Op DOS Rx Approved lactated ringers (LR) infusion New Bag 11/28/2009 6:39 EDT 25 mL/hr at 25 mL/hr, intravenous, CONTINUOUS, Starting on 11/28/09 at 0715, Until 11/28/09 at 0649, Routine, Pre Op Day of Surgery lactated ringers (LR) infusion Rate Documented 11/28/2009 8:30 EDT 75 mL/hr at 75 mL/hr, intravenous, CONTINUOUS, Starting on Sat11/28/09 at 0830, Until Sat11/28/09 at 1227, Routine, Recovery (only) documented in this encounter Historical Medications This list may reflect changes made after this encounter. Medication Sig Dispensed Refills Start Date End Date levothyroxine (SYNTHROID) Take 100 mcg by 0 100 mcg tablet mouth daily. added in this encounter Active and Recently Administered Medications Times are shown in EDT. Scheduled Medication Order 11/26/2009 11/27/2009 11/28/2009 CEFAZolin (ANCEF) syringe 1 g (COMPLETED) 0730 (Given by Other - Provider: Janis Crane RN - Comment: Given in OR by Lien Monique CRNA) 1 g, Intravenous, for 10 Minutes, PRE-OP ONCE, 1 dose, Sat at 0715 Continuous Medication Order 11/26/2009 11/27/2009 11/28/2009 lactated ringers (LR) infusion (CANCELED) 0639 (New Bag - Provider: Katie Lovett RN) at 25 mL/hr, Intravenous, CONTINUOUS, St arting 11/28/09 at 0715, Until Discontinued lactated ringers (LR) infusion (CANCELED) 0830 (Rate Documented - Provider: Collette Addison) at 75 mL/hr, Intravenous, CONTINUOUS, St arting 11/28/09 at 0830, Until Discontinued PRN Medication Order 11/26/2009 11/27/2009 11/28/2009 oxycodone-acetaminophen (PERCOCET) 5-325 mg per tablet 1 Tab 1 Tab, Oral, PRN, 2 doses, Starting Sat11/28/09 at 0805, Until D iscontinued documented in this encounter Orders Medications Ordered That Might Not Have Count Last Ord ered Date First Ordered Date Been Administered acetaminophen (TYLENOL) tablet 325 mg 1 11/28/2009 atropine 0.1 mg/mL 10 mL syringe 0.5 mg 1 11/29/19 10 fentanyl citrate (PF) 50 mcg/mL injection 1 2009 25-100 mcg HYDROmorphone (DILAUDID) tablet 2 mg 1 11/28/2009 lactated ringers (LR) infusion 1 11/28/2009 naloxone (NARCAN) injection 0.2 mg 1 11/28/2009 ondansetron (PF) (ZOFRAN) 4 mg/2 mL 1 11/28/2009 injection 2 mg oxycodone-acetaminophen (PERCOCET) 5-325 1 010 mg per tablet 1 Tab promethazine (PHENERGAN) injection 12.5 mg 1 11/28 Nursing Count Last Ordered Date First Ordered Date ANESTHESIA COMMUNICATION 1 11/28/2009 APPLY WARMING BLANKET 1 11/28/2009 CARDIAC MONITORING 1 11/28/2009 MONITOR AIRWAY 1 11/28/2009 NOTIFY SERVICE 1 11/28/[address] SEQUENTIAL COMPRESSION DEVICE 1 11/28/2009 PULSE OXIMETRY 1 11/28/2009 VITAL SIGNS 1 11/28/2009 Admission Count Last Ordered Date First Ordered Date NOTIFY PPS PATIENT DISCHARGED FROM PACU 1 11/29/19 10 Discharge Count Last Ordered Date First Ordered Date DISCHARGE PATIENT 1 11/28/2009 documented in this encounter Care Teams Overhead Crane Operator Relationship Specialty Start Date End Date Leander Ramirez DO PCP - General 10/26/08 12/13/16 [address] [place] [place] [address] documented as of this encounter
--- OUTSIDE RECORDS SUMMARY | 2022-04-27 01:21 | XMS_ITS | Encounter Summary ---
:1965 Author Organization [facility] Address [address] [place] [address] Care Team Providers Name Role Phone Narendra Ramirez DO Primary Care Provider En Soto DO Primary Care Provider Encounter Details Date Type Department Care Team Description 12/26/2009 Historical Results [facility] - Ray Valencia, Only [facility] [place] us DO [address] [place] [address] [address] [place] [address] Social History Tobacco Use Types Packs/Day Years Used Date Never Assessed Sex Assigned at Date Recorded Not on file documented as of this encounter Plan of Treatment Not on filedocumented as of this encounter Procedures Procedure Name Priority Date/Time Associated Diagnosis Comme nts PAP TEST Routine 12/26/2009 Results for thi s procedure are i n the results section . SURGICAL PATHOLOGY Routine 12/26/2009 Results f or this procedure are i n the results section . documented in this encounter Results SURGICAL PATHOLOGY (12/26/2009) Specimen Narrative [facility] - 010 10:26 EDT PREOP LGSIL Procedure: COLPOSCOPY Tissue Removed ECC Clinical Hx: BREAST CA LMP: Prev.Abn Pap: 11/19/09 Name: CHERRIE FORREST ? : [birth year] ?Age/Sex: 54/F ?Unit#: [id number] ? Loc: AGO ? Status: REG POV ?? Reg Date: 12/26/09 ? Pt.Phone Number : ? Specimen: [id number] ? STA TUS: SOUT ?Spec Date:12/26/09 ? Physician Copies: ?Zach Valencia DO Tissues: A ?? Female Reproductive System (ENDOCERVIX) ?Te Marvin V CPT: 11891 ?? Units: ??1 ?FINAL DIAGNOSIS ? Endocervix, biopsy; ? -A few benign endocervical fragme nts embedded mucoid debris. ? GROSS DESCRIPTION ? Received in formalin and labeled ECC is a 0.5 cc aggregate of mucoid ? material, e.s. BT ?? 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 12/28/09 ?? By the signature above, the attending ph ysician certifies that he/she has personally conducted a gross and/or microscopic exa mination of the described specimens and rendered or confirmed the above diagnosi s. Test Performed by [facility], [address] [place] [address] Dishroom Attendant: Lolita Alarcon MD PHD Performing Organization Address City/State/[facility] Code Phon e Number [facility] [address] [place] [address] LAB PAP TEST (12/26/2009) Specimen Narrative [facility] - 010 14:18 EDT Name: CHERRIE FORREST ? : [birth year] ?Age/Sex: 54/F ?Unit#: [id number] ? Loc: AGO ? Status: REG POV ?? Reg Date: 12/26/09 ? Pt.Phone Number : ? Specimen: [id number] ?STA TUS: SOUT ?Spec Date:12/26/09 ? Physician Copies: ?Zach Valencia DO Tissues: ? Cervical/Endo Pap ?Te Marvin V CPT: 80427 ?? Units: ??1 ? CYTOLOGY DIAGNOSIS SPECIMEN ADEQUACY: ?Satisfactory for evaluation. Transformation zone component present. GENERAL CATEGORIZATION: ?Epithelial Cell Abnormality. 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 RECOMMENDATIONS/COMMENTS: ??Recommend qamar washburn the 2006 Consensus Guidelines for the Management of ??Women with Cervical Cyto logic Abnormalities. ??Management algorithms have been distributed and are also available online at [email or web address]. ORDER QUERIES: LMP: 11/19/09- ?Preg nant? N Post ? N ??PREVIOUS ATYPICAL: Y BCP/HRT? N Rad Rx? N IUD? N ??PAP PLUS HPV? N ??REFLEX TO HR-HPV IF ASCUS ?? REFLEX TO HPV 16/18 IF HPV POS/PAP NEG ?? HPV REGARDLESS?RFLX HPV IF LSIL ?? IF ASCUS DO HPV? N Signed ____(signature on file)____ Lolita Montano M.D. 01/06/10 By the signature above, the attending ph ysician certifies that he/she has personally conducted a gross and/or microscopic exa mination of the described specimens and rendered or confirmed the above diagnosi s. Test Performed by [facility], [address] [place] [address] Dishroom Attendant: Lolita Alarcon MD PHD Performing Organization Address City/State/ZIP Code Phon e Number [facility] [address] [place] [address] LAB documented in this encounter Visit Diagnoses Not on filedocumented in this encounter Care Teams Client Operations Manager Relationship Specialty Start Date End Date Narendra Ramirez, PCP - General 10/26/08 12/13/[address] [place] [address] En Soto, PCP - General 12/14/16 [address] [place] [address] documented as of this encounter
--- OUTSIDE RECORDS SUMMARY | 2022-04-27 01:21 | XMS_ITS | Encounter Summary ---
:1965 [place] [address] Care Team Providers Name Role Phone En Soto Primary Care Provider Encounter Details Date Type Department Care Team Description 12/29/2020 Ancillary Procedure [facility] [place] ELSA Patel MD [facility] [place] [address] NEUROLOGY DEPT [phone] [place], [place] [address] (Wo rk) Social History Tobacco Use Types Packs/Day Years Used Date Never Smoker Smokeless Tobacco: Never Used Sex Assigned at Date Recorded Not on file documented as of this encounter Plan of Treatment Not on filedocumented as of this encounter Procedures Procedure Name Priority Date/Time Associated Diagnosis Comme nts FILM LIBRARY Routine 12/29/2020 12:00 AM Results for this STORAGE ONLY CT EDT procedure ar e in HEAD the results section. documented in this encounter Results Film Library- Storage Only CT Head (12/29/2020 12:00 AM EDT) Specimen (Source) Anatomical Location Collection Method / Collectio n Time Received Time / Laterality Volume Narrative MARIAM CELAYA - 12/30/2020 10:24 AM EDT This exam is auto-finalizing. It's purpo se is for storage only. Alissa Marley MD Christine FILM LIBRARY ORDERABLES Performing Organization Address City/State/ZIP Code Phon e Number [facility] [place], [place] documented in this encounter Visit Diagnoses Not on filedocumented in this encounter Care Teams Skein Yarn Drier Relationship Specialty Start Date End Date En Soto, PCP - General General Internal Medicine 10/23/17 1 [address] [facility] [place] [place] [address] documented as of this encounter
--- OUTSIDE RECORDS SUMMARY | 2022-04-27 01:21 | XMS_ITS | Encounter Summary ---
:1965 Author Organization [facility] Address [address] [place] [address] Care Team Providers Name Role Phone Narendra Ramirez DO Primary Care Provider En Soto DO Primary Care Provider Encounter Details Date Type Department Care Team Description 07/20/2010 Historical Results [facility] - Ray Valencia, Only [facility] [place] us DO [address] [place] [address] [address] [place] [address] Social History Tobacco Use Types Packs/Day Years Used Date Never Assessed Sex Assigned at Date Recorded Not on file documented as of this encounter Plan of Treatment Not on filedocumented as of this encounter Procedures Procedure Name Priority Date/Time Associated Diagnosis Comme nts PAP TEST Routine 07/20/2010 16:53 EST Results for this procedure are i n the results section . documented in this encounter Results PAP TEST (07/20/2010 16:53 EST) Specimen Narrative [facility] - 011 12:10 EST Name: CHERRIE FORREST ? : [birth year] ?Age/Sex: 54/F ?Unit#: [id number] ? Loc: AGO ? Status: REG POV ?? Reg Date: 07/20/10 ? Pt.Phone Number : ? Specimen: [id number] ? STA TUS: SOUT ?Spec Date:07/20/10 ? Physician Copies: ?Zach Valencia DO Tissues: ? Cervical/Endo Pap ?Te Marvin V CPT: 22094 ?? Units: ??1 ? CYTOLOGY DIAGNOSIS SPECIMEN [...] online at [email or web address]. ORDER QUERIES: LMP: 11/19/09- ? N Post ? N ??PREVIOUS ATYPICAL: Y BCP/HRT? N Rad Rx? N IUD? N ??PAP PLUS HPV? N ??REFLEX TO HR-HPV IF ASCUS ?? REFLEX TO HPV 16/18 IF HPV POS/PAP NEG ?? HPV REGARDLESS?RFLX HPV IF LSIL ?? IF ASCUS DO HPV? Y Signed ____(signature on file)____ Bertrand Erwin M.D. 08/04/10 ?? By the signature above, the attending ph ysician certifies that he/she has personally conducted a gross and/or microscopic exa mination of the described specimens and rendered or confirmed the above diagnosi s. Test Performed by [facility], [address] [place] [address] Vegetable Inspector: Lolita Alarcon MD PHD Performing Organization Address City/State/[facility] Code Phon e Number [facility] [address] [place] [address] [facility] documented in this encounter Visit Diagnoses Not on filedocumented in this encounter Care Teams Rope Maker Relationship Specialty Start Date End Date Narendra Ramirez DO PCP - General 10/26/08 12/13/16 [address] [place] [address] En Soto DO PCP - General 12/14/16 [address] [place] [address] documented as of this encounter
--- OUTSIDE RECORDS SUMMARY | 2022-04-27 01:22 | XMS_ITS | Encounter Summary ---
:1965 Author Organization [facility] [place] [address] Care Team Providers Name Role Phone Anabel Roa Primary Care Provider [phone] Encounter Details Date Type Department Care Team Description 04/19/2010 Orders Only Lab [facility] Bobo Tellez MD [facility] [place] story HEMATOLOGY/[place] [address] DEPT. [phone] [place], [place] [address] (Wo rk) Social History Tobacco Use Types Packs/Day Years Used Date Never Assessed Sex Assigned at Date Recorded Not on file documented as of this encounter Plan of Treatment Not on filedocumented as of this encounter Procedures Procedure Name Priority Date/Time Associated Comments Diagnosis DIFFERENTIAL, STAT 04/19/2010 9:30 AM Results for this AUTOMATED EDT procedure are i n the results section. CBC (WITH DIFF) STAT 04/19/2010 9:30 AM Result s for this EDT procedure are i n the results section. CRP, CARDIAC RISK (HS STAT 04/19/2010 9:30 AM Results for this CRP) EDT procedure are i n the results section. COMPREHENSIVE STAT 04/19/2010 9:30 AM Results for this METABOLIC PANEL EDT procedure ar e in (NON-FASTING) the results section. documented in this encounter Results HIGH SENSITIVITY CRP (04/19/2010 9:30 AM EDT) athologist Signature CRP High Sens 3.0 mg/L [facility] Comment: Interpretations: 1) For cardiac risk assessment, two valu es (fasting or nonfasting sample acceptable) taken at least 2 weeks apart , should be averaged to provide a more reliable estimate of marker level. ??Thi s laboratory uses the recommendations from the AHA/CDC Scientific Statement fo r interpretations of future risks of cardiovascular events: ? <1.0 mg/L: low risk 1.0 - 3.0 mg/L: moderate risk >3.0 mg/L: high risk groups for future c ardiovascular events 2) The general reference range of appare ntly healthy individuals using this test is <5.0 mg/L (derived from the test package insert) A few words of caution: For cardiac asse ssment, when a value >10 mg/L is encountered, there should be a search fo r an acute inflammatory condition or infection (in patients with acute inflam mation, the concentration can increase to >500 mg/L). ??The >10 mg/L should be discarded if such a situation exists, since the risk for coronary heart diseas e cannot be provided, and a repeat specimen, taken at least two weeks after resolution of the acute inflammatory condition, may allow for appraisal of co ronary risk information. References: 1. Soraya BUENROSTRO et. al. ??AHA/CDC Scientif ic Statement: Markers of Inflammation and Cardiovascular Disease. ??Circulatio n 2003; 107:499-511 2. Aparna PM. ??Clinical applications of C-reactive protein for cardiovascular disease detection and prevention. ??Circ ulation 2003; 107:363-369 Specimen Anatomical Collection Method Collection Time Receive d Time (Source) Location / / Volume Laterality Blood specimen 04/19/2010 9:30 AM 010 9:42 (specimen) EDT AM EDT Bobo Gomez MD CHEMISTRY ORDERABLES Performing Organization Address City/State/ZIP [place] [address] [facility] (ABNORMAL) COMPREHENSIVE METABOLIC PANEL (NON-FASTING) (04/19/2010 9:30 AM EDT) athologist Signature Glucose Lvl 89 <=199 mg/dL [facility] Comment: Diabetes: >=200 mg/dL plus symp toms BUN 7 (L) 8 - 18 mg/dL C[facility] MILLENNIUM Creatinine 0.79 0.70 - 1.20 mg/dL CERNER MILL ENNIUM Sodium 137 135 - 145 mmol/L CERN[facility] LELE NIUM Potassium 4.0 3.5 - 5.0 mmol/L [facility] LELE NIUM Comment: Please note: ??Patients with WBC >100,00 0 may have falsely elevated Potassium levels. ??For accurate Potassium quantif ication in these patients send serum separator tube (gold top) for subsequent determinations. ??Contact the Clinical Chemistry Laboratory if there are any qu estions. Chloride 101 98 - 107 mmol/L CERNER MILLENN IUM CO2 27 22 - 31 mmol/L CERNER MILLENNI UM Anion Gap 9 5 - 15 mmol/L CERNER MILLENNIU M Calcium 9.5 8.5 - 10.5 mg/dL CERNER LELE NIUM Total Protein 6.7 6.4 - 8.3 gm/dL CERNER MIL LENNIUM Albumin 4.0 3.2 - 5.2 gm/dL CERNER MILLENN IUM AST 25 0 - 30 unit/L CERNER MILLENNIU M ALT 24 0 - 30 unit/L CERNER MILLENNIU M Alk Phos 173 (H) 40 - 104 unit/L CERNER MILLENN IUM Total Bilirubin 0.3 0.2 - 1.3 mg/dL CERNER M ILLENNIUM Bili, Direct 0.1 0.0 - 0.3 mg/dL CERNER MILL ENNIUM Estimated GFR >60 >=60 CERNER MILLENNIU M Comment: The National Kidney Disease Education Pr ogram (NKDEP) has recommended all laboratories report estimated GFR (eGFR) along with plasma creatinine measurements to assist you with recognit ion of early kidney disease. Caveats: ??Plasma creatinine should be a t steady-state (unchanged within the past week). ??Patient age > = 18 years, and for Americans multiply eGFR by 1.2. At present, NKDEP does NOT recommend usi ng the MDRD equation for drug dosing purposes and pharmacists should continue to use their current dosing methods. In addition, numerical eGFR values great er than 60 ml/min/1.73 square meters should be treated as > 60, and not an ex act number due to greater inaccuracies at these higher values. Per NKDEP, they classify normal renal function as any GFR >60ml/min/1.73 square meters; chronic kidney disease wh en GFR <60, and renal failure when GFR <15. ??This calculation may not be valid for patients with atypical muscle mass (very lean or obese), acute renal failur e, and in patients with diabetic kidney disease. References: http://nkdep.nih.gov/resources/NKDEP_Sug gestn4Labs_0606_508.pdf http://www.kidney.org/professionals/kls/ pdf/faq_gfr.pdf Specimen Anatomical Collection Method Collection Time Receive d Time (Source) Location / / Volume Laterality Blood specimen 04/19/2010 9:30 AM 010 9:36 (specimen) EDT AM EDT Bobo Gomez MD CHEMISTRY ORDERABLES Performing Organization Address City/State/ZIP [place] [address] CERNER MILLENNIUM (ABNORMAL) REFLEX LAB-A-DIFF (04/19/2010 9:30 AM EDT) [facility] gist Method Time Signature Neutrophils % 81.7 (H) 34.0 - CERNER 71.0 % MILLENNIUM Neutr Abs (ANC) 13.23 (H) 1.50 - CERNER 6.30 MILLENNIUM x10(3)/mc L Lymphocytes % 9.7 (L) 19.0 - CERNER 53.0 % MILLENNIUM Lymphocytes Abs 1.6 1.0 - 3.6 CERNER x10(3)/mc MILLENNIUM L Monocytes % 5.2 4.0 - CERNER 13.0 % MILLENNIUM Monocyte Abs 0.9 0.2 - 1.0 CERNER x10(3)/mc MILLENNIUM L Eosinophils % 2.2 0.0 - 7.0 CERNER % MILLENNIUM Eosinophils Abs 0.4 0.0 - 0.5 CERNER x10(3)/mc MILLENNIUM L Basophils % 0.3 0.0 - 2.0 CERNER % MILLENNIUM Basophils Abs 0.1 0.0 - 0.2 CERNER x10(3)/mc MILLENNIUM L Immature Gran % 0.90 (H) 0.00 - CERNER 0.66 % MILLENNIUM Comment: Immature granulocytes(IG's)percentage an d absolute count will include metamyelocytes, myelocytes, and promyelo cytes. Blood smears from CBC's yielding IG's will be scanned manually for concor dance. If this scan disagrees with the automated IG or if promyelocytes are not ed, a manual differential will be performed. Shanice Gran Abs 0.15 (H) 0.00 - 0.05 x10(3)/mcL CER NER MILLENNIUM Specimen Anatomical Collection Method Collection Time Receive d Time (Source) Location / / Volume Laterality Blood specimen 04/19/2010 9:30 AM 010 9:36 (specimen) EDT AM EDT Bobo Gomez MD HEMATOLOGY ORDERABLES Performing Organization Address City/State/ZIP [place] [address] CERNER MILLENNIUM (ABNORMAL) CBC (04/19/2010 9:30 AM EDT) P athologist Signature WBC 16.2 (H) 4.0 - 10.0 CERNER x10(3)/mcL MILLENNIUM RBC 3.14 (L) 3.93 - CERNER 5.22 MILLENNIUM x10(6)/mcL Hemoglobin 10.5 (L) 11.2 - CERNER 15.7 gm/dL MILLENNIUM Hematocrit 33.1 (L) 34.0 - CERNER 45.0 % MILLENNIUM MCV 105.4 (H) 79.0 - CERNER 94.0 fL MILLENNIUM MCH 33.4 (H) 26.6 - CERNER 32.2 pg MILLENNIUM MCHC 31.7 (L) 32.0 - CERNER 36.5 gm/dL MILLENNIUM Platelets 331 145 - 370 CERNER x10(3)/mcL MILLENNIUM RDWSD 74.3 (H) 35.0 - CERNER 46.0 fL MILLENNIUM RDWCV 19.8 (H) 10.9 - CERNER 14.4 % MILLENNIUM MPV 10.5 9.0 - 12.0 CERNER fL MILLENNIUM Specimen Anatomical Collection Method Collection Time Receive d Time (Source) Location / / Volume Laterality Blood specimen 04/19/2010 9:30 AM 010 9:36 (specimen) EDT AM EDT Bobo Gomez MD HEMATOLOGY ORDERABLES Performing Organization Address City/State/ZIP [place] [address] [facility] documented in this encounter Visit Diagnoses Not on filedocumented in this encounter Care Teams Director Of Enterprise Applications Relationship Specialty Start Date End Date Anabel Roa PA PCP - General 05/30/10 03/17/[address] [place] [place] [address] [place] [address] documented as of this encounter
--- OUTSIDE RECORDS SUMMARY | 2022-04-27 01:22 | XMS_ITS | Encounter Summary ---
:1965 Author Organization [facility] [place] [address] Care Team Providers Name Role Phone Anabel Roa Primary Care Provider Encounter Details Date Type Department Care Team Description 06/21/2010 Procedure visit [place] [address] Social History Tobacco Use Types Packs/Day Years Used Date Never Assessed Sex Assigned at Date Recorded Not on file documented as of this encounter Plan of Treatment Not on filedocumented as of this encounter Visit Diagnoses Not on filedocumented in this encounter Care Teams Grants Officer Relationship Specialty Start Date End Date Anabel Roa PA PCP - General 05/30/10 03/17/[address] [place] [address] documented as of this encounter
--- OUTSIDE RECORDS SUMMARY | 2022-04-27 01:22 | XMS_ITS | Encounter Summary ---
:1965 Author Organization [facility] [place] [address] Care Team Providers Name Role Phone Lori Cheema Primary Care Provider [phone] Encounter Details Date Type Department Care Team Description 03/19/2013 Hospital Encounter Hematology and CLINIC, DR SHRUTHI young cancer; Oncology at [facility] Bobo Gomez MD [facility] HEMATOLOGY/ON[place]Y [place] [address] [place] [id number] Social History Tobacco Use Types Packs/Day Years [...] Priority Date/Time Associated Comments Diagnosis DIFFERENTIAL, STAT 03/19/2013 10:27 Results fo r this AUTOMATED AM EDT procedure are i n the results section. VITAMIN D, 25-HYDROXY STAT 03/19/2013 10:27 Osteopenia Re sults for this AM EDT procedure are i n the results section. CBC (WITH DIFF) STAT 03/19/2013 10:27 Breast cancer Results for this AM EDT procedure are i n the results section. COMPREHENSIVE STAT 03/19/2013 10:27 Breast cancer Results f or this METABOLIC PANEL AM EDT procedure ar e in (NON-FASTING) the results section. documented in this encounter Results Differential, Automated (03/19/2013 10:27 AM EDT) P athologist Signature Neutrophils % 43.5 34.0 - CERNER 71.0 % MILLENNIUM Neutr Abs (ANC) 2.59 1.50 - CERNER 6.30 MILLENNIUM x10(3)/mcL Lymphocytes % 41.7 19.0 - CERNER 53.0 % MILLENNIUM Lymphocytes Abs 2.5 1.0 - 3.6 CERNER x10(3)/mcL MILLENNIUM Monocytes % 8.2 4.0 - 13.0 CERNER % MILLENNIUM Monocyte Abs 0.5 0.2 - 1.0 CERNER x10(3)/mcL MILLENNIUM Eosinophils % 5.4 0.0 - 7.0 CERNER % MILLENNIUM Eosinophils Abs 0.3 0.0 - 0.5 CERNER x10(3)/mcL MILLENNIUM Basophils % 1.2 0.0 - 2.0 CERNER % MILLENNIUM Basophils Abs 0.1 0.0 - 0.2 CERNER x10(3)/mcL MILLENNIUM Immature Gran % 0.00 0.00 - CERNER 0.66 % MILLENNIUM Comment: Immature granulocytes(IG's)percentage an d absolute count will include metamyelocytes, myelocytes, and promyelo cytes. Blood smears from CBCs yielding IG's will be scanned manually for concor dance. If this scan disagrees with the automated IG or if promyelocytes are not ed, a manual differential will be performed. Shanice Gran Abs 0.00 0.00 - 0.05 x10(3)/mcL CER NER [facility] Specimen Anatomical Collection Method Collection Time Receive d Time (Source) Location / / Volume Laterality Blood specimen 03/19/2013 10:27 3 (specimen) AM EDT 10:30 AM EDT Bobo Gomez MD HEMATOLOGY ORDERABLES Performing Organization Address City/[facility] Phon e Number [address] [facility] VIT D Total Evaluation (03/19/2013 10:27 AM EDT) P athologist Signature 25-OH Vit D 40 30 - 100 CERNER Total ng/mL [facility] Comment: Deficient <10 ng/mL Insufficient 10 to 29 ng/mL Sufficient 30 to 100 ng/mL Potential Intoxication >100 ng/mL According to the US National Osteoporosi s Foundation, Vitamin D concentrations >30 ng/mL are sufficient to protect bone health. ??The National Kidney Foundation has similarly stated that pat ients with Vitamin D concentrations <30ng/mL should be considered to be insu fficient or deficient. http://www.kidney.org/professionals/KDOQ I/guidelines_bone/Guide7.htm http://www.nof.org/professionals/clinica l-guidelines The IDS iSYS Vitamin D Immunoassay detec ts both 25-OH Vitamin D2 and 25-OH Vitamin D3, but only a total Vitamin D c oncentration is reported. Specimen Anatomical Collection Method Collection Time Receive d Time (Source) Location / / Volume Laterality Blood specimen 03/19/2013 10:27 3 (specimen) AM EDT 10:30 AM EDT Resulting Agency Comment Spec In Lab Bobo Gomez MD CHEMISTRY ORDERABLES Performing Organization Address City/[facility]/ZIP [facility] [place] [address] [facility] Comprehensive metabolic panel (non-fasting) (03/19/2013 10:27 AM EDT) athologist Signature Glucose Lvl 87 60 - 199 CERNER mg/dL MILLENNIUM Comment: Diabetes: >=200 mg/dL plus symp toms BUN 12 8 - 18 mg/dL CERNER MILLENNIUM Creatinine 0.91 0.70 - 1.20 mg/dL CERNER MILL ENNIUM Comment: Please note that the pediatric reference intervals supplied above were not validated at [facility]. Results from pediatri c patients should be interpreted in conjunction to the patient's age, height and muscle mass. Sodium 141 135 - 145 mmol/L CERNER LELE NIUM Potassium 4.2 3.5 - 5.0 mmol/L CERNER LELE NIUM Comment: Please note: ??Patients with WBC >100,00 0 may have falsely elevated Potassium levels. ??For accurate Potassium quantif ication in these patients send serum separator tube (gold top) for subsequent determinations. ??Contact the Clinical Chemistry Laboratory if there are any qu estions. Chloride 102 98 - 107 mmol/L CERNER MILLENN IUM CO2 30 22 - 31 mmol/L CERNER MILLENNI UM Anion Gap 9 5 - 15 mmol/L CERNER MILLENNIU M Calcium 10.2 8.5 - 10.5 mg/dL CERNER LELE NIUM Total Protein 6.8 6.4 - 8.3 gm/dL CERNER MIL LENNIUM Albumin 4.2 3.2 - 5.2 gm/dL CERNER MILLENN IUM AST 20 0 - 30 unit/L CERNER MILLENNIU M ALT 17 0 - 30 unit/L CERNER MILLENNIU M Alk Phos 62 40 - 104 unit/L CERNER MILLENN IUM Total Bilirubin 0.3 0.2 - 1.3 mg/dL CERNER M ILLENNIUM Bili, Direct 0.1 0.0 - 0.3 mg/dL CERNER MILL ENNIUM Estimated GFR >60 >=60 CERNER MILLENNIU M Comment: This estimated GFR (eGFR) value was calc ulated using the MDRD equation which has been validated on patients between t he ages of 18 and 70. The MDRD should not be used to assess kidney function in patients < 18 years of age or in patients with extremes of body mass, or in patients with acute kidney failure. This value should be multiplied by 1.2 f or patients. For further information please copy and past e the following links into your internet browser. http://www.nkdep.nih.gov/lab-evaluation. shtml http://www.kidney.org/professionals/ Specimen Anatomical Collection Method Collection Time Receive d Time (Source) Location / / Volume Laterality Blood specimen 03/19/2013 10:27 3 (specimen) AM EDT 10:30 AM EDT Resulting Agency Comment Spec In Lab Bobo Gomez MD CHEMISTRY ORDERABLES Performing Organization Address City/[facility]/ZIP Code Phon e Number [address] CERNER MILLENNIUM (ABNORMAL) CBC (with Diff) (03/19/2013 10:27 AM EDT) P athologist Signature WBC 6.0 4.0 - 10.0 CERNER x10(3)/mcL MILLENNIUM RBC 4.29 3.93 - CERNER 5.22 MILLENNIUM x10(6)/mcL Hemoglobin 13.6 11.2 - CERNER 15.7 gm/dL MILLENNIUM Hematocrit 41.0 34.0 - CERNER 45.0 % MILLENNIUM MCV 95.6 (H) 79.0 - CERNER 94.0 fL MILLENNIUM MCH 31.7 26.6 - CERNER 32.2 pg MILLENNIUM MCHC 33.2 32.0 - CERNER 36.5 gm/dL MILLENNIUM Platelets 289 145 - 370 CERNER x10(3)/mcL MILLENNIUM RDWSD 46.4 (H) 35.0 - CERNER 46.0 fL MILLENNIUM RDWCV 13.3 10.9 - CERNER 14.4 % MILLENNIUM MPV 10.1 9.0 - 12.0 CERNER fL MILLENNIUM Specimen Anatomical Collection Method Collection Time Receive d Time (Source) Location / / Volume Laterality Blood specimen 03/19/2013 10:27 3 (specimen) AM EDT 10:30 AM EDT Resulting Agency Comment Spec In Lab Bobo Gomez MD HEMATOLOGY ORDERABLES Performing Organization Address City/[facility]/ZIP [place] [address] CERNER MILLENNIUM documented in this encounter Visit Diagnoses Diagnosis Breast cancer Malignant neoplasm of breast (female), u nspecified site Osteopenia Disorder of bone and cartilage, unspecif ied documented in this encounter Care Teams Canvas Worker Apprentice Relationship Specialty Start Date End Date Lori Cheema DO PCP - General 03/18/13 10/22/[address] [place] [address] documented as of this encounter
--- OUTSIDE RECORDS SUMMARY | 2022-04-27 01:22 | XMS_ITS | Encounter Summary ---
:1965 Author Organization [facility] [place] [address] Care Team Providers Name Role Phone Anabel Roa Primary Care Provider [phone] Encounter Details Date Type Department Care Team Description 09/03/2012 Orders Only Hematology and Bobo Gomez Breast c lorene (Primary Dx); Oncology at [facility] MD Osteopenia [facility] [place] [address] HEMATOLOGY/ONCOLOG [phone] Y DEPT. [place], [place] [address] Social History Tobacco Use Types Packs/Day Years Used Date Never Smoker Smokeless Tobacco: Never Used Sex Assigned at Date Recorded Not on file documented as of this encounter Plan of Treatment Not on filedocumented as of this encounter Results VIT D Total Evaluation (03/19/2013 10:27 AM EDT) athologist Signature 25-OH Vit D 40 30 - 100 CERNER Total ng/mL [facility] Comment: Deficient <10 ng/mL Insufficient 10 to [...] Organization Address City/State/ZIP Code Phon e Number [place] [phone] CERNER MILLENNIUM Comprehensive metabolic panel (non-fasting) (03/19/2013 10:27 AM EDT) P athologist Signature Glucose Lvl 87 60 - 199 CERNER mg/dL MILLENNIUM Comment: Diabetes: >=200 mg/dL plus symp toms BUN 12 8 - 18 mg/dL CERNER MILLENNIUM Creatinine 0.91 0.70 - 1.20 mg/dL CERNER MILL ENNIUM Comment: Please note that the pediatric reference intervals supplied above were not validated at [facility]. Results from pediatri c patients should be [...] Organization Address City/State/[place] [address] CERNER MILLENNIUM (ABNORMAL) CBC (with [...] Organization Address City/State/[place] [address] [facility] documented in this encounter Visit Diagnoses Diagnosis Breast cancer - Primary Malignant neoplasm of breast (female), u nspecified site Osteopenia Disorder of bone and cartilage, unspecif ied documented in this encounter Care Teams Circular Sawyer Helper Relationship Specialty Start Date End Date Anabel Roa PA PCP - General 05/30/10 03/17/[address] [place] [id number] documented as of this encounter
--- OUTSIDE RECORDS SUMMARY | 2022-04-27 01:22 | XMS_ITS | Encounter Summary ---
:1965 Author Organization [facility] [place] [address] Care Team Providers Name Role Phone Anabel Roa Primary Care Provider [phone] Encounter Details Date Type Department Care Team Description 03/01/2011 Hospital Encounter Laboratory Mary Lima MD [address] [address] [place] [address] [phone] Social History Tobacco Use Types Packs/Day Years Used Date Never Smoker Smokeless Tobacco: Never Used Sex Assigned at Date Recorded Not on file documented as of this encounter Medications at Time of Discharge Medication Sig Dispensed Refills Start Date End Date ascorbic acid (VITAMIN C) Take 1,000 mg [...] Associated Diagnosis Comme nts SURGICAL PATHOLOGY Routine 03/01/2011 8:07 PM Res ults for this REPORT EDT procedure are i n the results section. documented in this encounter Results SURGICAL PATHOLOGY REPORT (03/01/2011 8:07 PM EDT) [facility] Method Time Signature Surgical CERNER Pathology ? [facility] Report ? Provider: ?? MARY LIMA ? Pt. Name: ?? ELICEO QUINTERO, CHERRIE L ? Acc #: ?[id number] ?Pt. MRN: ?[id number] ? Col Date: ?? 1 ? /Sex: ?1965,(45 years),Female ? Rec Date: ?? 03/01/2011 ? LOC: ?[facility] ? SURGICAL PATHOLOGY ? ---Pathologic Diagnosis--- ? A - Cervical biopsy at 12 o'clock: ? Atypical squamous metaplasia, cannot exclude HG ELINOR. ? B - Cervical biopsy at 1 o'clock: ? 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 ? C - Endocervical curetting: ? 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 ? 03/02/11 ? ASA ? 03/02/11 Verified by: ? Geovanny GUTHRIE, Juma Hunter ? Pathologist ? (Electronic Si gnature) ? The attending pathologist whose signature appears o n this report has ? reviewed all diagnostic slides and has edited the maury ss and/or ? microscopic portion of the report in rendering the fi nal pathologic ? diagnosis. ? ---Comment--- ? Dr. Mar reviewed the case and concurs with the d iagnosis. ? ---Microscopic Description--- ? Slides reviewed, microscopic description not recorded . ? ---Gross Description--- ? A - Labeled/Fixative: #1, formalin. ? Qty/Size/Weight: ?Single, 0.2 x 0.2 x 0.1 cm. ? Tissue Description: ?? Soft, johnson-white tissue. ? Sections/Processing: ??(T1) ? B - Labeled/Fixative: #2, formalin. ? Qty/Size/Weight: ?Single, 0.3 x 0.3 x 0.2 cm. ? Tissue Description: ?? Soft, johnson tissue. ? Sections/Processing: ??(T1) ? C - Labeled/Fixative: ECC, formalin. ? Qty/Size/Weight: ?Fragments, 0.7 x 0.6 x 0.3 c m. ? Tissue Description: ?? Johnson-pink mucus and mucoid soft tissue. ? Sections/Processing: ??(T1) vms/EJR ? [facility] ? Provider: ?? JANIE, MARY Sultana ? Pt. Name: ?? CHERRIE CAMPOS ? Acc #: ?[id number] ?Pt. MRN: ?[id number] ? Col Date: ?? 1 ? /Sex: ?1965,(45 years),Female ? Rec Date: ?? 03/01/2011 ? LOC: ?[facility] ? SURGICAL PATHOLOGY ? ---Clinical Information--- ? Specimen Submitted: ? A - noon ecto ? B - 1 o'clock ecto ? C - ECC ? Clinical History/Diagnosis: ? LGSIL cannot rule out HGSIL ? Referring Identifier: ??[id number] Specimen (Source) Anatomical Collection Method Collection Time Re ceived Time Location / / Volume Laterality 03/01/2011 8:07 PM EDT Mary Lima MD PATHOLOGY/CYTOLOGY ORDERABLE S Performing Organization Address City/State/ZIP [place] [address] [facility] documented in this encounter Visit Diagnoses Not on filedocumented in this encounter Care Teams Chef Kitchen Manager Relationship Specialty Start Date End Date Anabel Roa PA PCP - General 05/30/10 03/17/[address] [place] [address] documented as of this encounter
--- OUTSIDE RECORDS SUMMARY | 2022-04-27 01:22 | XMS_ITS | Encounter Summary ---
:1965 Author Organization [place] [address] Care Team Providers Name Role Phone Anabel Roa Primary Care Provider [phone] Encounter Details Date Type Department Care Team Description 12/06/2011 External Results Hematology and Oncology Bobo Gomez MD at [facility] [place] story HEMATOLOGY/[place] [address] DEPT. [phone] [place], [place] [address] (Wo rk) Social History Tobacco Use Types Packs/Day Years Used Date Never Smoker Smokeless Tobacco: Never Used Sex Assigned at Date Recorded Not on file documented as of this encounter Plan of Treatment Not on filedocumented as of this encounter Procedures Procedure Name Priority Date/Time Associated Diagnosis Comme nts (HT) ACTINOTHERAPY Routine 11/14/2011 Results f or this GENERAL procedure are i n the results section . EXTERNAL LAB RESULTS Routine 11/14/2011 Results for this procedure are i n the results section . documented in this encounter Results (HT) Actinotherapy General ([id number]) (11/14/2011) P athologist Signature WBC 6.8 EXTERNAL LAB Bobo Gomez MD MED SEC PROC [facility] Performing Organization Address City/State/ZIP Code Phon e Number EXTERNAL FACILITY EXTERNAL LAB External Lab Results (11/14/2011) P athologist Signature Platelets 291.0 Neutrophil Abs 3.3 Hemoglobin 13.1 12.0 - 16.0 Hematocrit 39.6 36.0 - 46.0 Glucose Lvl 112 BUN 14 4 - 21 Creatinine 0.9 0.5 - 1.1 Sodium 139 137 - 147 Potassium 4.5 3.4 - 5.3 Chloride 102 99 - 108 Calcium 9.3 8.7 - 10.7 Total Protein 6.4 6.4 - 8.2 Albumin 3.9 3.5 - 5.0 Total Bilirubin 0.6 0.1 - 1.4 AST 25 13 - 35 ALT 23 7 - 35 Alk Phos 67 Specimen (Source) Anatomical Location Collection Method / Collectio n Time Received Time / Laterality Volume 11/14/2011 Bobo Gomez MD CHEMISTRY ORDERABLES documented in this encounter Visit Diagnoses Not on filedocumented in this encounter Care Teams Ladies Attendant Relationship Specialty Start Date End Date Anabel Roa PA PCP - General 05/30/10 03/17/[address] [place] [id number] documented as of this encounter
--- OUTSIDE RECORDS SUMMARY | 2022-04-27 01:22 | XMS_ITS | Encounter Summary ---
:1965 Author Organization [facility] [place] [address] Care Team Providers Name Role Phone Unavailable Primary Care Provider Unavailable Encounter Details Date Type Department Care Team Description 05/24/2010 Office Visit Hematology and Oncol ann at [facility] [place] [address] Social History Tobacco Use Types Packs/Day Years Used Date Never Assessed Sex Assigned at Date Recorded Not on file documented as of this encounter Plan of Treatment Not on filedocumented as of this encounter Visit Diagnoses Not on filedocumented in this encounter
--- OUTSIDE RECORDS SUMMARY | 2022-04-27 01:22 | XMS_ITS | Encounter Summary ---
:1965 Author Organization [facility] [place] [address] Care Team Providers Name Role Phone Anabel Roa Primary Care Provider [phone] Reason for Visit Reason Onset Date Comments Other 10/03/2012 Other Encounter Details Date Type Department Care Team Description 10/03/2012 Telephone Hematology and Oncology at Claudia Ayala RN Other; [facility] [place] [address] Social History Tobacco Use Types Packs/Day Years Used Date Never Smoker Smokeless Tobacco: Never Used Sex Assigned at Date Recorded Not on file documented as of this encounter Miscellaneous Notes Telephone Encounter - Adali Ayala RN - 10/07/2012 2:29 PM EDT Called Cherrie, Hgb is fine, discussed with Ailyn but there was no TSH resulted. Telephone Encounter - Adali Ayala RN - 10/03/2012 9:05 AM EDT Patient called stating she got a letter saying that her iron was poor and she was anemic but she wanted to know what the numbers were for that and her TSH, and what she should do about the low Iron. She also said she was noticeably pale. She said you could leave a message for her at [phone]. Called Cherrie to inform her that she did not have anything to worry about regarding anemia and that there was not a TSH level resulted. Ran by Mary Burgos APRN, unable to fine a TSH result. Hgb not concerning. No response, message left for Cherrie. Message left ask who sent her the letter and what was the date. She may call with any further concerns or questions, Cherrie returned call. She received an AVS, one of her listed diagnosis was REED. Cherrie is calling to ask if she should be taking an iron supplement and if so how much? Will discuss with Dr.P. Gomez and return call to Cherrie. Called Cherrie after speaking with Dr.P. Gomez. Informed her counts are alright, she does not require any supplements at this time. documented in this encounter Plan of Treatment Not on filedocumented as of this encounter Visit Diagnoses Not on filedocumented in this encounter Care Teams Disability Case Manager Relationship Specialty Start Date End Date Anabel Roa PA PCP - General 05/30/10 03/17/[address] [place] [id number] documented as of this encounter
--- OUTSIDE RECORDS SUMMARY | 2022-04-27 01:22 | XMS_ITS | Encounter Summary ---
:1965 Author Organization [facility] Address [address] [place] [address] Care Team Providers Name Role Phone Deni ValDaisyFaina W DO Primary Care Provider Reason for Referral Consultation (Routine) - Closed Specialty Diagnoses / Procedures Referred By Contact Refer red To Contact Cardiology Diagnoses Mitral regurgitation Bobo Gomez MD [facility] 4a [facility] [address] [facility] [address] HEMATOLOGY/[place] [address] [place] [address] Referral ID Status Reason Start Date Expiration Date Visits V isits Requested Authorized [id number] Closed Consult Only 03/19/2013 09/15/2013 1 1 Reason for Visit Reason Comments Follow-up Encounter Details Date Type Department Care Team Description 03/19/2013 Follow-Up Hematology and Bobo Gomez Mitral r egurgitation (Primary Dx); Oncology at [facility] Infiltrating ductal carcinoma, left pri[address], 11/14; [facility] Hyp othyroidism; Drive Iron deficiency anemia; [place] [address] HEMATOLOGY/ONCOLOG Osteopenia [phone] Y DEPT. [place], [place] [address] Social History Tobacco Use Types Packs/Day Years Used Date Never Smoker Smokeless Tobacco: Never Used Sex Assigned at Date Recorded Not on file documented as of this encounter Last Filed Vital Signs Vital Sign Reading Time Taken Comments Blood Pressure 90/44 03/19/2013 10:56 AM EDT Pulse 72 03/19/2013 10:56 AM EDT Temperature 36.7 ??C (98.1 ??F) 03/19/2013 10:56 AM EDT Respiratory Rate 16 03/19/2013 10:56 AM EDT Oxygen Saturation 97% 03/19/2013 10:56 AM EDT Inhaled Oxygen Concentration - - Weight 62 kg (136 lb 11 oz) 03/19/2013 10:56 AM EDT Height 175.5 cm (5' 9.09) 03/19/2013 10:56 AM EDT Body Mass Index 20.13 03/19/2013 10:56 AM EDT documented in this encounter Progress Notes Bobo Gomez MD - 03/19/2013 12:14 PM EDT Subjective: Patient ID: Cherrie Forrest is a 47 y.o. female, who returns in followup for treatment and managementof her breast cancer, and other medical problems. Her past medical history, social history, and family history are unchanged from that noted in my prior notes. Problem List: 1. Infiltrating ductal carcinoma, left breast, 11/14 a. ~ 1-cm cancer, poorly differentiated, ER/IL- (outside, confirmed on [facility] IHC), HER2/ami - ([facility], [facility]), 1/6 sentinel nodes, ~ 1 mm [...] augmentation surgery and bilateral saline implants, late 1980s. 4. Past history of probable iron-deficiency anemia. 5. VIDHYA, 02/14. a. Significant hot flashes, 03/09. 1. Celexa, 03/09, 20 mg qHS. 6. H/O possible iron deficiency anemia. 7. GYPSY/BSO, 05/18; Pathology >> benign findings. A. [facility]one bx >> LAVELLE III. 8. Osteopenia, 08/20. NELA Grier returns in followup. She, on the whole, has been doing well since I had last seen her about six months ago. She has had no significant illnesses. She has had no signs or symptoms particularly suggestive of recurrent disease. The only recent issue is that a few months or so ago she began to note a somewhat ill-defined discomfort in her left upper anterior chest region. It feels to her symptomatically that this is deep in the chest and not something superficial. She does not have a sense of tenderness. She is not aware of any prior unusual physical activity or muscle strain. There is no correlation whatsoever with exercise. She has no other complaints. Review of Systems Except as noted above, Cherrie Rosays full remaining review of systems, including constitutional, cardiac, pulmonary, GI, , neurologic, musculskeletal, and remaining, is otherwise fully unremarkable. Current Outpatient Prescriptions on File Prior to Visit Medication Status Sig Dispense Refill ??? VITAMIN B COMPLEX (B COMPLEX-VITAMIN B12 ORAL) Active Take by mouth daily as needed. ??? ascorbic acid (VITAMIN C) 1,000 mg tablet Active Take 1,000 mg by mouth daily. ??? levothyroxine (SYNTHROID) 100 mcg tablet Active Take 150 mcg by mouth daily. ??? multivitamin (THERAGRAN) tablet Active Take 1 tablet by mouth daily. ??? LORazepam (ATIVAN) 0.5 mg tablet Active 0.5 MG = 1 Tablet(s), PO, Q4-6H PRN ??? citalopram (CELEXA) 20 mg tablet Active 20 MG = 2 Tablet(s), PO, QHS ??? CALCIUM CARB/MAG OXIDE/VIT D3 (CALCIUM MAGNESIUM + D ORAL) Active Objective: Physical Exam Filed Vitals: 03/19/13 1056 BP: 90/44 Pulse: 72 Temp: 36.7 ??C (98.1 ??F) TempSrc: Oral Resp: 16 Height: 175.5 cm (5' 9.09) Weight: 62 kg (136 lb 11 oz) SpO2: 97% Objective: Cherrie Forrest is well appearing and [...] Recent Results (from the past 24 hour(s)) CBC (WITH DIFF) Component Value Range WBC 6.0 4.0 - 10.0 x10(3)/mcL RBC 4.29 3.93 - 5.22 x10(6)/mcL Hemoglobin 13.6 11.2 - 15.7 gm/dL Hematocrit 41.0 34.0 - 45.0 % MCV 95.6 (*) 79.0 - 94.0 fL MCH 31.7 26.6 - 32.2 pg MCHC 33.2 32.0 - 36.5 gm/dL Platelets 289 145 - 370 x10(3)/mcL RDWSD 46.4 (*) 35.0 - 46.0 fL RDWCV 13.3 10.9 - 14.4 % MPV 10.1 9.0 - 12.0 fL COMPREHENSIVE METABOLIC PANEL (NON-FASTING) Component Value Range Glucose Lvl 87 60 - 199 mg/dL BUN 12 8 - 18 mg/dL Creatinine 0.91 0.70 - 1.20 mg/dL Sodium 141 135 - 145 mmol/L Potassium 4.2 3.5 - 5.0 mmol/L Chloride 102 98 - 107 mmol/L CO2 30 22 - 31 mmol/L Anion Gap 9 5 - 15 mmol/L Calcium 10.2 8.5 - 10.5 mg/dL Total Protein 6.8 6.4 - 8.3 gm/dL Albumin 4.2 3.2 - 5.2 gm/dL AST 20 0 - 30 unit/L ALT 17 0 - 30 unit/L Alk Phos 62 40 - 104 unit/L Total Bilirubin 0.3 0.2 - 1.3 mg/dL Bili, Direct 0.1 0.0 - 0.3 mg/dL Estimated GFR >60 >=60 DIFFERENTIAL, AUTOMATED Component Value Range Neutrophils % 43.5 34.0 - 71.0 % Neutr Abs (ANC) 2.59 1.50 - 6.30 x10(3)/mcL Lymphocytes % 41.7 19.0 - 53.0 % Lymphocytes Abs 2.5 1.0 - 3.6 x10(3)/mcL Monocytes % 8.2 4.0 - 13.0 % Monocyte Abs 0.5 0.2 - 1.0 x10(3)/mcL Eosinophils % 5.4 0.0 - 7.0 % Eosinophils Abs 0.3 0.0 - 0.5 x10(3)/mcL Basophils % 1.2 0.0 - 2.0 % Basophils Abs 0.1 0.0 - 0.2 x10(3)/mcL Immature Gran % 0.00 0.00 - 0.66 % Shanice Gran Abs 0.00 0.00 - 0.05 x10(3)/mcL Recent Labs Basename 03/19/13 1027 08/27/12 0727 WBC 6.0 7.6 NEUTROABS 2.59 2.98 HGB 13.6 12.3 HCT 41.0 36.9 PLATELET 289 277 Recent Labs Basename 03/19/13 1027 08/27/12 0727 AST 20 22 ALT 17 18 ALKPHOS 62 57 BILITOT 0.3 0.1* Assessment and Plan: Cherrie returns in followup. Labs as above are unremarkable. The only new issue since I had last seen her is the somewhat difficult to characterize left anterior chest discomfort that symptomatically is fairly deep seated. Her exam is unremarkable. I suspect, however, this is potentially postop discomfort or chest wall discomfort related to her prior MRM and reconstruction. However, I have recommended proceeding with a chest CT for further evaluation. Cherrie did see her primary care physician for these symptoms who obtained a stress echocardiogram that reportedly demonstrated no evidence of ischemia, but did demonstrate MR. I do not have these records, but Cherrie is a very accurate historian and medically quite knowledgeable. She had been set up to see a sewer and inspector at [facility] for consultation, which is to proceed with an evaluation at Cardiology here at [facility], which we will refer for. documented in this encounter Plan of Treatment Scheduled Referrals Name Type Priority Associated Diagnoses Order S chedule Referral to Outpatient Referral Routine Mitral regurgitation Ordered: Cardiology 03/19/2013 documented as of this encounter Visit Diagnoses Diagnosis Mitral regurgitation - Primary Mitral valve disorders Infiltrating ductal carcinoma, left pri[address] st, 11/14 Malignant neoplasm of breast (female), u nspecified site Hypothyroidism Unspecified hypothyroidism Iron deficiency anemia Iron deficiency anemia, unspecified Osteopenia Disorder of bone and cartilage, unspecif ied documented in this encounter Care Teams Circulation Man Relationship Specialty Start Date End Date Lori Cheema DO PCP - General 03/18/13 10/22/[address] [place] [id number] documented as of this encounter
--- OUTSIDE RECORDS SUMMARY | 2022-04-27 01:22 | XMS_ITS | Encounter Summary ---
:1965 Author Organization [facility] Address [facility] [place] [address] Care Team Providers Name Role Phone Anabel Roa Primary Care Provider [phone] Reason for Visit Reason Onset Date Comments Medication Problem 10/11/2010 Encounter Details Date Type Department Care Team Description 10/11/2010 Telephone Hematology and Oncology Bobo Gomez MD Medication Problem at [facility] [place] story HEMATOLOGY/[place] [address] DEPT. [phone] [place], [place] [address] (Wo rk) Social History Tobacco Use Types Packs/Day Years Used Date Never Assessed Sex Assigned at Date Recorded Not on file documented as of this encounter Miscellaneous Notes Telephone Encounter - Taisha Fonseca RN - 10/13/2010 4:15 PM EDT Called [facility] in [facility], spoke with Vega, Pharmacist; per the pharmacy may refill Lovenox script for patient. Clarified dose of 100mg /ml subcut once daily. Telephone Encounter - Taisha Fonseca RN - 10/13/2010 4:08 PM EDT reviewing chart. Will call when clarified. Telephone Encounter - Taisha Fonseca RN - 10/11/2010 11:00 AM EDT Clarify with oncologist current status of Lovenox. Telephone Encounter - Taisha Fonseca RN - 10/11/2010 10:39 AM EDT Message copied by TAISHA FONSECA on SatOct 11, 2010 10:39 AM ------ Message from: SCAR PELAYO Created: SatOct 10, 2010 2:31 PM Regarding: ? still take Lovenox Contact: 9 Got a call from Benjamín jeffers/[facility]. He wants to know if he should refill this pt's Lovenox. Pt called as well and wonders the same thing. Could you call Benjamín at the number above and also call the pt @ either [phone] or [phone] to let both of them know the plan. Called documented in this encounter Plan of Treatment Not on filedocumented as of this encounter Visit Diagnoses Not on filedocumented in this encounter Care Teams Car Pick Up Driver Relationship Specialty Start Date End Date Anabel Roa PA PCP - General 05/30/10 03/17/[address] [place] [id number] documented as of this encounter
--- OUTSIDE RECORDS SUMMARY | 2022-04-27 01:22 | XMS_ITS | Encounter Summary ---
:1965 Author Organization [facility] [place] [address] Care Team Providers Name Role Phone Anabel Roa Primary Care Provider [phone] Reason for Visit Reason Onset Date Comments Other 03/08/2011 follow up PAP Encounter Details Date Type Department Care Team Description 03/08/2011 Telephone Hematology and Adali Fonseca, Other ( follow up PAP) Oncology at [facility] [place] [address] Social History Tobacco Use Types Packs/Day Years Used Date Never Smoker Smokeless Tobacco: Never Used Sex Assigned at Date Recorded Not on file documented as of this encounter Miscellaneous Notes Telephone Encounter - Adali Fonseca, RN - 03/08/2011 1:37 PM EDT Called Cherrie at [facility], no response left a message to call [phone] Pager#[phone] Cherrie had a PAP smear followed by 3 biopsies. Result: Endocervical Hi-grade. Patient being seen at [facility] who now recommend a - Cold Knife procedure. Patient would like to see if agrees thatmariluz could have the cold knife with a hysterectomy. apparently toldCherrie that she should have her ovaries removed. Plan per ; obtain name and tel# of Arcade Technician. and Dr. Gomez will call and discuss options,before making any decision. Arcade Technician.Onc he recommends; Dr.Leslie Quan. or Dr.Karen GibbonsArcade Technician MD here at [facility] . Called Cherrie [phone] and she told me that her Arcade Technician MD is , ( female) # [phone] Telephone Encounter - Adali Fonseca RN - 03/08/2011 1:31 PM EDT Message copied by ADALI FONSECA on SatMar 08, 2011 1:31 PM ------ Message from: BETTY RICHARDSON Created: SatMar 08, 2011 1:08 PM Regarding: PATIENT WANTS A CALL BACK Patient phoned stating that she some test results from a pap that she just had and the local doctors want to do other things regarding this and she wants to make sure that Dr. Gomez is on board with it all. She can be reached at: [phone]. documented in this encounter Plan of Treatment Not on filedocumented as of this encounter Visit Diagnoses Not on filedocumented in this encounter Care Teams Pressurised Container Filler Relationship Specialty Start Date End Date Anabel Roa PA PCP - General 05/30/10 03/17/[address] [place] [address] documented as of this encounter
--- OUTSIDE RECORDS SUMMARY | 2022-04-27 01:22 | XMS_ITS | Encounter Summary ---
:1965 [place] [address] Care Team Providers Name Role Phone Anabel Roa Primary Care Provider [phone] Encounter Details Date Type Department Care Team Description 06/12/2012 Orders Only Occupational Medicine at Charlee Schuster APRN [facility] [place] story [place] [address] [place] [address] [phone] (Wo rk) Social History Tobacco Use Types Packs/Day Years Used Date Never Smoker Smokeless Tobacco: Never Used Sex Assigned at Date Recorded Not on file documented as of this encounter Plan of Treatment Not on filedocumented as of this encounter Procedures Procedure Name Priority Date/Time Associated Diagnosis Comme nts MUMPS ANTIBODY, IGG Routine 06/12/2012 3:48 PM Re sults for this EST procedure are i n the results section. documented in this encounter Results Mumps Antibody, IgG (06/12/2012 3:48 PM EST) P athologist Signature Mumps IgG Positive Positive [facility] Specimen Anatomical Collection Method Collection Time Receive d Time (Source) Location / / Volume Laterality Blood specimen 06/12/2012 3:48 PM 012 7:52 (specimen) EST AM EST Resulting Agency Comment Spec In Lab Charlee Schuster APRN IMMUNOLOGY ORDERABLES Performing Organization Address City/State/ZIP Code [place] [address] [facility] documented in this encounter Visit Diagnoses Not on filedocumented in this encounter Care Teams Boxing Promoter Relationship Specialty Start Date End Date Anabel Roa PA PCP - General 05/30/10 03/17/[address] [place] [address] documented as of this encounter
--- OUTSIDE RECORDS SUMMARY | 2022-04-27 01:22 | XMS_ITS | Encounter Summary ---
:1965 Author Organization [facility] [place] [address] Care Team Providers Name Role Phone Anabel Roa Primary Care Provider [phone] Encounter Details Date Type Department Care Team Description 05/17/2010 Orders Only Lab [facility] Bobo Tellez MD [facility] [place] story HEMATOLOGY/[place] [address] DEPT. [phone] [place], [place] [address] (Wo rk) Social History Tobacco Use Types Packs/Day Years Used Date Never Assessed Sex Assigned at Date Recorded Not on file documented as of this encounter Plan of Treatment Not on filedocumented as of this encounter Procedures Procedure Name Priority Date/Time Associated Comments Diagnosis DIFFERENTIAL, STAT 05/17/2010 8:58 AM Results for this AUTOMATED EST procedure are i n the results section. CBC (WITH DIFF) STAT 05/17/2010 8:58 AM Result s for this EST procedure are i n the results section. COMPREHENSIVE STAT 05/17/2010 8:58 AM Results for this METABOLIC PANEL EST procedure ar e in (NON-FASTING) the results section. documented in this encounter Results (ABNORMAL) COMPREHENSIVE METABOLIC PANEL (NON-FASTING) (05/17/2010 8:58 AM EST) P athologist Signature Glucose Lvl 85 <=199 mg/dL [facility] Comment: Diabetes: >=200 mg/dL plus symp toms BUN 16 8 - 18 mg/dL CERNER MILLENNIUM Creatinine 0.69 (L) 0.70 - 1.20 mg/dL CERNER MILL ENNIUM Sodium 139 135 - 145 mmol/L CERNER LELE NIUM Potassium 4.3 3.5 - 5.0 mmol/L CERN[facility] LELE NIUM Comment: Please note: ??Patients with WBC >100,00 0 may have falsely elevated Potassium levels. ??For accurate Potassium quantif ication in these patients send serum separator tube (gold top) for subsequent determinations. ??Contact the Clinical Chemistry Laboratory if there are any qu estions. Chloride 102 98 - 107 mmol/L CERNER MILLENN IUM CO2 29 22 - 31 mmol/L CERNER MILLENNI UM Anion Gap 8 5 - 15 mmol/L CERNER MILLENNIU M Calcium 9.7 8.5 - 10.5 mg/dL CERNER LELE NIUM Total Protein 6.6 6.4 - 8.3 gm/dL CERNER MIL LENNIUM Albumin 4.2 3.2 - 5.2 gm/dL CERNER MILLENN IUM AST 30 0 - 30 unit/L CERNER MILLENNIU M ALT 46 (H) 0 - 30 unit/L CERNER MILLENNIU M Alk Phos 138 (H) 40 - 104 unit/L CERNER MILLENN IUM Total Bilirubin 0.2 0.2 - 1.3 mg/dL CERNER M ILLENNIUM Bili, Direct <0.1 0.0 - 0.3 mg/dL CERNER MILL ENNIUM [...] Location / / Volume Laterality Blood specimen 05/17/2010 8:58 AM 010 9:05 (specimen) EST AM EST Bobo Gomez MD CHEMISTRY ORDERABLES Performing Organization Address City/State/[place] [address] CERNER MILLENNIUM (ABNORMAL) REFLEX LAB-A-DIFF (05/17/2010 8:58 AM EST) [facility] gist Method Time Signature Neutrophils % 71.7 (H) 34.0 - CERNER 71.0 % MILLENNIUM Neutr Abs (ANC) 6.20 1.50 - CERNER 6.30 MILLENNIUM x10(3)/mc L Lymphocytes % 18.1 (L) 19.0 - CERNER 53.0 % MILLENNIUM Lymphocytes Abs 1.6 1.0 - 3.6 CERNER x10(3)/mc MILLENNIUM L Monocytes % 7.5 4.0 - CERNER 13.0 % MILLENNIUM Monocyte Abs 0.7 0.2 - 1.0 CERNER x10(3)/mc MILLENNIUM L Eosinophils % 1.7 0.0 - 7.0 CERNER % MILLENNIUM Eosinophils Abs 0.2 0.0 - 0.5 CERNER x10(3)/mc MILLENNIUM L Basophils % 0.5 0.0 - 2.0 CERNER % MILLENNIUM Basophils Abs 0.0 0.0 - 0.2 CERNER x10(3)/mc MILLENNIUM L Immature Gran % 0.50 0.00 - CERNER 0.66 % MILLENNIUM Comment: Immature granulocytes(IG's)percentage an d absolute count will include metamyelocytes, myelocytes, and promyelo cytes. Blood smears from CBC's yielding IG's will be scanned manually for concor dance. If this scan disagrees with the automated IG or if promyelocytes are not ed, a manual differential will be performed. Shanice Gran Abs 0.04 0.00 - 0.05 x10(3)/mcL CER NER MILLENNIUM Specimen Anatomical Collection Method Collection Time Receive d Time (Source) Location / / Volume Laterality Blood specimen 05/17/2010 8:58 AM 010 9:05 (specimen) EST AM EST Bobo Gomez MD HEMATOLOGY ORDERABLES Performing Organization Address City/State/[place] [address] CERNER MILLENNIUM (ABNORMAL) CBC (05/17/2010 8:58 AM EST) P athologist Signature WBC 8.6 4.0 - 10.0 CERNER x10(3)/mcL MILLENNIUM RBC 2.63 (L) 3.93 - CERNER 5.22 MILLENNIUM x10(6)/mcL Hemoglobin 9.2 (L) 11.2 - CERNER 15.7 gm/dL MILLENNIUM Hematocrit 28.7 (L) 34.0 - CERNER 45.0 % MILLENNIUM MCV 109.1 (H) 79.0 - CERNER 94.0 fL MILLENNIUM MCH 35.0 (H) 26.6 - CERNER 32.2 pg MILLENNIUM MCHC 32.1 32.0 - CERNER 36.5 gm/dL MILLENNIUM Platelets 326 145 - 370 CERNER x10(3)/mcL MILLENNIUM RDWSD 63.0 (H) 35.0 - CERNER 46.0 fL MILLENNIUM RDWCV 15.8 (H) 10.9 - CERNER 14.4 % MILLENNIUM MPV 10.3 9.0 - 12.0 CERNER fL MILLENNIUM Specimen Anatomical Collection Method Collection Time Receive d Time (Source) Location / / Volume Laterality Blood specimen 05/17/2010 8:58 AM 010 9:05 (specimen) EST AM EST Bobo Gomez MD HEMATOLOGY ORDERABLES Performing Organization Address City/State/ZIP Code Phon e Number [place] [id number] [facility] documented in this encounter Visit Diagnoses Not on filedocumented in this encounter Care Teams Director Nurses' Registry Relationship Specialty Start Date End Date Anabel Roa PA PCP - General 05/30/10 03/17/[address] [place] [address] documented as of this encounter
--- OUTSIDE RECORDS SUMMARY | 2022-04-27 01:22 | XMS_ITS | Encounter Summary ---
:1965 Author Organization [facility] [place] [address] Care Team Providers Name Role Phone Anabel Roa Primary Care Provider [phone] Encounter Details Date Type Department Care Team Description 05/15/2011 Hospital Encounter Laboratory Mary Lima MD [address] [address] [place] [address] [phone] Social History Tobacco Use Types Packs/Day Years [...] Associated Diagnosis Comme nts SURGICAL PATHOLOGY Routine 05/15/2011 8:55 PM Res ults for this REPORT EST procedure are i n the results section. documented in this encounter Results SURGICAL PATHOLOGY REPORT (05/15/2011 8:55 PM EST) Component Value Ref Test Analysis Performed At [facility] Range Method Time Signature Surgical CERNER Pathology ? [facility] Report ? Provider: ?? MARY LIMA ? Pt. Name: ?? LAURACherie INGRID, CHERRIE Magi ? Acc #: ?[id number] ?Pt. MRN: ?[id number] ? Col Date: ?? 1 ? /Sex: ?1965,(46 years),Female ? Rec Date: ?? 05/15/2011 ? LOC: ?[facility] ? SURGICAL PATHOLOGY ? ---Pathologic Diagnosis--- ? Uterus, cervix, bilateral fallopi an tubes and ovaries, hysterectomy and ? bilateral salpingo-oophorectomy: ? 1. Cervix with prior surigical site changes; no evidence of residual ? dysplasia or HPV effect. ? 2. Benign inactive endometrium. ? 3. Bilateral ovaries and fallopian tubes with no h istopathologic ? abnormalitites. ? CR-0 ? 05/17/11 ? LJT ? 05/17/11 Verified by: ? My GUTHRIE, Mary Sultana ? Pathologist ? (Electronic Si gnature) ? The attending pathologist whose signature appears o n this report has ? reviewed all diagnostic slides and has edited the maury ss and/or ? microscopic portion of the report in rendering the fi nal pathologic ? diagnosis. ? ---Microscopic Description--- ? Slides reviewed, microscopic description not recorded . ? ---Gross Description--- ? Labeled/Fixative: ?Uterus, cervix, bilateral fallopian tubes and ?ovaries; formal in. ? Qty/Size/Weight: ? 7.0 x 3.6 x 2.8 cm, 68 g . ? Tissue Description: ?Intact symmetrical uterus with attached cervix and ?attached bilate ral adnexa. ?Uterus and Cervix: ? Endometrium: ? Flattened, glistening, yellow-william. ?Thickness: ?Averages 0.2 cm. ?Lesions: ?None identified. ? Myometrium: ?Rubbery, trabeculated , pink-william. ?Thickness: ?Averages 1.1 cm. ?Lesions: ?None identified. ? Uterine serosa: ?Smooth, glistening, pin k-william. ? Cervix: ?The ectocervix is hyperemic and disrupted and ?averages 2.8 cm in diameter. ??The squamocolumnar ?junction is obliterated with evidence of recent ?conization. ?Ovaries and Fallopian Tubes: ? Right ovary ? [facility] ? Provider: ?? MARY LIMA ? Pt. Name: ?? ELICEO QUINTERO, CHERRIE Sow ? Acc #: ?[id number] ?Pt. MRN: ?[id number] ? Col Date: ?? 1 ? /Sex: ?1965,(46 years),Female ? Rec Date: ?? 05/15/2011 ? LOC: ?[facility] ? SURGICAL PATHOLOGY ?Dimensions: ? 2.8 x 1.3 x 1.0 cm. ?Outer surface: ??Cerebriform, yu-whit e. ?Cut surface: ?Unremarkable. ? Right tube: ?3.0 x 0.6 cm, congested, red-william with evidence of ?previous surgical interruption. ? Left ovary ?Dimensions: ? 2.8 x 1.4 x 1.0 cm. ?Outer surface: ??Cerebriform, yu-whit e. ?Cut surface: ?Unremarkable. ? Left tube: ? 5.0 x 0.5 cm. ??Congested, with evidence of ?previous surgical interruption. ? Sections/Processing: ? Glass Carrier sections are submitted as follows: ?(1-7) entire anterior squamocolumnar junction ? region; (8-15) the en tire posterior squamocolumnar junction region; (16) ? endomyometrium; (17) right tube and ovary; (18) left tube and ovary. ??(R18) ? aje/EJR ? ---Clinical Information--- ? Specimen Submitted: ? A - Uterus,cervix,(R)+(L) tube,ovaries ? Clinical History/Diagnosis: ? Uterine prolapse, cervical multifocal HGSIL, cystocel e, rectocele ? Referring Identifier: ??[id number] Specimen (Source) Anatomical Collection Method Collection Time Re ceived Time Location / / Volume Laterality 05/15/2011 8:55 PM EST Mary Lima MD PATHOLOGY/CYTOLOGY ORDERABLE S Performing Organization Address City/State/ZIP [place] [address] [facility] documented in this encounter Visit Diagnoses Not on filedocumented in this encounter Care Teams Customer Contact Sales Associate Relationship Specialty Start Date End Date Anabel Roa PA PCP - General 05/30/10 03/17/[address] [place] [address] documented as of this encounter
--- OUTSIDE RECORDS SUMMARY | 2022-04-27 01:22 | XMS_ITS | Encounter Summary ---
:1965 Author Organization [facility] [place] [address] Care Team Providers Name Role Phone Anabel Roa Primary Care Provider [phone] Encounter Details Date Type Department Care Team Description 08/25/2010 Hospital Encounter Laboratory [place] [address] HEMATOLOGY/ONCOLOGY [phone] DEPT. [place], [place] [address] (Wo rk) Social History Tobacco Use Types Packs/Day Years Used Date Never Assessed Sex Assigned at Date Recorded Not on file documented as of this encounter Medications at Time of Discharge Medication Sig Dispensed Refills Start Date End Date LORazepam (ATIVAN) 0.5 mg 0.5 MG = 1 0 06/21/2010 tablet Tablet(s), PO, Q4-6H PRN CALCIUM CARB/MAG OXIDE/VIT 0 0 D3 (CALCIUM MAGNESIUM + D ORAL) prochlorperazine (COMPAZINE) 10 MG = 1 0 010 10/18/2010 10 mg tablet Tablet(s), PO, Q6H PRN ondansetron (ZOFRAN) 8 mg 8 MG = 1 0 06/21/2010 10/18/2010 tablet Tablet(s), PO, Three times daily PRN citalopram (CELEXA) 20 mg 20 MG = 2 0 06/21/2010 10/23/2017 tablet Tablet(s), PO, QHS enoxaparin (LOVENOX) 100 100 MG/1 ML, SQ, 0 06/2102/28/2011 mg/mL Syrg injection Once daily documented as of this encounter Plan of Treatment Not on filedocumented as of this encounter Procedures Procedure Name Priority Date/Time Associated Diagnosis Comme nts SURGICAL PATHOLOGY Routine 08/25/2010 9:13 AM Res ults for this REPORT EST procedure are i n the results section. documented in this encounter Results PATHOLOGY SURGICAL PATHOLOGY FINAL REPORT (08/25/2010 9:13 AM EST) [facility] Method Time Signature Surgical CERNER Pathology ? [facility] Report ? Provider: ?? REJI VASQUEZ ?Pt. Name: ?? LAURAGIULIANO Y, CHERRIE L ? Acc #: ?[id number] ?Pt. MRN: ?[id number] ? Col Date: ?? 1 ? /Sex: ?1965,(45 years),Female ? Rec Date: ?? 08/28/2010 ? LOC: ?[facility] ? SURGICAL PATHOLOGY ? ---Pathologic Diagnosis--- ? Left breast, needle biopsies (see [id number]) ?Insufficient tumor tissue for repeat hormone recept or studies ? (see Comment) ? 08/29/10 ? VAM ? 08/30/10 Verified by: ? Casimiro Jones MD ? Pathologist ? (Electronic Si gnature) ? The attending pathologist whose signature appears o n this report has ? reviewed all diagnostic slides and has edited the maury ss and/or ? microscopic portion of the report in rendering the fi nal pathologic ? diagnosis. ? ---Comment--- ? An attempt to perform repeat ER and TN testing on this needle biopsy was ? unsuccessful due to the absence of tumor tissue in th alyssa sections. ? ---Microscopic Description--- ? Formalin-fixed, paraffin-embedded tissue sections are studied for ER/TN ? using the B-SA system technique with appropriate cont rols. ? ---Gross Description--- ? Selected slides are received for repeat E R/TN testing requested by ? Reji Vasquez. ? ---Clinical Information--- ? Specimen Submitted: ? CONSULTATION CASE ? A - 15 unstained slides labeled [id number], collection date 11/09/09. ? [id number] ? Report to: ? [facility] ? Surgical Pathology Department ? ACC, [facility], 2nd Floor ? [address] ? [place], [place] ??[address] ? Specimen (Source) Anatomical Collection Method Collection Time Re ceived Time Location / / Volume Laterality 08/25/2010 9:13 AM EST Reji Vasquez MD PATHOLOGY/CYTOLOGY ORDERABLE S Performing Organization Address City/State/[place] [address] [facility] documented in this encounter Visit Diagnoses Not on filedocumented in this encounter Care Teams Adolescent Counselor Relationship Specialty Start Date End Date Anabel Roa PA PCP - General 05/30/10 03/17/[address] [place] [address] documented as of this encounter
--- OUTSIDE RECORDS SUMMARY | 2022-04-27 01:22 | XMS_ITS | Encounter Summary ---
:1965 Author Organization [facility] [place] [address] Care Team Providers Name Role Phone Anabel Roa Primary Care Provider Encounter Details Date Type Department Care Team Description 02/27/2011 [facility] [place] [address] Social History Tobacco Use Types Packs/Day Years Used Date Never Assessed Sex Assigned at Date Recorded Not on file documented as of this encounter Plan of Treatment Not on filedocumented as of this encounter Visit Diagnoses Not on filedocumented in this encounter Care Teams Home Health Speech Therapist Relationship Specialty Start Date End Date Anabel Roa PA PCP - General 05/30/10 03/17/[address] [place] [address] documented as of this encounter
--- OUTSIDE RECORDS SUMMARY | 2022-04-27 01:22 | XMS_ITS | Encounter Summary ---
:1965 Author Organization [facility] [place] [address] Care Team Providers Name Role Phone Anabel Roa Primary Care Provider [phone] Encounter Details Date Type Department Care Team Description 08/27/2012 Hospital Encounter Hematology and Oncol ann at [facility] Breast [place] [address] Social History Tobacco Use Types Packs/Day [...] Priority Date/Time Associated Comments Diagnosis DIFFERENTIAL, STAT 08/27/2012 7:27 AM Results for this AUTOMATED EST procedure are i n the results section. CBC (WITH DIFF) STAT 08/27/2012 7:27 AM Breast cancer Resul ts for this EST procedure are i n the results section. COMPREHENSIVE STAT 08/27/2012 7:27 AM Breast cancer Results for this METABOLIC PANEL EST procedure ar e in (NON-FASTING) the results section. documented in this encounter Results (ABNORMAL) Differential, Automated (08/27/2012 7:27 AM EST) [facility] gist Method Time Signature Neutrophils % 39.1 34.0 - CERNER 71.0 % MILLENNIUM Neutr Abs (ANC) 2.98 1.50 - CERNER 6.30 MILLENNIUM x10(3)/mcL Lymphocytes % 50.3 19.0 - CERNER 53.0 % MILLENNIUM Lymphocytes Abs 3.8 (H) 1.0 - 3.6 CERNER x10(3)/mcL MILLENNIUM Monocytes % 6.4 4.0 - 13.0 CERNER % MILLENNIUM Monocyte Abs 0.5 0.2 - 1.0 CERNER x10(3)/mcL MILLENNIUM Eosinophils % 3.8 0.0 - 7.0 CERNER % MILLENNIUM Eosinophils Abs 0.3 0.0 - 0.5 CERNER x10(3)/mcL MILLENNIUM Basophils % 0.4 0.0 - 2.0 CERNER % MILLENNIUM Basophils Abs 0.0 0.0 - 0.2 CERNER x10(3)/mcL MILLENNIUM Immature [...] 0.00 0.00 - 0.05 x10(3)/mcL CER NER MILLENNIUM Specimen Anatomical Collection Method Collection Time Receive d Time (Source) Location / / Volume Laterality Blood specimen 08/27/2012 7:27 AM 013 7:31 (specimen) EST AM EST Bobo Gomez MD HEMATOLOGY ORDERABLES Performing Organization Address City/State/ZIP Code Ph[place] [address] CERNER MILLENNIUM (ABNORMAL) Comprehensive metabolic panel (non-fasting) (08/27/2012 7:27 AM EST) P athologist Signature Glucose Lvl 75 60 - 199 CERNER mg/dL MILLENNIUM Comment: Diabetes: >=200 mg/dL plus symp toms BUN 20 (H) 8 - 18 mg/dL CERNER MILLENNIUM Creatinine 0.73 0.70 - 1.20 mg/dL CERNER MILL ENNIUM Comment: Please note that the pediatric reference intervals supplied above were not validated at [facility]. Results from pediatri c patients should be interpreted in conjunction to the patient's age, height and muscle mass. Sodium 140 135 - 145 mmol/L CERNER LELE NIUM Potassium 3.8 3.5 - 5.0 mmol/L CERNER LELE NIUM Comment: Please note: ??Patients with WBC >100,00 0 may have falsely elevated Potassium levels. ??For accurate Potassium quantif ication in these patients send serum separator tube (gold top) for subsequent determinations. ??Contact the Clinical Chemistry Laboratory if there are any qu estions. Chloride 102 98 - 107 mmol/L CERNER MILLENN IUM CO2 28 22 - 31 mmol/L CERNER MILLENNI UM Anion Gap 10 5 - 15 mmol/L CERNER MILLENNIU M Calcium 9.4 8.5 - 10.5 mg/dL CERNER LELE NIUM Total Protein 6.6 6.4 - 8.3 gm/dL CERNER MIL LENNIUM Albumin 4.3 3.2 - 5.2 gm/dL CERNER MILLENN IUM AST 22 0 - 30 unit/L CERNER MILLENNIU M ALT 18 0 - 30 unit/L CERNER MILLENNIU M Alk Phos 57 40 - 104 unit/L CERNER MILLENN IUM Total Bilirubin 0.1 (L) 0.2 - 1.3 mg/dL CERNER M ILLENNIUM [...] t steady-state (unchanged within the past week). For patient s multiply eGFR by 1.2. The MDRD equation was developed using patients be tween the ages of 18 and 70 years. ?? The MDRD equation has not been validated for patients < 18 years of age and should not be used to assess renal function in the pediatric population. ??The MDRD eGFR equation will also overestimate the true GFR of patients above the age of 70. ??This overestimation is variable bu t increases with age. At present, NKDEP does NOT recommend usi [...] kidney disease. References: http://nkdep.nih.gov/resources/NKDEP_Sug gestn4Labs_0606_508.pdf http://www.kidney.org/professionals/kls/ pdf/faq_gfr.pdf Mono K, Little NA, Issa AK, Ruy TS, Arya AD, Felicity COOKIE. Relative performance of the MDRD and CKD-EPI equa tions for estimating glomerular filtration rate among patients with vari ed clinical presentations. Clin J Am Soc Nephrol;6:1963-72. Specimen Anatomical Collection Method Collection Time Receive d Time (Source) Location / / Volume Laterality Blood specimen 08/27/2012 7:27 AM 013 7:31 (specimen) EST AM EST Resulting Agency Comment Spec In Lab Bobo Gomez MD CHEMISTRY ORDERABLES Performing Organization Address City/State/[place] [address] CERNER MILLENNIUM (ABNORMAL) CBC (with Diff) (08/27/2012 7:27 AM EST) P athologist Signature WBC 7.6 4.0 - 10.0 CERNER x10(3)/mcL MILLENNIUM RBC 3.76 (L) 3.93 - CERNER 5.22 MILLENNIUM x10(6)/mcL Hemoglobin 12.3 11.2 - CERNER 15.7 gm/dL MILLENNIUM Hematocrit 36.9 34.0 - CERNER 45.0 % MILLENNIUM MCV 98.1 (H) 79.0 - CERNER 94.0 fL MILLENNIUM MCH 32.7 (H) 26.6 - CERNER 32.2 pg MILLENNIUM MCHC 33.3 32.0 - CERNER 36.5 gm/dL MILLENNIUM Platelets 277 145 - 370 CERNER x10(3)/mcL MILLENNIUM RDWSD 47.5 (H) 35.0 - CERNER 46.0 fL MILLENNIUM RDWCV 13.4 10.9 - CERNER 14.4 % MILLENNIUM MPV 10.4 9.0 - 12.0 CERNER fL MILLENNIUM Specimen Anatomical Collection Method Collection Time Receive d Time (Source) Location / / Volume Laterality Blood specimen 08/27/2012 7:27 AM 013 7:31 (specimen) EST AM EST Resulting Agency Comment Spec In Lab Bobo Gomez MD HEMATOLOGY ORDERABLES Performing Organization Address City/State/[place] [address] [facility] documented in this encounter Visit Diagnoses Diagnosis Breast cancer Malignant neoplasm of breast (female), u nspecified site documented in this encounter Care Teams Help Desk Technician Relationship Specialty Start Date End Date Anabel Roa PA PCP - General 05/30/10 03/17/[address] [place] [address] documented as of this encounter
--- OUTSIDE RECORDS SUMMARY | 2022-04-27 01:22 | XMS_ITS | Encounter Summary ---
:1965 Author Organization [facility] Address [facility] [place] [address] Care Team Providers Name Role Phone Unavailable Primary Care Provider Unavailable Encounter Details Date Type Department Care Team Description 05/17/2010 Follow-Up Hematology and Oncology at Bobo Weir MD [facility] [place] story HEMATOLOGY/[place] [address] DEPT. [phone] [place], [place] [address] (Wo rk) Social History Tobacco Use Types Packs/Day Years Used Date Never Assessed Sex Assigned at Date Recorded Not on file documented as of this encounter Plan of Treatment Not on filedocumented as of this encounter Visit Diagnoses Not on filedocumented in this encounter
--- OUTSIDE RECORDS SUMMARY | 2022-04-27 01:22 | XMS_ITS | Encounter Summary ---
:1965 Author Organization [facility] [place] [address] Care Team Providers Name Role Phone Anabel Roa Primary Care Provider [phone] Encounter Details Date Type Department Care Team Description 02/15/2011 Hospital Encounter Laboratory Mary Lima MD [address] [address] [place] [address] [phone] Social History Tobacco Use Types Packs/Day Years Used Date Never Assessed Sex Assigned at Date Recorded Not on file documented as of this encounter Medications at Time of Discharge Medication Sig Dispensed Refills Start Date End Date LORazepam (ATIVAN) 0.5 mg 0.5 MG = 1 0 06/21/2010 tablet Tablet(s), PO, Q4-6H PRN CALCIUM CARB/MAG 0 06/21/2010 OXIDE/VIT D3 (CALCIUM MAGNESIUM + D ORAL) citalopram (CELEXA) 20 mg 20 MG = 2 Tablet(s), 0 06/21/2010 10/23/2017 tablet PO, QHS enoxaparin (LOVENOX) 100 100 MG/1 ML, SQ, 0 06/2102/28/2011 mg/mL Syrg injection Once daily documented as of this encounter Plan of Treatment Not on filedocumented as of this encounter Procedures Procedure Name Priority Date/Time Associated Diagnosis Comme nts INSTALLMENT LOAN COLLECTOR CYTOLOGY FINAL Routine 02/15/2011 9:15 PM Re sults for this REPORT EDT procedure are i n the results section. documented in this encounter Results INSTALLMENT LOAN COLLECTOR CYTOLOGY FINAL REPORT (02/15/2011 9:15 PM EDT) Component Value Ref Test Analysis Performed At [facility] Range Method Time Signature Dye Automation Operator Cytology CERNER Final Report ? [facility] ? Provider: ?? MARY LIMA ? Pt. Name: ?? ELICEO QUINTERO, CHERRIE Sow ? Acc #: ?[id number] ?Pt. MRN: ?[id number] ? Col Date: ?? 1 ? /Sex: ?1965,(45 years),Female ? Rec Date: ?? 02/16/2011 ? LOC: ?[facility] ? CYTOPATHOLOGY: ??INSTALLMENT LOAN COLLECTOR ? ---Adequacy--- ? Specimen submitted is satisfactory. ? Endocervical component present. ? ---Cytopathologic Diagnosis--- ? Epithelial Cell Abnormality ? Low Grade Squamous Intraepithelial Lesion (LSIL) cannot exclude a High ? Grade Squamous Intraepithelial Lesion. ? For consensus guideli sofiya for the management of women with abnormal cervical ? cancer screening tests, please see: ? http://www.asccp.org/consensus/cytological.shtml ? These guidelines were published in the [place] Journal of Obstetrics and ? Gynecology (2007;197(4):346-355). ? 02/21/11 ?? Screened by: ??DMG ??FCL,GENERAL CLERK ? 02/23/11 ?? Verified by: ??VIC GUTHRIE , SALONI - Pathologist ? ---Clinical Information--- ? HPV Option: ? Reflex HPV ? Preparation: ?Liquid Based Pap ? Specimen Source: ?Cervical Endocervical LBP ? LMP: ?2 mo. ? Hormones?: ?No ? Hysterectomy?: ?No ?: ?No ?: ?No ? I.U.D.?: ?No ? Pelvic Radiation: ? No ? Prior INSTALLMENT LOAN COLLECTOR Therapy?: ? No ? Hist Abnl Pap/Biopsy?: ??No ? Hist of HPV Vaccine?: ?? (not provided) ? Hist of Smoking?: ? (not provided) ? Hist of JERE exposure?: ??(not provided) ? Clinical Data, Significant Therapy and Clinical Impre ssion: ? Screening Pap, no symptoms. ? Referring Identifier: ??[id number] ? [facility] ? Provider: ?? MARY LIMA ? Pt. Name: ?? ELICEO QUINTERO, CHERRIE Sow ? Acc #: ?[id number] ?Pt. MRN: ?[id number] ? Col Date: ?? 1 ? /Sex: ?1965,(45 years),Female ? Rec Date: ?? 02/16/2011 ? LOC: ?[facility] ? CYTOPATHOLOGY: ??INSTALLMENT LOAN COLLECTOR ? This Pap Test has bee n evaluated with the assistance of the ThinPrep Pap ? Test Imaging System. ? Note: ? The Pap test is a screening test for cervical c ancer with an inherent ? false-negative rate dependent upon several variables. ??For further ? information please contact the [facility] Laboratory. ? Reference: ??Isabella enciso CS. ??Tile Setter Apprentice of Pap Smear Results. ??In: ? Michele BS, Irvin HH, ed. ??The Pap Smear. ??[place]: ??Doni, 2002: ? 71-77. Specimen (Source) Anatomical Collection Method Collection Time Re ceived Time Location / / Volume Laterality 02/15/2011 9:15 PM EDT Mary Lima MD PATHOLOGY/CYTOLOGY ORDERABLE S Performing Organization Address City/State/ZIP Code Phon e Number [place] [phone] LAB[address] Drive [facility] documented in this encounter Visit Diagnoses Not on filedocumented in this encounter Care Teams Workforce Management Coordinator Relationship Specialty Start Date End Date Anabel Roa PA PCP - General 05/30/10 03/17/[address] [place] [address] documented as of this encounter
--- OUTSIDE RECORDS SUMMARY | 2022-04-27 01:22 | XMS_ITS | Encounter Summary ---
:1965 Author Organization [facility] Address [facility] [place] [address] Care Team Providers Name Role Phone Unavailable Primary Care Provider Unavailable Encounter Details Date Type Department Care Team Description 05/24/2010 Follow-Up Hematology and Oncology at Mary Gamble APRN [facility] [place] story HEMATOLOGY/[place] [address] DEPT. [phone] [place], [place] [address] (Wo rk) Social History Tobacco Use Types Packs/Day Years Used Date Never Assessed Sex Assigned at Date Recorded Not on file documented as of this encounter Plan of Treatment Not on filedocumented as of this encounter Visit Diagnoses Not on filedocumented in this encounter
--- OUTSIDE RECORDS SUMMARY | 2022-04-27 01:22 | XMS_ITS | Encounter Summary ---
:1965 Author Organization [place] [address] Care Team Providers Name Role Phone Anabel Roa Primary Care Provider [phone] Encounter Details Date Type Department Care Team Description 06/06/2011 Hospital Encounter Laboratory [facility] Bobo Gomez MD [facility] HEMATOLOGY/[place] [address] [place] [address] Social History Tobacco Use Types Packs/Day [...] on filedocumented in this encounter Care Teams Ui Engineer Relationship Specialty Start Date End Date Anabel Roa PA PCP - General 05/30/10 03/17/[address] [place] [phone] documented as of this encounter
--- OUTSIDE RECORDS SUMMARY | 2022-04-27 01:22 | XMS_ITS | Encounter Summary ---
:1965 Author Organization [facility] [place] [address] Care Team Providers Name Role Phone Pricila Roa Primary Care Provider [phone] Encounter Details Date Type Department Care Team Description 01/12/2013 Hospital Encounter Laboratory Ant Tello MD [address] [address] [place] [address] [phone] Social History Tobacco Use Types Packs/Day Years [...] Name Priority Date/Time Associated Diagnosis Comme nts FLIGHT INSTRUCTOR CYTOLOGY FINAL Routine 01/12/2013 5:28 PM Res ults for this REPORT EDT procedure are i n the results section. documented in this encounter Results Lockstitch Binder Cytology Final Report (01/12/2013 5:28 PM EDT) Component Value Ref Test Analysis Performed At [facility] Range Method Time Signature Lockstitch Binder Cytology CERNER Final Report ? [facility] ? Provider: ?? PRICILA ROA Pt. Name: ?? BILLY CHERRIE Magi ?F ? Acc #: ?[id number] ?Pt. MRN: ?[id number] ? Col Date: ?? 01/12/2013 ?/Sex: ?1965,(47 years),Female ? Rec Date: ?? 01/13/2013 ?LOC: ?[facility] ? CYTOPATHOLOGY: ??FLIGHT INSTRUCTOR ? ---Adequacy--- ? Specimen submitted is satisfactory. Vaginal Only. ? ---Cytopathologic Diagnosis--- ? NORMAL ? Negative for Intraepithelial Lesion or Malignancy (NI LM). ? 01/14/13 ?? Screened by: ??LMY ? 01/14/13 ?? Verified by: ??Balwinder RIOS(ASCP) , Katie Adames - Mold Chipper ? ---Clinical Information--- ? HPV Option: ? Reflex HPV ? Preparation: ?Liquid Based Pap ? Specimen Source: ?Vaginal Only/LBP ? LMP: ?psychiatric clinician ? Hormones?: ?No ? Hysterectomy?: ?Total hysterectomy ?: ?No ?: ?No ? I.U.D.?: ?No ? Pelvic Radiation: ? No ? Prior FLIGHT INSTRUCTOR Therapy?: ? No ? Hist Abnl Pap/Biopsy?: ??Yes ? Hist of HPV Vaccine?: ?? (not provided) ? Hist of Smoking?: ? (not provided) ? Hist of JERE exposure?: ??(not provided) ? Clinical Data, Significant Therapy and Clinical Impre ssion: ?_ ? Referring Identifier: ??[id number] ? Note: ? The Pap test is a screening test for cervical c ancer with an inherent ? false-negative rate dependent upon several variables. ??For further ? information please contact the [facility] Laboratory. ? Reference: ??Absantosh h CS. ??Senior Housekeeper of Pap Smear Results. ??In: ? Michele BS, Irvin HH, ed. ??The Pap Smear. ??[place]: ??Doni, 2002: ? 71-77. Specimen (Source) Anatomical Collection Method Collection Time Re ceived Time Location / / Volume Laterality 01/12/2013 5:28 PM EDT Pricila DOE PATHOLOGY/CYTOLOGY ORDERABLE S Performing Organization Address City/State/ZIP Code [place] [address] [facility] documented in this encounter Visit Diagnoses Not on filedocumented in this encounter Care Teams Auto Dealership Porter Relationship Specialty Start Date End Date Pricila Roa PA PCP - General 05/30/10 03/17/[address] [place] [address] documented as of this encounter
--- OUTSIDE RECORDS SUMMARY | 2022-04-27 01:22 | XMS_ITS | Encounter Summary ---
:1965 Author Organization [facility] [place] [address] Care Team Providers Name Role Phone Anabel Roa Primary Care Provider [phone] Encounter Details Date Type Department Care Team Description 05/24/2010 Orders Only Lab [facility] Bobo Tellez MD [facility] [place] story HEMATOLOGY/[place] [address] DEPT. [phone] [place], [place] [address] (Wo rk) Social History Tobacco Use Types Packs/Day Years Used Date Never Assessed Sex Assigned at Date Recorded Not on file documented as of this encounter Plan of Treatment Not on filedocumented as of this encounter Procedures Procedure Name Priority Date/Time Associated Comments Diagnosis DIFFERENTIAL, STAT 05/24/2010 8:45 AM Results for this AUTOMATED EST procedure are i n the results section. CBC (WITH DIFF) STAT 05/24/2010 8:45 AM Result s for this EST procedure are i n the results section. COMPREHENSIVE STAT 05/24/2010 8:45 AM Results for this METABOLIC PANEL EST procedure ar e in (NON-FASTING) the results section. documented in this encounter Results (ABNORMAL) COMPREHENSIVE METABOLIC PANEL (NON-FASTING) (05/24/2010 8:45 AM EST) P athologist Signature Glucose Lvl 99 <=199 mg/dL [facility] Comment: Diabetes: >=200 mg/dL plus symp toms BUN 18 8 - 18 mg/dL CERNER MILLENNIUM Creatinine 0.62 (L) 0.70 - 1.20 mg/dL CERNER MILL ENNIUM Sodium 141 135 - 145 mmol/L CERNER LELE NIUM Potassium 4.3 3.5 - 5.0 mmol/L CERNER LELE NIUM Comment: Please note: ??Patients with WBC >100,00 0 may have falsely elevated Potassium levels. ??For accurate Potassium quantif ication in these patients send serum separator tube (gold top) for subsequent determinations. ??Contact the Clinical Chemistry Laboratory if there are any qu estions. Chloride 104 98 - 107 mmol/L CERNER MILLENN IUM CO2 26 22 - 31 mmol/L CERNER MILLENNI UM Anion Gap 11 5 - 15 mmol/L CERNER MILLENNIU M Calcium 9.7 8.5 - 10.5 mg/dL CERNER LELE NIUM Total Protein 6.0 (L) 6.4 - 8.3 gm/dL CERNER MIL LENNIUM Albumin 4.1 3.2 - 5.2 gm/dL CERNER MILLENN IUM AST 34 (H) 0 - 30 unit/L CERNER MILLENNIU M ALT 60 (H) 0 - 30 unit/L CERNER MILLENNIU M Alk Phos 86 40 - 104 unit/L CERNER MILLENN IUM [...] Location / / Volume Laterality Blood specimen 05/24/2010 8:45 AM 010 9:02 (specimen) EST AM EST Bobo Gomez MD CHEMISTRY ORDERABLES Performing Organization Address City/State/[place] [address] CERNER MILLENNIUM (ABNORMAL) REFLEX LAB-A-DIFF (05/24/2010 8:45 AM EST) [facility] gist Method Time Signature Neutrophils % 58.1 34.0 - CERNER 71.0 % MILLENNIUM Neutr Abs (ANC) 3.12 1.50 - CERNER 6.30 MILLENNIUM x10(3)/mc L Lymphocytes % 23.0 19.0 - CERNER 53.0 % MILLENNIUM Lymphocytes Abs 1.2 1.0 - 3.6 CERNER x10(3)/mc MILLENNIUM L Monocytes % 14.1 (H) 4.0 - CERNER 13.0 % MILLENNIUM Monocyte Abs 0.8 0.2 - 1.0 CERNER x10(3)/mc MILLENNIUM L Eosinophils % 3.7 0.0 - 7.0 CERNER % MILLENNIUM Eosinophils Abs 0.2 0.0 - 0.5 CERNER x10(3)/mc MILLENNIUM L Basophils % 0.9 0.0 - 2.0 CERNER % MILLENNIUM Basophils Abs 0.1 0.0 - 0.2 CERNER x10(3)/mc MILLENNIUM L Immature Gran % 0.20 0.00 - CERNER 0.66 % MILLENNIUM Comment: Immature granulocytes(IG's)percentage an d absolute count will include metamyelocytes, myelocytes, and promyelo cytes. Blood smears from CBC's yielding IG's will be scanned manually for concor dance. If this scan disagrees with the automated IG or if promyelocytes are not ed, a manual differential will be performed. Shanice Gran Abs 0.01 0.00 - 0.05 x10(3)/mcL CER NER MILLENNIUM Specimen Anatomical Collection Method Collection Time Receive d Time (Source) Location / / Volume Laterality Blood specimen 05/24/2010 8:45 AM 010 9:02 (specimen) EST AM EST Bobo Gomez MD HEMATOLOGY ORDERABLES Performing Organization Address City/State/ZIP Code Phon e Number [place] [phone] CERNER MILLENNIUM (ABNORMAL) CBC (05/24/2010 8:45 AM EST) P athologist Signature WBC 5.4 4.0 - 10.0 CERNER x10(3)/mcL MILLENNIUM RBC 2.63 (L) 3.93 - CERNER 5.22 MILLENNIUM x10(6)/mcL Hemoglobin 9.0 (L) 11.2 - CERNER 15.7 gm/dL MILLENNIUM Hematocrit 28.9 (L) 34.0 - CERNER 45.0 % MILLENNIUM MCV 109.9 (H) 79.0 - CERNER 94.0 fL MILLENNIUM MCH 34.2 (H) 26.6 - CERNER 32.2 pg MILLENNIUM MCHC 31.1 (L) 32.0 - CERNER 36.5 gm/dL MILLENNIUM Platelets 361 145 - 370 CERNER x10(3)/mcL MILLENNIUM RDWSD 58.6 (H) 35.0 - CERNER 46.0 fL MILLENNIUM RDWCV 14.6 (H) 10.9 - CERNER 14.4 % MILLENNIUM MPV 10.0 9.0 - 12.0 CERNER fL MILLENNIUM Specimen Anatomical Collection Method Collection Time Receive d Time (Source) Location / / Volume Laterality Blood specimen 05/24/2010 8:45 AM 010 9:02 (specimen) EST AM EST Bobo Gomez MD HEMATOLOGY ORDERABLES Performing Organization Address City/State/ZIP Code Phon e Number [place] [phone] [facility] documented in this encounter Visit Diagnoses Not on filedocumented in this encounter Care Teams Fishery Division Chief Relationship Specialty Start Date End Date Anabel Roa PA PCP - General 05/30/10 03/17/[address] [place] [address] documented as of this encounter
--- OUTSIDE RECORDS SUMMARY | 2022-04-27 01:22 | XMS_ITS | Encounter Summary ---
:1965 Author Organization [facility] [place] [address] Care Team Providers Name Role Phone Anabel Roa Primary Care Provider [phone] Encounter Details Date Type Department Care Team Description 10/18/2010 Hospital Encounter Laboratory CLINIC, [facility] Bobo Gomez MD [facility] HEMATOLOGY/[place] [address] [place] [address] Social History Tobacco Use Types Packs/Day [...] on filedocumented in this encounter Care Teams Fishing Hand Relationship Specialty Start Date End Date Anabel Roa PA PCP - General 05/30/10 03/17/[address] [place] [address] documented as of this encounter
--- OUTSIDE RECORDS SUMMARY | 2022-04-27 01:22 | XMS_ITS | Encounter Summary ---
:1965 Author Organization [facility] Address [facility] [place] [address] Care Team Providers Name Role Phone Anabel Roa Primary Care Provider [phone] Reason for Visit Reason Comments Follow-up Encounter Details Date Type Department Care Team Description 12/17/2011 Follow-Up Hematology and Bobo Gomez Breast c ancer (Primary Oncology at [facility] MD Dx) [facility] [place] [address] HEMATOLOGY/ONCOLOGY [phone] DEPT. [place], [place] [address] (Wo rk) Social History Tobacco Use Types Packs/Day Years Used Date Never Smoker Smokeless Tobacco: Never Used Sex Assigned at Date Recorded Not on file documented as of this encounter Last Filed Vital Signs Vital Sign Reading Time Taken Comments Blood Pressure 118/62 12/17/2011 1:34 PM EDT Pulse 65 12/17/2011 1:34 PM EDT Temperature 36.4 ??C (97.5 ??F) 12/17/2011 1:34 PM EDT Respiratory Rate 16 12/17/2011 1:34 PM EDT Oxygen Saturation 100% 12/17/2011 1:34 PM EDT Inhaled Oxygen Concentration - - Weight 65.3 kg (144 lb) 12/17/2011 1:34 PM EDT Height 175 cm (5' 8.9) 12/17/2011 1:34 PM EDT Body Mass Index 21.33 12/17/2011 1:34 PM EDT documented in this encounter Progress Notes Loretta, Mary M, PLEATING SUPERVISOR - 12/17/2011 2:26 PM EDT Subjective: Patient ID: Cherrie Forrest is a 46 y.o. female. HPI 1. Infiltrating ductal carcinoma, left breast, 11/14 a. ~ 1-cm cancer, poorly differentiated, ER/AL- (outside, confirmed on [facility] IHC), HER2/ami - (IHC, [facility]), 1/6 sentinel nodes, ~ 1 mm focus [...] findings. A. [facility] bx >> LAVELLE III. Cherrie Forrest is seen today for interval surveillance examination for breast cancer. In the interimsince her last visit she reports to feeling well. She denies any changes or concerns with her breastor chest wall area. 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 She has no been exercising and plan to get back on her bicycle this summer. Review of Systems All other systems reviewed and are negative. Objective: Physical Exam Vitals reviewed. Constitutional: She is oriented to person, place, and time. She appears well- developed and well-nourished. HENT: Head: Normocephalic. Right Ear: External ear normal. Left Ear: External ear normal. Mouth/Throat: Oropharynx is clear and moist. Eyes: Conjunctivae are normal. Pupils are equal, round, and reactive to light. No scleral icterus. Neck: Normal range of motion. Neck supple. Cardiovascular: Normal rate, regular rhythm, normal heart sounds and intact distal pulses. Exam reveals no gallop. No murmur heard. Pulmonary/Chest: Effort normal and breath sounds normal. She has no wheezes. She has no rales. Breasts are fairly symmetrical, s/p bilat mrm, no nodules, masses or adenopathy. On the right thereis some tightness of the anterior axillary fold. Abdominal: Soft. Bowel sounds are normal. She exhibits no distension. No tenderness. Musculoskeletal: Normal range of motion. She exhibits no edema. Neurological: She is alert and oriented to person, place, and time. Skin: Skin is warm and dry. Psychiatric: She has a normal mood and affect. Her behavior is normal. Thought content normal. Labs at [facility] from 11/14/11 reviewed, cbc, cmp wnl. Assessment and Plan: Infiltrating ductal carcinoma of the left breast, doing well with no evidence of disease recurrence. Return to clinic in 4 months. Mary Burgos APRN- Hematology Oncology documented in this encounter Plan of Treatment Not on filedocumented as of this encounter Results (ABNORMAL) Comprehensive metabolic panel (non-fasting) (08/27/2012 7:27 AM EST) athologist Signature Glucose Lvl 75 60 - 199 CERNER mg/dL MILLENNIUM Comment: Diabetes: >=200 mg/dL plus symp toms BUN 20 (H) 8 - 18 mg/dL CERNER MILLENNIUM Creatinine 0.73 0.70 - 1.20 mg/dL CERNER MILL ENNIUM Comment: Please note that the pediatric reference intervals supplied above were not validated at [facility]. Results from pediatri c patients should be [...] Organization Address City/State/[place] [address] CERNER MILLENNIUM (ABNORMAL) CBC [...] Address City/State/ZIP Code [place] [address] [facility] documented in this encounter Visit Diagnoses Diagnosis Breast cancer - Primary Malignant neoplasm of breast (female), u nspecified site documented in this encounter Care Teams Traveling Phlebotomist Relationship Specialty Start Date End Date Anabel Roa PA PCP - General 05/30/10 03/17/[address] [place] [address] documented as of this encounter
--- OUTSIDE RECORDS SUMMARY | 2022-04-27 01:22 | XMS_ITS | Encounter Summary ---
:1965 Author Organization [facility] Address [facility] [place] [address] Care Team Providers Name Role Phone Unavailable Primary Care Provider Unavailable Encounter Details Date Type Department Care Team Description 05/24/2010 Follow-Up Hematology and Oncology at Bobo Weir MD [facility] [place] story HEMATOLOGY/[place] [address] DEPT. [phone] [place], [place] [address] (Wo rk) Social History Tobacco Use Types Packs/Day Years Used Date Never Assessed Sex Assigned at Date Recorded Not on file documented as of this encounter Plan of Treatment Not on filedocumented as of this encounter Visit Diagnoses Not on filedocumented in this encounter
--- OUTSIDE RECORDS SUMMARY | 2022-04-27 01:22 | XMS_ITS | Encounter Summary ---
:1965 Author Organization [facility] Address [facility] [place] [address] Care Team Providers Name Role Phone Anabel Roa Primary Care Provider [phone] Reason for Visit Reason Comments Follow-up Encounter Details Date Type Department Care Team Description 09/03/2012 Follow-Up Hematology and Bobo Gomez Infiltra ting ductal carcinoma, left breast, 11/14 (Primary Dx); Oncology at [facility] [place] Hypothyroidism; [facility] [place] [address] HEMATOLOGY/ONCOLOGY [phone] DEPT. [place], [place] [address] (Wo rk) Social History Tobacco Use Types Packs/Day Years Used Date Never Smoker Smokeless Tobacco: Never Used Sex Assigned at Date Recorded Not on file documented as of this encounter Last Filed Vital Signs Vital Sign Reading Time Taken Comments Blood Pressure 96/56 09/03/2012 7:59 AM EST Pulse 69 09/03/2012 7:59 AM EST Temperature 36.7 ??C (98.1 ??F) 09/03/2012 7:59 AM EST Respiratory Rate 20 09/03/2012 7:59 AM EST Oxygen Saturation 99% 09/03/2012 7:59 AM EST Inhaled Oxygen Concentration - - Weight 63.8 kg (140 lb 10.5 oz) 09/03/2012 7:59 AM EST Height 175 cm (5' 8.9) 09/03/2012 7:59 AM EST Body Mass Index 20.83 09/03/2012 7:59 AM EST documented in this encounter Progress Notes Bobo Gomez MD - 09/03/2012 9:01 AM EST Subjective: Patient ID: Cherrie Forrest is a 47 y.o. female, who returns in followup for treatment and managementof her breast cancer, and other medical problems. Her past medical history, social history, and family history are unchanged from that noted in my prior notes. Problem List: 1. Infiltrating ductal carcinoma, left breast, 11/14 a. ~ 1-cm cancer, poorly differentiated, ER/CA- (outside, confirmed on [facility]), HER2/ami - ([facility], [facility]), 1/6 sentinel nodes, ~ 1 mm focus [...] 8. Osteopenia, 08/20. HPI Cherrie returns in followup, she has overall been doing well over the last 6 months. She recently took a position here and is working nights. This has disrupted her sleep cycle a little bit. However, she is sleeping pretty well. She is having minimal occasional hot flashes that are really very minimal and stable. She remains on Celexa. She has had no breast complaints. She has no significant musculoskeletal complaints. She was having some minor cervical spine pain about a year or so ago, which is really fairly minimal to nonexistent at present. She has had no significant interval illnesses. She overall feels well. Review of Systems Except as noted above, Cherrie Araujo full remaining review of systems, including constitutional, cardiac, pulmonary, GI, , neurologic, musculskeletal, and remaining, is otherwise fully unremarkable. Current Outpatient Prescriptions on File Prior to Visit Medication Sig Dispense Refill ??? ascorbic acid (VITAMIN C) 1,000 mg tablet Take 1,000 mg by mouth daily. ??? levothyroxine (SYNTHROID) 100 mcg tablet Take 150 mcg by mouth daily. ??? multivitamin (THERAGRAN) tablet Take 1 tablet by mouth daily. ??? LORazepam (ATIVAN) 0.5 mg tablet 0.5 MG = 1 Tablet(s), PO, Q4-6H PRN ??? citalopram (CELEXA) 20 mg tablet 20 MG = 2 Tablet(s), PO, QHS ??? CALCIUM CARB/MAG OXIDE/VIT D3 (CALCIUM MAGNESIUM + D ORAL) Objective: Physical Exam Filed Vitals: 09/03/12 0759 BP: 96/56 Pulse: 69 Temp: 36.7 ??C (98.1 ??F) TempSrc: Oral Resp: 20 Height: 175 cm (5' 8.9) Weight: 63.8 kg (140 lb 10.5 oz) SpO2: 99% Objective: Cherrie Forrest is well appearing and [...] - XII unremarkable, DTR's symmetric throughout. Recent Labs Basename 02/72611/14/11 WBC 7.6 6.8 NEUTROABS 2.98 -- HGB 12.3 13.1 HCT 36.9 39.6 PLATELET 277 291.0 Recent Labs Basename 08/27/12 0711/14/11 AST 22 25 ALT 18 23 ALKPHOS 57 67 BILITOT 0.1* 0.6 Assessment and Plan: Cherrie returns in followup, labs as above are unremarkable. Her DEXA demonstrates T scores consistent with mild osteopenia with moderate percent bone loss as compared to the prior study. She is on supplemental vitamin D and calcium at appropriate doses. She has no signs or symptoms suggestive of recurrent disease. Followup will be scheduled in about six months. This was a 45-minute appointed, 35 minutes spent in discussion and counseling (8:30 -9:15). documented in this encounter Plan of Treatment Not on filedocumented as of this encounter Visit Diagnoses Diagnosis Infiltrating ductal carcinoma, left [address], 11/14 - Primary Malignant neoplasm of breast (female), u nspecified site Hypothyroidism Unspecified hypothyroidism Iron deficiency anemia Iron deficiency anemia, unspecified documented in this encounter Care Teams Transportation Technician Relationship Specialty Start Date End Date Anabel Roa PA PCP - General 05/30/10 03/17/[address] [place] [id number] documented as of this encounter
--- OUTSIDE RECORDS SUMMARY | 2022-04-27 01:22 | XMS_ITS | Encounter Summary ---
:1965 Author Organization [facility] [place] [address] Care Team Providers Name Role Phone Anabel Roa Primary Care Provider [phone] Reason for Visit Reason Comments Follow-up Encounter Details Date Type Department Care Team Description 10/18/2010 Hospital Encounter Hematology and Bobo Gomez ductal Oncology at [facility] MD Gabriela carcinoma, left [facility] breast, [facility] [address] [place] HEMATOLOGY/ONCOL [id number] [facility] DEPT. [phone] [place] [address] Social History Tobacco Use Types Packs/Day Years Used Date Never Assessed Sex Assigned at Date Recorded Not on file documented as of this encounter Last Filed Vital Signs Vital Sign Reading Time Taken Comments Blood Pressure 100/48 10/18/2010 9:39 AM EDT Pulse 64 10/18/2010 9:39 AM EDT Temperature 37.1 ??C (98.8 ??F) 10/18/2010 9:39 AM EDT Respiratory Rate 20 10/18/2010 9:39 AM EDT Oxygen Saturation 97% 10/18/2010 9:39 AM EDT Inhaled Oxygen Concentration - - Weight 63.5 kg (139 lb 15.9 oz) 10/18/2010 9:39 AM EDT Height 175 cm (5' 8.9) 10/18/2010 9:39 AM EDT Body Mass Index 20.73 10/18/2010 9:39 AM EDT documented in this encounter Medications at Time [...] Once daily documented as of this encounter Progress Notes Bobo Gomez MD - 10/18/2010 1:05 PM EDTEncounter addended by: Bobo Gomez MD on: 10/18/2010 1:05 PM
Documentation filed: Follow-up Section Bobo Gomez MD - 10/18/2010 12:54 PM EDT Subjective: Patient ID: Cherrie Forrest is a 45 y.o. female. HPI Problem List: 1. Infiltrating ductal carcinoma, left breast, 11/14 a. ~ 1-cm cancer, poorly differentiated, ER/NE-, HER2/ami - ([facility], [facility]), [...] qHS. 6. H/O possible iron deficiency anemia. Subjective: Please see my problem list above. Cherrie returns in followup. She in regards to her breast cancer has been doing well over the last four months since I had last seen her. She has had no significant musculoskeletal complaints. She has had no significant breast symptoms. She has had some mild chronic rhinorrhea. She has had no signs or symptoms of infection or sinusitis. She has been somewhat tired. She relates that her thyroid medication had been adjusted somewhat. She is currently on 200 mcg every day. She thinks her last TSH was about eight or 10 weeks ago and 0.2. Overall she is feeling relatively well. Additionally she actually ran out of Lovenox about five to six days ago and discontinued taking it at this time. She has had no further symptoms of swelling or change in her arm. Review of Systems Except as noted above, Cherrie Araujo full remaining review of systems, including constitutional, cardiac, pulmonary, GI, , neurologic, musculskeletal, and remaining, is otherwise fully unremarkable. Objective: Physical Exam Objective: Cherrie Forrest is well appearing and in no acute distress. HEENT: Unremarkable. Musculoskeletal Exam: Within normal limits. Back without CVA or spinal tenderness to percussion or palpation.Chest: Clear. Nodes: No peripheral adenopathy is present. Breast Exam: Unchanged from prior exam. Cor: RRR, S1, S2. No murmur, rub, or S3 present. Abdomen: Bowel sounds unremarkable, soft, nontender with no palpable HSM or other abnormalities. Extremities without significant cyanosis, clubbing, or edema. Neurologic Exam: Grossly nonfocal, DTR's symmetric. Assessment and Plan: No problem-specific visit notes found for this encounter. Assessment/Plan: Cherrie overall is doing well. She has no signs or symptoms suggestive of recurrent disease. Her lab work today looks fine. I have not checked a thyroid panel today but will add one at the time of her followup here in four months. I recommended that she contact her primary care team and repeat her thyroid labs perhaps in the next month or so to address whether this may be what is causing her to be somewhat tired. I have to discussed her case with one of our coagulationists, dr méndez, to get their input as to continuing Lovenox for a full 12 months versus discontinuing this at present, and she concurs with dc of lovenox now, s/p 6 months rx. Followup will be scheduled in Oncology in about four months. She is overall doing relatively well. Additionally, I will note for documentation, I did attempt repeating ER/NE here at [facility]. Inadequate tissue was present for a technically viable result. documented in this encounter Plan of Treatment Not on filedocumented as of this encounter Procedures Procedure Name Priority Date/Time Associated Comments Diagnosis DIFFERENTIAL, STAT 10/18/2010 9:16 AM Results for this AUTOMATED EDT procedure are i n the results section. CBC (WITH DIFF) STAT 10/18/2010 9:16 AM Result s for this EDT procedure are i n the results section. COMPREHENSIVE STAT 10/18/2010 9:16 AM Results for this METABOLIC PANEL EDT procedure ar e in (NON-FASTING) the results section. documented in this encounter Results REFLEX LAB-A-DIFF (10/18/2010 9:16 AM EDT) P athologist Signature Neutrophils % 45.5 34.0 - CERNER 71.0 % MILLENNIUM Neutr Abs (ANC) 2.36 1.50 - CERNER 6.30 MILLENNIUM x10(3)/mcL Lymphocytes % 39.1 19.0 - CERNER 53.0 % MILLENNIUM Lymphocytes Abs 2.0 1.0 - 3.6 CERNER x10(3)/mcL MILLENNIUM Monocytes % 9.6 4.0 - 13.0 CERNER % MILLENNIUM Monocyte Abs 0.5 0.2 - 1.0 CERNER x10(3)/mcL MILLENNIUM Eosinophils % 5.0 0.0 - 7.0 CERNER % MILLENNIUM Eosinophils Abs 0.3 0.0 - 0.5 CERNER x10(3)/mcL MILLENNIUM Basophils % 0.6 0.0 - 2.0 CERNER % MILLENNIUM Basophils Abs 0.0 0.0 - 0.2 CERNER x10(3)/mcL MILLENNIUM Immature Gran % 0.20 0.00 - CERNER [...] Location / / Volume Laterality Blood specimen 10/18/2010 9:16 AM 011 9:18 (specimen) EDT AM EDT Bobo Gomez MD HEMATOLOGY ORDERABLES Performing Organization Address City/State/ZIP Code Phon e Number [place] [phone] CERNER MILLENNIUM (ABNORMAL) CBC (WITH DIFF) (10/18/2010 9:16 AM EDT) P athologist Signature WBC 5.2 4.0 - 10.0 CERNER x10(3)/mcL MILLENNIUM RBC 3.97 3.93 - CERNER 5.22 MILLENNIUM x10(6)/mcL Hemoglobin 12.8 11.2 - CERNER 15.7 gm/dL MILLENNIUM Hematocrit 37.4 34.0 - CERNER 45.0 % MILLENNIUM MCV 94.2 (H) 79.0 - CERNER 94.0 fL MILLENNIUM MCH 32.2 26.6 - CERNER 32.2 pg MILLENNIUM MCHC 34.2 32.0 - CERNER 36.5 gm/dL MILLENNIUM Platelets 241 145 - 370 CERNER x10(3)/mcL MILLENNIUM RDWSD 46.4 (H) 35.0 - CERNER 46.0 fL MILLENNIUM RDWCV 13.5 10.9 - CERNER 14.4 % MILLENNIUM MPV 10.1 9.0 - 12.0 CERNER fL MILLENNIUM Specimen Anatomical Collection Method Collection Time Receive d Time (Source) Location / / Volume Laterality Blood specimen 10/18/2010 9:16 AM 011 9:18 (specimen) EDT AM EDT Bobo Gomez MD HEMATOLOGY ORDERABLES Performing Organization Address City/State/[place] [address] CERNER MILLENNIUM (ABNORMAL) COMPREHENSIVE METABOLIC PANEL (NON-FASTING) (10/18/2010 9:16 AM EDT) P athologist Signature Glucose Lvl 87 60 - 199 CERNER mg/dL MILLENNIUM Comment: Diabetes: >=200 mg/dL plus symp toms BUN 18 8 - 18 mg/dL CERNER MILLENNIUM Creatinine 0.77 0.70 - 1.20 mg/dL CERNER MILL ENNIUM Sodium 142 135 - 145 mmol/L CERNER LELE NIUM Potassium 4.6 3.5 - 5.0 mmol/L CERNER LELE NIUM Comment: Please note: ??Patients with WBC >100,00 0 may have falsely elevated Potassium levels. ??For accurate Potassium quantif ication in these patients send serum separator tube (gold top) for subsequent determinations. ??Contact the Clinical Chemistry Laboratory if there are any qu estions. Chloride 103 98 - 107 mmol/L CERNER MILLENN IUM CO2 29 22 - 31 mmol/L CERNER MILLENNI UM Anion Gap 10 5 - 15 mmol/L CERNER MILLENNIU M Calcium 9.5 8.5 - 10.5 mg/dL CERNER LELE NIUM Total Protein 6.2 (L) 6.4 - 8.3 gm/dL CERNER MIL LENNIUM Albumin 4.0 3.2 - 5.2 gm/dL CERNER MILLENN IUM AST 19 0 - 30 unit/L CERNER MILLENNIU M ALT 20 0 - 30 unit/L CERNER MILLENNIU [...] Location / / Volume Laterality Blood specimen 10/18/2010 9:16 AM 011 9:18 (specimen) EDT AM EDT Bobo Gomez MD CHEMISTRY ORDERABLES Performing Organization Address City/State/[place] [address] [address] [facility] documented in this encounter Visit Diagnoses Diagnosis Infiltrating ductal carcinoma, left [address], 11/14 Malignant neoplasm of breast (female), u nspecified site documented in this encounter Care Teams [employer] Farm Worker Relationship Specialty Start Date End Date Anabel Roa PA PCP - General 05/30/10 03/17/[address] [place] [address] documented as of this encounter
--- OUTSIDE RECORDS SUMMARY | 2022-04-27 01:22 | XMS_ITS | Encounter Summary ---
:1965 Author Organization [facility] [place] [address] Care Team Providers Name Role Phone Anabel Roa Primary Care Provider [phone] Encounter Details Date Type Department Care Team Description 03/17/2010 Orders Only Lab Lila Go MD [facility] [place] [address] [place] [address] [place], [place] [address] Social History Tobacco Use Types Packs/Day Years Used Date Never Assessed Sex Assigned at Date Recorded Not on file documented as of this encounter Plan of Treatment Not on filedocumented as of this encounter Procedures Procedure Name Priority Date/Time Associated Diagnosis Comme nts AFB CULTURE Routine 03/17/2010 12:30 AM Results for this EDT procedure are i n the results section . FUNGUS CULTURE Routine 03/17/2010 12:30 AM Result s for this EDT procedure are i n the results section . documented in this encounter Results AFB CULTURE (03/17/2010 12:30 AM EDT) [facility] Method Time Signature Acid Fast CERNER Bacilli ? Patient Name: CHERRIE FORREST ?Ordered By: JOHNATHON ASIF [facility] Culture ? MR#: [id number] ?LOC: ??HSCU ? /Sex: ??1965 (45 years), ? Female ? PROCEDURE: Acid Fast Bacilli Culture ?SOURCE: CSF ? COLLECTED: 03/17/2010 00:30 ? STARTED: 03/18/2010 09:25 ? FINAL REPORT ? Final Report ? Verified:05/12/2010 10:15 ? No Acid Fast Bacilli isolated ? PRELIMINARY REPORT ? Preliminary Report ? Verified:05/08/2010 14:01 ? No acid fast bacilli isolated at 7 weeks. ? Specimen (Source) Anatomical Collection Method Collection Time Re ceived Time Location / / Volume Laterality Cerebrospinal fluid 03/17/2010 12:30 03/08 specimen (specimen) AM EDT 1:02 AM EDT Johnathon Asif MD MICROBIOLOGY - GENERAL ORDER TALI Performing Organization Address City/State/[place] [address] [facility]ENCHO CRAMERIUM FUNGUS CULTURE (03/17/2010 12:30 AM EDT) [facility] gist Method Time Signature Fungus CERNER Culture ? Patient Name: CHERRIE FORREST ?Ordered By: JOHNATHON ASIF ? MR#: [id number] ?LOC: ??HSCU ? /Sex: ??1965 (45 years), ? Female ? PROCEDURE: Fungus Culture ?SOURCE: CSF ? COLLECTED: 03/17/2010 00:30 ? STARTED: 03/18/2010 09:25 ? FINAL REPORT ? Final Report ? Verified:04/17/2010 08:49 ? No Fungus isolated ? PRELIMINARY REPORT ? Preliminary Report ? Verified:03/20/2010 09:47 ? No Fungus isolated to date ? Specimen (Source) Anatomical Collection Method Collection Time Re ceived Time Location / / Volume Laterality Cerebrospinal fluid 03/17/2010 12:30 03/08 specimen (specimen) AM EDT 1:02 AM EDT Johnathon Asif MD MICROBIOLOGY - GENERAL ORDER TALI Performing Organization Address City/State/[place] [address] [facility] documented in this encounter Visit Diagnoses Not on filedocumented in this encounter Care Teams Central Supply Manager Relationship Specialty Start Date End Date Anabel Roa PA PCP - General 05/30/10 03/17/[address] [place] [address] documented as of this encounter
--- OUTSIDE RECORDS SUMMARY | 2022-04-27 01:22 | XMS_ITS | Encounter Summary ---
:1965 Author Organization [facility] [address] Care Team Providers Name Role Phone Anabel Roa Primary Care Provider [phone] Reason for Visit Reason Comments Follow-up Encounter Details Date Type Department Care Team Description 06/06/2011 Hospital Encounter Hematology and Bobo Gomez [facility] cancer Oncology at [facility] [place] [address] HEMATOLOGY/ONCOLOGY [phone] [address]PT[address] [place], [place] [address] (Wo rk) Social History Tobacco Use Types Packs/Day Years Used Date Never Smoker Smokeless Tobacco: Never Used Sex Assigned at Date Recorded Not on file documented as of this encounter Last Filed Vital Signs Vital Sign Reading Time Taken Comments Blood Pressure 100/50 06/06/2011 4:17 PM EST Pulse 70 06/06/2011 4:17 PM EST Temperature 36.6 ??C (97.9 ??F) 06/06/2011 4:17 PM EST Respiratory Rate 18 06/06/2011 4:17 PM EST Oxygen Saturation 99% 06/06/2011 4:17 PM EST Inhaled Oxygen Concentration - - Weight 59.8 kg (131 lb 13.4 oz) 06/06/2011 4:17 PM EST Height 175 cm (5' 8.9) 06/06/2011 4:17 PM EST Body Mass Index 19.53 06/06/2011 4:17 PM EST documented in this encounter Medications at Time [...] PO, QHS documented as of this encounter Progress Notes Bobo Gomez MD - 06/26/2011 9:52 AM ESTEncounter addended by: Bobo Gomez MD on: 06/26/2011 9:52 AM
Documentation filed: Inpatient Notes Bobo Gomez MD - 06/06/2011 5:03 PM EST Subjective: Patient ID: Cherrie Forrest is a 46 y.o. female, who returns in followup for treatment and managementof her breast cancer, and other medical problems. Her past medical history, and social history, are unchanged from that noted in my prior notes. Problem List: 1. Infiltrating ductal carcinoma, left breast, 11/14 a. ~ 1-cm cancer, poorly differentiated, ER/[place]- (outside, confirmed on [facility] IHC), HER2/ami - ([facility], [facility]), 1/6 sentinel nodes, ~ 1 mm focus [...] findings. A. [facility] bx >> LAVELLE III. HPI Cherrie returns in followup. In regards to her breast cancer, she has been doing well over the last four months since I had last seen her. She has had no breast complaints. She has no significant musculoskeletal difficulties. Of note, the pain she was having in her left neck last summer has totally resolved, and her history back then was most consistent with muscle strain, and her subsequent course remains, so she has no significant musculoskeletal complaints at present. She recently was found to have LAVELLE-III cervical intraepithelial neoplasia and underwent a GYPSY-BSO about three to four weeks ago. She is recovering nicely from this, largely recuperated from surgery. Pathology was benign. Review of Systems Except as noted above, [...] hour(s)) CBC (WITH DIFF) Component Value Range ??? WBC 6.0 4.0 - 10.0 (x10(3)/mcL) ??? RBC 3.79 (*) 3.93 - 5.22 (x10(6)/mcL) ??? Hemoglobin 12.2 11.2 - 15.7 (gm/dL) ??? Hematocrit 35.8 34.0 - 45.0 (%) ??? MCV 94.5 (*) 79.0 - 94.0 (fL) ??? MCH 32.2 26.6 - 32.2 (pg) ??? MCHC 34.1 32.0 - 36.5 (gm/dL) ??? Platelets 319 145 - 370 (x10(3)/mcL) ??? RDWSD 42.8 35.0 - 46.0 (fL) ??? RDWCV 12.5 10.9 - 14.4 (%) ??? MPV 10.1 9.0 - 12.0 (fL) COMPREHENSIVE METABOLIC PANEL (NON-FASTING) Component Value Range ??? Glucose Lvl 96 60 - 199 (mg/dL) ??? BUN 12 8 - 18 (mg/dL) ??? Creatinine 0.66 (*) 0.70 - 1.20 (mg/dL) ??? Sodium 141 135 - 145 (mmol/L) ??? Potassium 5.0 3.5 - 5.0 (mmol/L) ??? Chloride 106 98 - 107 (mmol/L) ??? CO2 30 22 - 31 (mmol/L) ??? Anion Gap 5 5 - 15 (mmol/L) ??? Calcium 9.1 8.5 - 10.5 (mg/dL) ??? Total Protein 6.2 (*) 6.4 - 8.3 (gm/dL) ??? Albumin 3.7 3.2 - 5.2 (gm/dL) ??? AST 20 0 - 30 (unit/L) ??? ALT 17 0 - 30 (unit/L) ??? Alk Phos 76 40 - 104 (unit/L) ??? Total Bilirubin 0.1 (*) 0.2 - 1.3 (mg/dL) ? ? Bili, Direct <0.1 0.0 - 0.3 (mg/dL) ? ? Estimated GFR >60 >=60 DIFFERENTIAL, AUTOMATED Component Value Range ??? Neutrophils % 36.9 34.0 - 71.0 (%) ??? Neutr Abs (ANC) 2.23 1.50 - 6.30 (x10(3)/mcL) ??? Lymphocytes % 51.0 19.0 - 53.0 (%) ??? Lymphocytes Abs 3.1 1.0 - 3.6 (x10(3)/mcL) ??? Monocytes % 7.0 4.0 - 13.0 (%) ??? Monocyte Abs 0.4 0.2 - 1.0 (x10(3)/mcL) ??? Eosinophils % 4.6 0.0 - 7.0 (%) ??? Eosinophils Abs 0.3 0.0 - 0.5 (x10(3)/mcL) ??? Basophils % 0.3 0.0 - 2.0 (%) ??? Basophils Abs 0.0 0.0 - 0.2 (x10(3)/mcL) ??? Immature Gran % 0.20 0.00 - 0.66 (%) ??? Shanice Gran Abs 0.01 0.00 - 0.05 (x10(3)/mcL) Assessment and Plan: No problem-specific visit notes found for this encounter. Cherrie, overall, in regards to her breast cancer is doing well. She recently underwent GYPSY-BSO with no significant findings found pathologically quite nicely, and she is obviously very happy about. She is in good spirits. She is almost ready to go back to work I think and has recuperated very well from her recent surgery. She has no signs or symptoms suggestive of recurrent disease. She had a number of questions about recent things she had read about, some recent hot topics in breast cancer research, etc., which I answered. Followup will be scheduled in approximately four months. This was a 45-minute appointed, 35 minutes spent in discussion and counseling (4:00 through 4:45). Cc: Dr. Mary Moody, [place] [facility], [place], [place] Dr Val Baca, surgery, [place], [place] documented in this encounter Plan of Treatment Not on filedocumented as of this encounter Procedures Procedure Name Priority Date/Time Associated Comments Diagnosis DIFFERENTIAL, STAT 06/06/2011 4:11 PM Results for this AUTOMATED EST procedure are i n the results section. CBC (WITH DIFF) STAT 06/06/2011 4:11 PM Breast cancer Resul ts for this EST procedure are i n the results section. COMPREHENSIVE STAT 06/06/2011 4:11 PM Breast cancer Results for this METABOLIC PANEL EST procedure ar e in (NON-FASTING) the results section. documented in this encounter Results DIFFERENTIAL, AUTOMATED (06/06/2011 4:11 PM EST) P athologist Signature Neutrophils % 36.9 34.0 - CERNER 71.0 % MILLENNIUM Neutr Abs (ANC) 2.23 1.50 - CERNER 6.30 MILLENNIUM x10(3)/mcL Lymphocytes % 51.0 19.0 - CERNER 53.0 % MILLENNIUM Lymphocytes Abs 3.1 1.0 - 3.6 CERNER x10(3)/mcL MILLENNIUM Monocytes % 7.0 4.0 - 13.0 CERNER % MILLENNIUM Monocyte Abs 0.4 0.2 - 1.0 CERNER x10(3)/mcL MILLENNIUM Eosinophils % 4.6 0.0 - 7.0 CERNER % MILLENNIUM Eosinophils Abs 0.3 0.0 - 0.5 CERNER x10(3)/mcL MILLENNIUM Basophils % 0.3 0.0 - 2.0 CERNER % MILLENNIUM Basophils Abs 0.0 0.0 - 0.2 CERNER x10(3)/mcL MILLENNIUM Immature Gran % 0.20 0.00 - CERNER 0.66 % MILLENNIUM Comment: Immature granulocytes(IG's)percentage an d absolute count will include metamyelocytes, myelocytes, and promyelo cytes. Blood smears from CBCs yielding IG's will be scanned manually for concor danluis. If this scan disagrees with the automated IG or if promyelocytes are not ed, a manual differential will be performed. Shanice Gran Abs 0.01 0.00 - 0.05 x10(3)/mcL CER NER MILLENNIUM Specimen Anatomical Collection Method Collection Time Receive d Time (Source) Location / / Volume Laterality Blood specimen 06/06/2011 4:11 PM 011 4:21 (specimen) EST PM EST Bobo Gomez MD HEMATOLOGY ORDERABLES Performing Organization Address City/State/ZIP Code Phon e Number [place] [phone] CERNER MILLENNIUM (ABNORMAL) Comprehensive metabolic panel (non-fasting) (06/06/2011 4:11 PM EST) P athologist Signature Glucose Lvl 96 60 - 199 CERNER mg/dL MILLENNIUM Comment: Diabetes: >=200 mg/dL plus symp toms BUN 12 8 - 18 mg/dL CERNER MILLENNIUM Creatinine 0.66 (L) 0.70 - 1.20 mg/dL CERNER MILL ENNIUM Sodium 141 135 - 145 mmol/L CERNER LELE NIUM Potassium 5.0 3.5 - 5.0 mmol/L CERNER LELE NIUM Comment: Please note: ??Patients with WBC >100,00 0 may have falsely elevated Potassium levels. ??For accurate Potassium quantif ication in these patients send serum separator tube (gold top) for subsequent determinations. ??Contact the Clinical Chemistry Laboratory if there are any qu estions. Chloride 106 98 - 107 mmol/L CERNER MILLENN IUM CO2 30 22 - 31 mmol/L CERNER MILLENNI UM Anion Gap 5 5 - 15 mmol/L CERNER MILLENNIU M Calcium 9.1 8.5 - 10.5 mg/dL CERNER LELE NIUM Total Protein 6.2 (L) 6.4 - 8.3 gm/dL CERNER MIL LENNIUM Albumin 3.7 3.2 - 5.2 gm/dL CERNER MILLENN IUM AST 20 0 - 30 unit/L CERNER MILLENNIU M ALT 17 0 - 30 unit/L CERNER MILLENNIU M Alk Phos 76 40 - 104 unit/L CERNER MILLENN IUM [...] week). For patient s multiply eGFR by 1.2.MDRD equation has not been validated for pediatric pat ients and is only valid for patients with age >= 18 years. At present, [facility] does NOT recommend usi [...] Location / / Volume Laterality Blood specimen 06/06/2011 4:11 PM 011 4:21 (specimen) EST PM EST Bobo Gomez MD CHEMISTRY ORDERABLES Performing Organization Address City/State/ZIP [place] [address] [facility] CBC (with Diff) (06/06/2011 4:11 PM EST) P athologist Signature WBC 6.0 4.0 - 10.0 CERNER x10(3)/mcL MILLENNIUM RBC 3.79 (L) 3.93 - CERNER 5.22 MILLENNIUM x10(6)/mcL Hemoglobin 12.2 11.2 - CERNER 15.7 gm/dL MILLENNIUM Hematocrit 35.8 34.0 - CERNER 45.0 % MILLENNIUM MCV 94.5 (H) 79.0 - CERNER 94.0 fL MILLENNIUM MCH 32.2 26.6 - CERNER 32.2 pg MILLENNIUM MCHC 34.1 32.0 - CERNER 36.5 gm/dL MILLENNIUM Platelets 319 145 - 370 CERNER x10(3)/mcL MILLENNIUM RDWSD 42.8 35.0 - CERNER 46.0 fL MILLENNIUM RDWCV 12.5 10.9 - CERNER 14.4 % ENNIUM MPV 10.1 9.0 - 12.0 CERNER fL MILLENNIUM Specimen Anatomical Collection Method Collection Time Receive d Time (Source) Location / / Volume Laterality Blood specimen 06/06/2011 4:11 PM 011 4:21 (specimen) EST PM EST Bobo Gomez MD HEMATOLOGY ORDERABLES Performing Organization Address City/State/ZIP [place] [address] [facility] documented in this encounter Visit Diagnoses Diagnosis Breast cancer Malignant neoplasm of breast (female), u nspecified site documented in this encounter Care Teams Public Relations Officer Relationship Specialty Start Date End Date Anabel Roa PA PCP - General 05/30/10 03/17/[address] [place] [id number] documented as of this encounter
--- OUTSIDE RECORDS SUMMARY | 2022-04-27 01:22 | XMS_ITS | Encounter Summary ---
:1965 Author Organization [facility] [place] [address] Care Team Providers Name Role Phone Anabel Roa Primary Care Provider [phone] Encounter Details Date Type Department Care Team Description 05/03/2010 Orders Only Lab [facility] Bobo Tellez MD [facility] [place] story HEMATOLOGY/[place] [address] DEPT. [phone] [place], [place] [address] (Wo rk) Social History Tobacco Use Types Packs/Day Years Used Date Never Assessed Sex Assigned at Date Recorded Not on file documented as of this encounter Plan of Treatment Not on filedocumented as of this encounter Procedures Procedure Name Priority Date/Time Associated Comments Diagnosis DIFFERENTIAL, STAT 05/03/2010 2:03 PM Results for this AUTOMATED EDT procedure are i n the results section. CBC (WITH DIFF) STAT 05/03/2010 2:03 PM Result s for this EDT procedure are i n the results section. COMPREHENSIVE STAT 05/03/2010 2:03 PM Results for this METABOLIC PANEL EDT procedure ar e in (NON-FASTING) the results section. documented in this encounter Results (ABNORMAL) COMPREHENSIVE METABOLIC PANEL (NON-FASTING) (05/03/2010 2:03 PM EDT) P athologist Signature Glucose Lvl 81 <=199 mg/dL [facility] Comment: Diabetes: >=200 mg/dL plus symp toms BUN 12 8 - 18 mg/dL CERNER MILLENNIUM Creatinine 0.72 0.70 - 1.20 mg/dL CERNER MILL ENNIUM Sodium 140 135 - 145 mmol/L CERNER LELE NIUM Potassium 4.4 3.5 - 5.0 mmol/L CERNER LELE NIUM Comment: Please note: ??Patients with WBC >100,00 0 may have falsely elevated Potassium levels. ??For accurate Potassium quantif ication in these patients send serum separator tube (gold top) for subsequent determinations. ??Contact the Clinical Chemistry Laboratory if there are any qu estions. Chloride 105 98 - 107 mmol/L CERNER MILLENN IUM CO2 28 22 - 31 mmol/L CERNER MILLENNI UM Anion Gap 7 5 - 15 mmol/L CERNER MILLENNIU M Calcium 9.1 8.5 - 10.5 mg/dL CERNER LELE NIUM Total Protein 6.6 6.4 - 8.3 gm/dL CERNER MIL LENNIUM Albumin 4.2 3.2 - 5.2 gm/dL CERNER MILLENN IUM AST 20 0 - 30 unit/L CERNER MILLENNIU M ALT 22 0 - 30 unit/L CERNER MILLENNIU M Alk Phos 163 (H) 40 - 104 unit/L CERNER MILLENN [...] Location / / Volume Laterality Blood specimen 05/03/2010 2:03 PM 010 2:22 (specimen) EDT PM EDT Bobo Gomez MD CHEMISTRY ORDERABLES Performing Organization Address City/State/ZIP [place] [address] CERNER MILLENNIUM (ABNORMAL) REFLEX LAB-A-DIFF (05/03/2010 2:03 PM EDT) [facility] gist Method Time Signature Neutrophils % 79.6 (H) 34.0 - CERNER 71.0 % MILLENNIUM Neutr Abs (ANC) 11.62 (H) 1.50 - CERNER 6.30 MILLENNIUM x10(3)/mc L Lymphocytes % 11.5 (L) 19.0 - CERNER 53.0 % MILLENNIUM Lymphocytes Abs 1.7 1.0 - 3.6 CERNER x10(3)/mc MILLENNIUM L Monocytes % 6.1 4.0 - CERNER 13.0 % MILLENNIUM Monocyte Abs 0.9 0.2 - 1.0 CERNER x10(3)/mc MILLENNIUM L Eosinophils % 1.8 0.0 - 7.0 CERNER % MILLENNIUM Eosinophils Abs 0.3 0.0 - 0.5 CERNER x10(3)/mc MILLENNIUM L Basophils % 0.3 0.0 - 2.0 CERNER % MILLENNIUM Basophils Abs 0.0 0.0 - 0.2 CERNER x10(3)/mc MILLENNIUM L Immature Gran % 0.70 (H) 0.00 - CERNER 0.66 % MILLENNIUM Comment: Immature granulocytes(IG's)percentage an d absolute count will include metamyelocytes, myelocytes, and promyelo cytes. Blood smears from CBC's yielding IG's will be scanned manually for concor dance. If this scan disagrees with the automated IG or if promyelocytes are not ed, a manual differential will be performed. Shanice Gran Abs 0.10 (H) 0.00 - 0.05 x10(3)/mcL CER NER MILLENNIUM Specimen Anatomical Collection Method Collection Time Receive d Time (Source) Location / / Volume Laterality Blood specimen 05/03/2010 2:03 PM 010 2:22 (specimen) EDT PM EDT Bobo Gomez MD HEMATOLOGY ORDERABLES Performing Organization Address City/State/[place] [address] CERNER MILLENNIUM (ABNORMAL) CBC (05/03/2010 2:03 PM EDT) P athologist Signature WBC 14.6 (H) 4.0 - 10.0 CERNER x10(3)/mcL MILLENNIUM RBC 2.99 (L) 3.93 - CERNER 5.22 MILLENNIUM x10(6)/mcL Hemoglobin 10.2 (L) 11.2 - CERNER 15.7 gm/dL MILLENNIUM Hematocrit 32.2 (L) 34.0 - CERNER 45.0 % MILLENNIUM MCV 107.7 (H) 79.0 - CERNER 94.0 fL MILLENNIUM MCH 34.1 (H) 26.6 - CERNER 32.2 pg MILLENNIUM MCHC 31.7 (L) 32.0 - CERNER 36.5 gm/dL MILLENNIUM Platelets 354 145 - 370 CERNER x10(3)/mcL MILLENNIUM RDWSD 69.8 (H) 35.0 - CERNER 46.0 fL MILLENNIUM RDWCV 17.9 (H) 10.9 - CERNER 14.4 % MILLENNIUM MPV 10.5 9.0 - 12.0 CERNER fL MILLENNIUM Specimen Anatomical Collection Method Collection Time Receive d Time (Source) Location / / Volume Laterality Blood specimen 05/03/2010 2:03 PM 10/27/2 010 2:22 (specimen) EDT PM EDT Bobo Gomez MD HEMATOLOGY ORDERABLES Performing Organization Address City/State/ZIP Code Phon e Number [place] [id number] [facility] documented in this encounter Visit Diagnoses Not on filedocumented in this encounter Care Teams Environmental Health Technologist Relationship Specialty Start Date End Date Anabel Roa PA PCP - General 05/30/10 03/17/[address] [place] [address] documented as of this encounter
--- OUTSIDE RECORDS SUMMARY | 2022-04-27 01:22 | XMS_ITS | Encounter Summary ---
:1965 Author Organization [facility] Address [facility] [place] [address] Care Team Providers Name Role Phone Anabel Roa Primary Care Provider [phone] Encounter Details Date Type Department Care Team Description 10/30/2011 Orders Only Hematology and Bobo Gomez Malignan t neoplasm of Oncology at [facility] MD breast (female), [facility] uns pecified site Drive (Primary Dx) [place] [address] HEMATOLOGY/ONCOLOG [phone] Y DEPT. [place], [place] [address] Social History Tobacco Use Types Packs/Day Years Used Date Never Smoker Smokeless Tobacco: Never Used Sex Assigned at Date Recorded Not on file documented as of this encounter Plan of Treatment Not on filedocumented as of this encounter Visit Diagnoses Diagnosis Malignant neoplasm of breast (female), u nspecified site - Primary documented in this encounter Care Teams Special Forces Engineer Sergeant Relationship Specialty Start Date End Date Anabel Roa PA PCP - General 05/30/10 03/17/[address] [place] [address] documented as of this encounter
--- OUTSIDE RECORDS SUMMARY | 2022-04-27 01:22 | XMS_ITS | Encounter Summary ---
:1965 Author Organization [facility] [address] Care Team Providers Name Role Phone Anabel Rao Primary Care Provider [phone] Encounter Details Date Type Department Care Team Description 05/22/2010 Orders Only Lab [facility] Reji Tellez MD [facility] [place] story HEMATOLOGY/[place] [address] DEPT. [phone] [place], [place] [address] (Wo rk) Social History Tobacco Use Types Packs/Day Years Used Date Never Assessed Sex Assigned at Date Recorded Not on file documented as of this encounter Plan of Treatment Not on filedocumented as of this encounter Procedures Procedure Name Priority Date/Time Associated Diagnosis Comme [facility] MOLECULAR PATHOLOGY Routine 05/22/2010 7:57 AM Natalia toure for this REPORT EST procedure are i n the results section. documented in this encounter Results MOLECULAR PATHOLOGY REPORT (05/22/2010 7:57 AM EST) Component Value Ref Test Analysis Performed At [facility] Method Time Signature Molecular CERNER Pathology ? [facility] Report ? Provider: ?? REJI VASQUEZ ?Pt. Name: ?? SOTERO Fong, CHERRIE Sow ? Acc #: ?[id number] ? Pt. ? Col Date: ?? 05/22/20 ?/Sex: ?1965,(45 years),Female ? Rec Date: ?? 05/23/2010 ?LOC: ?OPW ? MOLECULAR GENETIC STUDIES ? ---REPORT OF DNA ANALYSIS--- ? CONSULTATION CASE ? A - 1 block labeled [id number], collection date 11/09/09 . ? [id number] ? Report to: ? [facility] ? Surgical Pathology Department ? [facility], [facility], 2nd Floor ? [address] [place] [address] Avenue ? [place], [place] ??[address] ? TEST: ??HER2 FISH, BREAST CANCER ? METHOD: ??Fluorescence in situ hybridization (FISH) w ith probe for ? chromosome 17 centrom ere (17p11.1-q11.1) and locus specific probe for the ? HER2 gene locus (17q11.2-q12). ? SAMPLE ANALYZED: ??A1-02 ? RESULT: ?NEGATIVE FOR HER2/NANY AMPLIFICATION ?TOTA L # SIGNALS/TOTAL # NUCLEI COUNTED FOR HER2 PROBE = 86 ?TOTA L # SIGNALS/TOTAL # NUCLEI COUNTED FOR CEP-17 PROBE = 80 ?HER2 TO CEP-17 RATIO = 1.1 ? (NORMAL RANGE <1.8) ? Interpretation: ??Par affin-embedded tissue sections were submitted for HER2 ? gene amplification an alysis by FISH. ??Direct analysis was performed using ? the Path Vysion Kit. ??Slide adequacy and signal enumeration were evaluated ? and satisfactory for both control and patient slides. ??The results of this ? analysis is based on the enumeration of 4 0 interphase nuclei from non- ? overlapping tumor gladys ls. ??A signal ratio derived from the HER2 probe and ? the CEP-17 centromere probe of >2.2 is considered positive for HER2 gene ? amplification. ? 2008 CAP guidelines s rai that samples with a HER2 to CEP-17 ratio of less ? than 1.8 are normal. Specimen with a HER2 to CEP-17 range of 1.8 to 2.2 are ? considered equivocal. Specimen with a HER2 to CEP-17 ratio of greater than ? 2.2 are considered amplified. ? This test is approved by the U.S.FDA for clinical balwinder gnostic use. ? [facility] ? Provider: ?? REJI VASQUEZ ?Pt. Name: ?? SOTERO Y, CHERRIE L ? Acc #: ?[id number] ? Pt. ? Col Date: ?? 05/22/20 10 ?/Sex: ?1965,(45 years),Female ? Rec Date: ?? 05/23/2010 ?LOC: ?OPW ? MOLECULAR GENETIC STUDIES ? Reviewed by: ? Mary Pepe MD ? Solid Waste Facility Supervisor, Molecular Pathology ? Verified date: ??05/29/10 ??SFA ? Verified by: ?Mary Pepe MD ? (Electronic Signature) Specimen (Source) Anatomical Collection Method Collection Time Re ceived Time Location / / Volume Laterality 05/22/2010 7:57 AM EST Reji Vasquez MD PATHOLOGY/CYTOLOGY ORDERABLE S Performing Organization Address City/State/ZIP [place] [address] [facility] documented in this encounter Visit Diagnoses Not on filedocumented in this encounter Care Teams Machinist Outside Relationship Specialty Start Date End Date Anaebl Roa PA PCP - General 05/30/10 03/17/[address] [place] [address] documented as of this encounter
--- OUTSIDE RECORDS SUMMARY | 2022-04-27 01:22 | XMS_ITS | Encounter Summary ---
:1965 Author Organization [facility] [place] [address] Care Team Providers Name Role Phone Anabel Roa Primary Care Provider [phone] Encounter Details Date Type Department Care Team Description 11/16/2010 Orders Only Hematology and Bobo Gomez Breast c ancer (Primary Oncology at [facility] [place] Dx) [facility] [place] [address] HEMATOLOGY/ONCOLOG [phone] Y DEPT. [place], [place] [address] Social History Tobacco Use Types Packs/Day Years Used Date Never Assessed Sex Assigned at Date Recorded Not on file documented as of this encounter Plan of Treatment Not on filedocumented as of this encounter Results Vitamin D2 and D3 25 Hydroxy (02/28/2011 4:07 PM EDT) athologist Signature 25-Hydroxy D2 <4.0 ng/mL [facility] Comment: Test Performed by: [employer] [address] [place] [address] Return Agent Airport: Alondra Maldonado, Ph. D. 25-Hydroxy D3 42 ng/mL CHENCHO PAN Comment: Test Performed by: [facility] [employer] [address] [address] Return Agent Airport: Alondra Maldonado, Ph. D. 25-OH Vit D Total 42 ng/mL [facility]CHO [facility] Comment: -- REFERENCE VALUE -- 25-HYDROXY D TOTAL (D2+D3) Optimum levels in the normal population are 25-80 Test Performed by: [facility] [address], [place] [address] Return Agent Airport: Alondra Maldonado, Ph. D. Specimen Anatomical Collection Method Collection Time Receive d Time (Source) Location / / Volume Laterality Blood specimen 02/28/2011 4:07 PM 011 5:08 (specimen) EDT PM EDT Bobo Gomez MD CHEMISTRY ORDERABLES Performing Organization Address City/[facility] [place] [address] CERNER MILLENNIUM (ABNORMAL) TSH (02/28/2011 4:07 PM EDT) P athologist Signature TSH 0.02 (L) 0.27 - 4.20 CERNER mcIU/mL [facility] Specimen Anatomical Collection Method Collection Time Receive d Time (Source) Location / / Volume Laterality Blood specimen 02/28/2011 4:07 PM 011 4:12 (specimen) EDT PM EDT Bobo Gomez MD CHEMISTRY ORDERABLES Performing Organization Address City/[facility] [place] [address] CERNER MILLENNIUM (ABNORMAL) T4 (02/28/2011 4:07 PM EDT) P athologist Signature T4, total 11.1 (H) 5.1 - 10.8 CERNER mcg/dL [facility] Comment: Reference Range: [place] Cord Blood: ??6.9-14.4 mcg/dL Females: ??7.2-14.2 mcg/dL Pediatric ranges: ??Interpret with cauti on-ranges have not been verified Specimen Anatomical Collection Method Collection Time Receive d Time (Source) Location / / Volume Laterality Blood specimen 02/28/2011 4:07 PM 011 4:12 (specimen) EDT PM EDT Bobo Gomez MD CHEMISTRY ORDERABLES Performing Organization Address City/[facility]/[place] [address] CERNER MILLENNIUM T3 (02/28/2011 4:07 PM EDT) athologist Signature T3, Total 108 75 - 170 CERNER ng/dL MILLENNIUM Specimen Anatomical Collection Method Collection Time Receive d Time (Source) Location / / Volume Laterality Blood specimen 02/28/2011 4:07 PM 011 4:12 (specimen) EDT PM EDT Bobo Gomez MD CHEMISTRY ORDERABLES Performing Organization Address City/State/[place] [address] CERNER MILLENNIUM (ABNORMAL) Comprehensive metabolic panel (CMP) (02/28/2011 4:07 PM EDT) athologist Signature Glucose Lvl 86 60 - 199 CERNER mg/dL MILLENNIUM Comment: Diabetes: >=200 mg/dL plus symp toms BUN 14 8 - 18 mg/dL CERNER MILLENNIUM Creatinine 0.70 0.70 - 1.20 mg/dL CERNER MILL ENNIUM Sodium 141 135 - 145 mmol/L CERNER LELE NIUM Potassium 3.9 3.5 - 5.0 mmol/L CERNER LELE NIUM Comment: Please note: ??Patients with WBC >100,00 0 may have falsely elevated Potassium levels. ??For accurate Potassium quantif ication in these patients send serum separator tube (gold top) for subsequent determinations. ??Contact the Clinical Chemistry Laboratory if there are any qu estions. Chloride 102 98 - 107 mmol/L CERNER MILLENN IUM CO2 32 (H) 22 - 31 mmol/L CERNER MILLENNI UM Anion Gap 7 5 - 15 mmol/L CERNER MILLENNIU M Calcium 9.7 8.5 - 10.5 mg/dL CERNER LELE NIUM Total Protein 6.7 6.4 - 8.3 gm/dL CERNER MIL LENNIUM Albumin 4.4 3.2 - 5.2 gm/dL CERNER MILLENN IUM AST 24 0 - 30 unit/L CERNER MILLENNIU M ALT 20 0 - 30 unit/L CERNER MILLENNIU M Alk Phos 69 40 - 104 unit/L CERNER MILLENN IUM Total Bilirubin 0.2 0.2 - 1.3 mg/dL CERNER M ILLENNIUM Bili, Direct 0.1 0.0 - 0.3 mg/dL CHENCHO MILL ENNIUM Estimated GFR >60 >=60 CHENCHO CABANRONAODIN Patel Comment: The National Kidney Disease Education Pr [...] Location / / Volume Laterality Blood specimen 02/28/2011 4:07 PM 011 4:12 (specimen) EDT PM EDT Bobo Gomez MD CHEMISTRY ORDERABLES Performing Organization Address City/State/[place] [address] [facility] (ABNORMAL) CBC (with Diff) (02/28/2011 4:07 PM EDT) athologist Signature WBC 6.5 4.0 - 10.0 CERNER x10(3)/mcL MILLENNIUM RBC 3.92 (L) 3.93 - CERNER 5.22 MILLENNIUM x10(6)/mcL Hemoglobin 12.6 11.2 - CERNER 15.7 gm/dL MILLENNIUM Hematocrit 36.9 34.0 - CERNER 45.0 % MILLENNIUM MCV 94.1 (H) 79.0 - CERNER 94.0 fL MILLENNIUM MCH 32.1 26.6 - CERNER 32.2 pg MILLENNIUM MCHC 34.1 32.0 - CERNER 36.5 gm/dL MILLENNIUM Platelets 301 145 - 370 CERNER x10(3)/mcL MILLENNIUM RDWSD 44.2 35.0 - CERNER 46.0 fL MILLENNIUM RDWCV 13.0 10.9 - CERNER 14.4 % MILLENNIUM MPV 9.9 9.0 - 12.0 CERNER fL MILLENNIUM Specimen Anatomical Collection Method Collection Time Receive d Time (Source) Location / / Volume Laterality Blood specimen 02/28/2011 4:07 PM 011 4:12 (specimen) EDT PM EDT Bobo Gomez MD HEMATOLOGY ORDERABLES Performing Organization Address City/State/[place] [address] [facility] documented in this encounter Visit Diagnoses Diagnosis Breast cancer - Primary Malignant neoplasm of breast (female), u nspecified site documented in this encounter Care Teams Rolling Mill Plugger Relationship Specialty Start Date End Date Anabel Roa PA PCP - General 05/30/10 03/17/[address] [place] [address] documented as of this encounter
--- OUTSIDE RECORDS SUMMARY | 2022-04-27 01:22 | XMS_ITS | Encounter Summary ---
:1965 Author Organization [facility] [address] Care Team Providers Name Role Phone Anabel Roa Primary Care Provider [phone] Encounter Details Date Type Department Care Team Description 06/21/2010 Orders Only Lab [facility] Bobo Tellez MD [facility] [place] story HEMATOLOGY/[place] [address] DEPT. [phone] [place], [place] [address] (Wo rk) Social History Tobacco Use Types Packs/Day Years Used Date Never Assessed Sex Assigned at Date Recorded Not on file documented as of this encounter Plan of Treatment Not on filedocumented as of this encounter Procedures Procedure Name Priority Date/Time Associated Comments Diagnosis DIFFERENTIAL, STAT 06/21/2010 3:46 PM Results for this AUTOMATED EST procedure are i n the results section. IRON AND TIBC Routine 06/21/2010 3:46 PM Results for this EST procedure are i n the results section. CBC (WITH DIFF) STAT 06/21/2010 3:46 PM Result s for this EST procedure are i n the results section. TSH Routine 06/21/2010 3:46 PM Results f or this EST procedure are i n the results section. FERRITIN Routine 06/21/2010 3:46 PM Results f or this EST procedure are i n the results section. COMPREHENSIVE STAT 06/21/2010 3:46 PM Results for this METABOLIC PANEL EST procedure ar e in (NON-FASTING) the results section. documented in this encounter Results FERRITIN (06/21/2010 3:46 PM EST) athologist [facility] Ferritin 38 15 - 150 CERNER ng/mL MILLENNIUM Comment: Pediatric reference ranges not verified at [facility], interpret with caution. Reference ranges for females greater elif n 50 years of age approach values for men, i.e., 30-400 ng/mL. Specimen Anatomical Collection Method Collection Time Receive d Time (Source) Location / / Volume Laterality Blood specimen 06/21/2010 3:46 PM 010 3:58 (specimen) EST PM EST Bobo Gomez MD CHEMISTRY ORDERABLES Performing Organization Address City/[facility]/ZIP Code Phon e Number [address] CERNER MILLENNIUM (ABNORMAL) TSH (06/21/2010 3:46 PM EST) athologist [facility] TSH 4.57 (H) 0.27 - 4.20 CERNER mcIU/mL MILLENNIUM Comment: Cord Blood Reference Range: ??0. 35 23.00 uIU/mL Specimen Anatomical Collection Method Collection Time Receive d Time (Source) Location / / Volume Laterality Blood specimen 06/21/2010 3:46 PM 010 3:58 (specimen) EST PM EST Bobo Gomez MD CHEMISTRY ORDERABLES Performing Organization Address City/[facility]/ZIP [facility] [place] [address] CERNER MILLENNIUM (ABNORMAL) COMPREHENSIVE METABOLIC PANEL (NON-FASTING) (06/21/2010 3:46 PM EST) athologist [facility] Glucose Lvl 87 <=199 mg/dL CERNER MILLENNIUM Comment: Diabetes: >=200 mg/dL plus symp toms BUN 12 8 - 18 mg/dL CERNER MILLENNIUM Creatinine 0.67 (L) 0.70 - 1.20 mg/dL CERNER MILL ENNIUM Sodium 142 135 - 145 mmol/L CERNER LELE NIUM Potassium 4.1 3.5 - 5.0 mmol/L CERNER LELE NIUM Comment: Please note: ??Patients with WBC >100,00 0 may have falsely elevated Potassium levels. ??For accurate Potassium quantif ication in these patients send serum separator tube (gold top) for subsequent determinations. ??Contact the Clinical Chemistry Laboratory if there are any qu estions. Chloride 104 98 - 107 mmol/L CERNER MILLENN IUM CO2 31 22 - 31 mmol/L CERNER MILLENNI UM Anion Gap 7 5 - 15 mmol/L CERNER MILLENNIU M Calcium 9.6 8.5 - 10.5 mg/dL CERNER LELE NIUM [...] 1.2. At present, [facility] does NOT recommend [facility] ng the MDRD equation for drug dosing [...] Location / / Volume Laterality Blood specimen 06/21/2010 3:46 PM 010 3:58 (specimen) EST PM EST Bobo Gomez MD CHEMISTRY ORDERABLES Performing Organization Address City/[facility]/ZIP Code Phon e Number [address] CERNER MILLENNIUM (ABNORMAL) IRON AND TIBC (06/21/2010 3:46 PM EST) P athologist Signature Iron 49 30 - 150 CERNER mcg/dL MILLENNIUM TIBC 316 250 - 450 CERNER mcg/dL MILLENNIUM Iron Saturation 16 (L) 20 - 50 % CERNER MILLENNIUM Specimen Anatomical Collection Method Collection Time Receive d Time (Source) Location / / Volume Laterality Blood specimen 06/21/2010 3:46 PM 010 3:58 (specimen) EST PM EST Bobo Gomez MD CHEMISTRY ORDERABLES Performing Organization Address City/[facility]/ZIP Code Phon e Number [address] CERNER MILLENNIUM (ABNORMAL) REFLEX LAB-A-DIFF (06/21/2010 3:46 PM EST) Patholo gist Method Time Signature Neutrophils % 46.0 34.0 - CERNER 71.0 % MILLENNIUM Neutr Abs (ANC) 1.56 1.50 - CERNER 6.30 MILLENNIUM x10(3)/mc L Lymphocytes % 34.5 19.0 - CERNER 53.0 % MILLENNIUM Lymphocytes Abs 1.2 1.0 - 3.6 CERNER x10(3)/mc MILLENNIUM L Monocytes % 14.5 (H) 4.0 - CERNER 13.0 % MILLENNIUM Monocyte Abs 0.5 0.2 - 1.0 CERNER x10(3)/mc MILLENNIUM L Eosinophils % 4.1 0.0 - 7.0 CERNER % MILLENNIUM Eosinophils Abs 0.1 0.0 - 0.5 CERNER x10(3)/mc MILLENNIUM L Basophils % 0.9 0.0 - 2.0 CERNER % MILLENNIUM Basophils Abs 0.0 0.0 - 0.2 CERNER x10(3)/mc MILLENNIUM L Immature Gran % 0.00 0.00 - CERNER [...] Location / / Volume Laterality Blood specimen 06/21/2010 3:46 PM 010 3:58 (specimen) EST PM EST Bobo Gomez MD HEMATOLOGY ORDERABLES Performing Organization Address City/State/ZIP Code Phon e Number [place] [phone] CERNER MILLENNIUM (ABNORMAL) CBC (06/21/2010 3:46 PM EST) P athologist Signature WBC 3.4 (L) 4.0 - 10.0 CERNER x10(3)/mcL MILLENNIUM RBC 3.39 (L) 3.93 - CERNER 5.22 MILLENNIUM x10(6)/mcL Hemoglobin 11.5 11.2 - CERNER 15.7 gm/dL MILLENNIUM Hematocrit 35.8 34.0 - CERNER 45.0 % MILLENNIUM MCV 105.6 (H) 79.0 - CERNER 94.0 fL MILLENNIUM MCH 33.9 (H) 26.6 - CERNER 32.2 pg MILLENNIUM MCHC 32.1 32.0 - CERNER 36.5 gm/dL MILLENNIUM Platelets 310 145 - 370 CERNER x10(3)/mcL MILLENNIUM RDWSD 47.4 (H) 35.0 - CERNER 46.0 fL MILLENNIUM RDWCV 12.4 10.9 - CERNER 14.4 % [facility] MPV 10.2 9.0 - 12.0 [facility] Specimen Anatomical Collection Method Collection Time Receive d Time (Source) Location / / Volume Laterality Blood specimen 06/21/2010 3:46 PM 010 3:58 (specimen) EST PM EST Bobo Gomez MD HEMATOLOGY ORDERABLES Performing Organization Address City/State/[place] [address] [facility] documented in this encounter Visit Diagnoses Not on filedocumented in this encounter Care Teams Conservation Coordinator Relationship Specialty Start Date End Date Anabel Roa PA PCP - General 05/30/10 03/17/[address] [place] [id number] documented as of this encounter
--- OUTSIDE RECORDS SUMMARY | 2022-04-27 01:22 | XMS_ITS | Encounter Summary ---
:1965 Author Organization [facility] [place] [address] Care Team Providers Name Role Phone Anabel Roa Primary Care Provider [phone] Encounter Details Date Type Department Care Team Description 04/10/2011 Hospital Encounter Laboratory Mary Lima MD [address] [address] [place] [address] [phone] Social History Tobacco Use Types Packs/Day Years [...] Associated Diagnosis Comme nts SURGICAL PATHOLOGY Routine 04/10/2011 9:01 PM Res ults for this REPORT EDT procedure are i n the results section. documented in this encounter Results SURGICAL PATHOLOGY REPORT (04/10/2011 9:01 PM EDT) [facility] Method Time Signature Surgical CERNER Pathology ? [facility] Report ? Provider: ?? MARY LIMA ? Pt. Name: ?? ELICEO QUINTERO, CHERRIE Sow ? Acc #: ?[id number] ?Pt. MRN: ?[id number] ? Col Date: ?? 1 ? /Sex: ?1965,(46 years),Female ? Rec Date: ?? 04/10/2011 ? LOC: ?[facility] ? SURGICAL PATHOLOGY ? ---Pathologic Diagnosis--- ? Specimen Type: ? Cervical cone bio psy ? Lesion: ?HGSIL (LAVELLE II I) ? Margins ?Endocervical margin: ?Free of dysplasia a nd HPV effect ?Deep (bed of cone/LEEP): ??Free of dysplasia and HPV effect ?Ectocervical margin: ?Free of dysplasia a nd HPV effect ? Other: ? Squamous metaplasia and Nabothian ?cysts ? CR-0 ? 10/05/11 ? JLG ? 04/12/11 Verified by: ? Zaid GUTHRIE, Tristan Sow. ? Pathologist ? (Electronic Si gnature) ? The attending pathologist whose signature appears o n this report has ? reviewed all diagnostic slides and has edited the maury ss and/or ? microscopic portion of the report in rendering the fi nal pathologic ? diagnosis. ? ---Microscopic Description--- ? Slides reviewed, microscopic description not recorded . ? ---Gross Description--- ? Labeled/Fixative: ? Cold knife cone biopsy of cer vix, formalin. ? Qty/Size/Weight: ?Three pieces, ranging from 1.0 x 0.9 x 0.4 cm to ? 2.5 x 2.2 x 1.7 cm. ? Tissue Description: ?? The two smaller fragments are ? irregular portions of rubbery, yu- white stroma. ? The largest portion of tissue is a recognizable ? cervical cone biopsy with glistening, pink-william mucosa ? and a suture marking the presumed 12 o'clock ? position. ? Sections/Processing: ??The two smaller portions of tissue are sectioned and ? submitted separately in (1-2). ??The larger portion of ? tissue is inked, radially sectioned, and sequentially ? submitted from 1 to 12 o'clock in (3-18). ??(T18) ? aje/EJR ? ---Clinical Information--- ? Specimen Submitted: ? A - Cold-knife cone bx of cervix ? [facility] ? Provider: ?? MARY LIMA ? Pt. Name: ?? LAURACherie QUINTERO, CHERRIE Sow ? Acc #: ?[id number] ?Pt. MRN: ?[id number] ? Col Date: ?? 1 ? /Sex: ?1965,(46 years),Female ? Rec Date: ?? 04/10/2011 ? LOC: ?[facility] ? SURGICAL PATHOLOGY ? Clinical History/Diagnosis: ? HGSIL endocervix/LAVELLE II-III HGSIL at 1 o'clock, 12 o'clock ASCUS cannot R/O ? HGSIL ? Referring Identifier: ??[id number] Specimen (Source) Anatomical Collection Method Collection Time Re ceived Time Location / / Volume Laterality 04/10/2011 9:01 PM EDT Mary Lima MD PATHOLOGY/CYTOLOGY ORDERABLE S Performing Organization Address City/State/[place] [address] [facility] documented in this encounter Visit Diagnoses Not on filedocumented in this encounter Care Teams Rubber Goods Assembler Relationship Specialty Start Date End Date Anabel Roa PA PCP - General 05/30/10 03/17/[address] [place] [address] documented as of this encounter
--- OUTSIDE RECORDS SUMMARY | 2022-04-27 01:22 | XMS_ITS | Encounter Summary ---
:1965 Author Organization [place] [address] Care Team Providers Name Role Phone Anabel Roa Primary Care Provider [phone] Reason for Visit Reason Comments Follow-up Encounter Details Date Type Department Care Team Description 02/28/2011 Hospital Encounter Hematology and [facility] Oncology at [facility] [place] [address] HEMATOLOGY/ONCOLOGY [phone] DEPT. [place], [place] [address] (Wo rk) Social History Tobacco Use Types Packs/Day Years Used Date Never Smoker Smokeless Tobacco: Never Used Sex Assigned at Date Recorded Not on file documented as of this encounter Last Filed Vital Signs Vital Sign Reading Time Taken Comments Blood Pressure 94/60 02/28/2011 4:24 PM EDT Pulse 77 02/28/2011 4:24 PM EDT Temperature 37 ??C (98.6 ??F) 02/28/2011 4:24 PM EDT Respiratory Rate 16 02/28/2011 4:24 PM EDT Oxygen Saturation 96% 02/28/2011 4:24 PM EDT Inhaled Oxygen Concentration - - Weight 61 kg (134 lb 7.7 oz) 02/28/2011 4:24 PM EDT Height 175 cm (5' 8.9) 02/28/2011 4:24 PM EDT Body Mass Index 19.92 02/28/2011 4:24 PM EDT documented in this encounter Medications at [...] encounter Progress Notes Bobo Gomez MD - 03/08/2011 3:11 PM EDTEncounter addended by: Bobo Gomez MD on: 03/08/2011 3:11 PM
Documentation filed: Inpatient Notes Bobo Gomez MD - 03/05/2011 9:30 AM EDTEncounter addended by: Bobo Gomez MD on: 03/05/2011 9:30 AM
Documentation filed: Inpatient Notes Bobo Gomez MD - 02/28/2011 4:40 PM EDT Subjective: Patient ID: Cherrie Forrest is a 45 y.o. female, who returns in followup for treatment and managementof her breast cancer, and other medical problems. HPI Problem List: 1. Infiltrating ductal carcinoma, left breast, 10 a. ~ 1-cm cancer, poorly differentiated, ER/MO-, HER2/ami - ([facility]), 1/6 sentinel nodes, ~ 1 mm focus [...] qHS. 6. H/O possible iron deficiency anemia. Cherrie returns in followup. Overall, she has been doing relatively well clinically over the last four months since I had last seen her. Probably about three or four weeks ago she thinks she noted the onset of some very focal pain mostly with activity in her upper left neck really sort of at the base of the skull just below the hairline. She believes this is merely some muscle strain. She had been doing some heavy lifting at work about four weeks ago. The discomfort develops now primarily when she twists here neck or when she moves her neck in certain ways. She has been using some occasional heat and finding this helpful. It has been mild overall. She has no other new musculoskeletal complaints. She has no breast symptoms. She did undergo a Pap smear she thinks about two weeks ago and her understanding is that the Pap smear came back demonstrating high-risk squamous cells of unknown significance. She has seen her fur examiner for this and a colposcopy is scheduled. Her energy level currently is excellent. Her Synthroid has not been adjusted since I had seen her previously. Review of Systems Except as noted above, [...] Unchanged from prior exam, s/p bilateral MRM with recon. Cor: RRR, S1, S2. No murmur, rub, or S3 present. Abdomen: Bowel sounds unremarkable, soft, nontender with no palpable HSM or other abnormalities. Extremities without significant cyanosis, clubbing, or edema. Neurologic Exam: Grossly nonfocal, cranial nerve's III - XII unremarkable, DTR's symmetric throughout. Assessment and Plan: No problem-specific visit notes found for this encounter. Laboratory: Per flow sheet. Unremarkable. T3, T4 unremarkable. TSH pending. A/P: Overall, Cherrie is doing well. I think that her left superolateral, very focal neck pain probably is due to musculoskeletal strain. She knows to call if this does not resolve or becomes more severe. She will try using warm compresses more regularly and try to be a little less active with things that may aggravated it. Followup will be scheduled in Oncology in about four months. Cc: Dr. Mary [place], [facility], [place], [place] documented in this encounter Plan of Treatment Not on filedocumented as of this encounter Procedures Procedure Name Priority Date/Time Associated Comments Diagnosis DIFFERENTIAL, STAT 02/28/2011 4:07 PM Results for this AUTOMATED EDT procedure are i n the results section. VITAMIN D, 25-HYDROXY Routine 02/28/2011 4:07 PM Breast cancer Results for this EDT procedure are i n the results section. CBC (WITH DIFF) STAT 02/28/2011 4:07 PM Breast cancer Resul ts for this EDT procedure are i n the results section. T3 TOTAL Routine 02/28/2011 4:07 PM Breast cancer Results for this EDT procedure are i n the results section. TSH Routine 02/28/2011 4:07 PM Breast cancer Results for this EDT procedure are i n the results section. T4 TOTAL Routine 02/28/2011 4:07 PM Breast cancer Results for this EDT procedure are i n the results section. COMPREHENSIVE STAT 02/28/2011 4:07 PM Breast cancer Results for this METABOLIC PANEL EDT procedure ar e in (NON-FASTING) the results section. documented in this encounter Results (ABNORMAL) Comprehensive metabolic panel (non-fasting) (06/06/2011 4:11 PM EST) P athologist Signature Glucose Lvl 96 60 - 199 CERNER mg/dL [facility] Comment: Diabetes: >=200 mg/dL plus symp [...] Organization Address City/State/[place] [address] CERNER [facility] (ABNORMAL) CBC (with Diff) (06/06/2011 4:11 PM [...] RDWCV 12.5 10.9 - CERNER 14.4 % [facility] MPV 10.1 9.0 - 12.0 CERNER fL [facility] Specimen Anatomical Collection Method Collection Time Receive d Time (Source) Location / / Volume Laterality Blood specimen 06/06/2011 4:11 PM 011 4:21 (specimen) EST PM EST Bobo Gomez MD HEMATOLOGY ORDERABLES Performing Organization Address City/State/ZIP Code Phon e Number [place] [id number] CERNER [facility] REFLEX LAB-A-DIFF (02/28/2011 4:07 PM EDT) P athologist Signature Neutrophils % 51.7 34.0 - CERNER 71.0 % [facility] Neutr Abs (ANC) 3.38 1.50 - CERNER 6.30 [facility] x10(3)/mcL Lymphocytes % 37.9 19.0 - CERNER 53.0 % [facility] Lymphocytes Abs 2.5 1.0 - 3.6 CERNER x10(3)/mcL [facility] Monocytes % 7.6 4.0 - 13.0 CERNER % [facility] Monocyte Abs 0.5 0.2 - 1.0 CERNER x10(3)/mcL [facility] Eosinophils % 2.1 0.0 - 7.0 CERNER % [facility] Eosinophils Abs 0.1 0.0 - 0.5 CERNER x10(3)/mcL [facility] Basophils % 0.5 0.0 - 2.0 CERNER [...] Organization Address City/State/ZIP Code Phon e Number [address] [facility] Vitamin D2 and D3 25 Hydroxy (02/28/2011 4:07 PM EDT) P athologist Signature 25-Hydroxy D2 <4.0 ng/mL [facility] Comment: Test Performed by: [facility] [place] [address] [place] Man: Alondra Maldonado, Ph. D. 25-Hydroxy D3 42 ng/mL [facility] Comment: Test Performed by: [facility] [place] [address] [place] Man: Alondra Maldonado, Ph. D. 25-OH Vit D Total 42 ng/mL [facility] Comment: -- REFERENCE VALUE -- 25-HYDROXY D TOTAL (D2+D3) Optimum levels in the normal population are 25-80 Test Performed by: [facility] [place] [address] [place] Man: Alondra Maldonado, Ph. D. Specimen Anatomical Collection Method Collection Time Receive d Time (Source) Location / / Volume Laterality Blood specimen 02/28/2011 4:07 PM 011 5:08 (specimen) EDT PM EDT Bobo Gomez MD CHEMISTRY ORDERABLES Performing Organization Address City/[facility]/ZIP Code Phon e Number [address] [facility] (ABNORMAL) TSH (02/28/2011 4:07 PM EDT) P athologist Signature TSH 0.02 (L) 0.27 - 4.20 CERNER mcIU/mL [facility] Specimen Anatomical Collection Method Collection Time Receive d Time (Source) Location / / Volume Laterality Blood specimen 02/28/2011 4:07 PM 011 4:12 (specimen) EDT PM EDT Bobo Gomez MD CHEMISTRY ORDERABLES Performing Organization Address City/State/ZIP Code Phon e Number [address] CERNER [facility]ENNIUM (ABNORMAL) T4 (02/28/2011 4:07 PM EDT) athologist [facility] T4, total 11.1 (H) 5.1 - 10.8 CERNER mcg/dL [facility] Comment: Reference Range: Cord Blood: ??6.9-14.4 mcg/dL Females: ??7.2-14.2 mcg/dL Pediatric ranges: ??Interpret with cauti on-ranges have not been verified Specimen Anatomical Collection Method Collection Time Receive d Time (Source) Location / / Volume Laterality Blood specimen 02/28/2011 4:07 PM 011 4:12 (specimen) EDT PM EDT Bobo Gomez MD CHEMISTRY ORDERABLES Performing Organization Address City/[facility]/ZIP Code Phon e Number [address] [facility] T3 (02/28/2011 4:07 PM EDT) [facility] T[facility], Total 108 75 - 170 CERNER ng/dL [facility] Specimen Anatomical Collection Method Collection Time Receive d Time (Source) Location / / Volume Laterality Blood specimen 02/28/2011 4:07 PM 011 4:12 (specimen) EDT PM EDT Bobo Gomez MD CHEMISTRY ORDERABLES Performing Organization Address City/[facility] Code Phon e Number [address] [facility] (ABNORMAL) Comprehensive metabolic panel (CMP) (02/28/2011 4:07 PM EDT) [facility] Glucose Lvl 86 60 - 199 CERNER [...] Gomez MD CHEMISTRY ORDERABLES Performing Organization Address City/[facility]/[place] [address] CERNER MILLENNIUM (ABNORMAL) CBC (with Diff) (02/28/2011 4:07 PM EDT) P athologist Signature WBC 6.5 4.0 - 10.0 [...] Gomez MD HEMATOLOGY ORDERABLES Performing Organization Address City/[facility]/[place] [address] [facility] documented in this encounter Visit Diagnoses Diagnosis Breast cancer Malignant neoplasm of breast (female), u nspecified site documented in this encounter Care Teams General Accounting Manager Relationship Specialty Start Date End Date Anabel Roa PA PCP - General 05/30/10 03/17/[address] [place] [address] documented as of this encounter
--- OUTSIDE RECORDS SUMMARY | 2022-04-27 01:23 | XMS_ITS | Encounter Summary ---
:1965 Author Organization [facility] Address [address] [address] Care Team Providers Name Role Phone Unavailable Primary Care Provider Unavailable Encounter Details Date Type Department Care Team Description 11/04/2009 Ancillary Procedure Radiology [facility] at [facility], [address] [address] [place] [address] [phone] Social History Tobacco Use Types Packs/Day Years Used Date Never Assessed Sex Assigned at Date Recorded Not on file documented as of this encounter Plan of Treatment Not on filedocumented as of this encounter Procedures Procedure Name Priority Date/Time Associated Diagnosis Comme nts FILM Routine 11/04/2009 12:00 AM Results for this LIBRARY-STORAGE EDT procedure ar e in ONLY US BREAST the results section. documented in this encounter Results Film Library Storage Only US Breast (11/04/2009 12:00 AM EDT) Specimen (Source) Anatomical Location Collection Method / Collectio n Time Received Time / Laterality Volume Narrative RAD - 07/28/2021 1:53 PM EST This exam is auto-finalizing. It's purpo se is for storage only. Robin Mireles DO [facility] FILM LIBRARY ORDERABLES Performing Organization Address City/State/ZIP Code Phon e Number RAD [place], [place] documented in this encounter Visit Diagnoses Not on filedocumented in this encounter
--- OUTSIDE RECORDS SUMMARY | 2022-04-27 01:23 | XMS_ITS | Encounter Summary ---
:1965 Author Organization [place] [address] Care Team Providers Name Role Phone Unavailable Primary Care Provider Unavailable Encounter Details Date Type Department Care Team Description 11/22/2009 Ancillary Procedure [facility] [address] [address] [place] [address] [phone] Social History Tobacco Use Types Packs/Day Years Used Date Never Assessed Sex Assigned at Date Recorded Not on file documented as of this encounter Plan of Treatment Not on filedocumented as of this encounter Procedures Procedure Name Priority Date/Time Associated Diagnosis Comme [facility] FILM LIBRARY Routine 11/22/2009 12:05 AM Results for this STORAGE ONLY MAMMO EDT procedure are in the results section. documented in this encounter Results Film Library- Storage Only Mammo (11/22/2009 12:05 AM EDT) Specimen (Source) Anatomical Location Collection Method / Collectio n Time Received Time / Laterality Volume Narrative RAD - 07/28/2021 1:53 PM EST This exam is auto-finalizing. It's purpo se is for storage only. Robin Mireles DO [facility] FILM LIBRARY ORDERABLES Performing Organization Address City/State/ZIP Code Phon e Number RAD [place], [place] documented in this encounter Visit Diagnoses Not on filedocumented in this encounter
--- OUTSIDE RECORDS SUMMARY | 2022-04-27 01:23 | XMS_ITS | Encounter Summary ---
:1965 Author Organization [facility] Address [facility] [address] [place] [address] Care Team Providers Name Role Phone Unavailable Primary Care Provider Unavailable Encounter Details Date Type Department Care Team Description 11/22/2009 Ancillary Procedure Rad[facility] at [facility], [address] [address] [place] [address] [phone] Social History Tobacco Use Types Packs/Day Years Used Date Never Assessed Sex Assigned at Date Recorded Not on file documented as of this encounter Plan of Treatment Not on filedocumented as of this encounter Procedures Procedure Name Priority Date/Time Associated Diagnosis Comme nts FILM Routine 11/22/2009 12:00 AM Results for this LIBRARY-STORAGE EDT procedure ar e in ONLY US BREAST the results section. documented in this encounter Results Film Library Storage Only US Breast (11/22/2009 12:00 AM EDT) Specimen (Source) Anatomical Location Collection Method / Collectio n Time Received Time / Laterality Volume Narrative RAD - 07/28/2021 1:53 PM EST This exam is auto-finalizing. It's purpo se is for storage only. Robin Mireles DO [facility] FILM LIBRARY ORDERABLES Performing Organization Address City/State/ZIP Code Phon e Number RAD [place], [place] documented in this encounter Visit Diagnoses Not on filedocumented in this encounter
--- OUTSIDE RECORDS SUMMARY | 2022-04-27 01:23 | XMS_ITS | Encounter Summary ---
:1965 Author Organization [facility] Address [address] [place] [address] Care Team Providers Name Role Phone Unavailable Primary Care Provider Unavailable Encounter Details Date Type Department Care Team Description 11/04/2009 Ancillary Procedure Rad[facility] [address] [address] [place] [address] [phone] Social History Tobacco Use Types Packs/Day Years Used Date Never Assessed Sex Assigned at Date Recorded Not on file documented as of this encounter Plan of Treatment Not on filedocumented as of this encounter Procedures Procedure Name Priority Date/Time Associated Diagnosis Comme [facility] FILM LIBRARY Routine 11/04/2009 12:05 AM Results for this STORAGE ONLY MAMMO EDT procedure are in the results section. documented in this encounter Results Film Library- Storage Only Mammo (11/04/2009 12:05 AM EDT) Specimen (Source) Anatomical Location Collection Method / Collectio n Time Received Time / Laterality Volume Narrative RAD - 07/28/2021 1:54 PM EST This exam is auto-finalizing. It's purpo se is for storage only. Robin [facility] DO [facility]M LIBRARY ORDERABLES Performing Organization Address City/State/ZIP Code Phon e Number RAD [place], [place] documented in this encounter Visit Diagnoses Not on filedocumented in this encounter
--- OUTSIDE RECORDS SUMMARY | 2022-04-27 01:23 | XMS_ITS | Encounter Summary ---
:1965 Author Organization [facility] Address [facility] [place] [address] Care Team Providers Name Role Phone Unavailable Primary Care Provider Unavailable Encounter Details Date Type Department Care Team Description 11/18/2009 Ancillary Procedure [facility] [address] [address] [place] [address] [phone] Social History Tobacco Use Types Packs/Day Years Used Date Never Assessed Sex Assigned at Date Recorded Not on file documented as of this encounter Plan of Treatment Not on filedocumented as of this encounter Procedures Procedure Name Priority Date/Time Associated Diagnosis Comme [facility] FILM LIBRARY Routine 11/18/2009 12:00 AM Results for this STORAGE ONLY DX EDT procedure ar e in CHEST the results section. documented in this encounter Results Film Library- Storage Only DX Chest (11/18/2009 12:00 AM EDT) Specimen (Source) Anatomical Location Collection Method / Collectio n Time Received Time / Laterality Volume Narrative RAD - 07/28/2021 1:50 PM EST This exam is auto-finalizing. It's purpo se is for storage only. Robin Mireles DO [facility] FILM LIBRARY ORDERABLES Performing Organization Address City/State/ZIP Code Phon e Number RAD [place], [place] documented in this encounter Visit Diagnoses Not on filedocumented in this encounter
[2022-04-27] MEDS: Normal Saline Flush 10 ML SYR IVP (07:42)
[2022-04-27] MEDS: IRON SUCROSE COMPLEX 200 MG in Normal Saline 100 ML 440 MG IVPB (07:42)
[2022-04-27 09:15] LABS: Iron 630 ug/dL (50-170); Total Iron Binding Capacity 697 ug/dL (250-450); Transferrin Sat 90 % (15-50)
[2022-05-04] MEDS: Normal Saline Flush 10 ML SYR IVP (07:43)
[2022-05-04] MEDS: IRON SUCROSE COMPLEX 200 MG in Normal Saline 100 ML 440 MG IVPB (07:43)
[2022-05-04 11:06] LABS: Iron 70 ug/dL (50-170); Total Iron Binding Capacity 341 ug/dL (250-450); Transferrin Sat 21 % (15-50)
== END 2022-05-07 23:59 | disposition home or self-care (01) ==
LOC: INF 01:24
PROVIDERS: PCP Student in an Organized Health Care Education/Training Program; Visit Provider Student in an Organized Health Care Education/Training Program
DX: D64.9 Anemia, unspecified (principal)
CPT/HCPCS: 36415; 96365; 83540; 83550; J1756

== ENCOUNTER 2022-05-24 14:30 | Outpatient (RCR) | payer OTHER, SELFPAY ==
[2022-05-10] MEDS: IRON SUCROSE COMPLEX 200 MG in Normal Saline 100 ML 440 MG IVPB (13:44)
[2022-05-10] MEDS: Normal Saline Flush 10 ML SYR IVP (14:07)
[2022-05-15] MEDS: Normal Saline Flush 10 ML SYR IVP (14:36)
[2022-05-15] MEDS: IRON SUCROSE COMPLEX 200 MG in Normal Saline 100 ML 440 MG IVPB (14:36)
[2022-05-24] MEDS: IRON SUCROSE COMPLEX 200 MG in Normal Saline 100 ML 440 MG IVPB (14:40)
[2022-05-24] MEDS: Normal Saline Flush 10 ML SYR IVP (14:40)
== END 2022-06-06 23:59 | disposition home or self-care (01) ==
LOC: INF 14:30
PROVIDERS: PCP Student in an Organized Health Care Education/Training Program; Visit Provider Student in an Organized Health Care Education/Training Program
DX: G25.81 Restless legs syndrome (principal); E61.1 Iron deficiency
CPT/HCPCS: 96365; J1756

== ENCOUNTER 2022-08-30 12:45 | Outpatient (CLI) | payer OTHER, SELFPAY ==
[2022-08-30 09:55] LABS: HCT 40.8 % (36.0-46.0); HGB 13.2 g/dL (11.2-15.7); MCH 30.8 pg (27.0-33.0); MCHC 32.4 % (32.0-36.0); MCV 95 fL (80-95); MPV 9.6 fL (8.0-11.0); Platelet Count 275 10^3/uL (130-400); RBC 4.28 10^6/uL (3.93-5.22); RDW 14.3 % (11.7-14.6); RDW-SD 49.8 fL; WBC 5.98 10^3/uL (4.4-10.8)
[2022-08-30 11:16] LABS: Iron 105 ug/dL (50-170); Total Iron Binding Capacity 274 ug/dL (250-450); Transferrin Sat 38 % (15-50)
[2022-08-30 11:26] LABS: Calculated LDL 91 mg/dL (<100); Cholesterol 201 mg/dL (<200); Ferritin 150 ng/mL (8-252); HDL Cholesterol 101 mg/dL (40-60); TSH (W/Ref FT4) 2.88 uIU/mL (0.36-3.74); Triglyceride 45 mg/dL (<150)
[2022-08-30 11:36] LABS: Vitamin D 25 Total 30.8 ng/mL (30-100)
== END 2022-08-30 12:46 | disposition home or self-care (01) ==
LOC: LBO 12:45
PROVIDERS: PCP Student in an Organized Health Care Education/Training Program; Visit Provider Nurse Practitioner Family
DX: D64.9 Anemia, unspecified (principal); E78.00 Pure hypercholesterolemia, unspecified; E03.9 Hypothyroidism, unspecified; E55.9 Vitamin D deficiency, unspecified; E61.1 Iron deficiency; F90.8 Attention-deficit hyperactivity disorder, other type; Z86.2 Personal history of diseases of the blood and blood-forming organs and certain disorders involving the immune mechanism; Z79.899 Other long term (current) drug therapy
CPT/HCPCS: 36415; 80061; 82306; 85027; 82728; 83540; 83550; 84443

== ENCOUNTER 2022-11-02 12:00 | Outpatient (CLI) | payer OTHER, SELFPAY ==
[2022-11-02 13:02] LABS: TSH (W/Ref FT4) 0.19 uIU/mL (0.36-3.74)
== END 2022-11-02 12:01 | disposition home or self-care (01) ==
LOC: LOS 12:09
PROVIDERS: PCP Student in an Organized Health Care Education/Training Program; Visit Provider Student in an Organized Health Care Education/Training Program
DX: E03.9 Hypothyroidism, unspecified (principal); T67.9XXA Effect of heat and light, unspecified, initial encounter; Z86.39 Personal history of other endocrine, nutritional and metabolic disease
CPT/HCPCS: 36415; 84439; 84443

== ENCOUNTER 2023-02-25 14:24 | Outpatient (RCR) | payer OTHER, SELFPAY ==
[2023-02-25 14:36] LABS: HGB 12.5 g/dL (11.2-15.7)
[2023-02-25 14:56] LABS: Iron 98 ug/dL (50-170); Total Iron Binding Capacity 255 ug/dL (250-450); Transferrin Sat 38 % (15-50)
[2023-02-25 14:58] LABS: Anion Gap 7.5 mmol/L (3-11); BUN 17 mg/dL (7-18); CO2 28.5 mmol/L (21.0-32.0); Calcium 8.9 mg/dL (8.5-10.1); Chloride 105 mmol/L (98-107); Glucose 101 mg/dL (74-106); Sodium 141 mmol/L (136-145)
[2023-02-25 15:15] LABS: FREE T4 0.67 ng/dL (0.76-1.46)
[2023-02-25 15:19] LABS: Vitamin D 25 Total 27.8 ng/mL (30-100)
== END 2023-03-07 23:59 | disposition home or self-care (01) ==
LOC: INF 14:24
PROVIDERS: PCP Student in an Organized Health Care Education/Training Program; Visit Provider Student in an Organized Health Care Education/Training Program
DX: Z13.1 Encounter for screening for diabetes mellitus (principal); Z91.89 Other specified personal risk factors, not elsewhere classified; E46 Unspecified protein-calorie malnutrition; Z86.2 Personal history of diseases of the blood and blood-forming organs and certain disorders involving the immune mechanism; E06.9 Thyroiditis, unspecified; E61.1 Iron deficiency; G25.81 Restless legs syndrome
CPT/HCPCS: 36415; 80048; 82306; 83540; 83550; 84439; 84443; 85018

== ENCOUNTER 2024-09-16 13:12 | Outpatient (CLI) | payer OTHER, SELFPAY ==
--- NOTE | 2024-09-16 12:45 | DI.RAD_ITS ---
Exam(s) XR CHEST 2V PA LATERAL EXAM: XR CHEST 2V PA LATERAL CLINICAL HISTORY: hx breast cancer,facial swelling,r22.0,z85.3 TECHNIQUE: 2D digital imaging was performed of the chest. Two images were obtained. PA and lateral views were obtained. COMPARISON: CR,RF RF BARIUM SWALLOW from 06/14/2021 FINDINGS: MEDIASTINUM: Normal. HEART: Normal. PULMONARY VASCULATURE: Normal. LUNGS: There is again seen scarring in the lung apices which is stable. No focal consolidating infil trates are present. The lungs are clear. The lungs appear hyperinflated. PLEURAL SPACE: No pleural effusion or pneumothorax. BONE:Within normal limits for the patient's age. OTHER FINDINGS:Normal. IMPRESSION: No acute pulmonary findings. DATA REPOSITORY: RADIATION DOSE DELIVERED:
== END 2024-09-16 13:32 ==
LOC: DI 13:17
PROVIDERS: PCP Student in an Organized Health Care Education/Training Program; Visit Provider Nurse Practitioner Family
DX: Z85.3 Personal history of malignant neoplasm of breast (principal); R22.0 Localized swelling, mass and lump, head
CPT/HCPCS: 71046

== ENCOUNTER 2024-12-03 09:22 | Outpatient (CLI) | payer OTHER, SELFPAY ==
--- NOTE | 2024-12-03 09:15 | RT.EKG_ITS ---
APPROVED REPORT Exam: Resting ECG Reason for Exam: preop testing Patient Location: O HR:75 bpm ECG Measurements Heart Rate 75 AXIS MI 141 P 75 QRSd 89 QRS 62 QT 387 T 61 QTc 433 Conclusion Sinus rhythm...normal P axis, V-rate 50- 99 Normal Electrocardiogram
== END 2024-12-03 09:23 | disposition home or self-care (01) ==
LOC: DI.KIM 09:23
PROVIDERS: PCP Nurse Practitioner Family; Visit Provider Family Medicine
DX: Z01.818 Encounter for other preprocedural examination (principal)
CPT/HCPCS: 93010